=== PATIENT | female | born 1985 | race Caucasian/White ===

== ENCOUNTER 2018-05-13 18:54 | Emergency (ER) | payer MEDICAID, SELFPAY ==
[2018-05-13 18:55] VITALS: BP 162/93; PULSE 138; RESP 16; TEMP 36.6; O2SAT 97; BMI 39.1
[2018-05-13] MEDS: 0.9% Normal Saline 1,000 ML 1000 ML IV (21:50)
[2018-05-13] MEDS: Ondansetron 4 MG/2 ML Vial IV (21:50)
[2018-05-13 22:36] LABS: Bacteria 0 SEEN /hpf (None Seen); Mucous, Urine 0 SEEN /hpf (<or=2+); Red Blood Cells-Urine 0 SEEN /hpf (0-5)
[2018-05-13 22:42] LABS: Color, Urine Yellow (Yellow)
[2018-05-13 22:43] LABS: Glucose, Dipstick Normal (Normal); Ketone-Dipstick Negative (Negative); Leukocyte Esterase-Dipstick 100 /ul (Negative); Nitrite-Dipstick Negative (Negative); Occult Blood-Urine Negative /ul (Negative); Protein-Dipstick Negative (Negative); Urine Bilirubin Dipstick Negative (Negative); Urine Clarity Sl Cldy (Clear); Urine Urobilinogen Normal (Normal)
[2018-05-13 22:45] LABS: Squamous Epithelial Cells - UA 5-10 SEEN /hpf (5-10); White Blood Cells 5-10 SEEN /hpf (0-5)
--- NOTE | 2018-05-13 22:55 | ED.VISSUMM ---
- ER Visit Summary Date of Service: 05/13/18 Chief Complaint: Nausea and vomiting History of Present Illness: The patient is a 33 F no dyspnea past medical history. Prior appendectomy. Patient states she has had nausea and vomiting since 2 AM this morning. No significant abdominal pain. No fever. Several weeks ago she had a UTI that she thinks did not completely clear. She is having very mild dysuria. No hematuria. Her last menstrual period was approximately 3-4 weeks ago. Physical Examination: Well-appearing young female. Vital signs are stable afebrile. She is tachycardic. H EENT exam mildly dry mucous membranes. Neck nontender. Lungs clear to auscultation bilaterally. Heart tachycardic no murmur. Abdomen soft. Nondistended with normal bowel sounds. No peritoneal signs. Both right upper and lower quadrant unremarkable. No hernia or masses. No signs of obstruction. Patient moving all 4 extremities. Neurovascular intact. Calves are nontender without edema or cords. Neurologically she is awake and alert. Test Results: Urinalysis was unremarkable. There were 5-10 whites and 5-10 reds. A culture will be sent but there is no bacteria or nitrates and clinically I do not think this is a UTI. Emergency Department Course and Treatment: Patient treated with IV fluids and IV Zofran. She was able to take down p.o. fluids. On repeat exam she is doing well at 2257 and will be discharged home with a Zofran home pack. Treatment Plan: Fluids and rest. Zofran for nausea. Follow-up if not improving or return if worse. Disposition: Discharge Impression: Acute nausea and vomiting secondary to viral syndrome Dehydration This note was generated with [employer] dictation software. It may contain incorrect words, spelling, and punctuation that were not noted in review of the chart prior to signing ED Disposition - Plan for ED Patient: Chief Complaint: Nausea/Vomiting Referrals: Care Physician,No Primary [Primary Care Provider] -
--- NOTE | 2018-05-13 22:57 | ED.DEP ---
ED Disposition - Plan for ED Patient: Disposition: Home or Assisted Living Chief Complaint: Nausea/Vomiting Instructions: ED Nausea Vomiting Prescriptions: Ondansetron [Zofran Odt] 4 mg PO 4X/DAY PRN PRN #7 tab.rapdis PRN Reason: Nausea Referrals: Care Physician,No Primary [Primary Care Provider] - Additional Instructions: Plenty of fluids and rest. Zofran as needed for nausea. Follow-up with your doctor. Your urinalysis did not look like a urinary tract infection. I did send urine culture.
[2018-05-13] MEDS: Ondansetron ODT 4 MG Tablet PO (23:14)
[2018-05-13 23:17] VITALS: BP 122/91; PULSE 91; RESP 16; O2SAT 99
== END 2018-05-13 23:20 | disposition home or self-care (01) ==
PROVIDERS: Emergency Provider Emergency Medicine
DX: B34.9 Viral infection, unspecified (principal); E86.0 Dehydration; R30.0 Dysuria
CPT/HCPCS: 81001; 87086; 87088; 96361; 96374; 99283; J7030; A4216; J2405

== ENCOUNTER 2018-07-17 17:54 | Emergency (ER) | payer MEDICAID, SELFPAY ==
[2018-07-17 17:55] VITALS: BP 165/133; PULSE 103; RESP 16; TEMP 36.7; O2SAT 98; BMI 41.5
--- NOTE | 2018-07-17 18:05 | CT_ITS ---
STUDY: CT ABDOMEN AND PELVIS WITHOUT CONTRAST REASON FOR EXAM: Female, 33 years old. Left flank pain. RADIATION DOSAGE (If Supplied By Facility): CTDIvol = ( 21.69 ) mGy, DLP = ( 1224.61 ) mGycm TECHNIQUE: Transaxial images were obtained from the dome of the diaphragm to the symphysis pubis without oral contrast, and without intravenous contrast. Sagittal and coronal images were reconstructed. Individualized dose optimization techniques were used for this CT. COMPARISON: CT of the abdomen, July 22, 2007. FINDINGS: The visualized lung bases are unremarkable. The visualized portions of the heart are within normal limits. The liver is enlarged and diffusely fatty infiltrated. There is focal fatty sparing in the gallbladder fossa. There is no visualized mass. Normal gallbladder and extrahepatic biliary system. There is mild splenomegaly without mass. Normal pancreas. Normal bilateral adrenal glands. The right kidney is of normal size and cortical thickness. There is a 1 to 2 mm nonobstructing calculus in the upper pole. There is a 2 mm nonobstructing calculus lower pole. There is no hydronephrosis. Normal visualized right ureter. The left kidney is of normal size and cortical thickness. There is a 2 to 3 mm calcification in a mid calyx. There is no hydronephrosis. Normal visualized left ureter. Normal visualized stomach. Normal small intestine. Normal colon. There are surgical clips in the region of the appendix consistent with a prior appendectomy. Normal abdominal aorta. Normal inferior vena cava. Normal retroperitoneum. Normal urinary bladder. The uterus is anteverted and of normal size and appearance. Normal adnexa. There is no pelvic lymphadenopathy. Stable phlebolith right pelvis. No free air or free fluid is seen within the peritoneal cavity. Normal abdominal wall. Normal osseous structures. CT/Abdomen/Pelvis without Cont IMPRESSION: 1. Nonobstructing bilateral renal calculi. These are not noted on the previous contrast study. 2. Enlarged fatty infiltrated liver without focal mass. 3. Minimal splenomegaly. 4. Resolution of free fluid seen in the posterior cul-de-sac on the prior study. The examination is otherwise grossly stable. Electronically Signed: Tom Long DO at 19:23 EST Tel [phone], Service support ,
--- NOTE | 2018-07-17 18:07 | ED.VISSUMM ---
- ER Visit Summary Date of Service: 07/17/18 Chief Complaint: Left flank pain History of Present Illness: The patient is a 33 F who states that she has had a left flank pain off and on for several weeks. This afternoon it became more intense. Is been waxing and waning. Sharp aching. No nausea or vomiting. No diarrhea or constipation. There is been no urinary frequency, hematuria, or dysuria. Pain is worse with movement. No trauma. No fevers. Physical Examination: Afebrile vital signs are stable Gen: Well-nourished well-developed Head: Normocephalic atraumatic Eyes: Perrl EOMI ENT: TMs clear no rhinorrhea moist mucous membranes Neck: Supple no lymphadenopathy no JVD nontender CVS: Regular rate rhythm no murmurs normal S1-S2 Respiratory: No distress clear to auscultation bilaterally chest nontender Abdomen: Soft nontender nondistended normal bowel sounds no masses Back: Left CVA tenderness. No rash. Extremity: Nontender no edema Skin: Normal color no rash Neuro: alert orientated ?3 CN II-XII intact normal strength sensation reflexes gait cerebellar Psych: Normal affect normal mood Test Results: Urinalysis negative for infection. CT of the flank did not demonstrate any obvious obstructive stones. There is no perinephric stranding. CT does not demonstrate an obvious cause for the patient's symptoms. Emergency Department Course and Treatment: Patient received Toradol it helped for a while. I will write for Toradol at home. She is to return if worsening or concerns follow-up with primary care. Impression: 1. Left flank pain This note was generated with [employer] dictation software. It may contain incorrect words, spelling, and punctuation that were not noted in review of the chart prior to signing ED Disposition - Plan for ED Patient: Disposition: Home or Assisted Living Instructions: ED Flank Pain Uncertain Cause Prescriptions: Ketorolac [Toradol] 10 mg PO Q6H PRN #12 tab PRN Reason: Pain Referrals: Zachery Moreira MD [STAFF PHYSICIAN] -
[2018-07-17] MEDS: Ketorolac 30 MG/ML Syringe IV (18:15)
[2018-07-17 18:23] LABS: Mucous, Urine 0 SEEN /hpf (<or=2+); Red Blood Cells-Urine 0 SEEN /hpf (0-5)
[2018-07-17 18:35] LABS: Internal QC Validated? YES +Cl - CLEAR BKGD; Pregnancy, Urine Negative Negative
[2018-07-17 18:39] LABS: Color, Urine Yellow (Yellow); Glucose, Dipstick Normal (Normal); Ketone-Dipstick Negative (Negative); Leukocyte Esterase-Dipstick 100 /ul (Negative); Nitrite-Dipstick Negative (Negative); Occult Blood-Urine Negative /ul (Negative); Protein-Dipstick 15 mg/dl (Negative); Specific Gravity, Urine 1.015 (1.002-1.030); Urine Bilirubin Dipstick Negative (Negative); Urine Clarity Clear (Clear); Urine Urobilinogen Normal (Normal)
[2018-07-17 18:47] LABS: Bacteria RARE /hpf (None Seen); Squamous Epithelial Cells - UA 5-10 SEEN /hpf (5-10); White Blood Cells 0-5 SEEN /hpf (0-5)
[2018-07-17 19:58] VITALS: BP 143/97; PULSE 100; RESP 15; O2SAT 98
== END 2018-07-17 20:00 | disposition home or self-care (01) ==
PROVIDERS: Emergency Provider Emergency Medicine
DX: R10.9 Unspecified abdominal pain (principal); Z87.442 Personal history of urinary calculi
CPT/HCPCS: 74176; 81001; 81025; 99283; A4216

== ENCOUNTER → 2018-10-02 16:48 | Outpatient (CLI) | payer MEDICAID, SELFPAY ==
[2018-10-02 08:53] VITALS: BMI 41.5
[2018-10-03 12:55] LABS: Chlamydia Trachomatis by PCR Negative (Negative); Neisserai gonorrhoeae by PCR Negative (Negative); Probe Check PASS; Sample Adequacy Control PASS; Specimen Processing Control PASS
[2018-10-09 08:54] LABS: HPV APTIMA, High Risk Positive (Negative)
== END ==
PROVIDERS: Referring Provider Nurse Practitioner Women's Health; Visit Provider Nurse Practitioner Women's Health
DX: Z11.3 Encounter for screening for infections with a predominantly sexual mode of transmission (principal); Z01.419 Encounter for gynecological examination (general) (routine) without abnormal findings
CPT/HCPCS: 87491; 87591; 87624; 88175; G0145

== ENCOUNTER → 2018-10-04 13:45 | Outpatient (CLI) | payer MEDICAID, SELFPAY ==
[2018-10-02 08:53] VITALS: BMI 41.5
--- NOTE | 2018-10-04 13:46 | US_ITS ---
STUDY: ULTRASOUND OF THE FEMALE PELVIS - COMPLETE REASON FOR EXAM: Female, 33 years old. Menorrhagia LMP: 09/20/2018 TECHNIQUE: Transabdominal and Transvaginal TECHNICAL QUALITY: Adequate. COMPARISON: CT dated July 17, 2018 FINDINGS: The uterus is anteverted and is in a midline position. The uterus measures 10.1 x 5.7 x 4.6 cm. There is a Nabothian cyst of the cervix. The endometrium measures 8.9 mm in thickness, and is within normal limits. There is no demonstrated endometrial mass. There is no demonstrated myometrial mass. The myometrium is heterogenous. I.U.D. - The patient does not have an I.U.D. The right ovary is visualized. The right ovary measures 3.8 x 2.8 x 2.6 cm. There is no right ovarian cyst or ovarian mass. There is no visualized right adnexal mass or complex lesion. There is normal arterial and normal venous vascularity. The left ovary is visualized. The left ovary measures 3.1 x 2.8 x 2.5 cm. There is no left ovarian cyst or ovarian mass. There is no visualized left adnexal mass or complex lesion. There is normal arterial and normal venous vascularity. There is trace fluid in the cul-de-sac. The pre void volume of the bladder was 555.87 ml. US/Transvaginal Non- IMPRESSION: Heterogenous myometrium may be secondary to underlying adenomyosis. Electronically Signed: Julieta Smith MD at 16:03 EDT Tel , Service support ,
--- NOTE | 2018-10-04 13:46 | US_ITS ---
STUDY: ULTRASOUND TRANSVAGINAL CLINICAL: Female, 33 years old. Menorrhagia TECHNIQUE: Transvaginal COMPARISON: CT dated July 17, 2018 FINDINGS: Normal uterine size measuring 10.1 cm in maximal craniocaudal dimension. The myometrium is heterogenous. There are no myometrial masses. There is a defect within the anterior lower uterine segment which may be secondary to a prior section. Normal endometrial thickness measuring 8.9mm. There are no endometrial masses, and there is no fluid in the endometrial cavity. There is a nabothian cyst present. Normal right ovary, measuring 3.8 x 2.8 x 2.6 cm. There are multiple follicles without a dominant cyst. Normal left ovary, measuring 3.1 x 2.8 x 2.5 cm. There are multiple follicles without a dominant cyst. There is minimal free fluid in the pelvis. US/Pelvic (Non ) IMPRESSION: Heterogenous myometrium may be secondary to underlying adenomyosis. Electronically Signed: Julieta Smith MD at 16:02 EDT Tel , Service support ,
== END ==
PROVIDERS: Referring Provider Nurse Practitioner Women's Health; Visit Provider Nurse Practitioner Women's Health
DX: N92.0 Excessive and frequent menstruation with regular cycle (principal)
CPT/HCPCS: 76830; 76856; 93976

== ENCOUNTER 2018-10-12 13:08 | Emergency (ER) | payer MEDICAID, SELFPAY ==
[2018-10-02 08:53] VITALS: BMI 41.5
[2018-10-12 13:09] VITALS: BP 175/96; PULSE 108; RESP 16; TEMP 36.3; O2SAT 98; BMI 39.1
--- NOTE | 2018-10-12 13:28 | ED.VISSUMM ---
- ER Visit Summary Date of Service: 10/12/18 Chief Complaint: Abdominal pain, black stool History of Present Illness: The patient is a 33 F who presents with abdominal pain and black stools. She states the pain started yesterday. It is epigastric in nature. Nothing makes it better or worse. She did notice some dark and tarry stools last night. She is not on any blood thinners. She has no history of this in the past. No nausea or vomiting. She just got off of antibiotics for urinary tract infection. Physical Examination: Vital signs reviewed. HEENT exam unremarkable. Heart is regular rate and rhythm without murmurs. Lungs are clear to auscultation. Abdomen is soft and nontender. Rectal exam reveals external hemorrhoids which are nonbleeding and nonthrombosed. She does have some mild rectal tenderness. Extremities reveal no edema. Skin exam normal. Neurologic exam normal. Test Results: Laboratory studies are normal except for an ALT of 66. Rectal exam is negative guaiac Emergency Department Course and Treatment: Patient was given a GI cocktail. She states it did not help significantly. She has no active bleeding. Her pain may be due to some ulcers which are intermittently bleeding, especially with her being on antibiotics recently. Patient will be discharged with omeprazole to take every day. She will follow-up with her PCP Treatment Plan: [] Disposition: Discharge Impression: Epigastric abdominal pain This note was generated with [employer] dictation software. It may contain incorrect words, spelling, and punctuation that were not noted in review of the chart prior to signing ED Disposition - Plan for ED Patient: Referrals: Care Physician,No Primary [Primary Care Provider] -
[2018-10-12] MEDS: Mag Hydrox/Al Hydrox/Simeth 30 ML UDC PO (13:45)
[2018-10-12 13:51] LABS: ALB/GLOB Ratio 1.2 RATIO (0.9-2.4); AST(SGOT) 31 U/L (15-37); Alanine Aminotransfer ALT/SGPT 66 U/L (13-56); Alkaline Phosphatase 52 U/L (45-117); Anion Gap 4 (5-15); BUN 12 mg/dL (7-18); BUN/Creat Ratio 15.2 RATIO (10-20); Calcium,Total 9.1 mg/dL (8.5-10.1); Chloride 108 mmol/L (98-107); Creatinine, Serum 0.79 mg/dL (0.55-1.02); EST Glomerular Filtration Rate 90 mL/min (>60); Est Glom Filt Rate - Afr Amer 109 mL/min (>60); Estimated Creatinine Clearance 96.59 ml/min; Globulin 3.4 g/dL (2.2-4.2); Glucose 93 mg/dL (74-106); Potassium 3.8 mmol/L (3.5-5.1); Protein, Total 7.4 g/dL (6.4-8.2); Sodium Level 139 mmol/L (136-145)
[2018-10-12 14:13] LABS: Absolute Lymphocyte Count 1.66 X10^3/ul (0.83-4.51); Absolute Neutrophil Count 2.6 X10^3/uL (2.0-7.7); Basophil# 0.02 X10^3/uL; Basophil% 0.4 % (0-1); Hematocrit 38.6 % (37-47); Hemoglobin 12.6 g/dl (12.0-15.0); Lymphocyte # 1.66 X10^3/ul (4.0); Mean Corp Hgb Conc 32.6 g/gl (32-36); Mean Corpuscular Hgb 25.5 pg (27.0-32.0); Mean Corpuscular Volume 78.1 fL (81-99); Mean Platelet Vol. 10.2 fl (6.2-12.0); Monocyte# 0.65 X10^3/uL; Monocyte% 12.9 % (0-10); Neutrophil % 51.7 % (47-70); POSITIVE COUNT NO; POSITIVE DIFFERENTIAL NO; POSITIVE MORPHOLOGY NO; Platelet Count 232 K/mm3 (150-450); RBC Distribution Width CV 13.9 % (11.6-14.6); RBC Distribution Width SD 39.4 fl (35.1-43.9); Red Blood Count 4.94 M/mm3 (4.2-5.4)
--- NOTE | 2018-10-12 14:31 | ED.DEP ---
ED Disposition - Plan for ED Patient: Disposition: Home or Assisted Living Instructions: ED Epigastric Pain [facility] Prescriptions: Omeprazole [Prilosec] 20 mg PO DAILY #30 cap Referrals: Care Physician,No Primary [Primary Care Provider] -
[2018-10-12 14:43] VITALS: BP 137/82; PULSE 90; RESP 17; O2SAT 100
--- NOTE | 2018-10-12 14:43 | ED.RN ---
IV DC'ED, CATHETER INTACT, SMALL GAUZE DRESSING PLACED. DISCHARGE INSTRUCTIONS GIVEN TO AND REVIEWED WITH PATIENT, PATIENT DENIES QUESTIONS OR CONCERNS AND VOICES UNDERSTANDING OF DISCHARGE INSTRUCTIONS. PT AMBULATES OUT OF ROOM WITHOUT DIFFICULTY.
== END 2018-10-12 14:44 | disposition home or self-care (01) ==
PROVIDERS: Emergency Provider Emergency Medicine
DX: R10.13 Epigastric pain (principal); K64.4 Residual hemorrhoidal skin tags; Z87.440 Personal history of urinary (tract) infections
CPT/HCPCS: 80053; 82274; 85025; 99284

== ENCOUNTER → 2018-11-06 09:29 | Outpatient (CLI) | payer MEDICAID, SELFPAY ==
--- NOTE | 2018-11-06 | CER_PTH ---
PATIENT: JANNETTE LORENZO LOC: [facility] #:[id number] AGE/SX: 40/F ROOM: RE11/06/[address]: Dr. Swathi Lewis MD : 1985 BED: DIS: SPEC #: [id number] RECD: 11/06/18 17:00 STATUS: ELIZABETH LOYD #: [id number] LILA: 11/06/18 00:[address]: Swathi Lewis DEPT: SURGICAL PATHOLOGY RECD BY: Guillaume Hernández ENTERED: 11/07/18 10:22 SP TYPE: CERV OTHR DR: No Primary Care Phys Tissues: A - Endocervical B - Endocervical Procedures: Surgery Specimen Level IV HEADER OPERATION: Colposcopy PRE-OP DIAGNOSIS: HGSIL, HPV positive TISSUE SUBMITTED: A - ECC, B - 12 o'clock MICROSCOPIC DIAGNOSIS A. Endocervix, curettings: Detached fragments of dysplastic squamous epithelium consistent with high grade squamous dysplasia. See comment. B. 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 See comment. AM:marisel 11/08/18 COMMENT A & B. Results from immunohistochemistry ([id number]) for surrogate HPV marker (p16) will be reported separately. MICROSCOPIC DESCRIPTION Slides are reviewed. GROSS DESCRIPTION A - Received in fixative is one container labeled with the patient's name and designated ECC. The specimen consists of slightly cloudy fluid. No tissue fragments are identified. The specimen is submitted for cell block preparation. B - Received in fixative is one container labeled with the patient's name and designated 12 o'clock. The specimen consists of one irregular fragment of light don soft tissue that measures 0.3 x 0.2 x 0.1 cm. The specimen is totally submitted in one cassette. / CE:marisel 11/07/18 TC:0 CPT: 08671 x2
--- NOTE | 2018-11-06 | IMM_PTH ---
PATIENT: JANNETTE LORENZO LOC: [facility] U#:[id number] AGE/SX: 40/F ROOM: RE11/06/[address]: Dr. Swathi Lewis MD : 1985 BED: DIS: SPEC #: [id number] RECD: 11/08/18 13:24 STATUS: ELIZABETH REQ #: [id number] LILA: 11/06/18 00:[address]: Swathi Lewis DEPT: IMMUNOHISTOCHEMISTRY RECD BY: Adelita Rosado ENTERED: 11/08/18 13:25 SP TYPE: IMMUNO OTHR DR: No Primary Care Phys Tissues: A - Endocervical B - Uterine cervix, NOS Procedures: p16 (initial) KI-67 (add) PHYSICIAN & INSTITUTION [place] [id number] SPECIMEN INFORMATION: Tissue Source: A - ECC, B - Cervix at 12 o'clock Clinical Info: HGSIL, HPV positive Specimen Number: [id number] A & B CPT code: 90759 x2, 23254 x2 METHODOLOGY: Deparaffinized sections of prefer/formalin-fixed tissue or PAP/DQ stained slides are incubated with monoclonal/polyclonal antibodies/oligonucleotide probes. Localization is made via biotin free immunoperoxidase method. Appropriate controls are performed and reacted as expected. Results on target cell population are indicated in the following table: RESULTS: ANTIBODY / CLONE RESULT Block A P16 (E6H4) positive, strong, block-like Ki-67 (30-9) positive, moderate Block B P16 (E6H4) positive, strong, block-like Ki-67 (30-9) positive, moderate These tests were developed and their performance characteristics determined by [facility]. They may not have been cleared or approved by the U.S. Food and Drug Administration. The FDA has determined that such clearance or approval is not necessary. INTERPRETATION: A. Endocervix, curettage: Consistent with detached squamous epithelium with high-grade dysplasia (HSIL). B. Cervix at 12 o'clock, biopsy: High-grade squamous dysplasia (HGSIL). AM:marisel 11/11/18
[2018-11-06 12:14] VITALS: BMI 39.5
== END ==
PROVIDERS: Referring Provider Obstetrics & Gynecology; Visit Provider Obstetrics & Gynecology
DX: R87.623 High grade squamous intraepithelial lesion on cytologic smear of vagina (HGSIL) (principal); A63.0 Anogenital (venereal) warts
CPT/HCPCS: 88305; 88341; 88342

== ENCOUNTER 2018-11-29 23:03 | Emergency (ER) | payer MEDICAID, SELFPAY ==
[2018-11-06 12:14] VITALS: BMI 39.5
[2018-11-29 23:04] VITALS: BP 161/89; PULSE 112; RESP 16; TEMP 36.8; O2SAT 98; BMI 42.0
--- NOTE | 2018-11-29 23:55 | ED.DCSUM_ITS ---
- ER Visit Summary Date of Service: 11/29/18 Chief Complaint: Sore throat History of Present Illness: The patient is a 33 F with a 4-day history of sore throat that feels similar to her prior strep. She had a fever up to 101 at home. She was seen in urgent care 3 days ago and a rapid strep was negative but the patient does not feel they got a good swab. She has not had cough or congestion. Physical Examination: Blood pressure is 161/89 and heart rate 112. She is afebrile at this time. Patient sitting upright in bed no acute distress. She is able to speak with a strong voice. She is tolerating secretions well. Head and neck examination reveals TMs to be clear. She does have 3+ tonsils with erythema. Uvula is midline. She has bilateral anterior cervical lymphadenopathy. Heart is regular rate and rhythm. Lung sounds clear. Abdomen is soft nontender. Test Results: [] Emergency Department Course and Treatment: Patient has at least 4 Centor criteria and will be treated with a course of antibiotics. She is an allergy to penicillins and will be given Zithromax. Treatment Plan: [] Disposition: Discharge Impression: Pharyngitis This note was generated with [employer] dictation software. It may contain incorrect words, spelling, and punctuation that were not noted in review of the chart prior to signing ED Disposition - Plan for ED Patient: Disposition: Home or Assisted Living Instructions: PHARYNGITIS, Strep (Presumed) Prescriptions: Azithromycin [Zithromax] 250 mg PO DAILY #4 tab Prescription Printed Referrals: Jed Dickens III, MD [Primary Care Provider] - 1 Week if not improving
[2018-11-30] MEDS: Azithromycin 250 MG Tablet 500 MG PO (00:22)
== END 2018-11-30 00:22 | disposition home or self-care (01) ==
LOC: ED 11-30 00:12
PROVIDERS: Emergency Provider Emergency Medicine; Family Provider Family Medicine; PCP Family Medicine
DX: J02.9 Acute pharyngitis, unspecified (principal); I10 Essential (primary) hypertension; K21.9 Gastro-esophageal reflux disease without esophagitis
CPT/HCPCS: 99283

== ENCOUNTER 2018-11-30 23:10 | Emergency (ER) | payer MEDICAID, SELFPAY ==
[2018-11-29 23:04] VITALS: BMI 42.0
[2018-11-30 23:10] VITALS: BP 168/117; PULSE 130; RESP 22; TEMP 37.1; O2SAT 99; BMI 40.7
--- NOTE | 2018-11-30 23:21 | ED.DCSUM_ITS ---
- ER Visit Summary Date of Service: 11/30/18 Chief Complaint: Sore throat History of Present Illness: The patient is a 33 F who continues to have a sore throat. She was started on antibiotics yesterday. Patient with her mother comes in tonight saying that she cannot swallow anything. She continues to have fevers up to 101 ?F. She has been taking the antibiotics as prescribed. She is having trouble sleeping. Physical Examination: Signs reviewed. HEENT exam reveals posterior or opharyngeal erythema with tonsillar swelling exudates. Her uvula is midline. She is handling all the secretions. Her voice is normal. Neck is supple with anterior lymphadenopathy. Heart is tachycardic and regular without murmurs. Lungs clear. Abdomen soft. Neurologic exam normal Test Results: None performed Emergency Department Course and Treatment: The patient is handling all her secretions and swallowing her own saliva. I will give her a dose of prednisone and a course of prednisone for home to help with pain. I would not give her any narcotics. She will continue the antibiotics until they are completed Treatment Plan: [] Disposition: Discharge Impression: Pharyngitis This note was generated with [employer] dictation software. It may contain incorrect words, spelling, and punctuation that were not noted in review of the chart prior to signing ED Disposition - Plan for ED Patient: Referrals: Jed Dickens III, MD [Primary Care Provider] -
--- NOTE | 2018-11-30 23:22 | ED.DEP ---
ED Disposition - Plan for ED Patient: Disposition: Home or Assisted Living Instructions: PHARYNGITIS, Report Pending Prescriptions: Prednisone [Deltasone] 40 mg PO DAILY #8 tab Prescription Printed Referrals: Jed Dickens III, MD [Primary Care Provider] -
[2018-11-30] MEDS: predniSONE 20 MG Tablet 40 MG PO (23:25)
== END 2018-11-30 23:30 | disposition home or self-care (01) ==
LOC: ED 23:27
PROVIDERS: Emergency Provider Emergency Medicine; Family Provider Family Medicine; PCP Family Medicine
DX: J02.9 Acute pharyngitis, unspecified (principal)
CPT/HCPCS: 99283

== ENCOUNTER 2018-12-26 12:31 | Day surgery (SDC) | payer MEDICAID, SELFPAY ==
[2018-11-06 12:14] VITALS: BMI 39.5
[2018-12-02 08:07] VITALS: BMI 40.7
--- NOTE | 2018-12-02 08:35 | PCM.HPOB.BLA ---
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 Status: Acute Comment: needs LEEP History and Physical Date of Admission: 12/19/18 Intake Vital Signs 12/02/18 Body Mass Index (BMI) 40.7 12/02/18 Height 5 ft 6 in 12/02/18 Weight: 244 lb 12/02/18 Body Mass Index (BMI) 39.4 12/02/18 Blood Pressure 110/84 H Intake Visit Reasons: pre op LEEP soap/folder Chief Complaint: pre op LEEP Claims Auditor Required: No Is patient in pain?: No Allergies Penicillins Allergy (Verified 12/02/18 08:07) Rash Medications Azithromycin [Zithromax] 250 mg PO DAILY #4 tab 11/29/18 [Rx Confirmed 12/02/18] Prednisone [Deltasone] 40 mg PO DAILY #8 tab 11/30/18 [Rx] Is last menstrual period known: No Post menopausal: No Patient : No : No [facility] Medical History Gestational diabetes (Acute) Hemorrhoids (Acute) HTN (hypertension) (Chronic) Tubal ligation status (Resolved) Surgical History History of appendectomy (Acute) S/P (Resolved) Family History Father Hypertension Social History (Updated 12/02/18 @ 08:28 by Swathi Lewis MD) Smoking Status: Never smoker alcohol intake: current details: occasionally substance use type: does not use caffeine: Yes what type of physical activity do you participate in: none seatbelt use: always do you feel safe at home: Yes 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 she is recovering from strep throat. Pregancy History 3 Elective abortions Hx Para 3 Spontaneous abortions Hx # Term Pregnancies Ectopic pregnancies Hx # Pregnancies Multiple births # of living children Past Pregnancies Del. Date Name GA/Weeks Outcome Route Bth Weight Gen Labor Lgth Anesthesia Del Locatn Provider FOB 05/05/11 Ronald 38 live - full term 8 lbs 6oz Male epidural [facility] Dr. Joey Chavez 12/22/13 Wendijaskaran 37 live - full term 6 lbs 6 oz Female epidural [facility] Dr. Ignacio Chavez 02/25/17 Jose 36 live - full term 4 lbs 10 oz Male spinal [facility] Dr. Debbie Chavez Delivery Date: 10/13/10 On 01/02/18 @ 10:54 Danielle,Hamida She had high blood pressure and gestational diabetes. Induced due to high blood pressure. Delivery Date: 12/22/13 On 01/02/18 @ 10:56 Danielle,Hamida Patient had high blood pressure and gestational diabetes. Induced due to high blood pressure. Delivery Date: 02/25/17 On 01/02/18 @ 10:58 Danielle,Hamida Patient had high blood pressure and gestational diabetes. Had preeclampsia, was induced then baby was breech. ROS Const Constitutional: Denies fatigue, fever(s), headache(s), increased appetite, poor appetite, weight gain or weight loss Cardio Card: Denies chest pain Resp Resp: Denies cough or dyspnea GI GI: Reports as per HPI; denies abdominal pain, constipation, nausea or vomiting : Reports as per HPI; denies difficulty urinating, painful urination, nipple discharge, urinary frequency, urinary incontinence, urinary hesitancy, urinary urgency, vaginal discharge, vaginal dryness, vaginal odor or vaginal itching Skin Skin/Breast: Denies change in hair, breast lump, breast pain, breast skin changes or nipple discharge Exam Const General: cooperative, healthy appearing, comfortable, no acute distress, well developed Nutritional Appearance: average body habitus Orientation: alert [facility] Head: normal to inspection, normocephalic Neck Neck: normal visual inspection, trachea midline Thyroid: thyroid normal Resp Effort & Inspection: normal respiratory effort GI Inspection: normal to inspection, non-distended Palpation: soft, no hepatosplenomegaly Skin General: no rashes or lesions noted Assessment & Plan Problems 1. 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 Swathi Lewis MD
[2018-12-26] VITALS (7 sets, daily range): BP systolic 132–140; BP diastolic 62–104; PULSE 69–83; RESP 16; TEMP 36.1–36.6; O2SAT 98–100; BMI 39.6
--- NOTE | 2018-12-26 | CER_PTH ---
PATIENT: JANNETTE LORENZO LOC: [facility] [place] U#:[id number] AGE/SX: 33/F ROOM: RE12/26/[address]: Dr. Swathi Lewis MD : 1985 BED: DIS: 12/26/2018 SPEC #: [id number] RECD: 12/26/18 15:32 STATUS: ELIZABETH LOYD #: [id number] LILA: 12/26/18 00:[address]: Swathi Lewis DEPT: SURGICAL PATHOLOGY RECD BY: Guillaume Hernández ENTERED: 12/27/18 08:03 SP TYPE: CERV OTHR DR: Dr. Jed Dickens III, MD Tissues: A - Uterine cervix, NOS B - Uterine cervix, NOS C - Endocervical Procedures: Surgery Specimen Level IV HEADER OPERATION: LEEP cone PRE-OP DIAGNOSIS: OTILIA III with severe dysplasia TISSUE SUBMITTED: A - Anterior lip, B - Posterior lip, C - Endocervical curettings MICROSCOPIC DIAGNOSIS A. 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 Chronic inflammation. See comment. B. Posterior lip, LEEP conization: Negative for dysplasia. Moderate chronic inflammation. C. Endocervical curettings: Fragments of benign endocervical mucosa with chronic inflammation, blood and mucus, negative for dysplasia. SJ:marisel 12/30/18 COMMENT A. The resection margin cannot be adequately evaluated due to fragmented nature of the specimen. Immunohistochemistry ([id number]) for surrogate HPV marker (p16) supports the above diagnosis. Please make reference to previous specimen ([id number]) endocervix, curettings with diagnosis of detached fragments of dysplastic squamous epithelium consistent with high-grade squamous dysplasia and cervix at 12 o'clock, biopsy with diagnosis of moderate to severe squamous dysplasia. Case has been reviewed in consultation with Dr. Conte who concurs with the above diagnosis. IDC:AM MICROSCOPIC DESCRIPTION Slides are reviewed. GROSS DESCRIPTION A - Received in fixative is one container labeled with the patient's name and designated anterior lip. The specimen consists of two pieces of don, indurated tissue measuring 1.8 x 0.6 x 0.3 cm and 2.2 x 1.5 x 1 cm. No mucosal lesion is identified. The nonmucosal surface is inked black. The smaller piece is bisected and the larger piece is serially sectioned. The entire specimen is submitted in four cassettes as follows: 1 - smaller piece, 2-4 - large piece. B - Received in fixative is one container labeled with the patient's name and designated posterior lip. The specimen consists of five variable sized pieces of don, indurated tissue that in aggregate measure 2.5 x 3 x 1 cm and the smallest piece measures 0.8 x 0.5 x 0.3 cm and the largest piece measures 2 x 1.5 x 0.8 cm. No mucosal lesion is identified. The nonmucosal surface is inked black. The larger three pieces are bisected. The entire specimen is submitted in five cassettes as follows: 1 - two smallest pieces, 2 & 3 - intermediate piece is serially sectioned, 4 & 5 - largest piece. C - Received in fixative is one container labeled with the patient's name and designated endocervical curettings. The specimen consists of multiple fragments of hemorrhagic mucoid tissue that in aggregate measure 1 x 0.5 x 0.1 cm. The specimen is totally submitted in one cassette. / ASHLEY:marisel 12/27/18 TC:5 CPT: 08296 x2, 19665
--- NOTE | 2018-12-26 | IMM_PTH ---
PATIENT: JANNETTE LORENZO LOC: [facility] [place] U#:[id number] AGE/SX: 33/F ROOM: RE12/26/[address]: Dr. Swathi Lewis MD : 1985 BED: DIS: 12/26/2018 SPEC #: [id number] RECD: 12/30/18 11:34 STATUS: ELIZABETH REJuliet #: [id number] LILA: 12/26/18 00:[address]: Swathi Lewis DEPT: IMMUNOHISTOCHEMISTRY RECD BY: Adelita Rosado ENTERED: 12/30/18 11:36 SP TYPE: IMMUNO OTHR DR: Dr. Jed Dickens III, MD Tissues: A - Uterine cervix, NOS Procedures: p16 (initial) KI-67 (add) PHYSICIAN & INSTITUTION [place] [id number] SPECIMEN INFORMATION: Tissue Source: A - Anterior lip, LEEP conization Clinical Info: OTILIA III with severe dysplasia Specimen Number: [id number] CPT code: 31086, 38833 METHODOLOGY: Deparaffinized sections of prefer/formalin-fixed tissue or PAP/DQ stained slides are incubated with monoclonal/polyclonal antibodies/oligonucleotide probes. Localization is made via biotin free immunoperoxidase method. Appropriate controls are performed and reacted as expected. Results on target cell population are indicated in the following table: RESULTS: ANTIBODY / CLONE RESULT Block A P16 (E6H4) positive, block staining Ki-67 (30-9) positive, moderate These tests were developed and their performance characteristics determined by [facility]. They may not have been cleared or approved by the U.S. Food and Drug Administration. The FDA has determined that such clearance or approval is not necessary. INTERPRETATION: A. Anterior lip, LEEP conization: Focal moderate to severe squamous dysplasia. SJ:marisel 12/31/18
[2018-12-26 12:55] LABS: Internal QC Validated? YES +Cl - CLEAR BKGD; Pregnancy, Urine Negative Negative
[2018-12-26 13:04] LABS: Hematocrit 40.5 % (37-47); Hemoglobin 12.9 g/dL (12.0-15.0); Mean Corp Hgb Conc 31.9 g/dL (32-36); Mean Corpuscular Hgb 25.4 pg (27.0-32.0); Mean Corpuscular Volume 79.9 fL (81-99); Mean Platelet Vol. 9.9 fl (6.2-12.0); Platelet Count 220 K/mm3 (150-450); RBC Distribution Width CV 14.2 % (11.6-14.6); RBC Distribution Width SD 41.1 fl (35.1-43.9); Red Blood Count 5.07 M/mm3 (4.2-5.4); White Blood Count 4.6 K/mm3 (4.4-11.0)
[2018-12-26] MEDS: FERRIC SUBSULFATE 8 GM SOLN (14:23)
--- NOTE | 2018-12-26 14:28 | DCINST_ITS ---
Discharge Diet: No Restrictions Discharge Activity: Return to Normal Activity, May not drive while taking narcotic pain medications. May resume sexual activity in: 4 weeks - Nothing in the vagina for 4 weeks Call your doctor if you observe: Fever of 101 or Higher, Using more than one pad per hour Allergies/Adverse Reactions: Allergies Penicillins Allergy (Verified 12/19/18 14:09) Rash Medications to take at Discharge Levonorgestrel [Liletta] 1 ea IY X1 12/19/18 Primary Care Physician: Jed Dickens III, MD [Primary Care Provider] - Test Results: Test results from this visit will be discussed in further detail at your follow- up appointment, if applicable. Please Follow Up With: Swathi Lewis MD - [phone]
--- NOTE | 2018-12-26 14:28 | PCM.OPRPT ---
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 Paracervical block was placed with 1% lidocaine and using a loop electrode the outer part of the cervix was removed including the squamocolumnar junction. this was done in multiple swipes due to the large cervix and the IUD strings that were avoided with cervical removal. increased bleeding was noted and an 0 vicryl was used to obtain hemostasis in addition to cautery. Endocervical curettings were taken and the base of the cervix was cauterized around the borders and the base to obtain excellent hemostasis. Monsel's paste was placed and patient was awoken and taken recovery in stable condition. Grafts/Implants Used: none - Complications none - Admit VTE Documentation VTE Present on Admission: No
[2018-12-26] MEDS: HYDROcodone Bitartrate/Apap 5/325 Tablet PO (15:19)
== END 2018-12-26 17:00 | disposition home or self-care (01) ==
LOC: SDC 12:32 → AC 12:33
PROVIDERS: Family Provider Family Medicine; PCP Family Medicine; Referring Provider Obstetrics & Gynecology; Visit Provider Obstetrics & Gynecology
PROC: 0UBC7ZZ Excision of Cervix, Via Natural or Artificial Opening (ICD-10-PCS; CPT 57522; principal; 2018-12-26 13:40)
DX: D06.9 Carcinoma in situ of cervix, unspecified (principal); I10 Essential (primary) hypertension; Z88.0 Allergy status to penicillin
CPT/HCPCS: 00940; 57522; 36415; 81025; 85027; 86850; 86900; 88305; 88341; 88342; J7120; J2405

== ENCOUNTER 2019-02-03 23:07 | Emergency (ER) | payer MEDICAID, SELFPAY ==
[2019-01-13 08:23] VITALS: BMI 39.6
[2019-02-03 23:09] VITALS: BP 150/86; PULSE 84; RESP 18; TEMP 36.1; BMI 41.3
--- NOTE | 2019-02-03 23:27 | CT_ITS ---
HISTORY: RIGHT FLANK PAIN, HX KS WITH STENT PLACEMENT IN PAST, TUBAL LIGATION, APPY, TECHNIQUE: Helically acquired images were obtained of the abdomen and pelvis without oral or IV contrast. A radiation dose optimization technique was used for this scan. COMPARISON: None FINDINGS: # of images incl. paperwork: 531 LUNG BASES: clear. CT abdomen: Bones are unremarkable. The gallbladder remains. Liver, spleen, pancreas, and adrenal glands are normal. Both kidneys contain tiny nonobstructing nephroliths. No hydronephrosis or ureteric stones. The aorta is normal. There is no intra-or extrahepatic biliary ductal dilatation. CT pelvis: No ascites is present. The the uterus remains. The IUD is low in the uterus likely within the spine and endocervical canal. The appendix has been resected. The bladder is decompressed. Bowel gas pattern is normal. CT/Abdomen/Pelvis without Cont IMPRESSION: IUD within the cervix. No acute intra-abdominal disease perceived. Nonobstructing bilateral nephroliths Individualized dose optimization techniques were used for this CT. at 0004 Reported and signed by: Salvador Orellana MD Electronically Signed: Salvador Orellana MD at 0:02 EDT Tel , Service support ,
--- NOTE | 2019-02-03 23:28 | ED.DCSUM_ITS ---
History of Present Illness Chief Complaint: Complaint Narrative: Patient is a 33-year-old female who presents with possible kidney stone. About a week and a half ago she developed mild urinary incontinence and mild dysuria. She was seen in urgent care and had a urine dip and was diagnosed with a UTI. She was then called back with the culture results which were negative. She was told she had some blood and protein in her urine. In the past 2 or 3 days she is also developed right flank pain. She does have a history of kidney stones requiring lithotripsy and ureteral stent in 2016. She states her pain occasionally radiates down to the right lower abdomen. No fevers. Mild nausea. No vomiting. No diarrhea. Past Medical History - Allergies and Home Meds Allergies/Adverse Reactions: Allergies Penicillins Allergy (Verified 01/13/19 08:22) Rash Primary Care Physician: Care Physician,No Primary [NON-STAFF] - Past Medical History: - - Prior kidney stones Surgical History: - - , ureteral stent, lithotripsy Smoking Status: Never smoker Review of Systems All systems negative except as indicated General: Denies: Fever Cardiovascular: Denies: Chest pain Respiratory: Denies: Cough Gastrointestinal: Reports: Abdominal pain, Nausea, - - Right flank pain. Denies: Vomiting, Diarrhea Genitourinary: Reports: Dysuria Physical Exam Vital Signs/Narrative: Vital Signs Temp Pulse Resp BP 02/03/19 23:09 96.9 F L 84 18 150/86 H General: Well nourished, Well developed Head: Normocephalic Eyes: EOMI ENT: Moist mucous membranes Cardiovascular: Regular rate, Regular rhythm Respiratory: No distress, CTA bilaterally Abdomen: Soft, Nontender, Nondistended Back: CVA tenderness - Right Skin: Normal color Neurological: Alert Psychological: Normal affect Diagnostic/Tx/Re-eval Impressions Abdomen/Pelvis CT 02/03/19 23:27 IMPRESSION: IUD within the cervix. No acute intra-abdominal disease perceived. Nonobstructing bilateral nephroliths Individualized dose optimization techniques were used for this CT. at 0004 Reported and signed by: Salvador Orellana MD Electronically Signed: Salvador Orellana MD at 0:02 EDT Tel , Service support , 02/03/19 23:27 Abdomen/Pelvis without Cont [CT] Stat Laboratory Results 02/03/19 02/03/19 02/03/19 23:28 23:28 23:30 WBC 5.7 RBC 5.00 Hgb 12.9 Hct 39.7 MCV 79.4 L MCH 25.8 L MCHC 32.5 RDW Std Deviation 39.0 RDW Coeff of Mariaa 13.6 Plt Count 265 MPV 9.4 Immature Gran % (Auto) 0.200 Neut % (Auto) 49.2 Lymph % (Auto) 39.0 Graham % (Auto) 8.7 Eos % (Auto) 2.4 Baso % (Auto) 0.5 Absolute Neuts (auto) 2.8 Absolute Lymphs (auto) 2.24 Nucleated RBC % 0 Sodium 143 Potassium 3.4 L Chloride 108 H Carbon Dioxide 29.0 Anion Gap 6 BUN 10 Creatinine 0.77 Estim Creat Clear Calc 95.26 Est GFR (MDRD) Af Amer 112 Est GFR (MDRD) Non-Af 92 BUN/Creatinine Ratio 13.0 Glucose 111 H Calcium 8.9 Urine Color Yellow Urine Clarity Clear Urine pH 5.0 Ur Specific [place] 1.025 Urine Protein 15 H Urine Glucose (UA) Normal Urine Ketones Negative Urine Occult Blood 10 H Urine Nitrite Negative Urine Bilirubin Negative Urine Urobilinogen Normal Ur Leukocyte Esterase 500 H Urine RBC 0 SEEN Urine WBC 5-10 SEEN Ur Squamous Epith Cells 25-50 SEEN Amorphous Sediment 2+ Urine Bacteria 0 SEEN Urine Mucus 0 SEEN - Medical Decision Making UA does show leukocyte esterase but is also contaminated. Given that the patient had a recent negative urine culture I would defer on antibiotics and await urine culture result. CT the abdomen pelvis shows no acute process. Patient was advised of these findings. Her symptoms are well controlled at this time. She was advised to follow-up as an outpatient. She understands to return for new or worsening symptoms and was discharged home. ED Disposition - Plan for ED Patient: Diagnosis: Flank pain Instructions: FLANK PAIN, Uncertain Cause Referrals: Care Physician,No Primary [NON-STAFF] -
[2019-02-03] MEDS: 0.9% Normal Saline 1,000 ML 1000 ML IV (23:33)
[2019-02-03 23:36] LABS: Bacteria 0 SEEN /hpf (None Seen); Mucous, Urine 0 SEEN /hpf (<or=2+); Red Blood Cells-Urine 0 SEEN /hpf (0-5)
[2019-02-03 23:42] LABS: Absolute Lymphocyte Count 2.24 X10^3/uL (0.83-4.51); Absolute Neutrophil Count 2.8 X10^3/uL (2.0-7.7); Basophil# 0.03 X10^3/uL; Basophil% 0.5 % (0-1); Eosinophil# 0.14 X10^3/uL; Eosinophils% 2.4 % (0-5); Hematocrit 39.7 % (37-47); Hemoglobin 12.9 g/dL (12.0-15.0); Lymphocyte # 2.24 X10^3/ul (4.0); Mean Corp Hgb Conc 32.5 g/dL (32-36); Mean Corpuscular Hgb 25.8 pg (27.0-32.0); Mean Corpuscular Volume 79.4 fL (81-99); Mean Platelet Vol. 9.4 fl (6.2-12.0); Monocyte% 8.7 % (0-10); NRBC Flagged by Analyzer 0 % (0-5); Neutrophil # 2.82 X10^3/uL (2.7-7.7); Neutrophil % 49.2 % (47-70); Platelet Count 265 K/mm3 (150-450); RBC Distribution Width CV 13.6 % (11.6-14.6); White Blood Count 5.7 K/mm3 (4.4-11.0)
[2019-02-03 23:48] LABS: Color, Urine Yellow (Yellow); Glucose, Dipstick Normal (Normal); Ketone-Dipstick Negative (Negative); Leukocyte Esterase-Dipstick 500 /ul (Negative); Nitrite-Dipstick Negative (Negative); Occult Blood-Urine 10 /ul (Negative); Protein-Dipstick 15 mg/dl (Negative); Specific Gravity, Urine 1.025 (1.002-1.030); Urine Bilirubin Dipstick Negative (Negative); Urine Clarity Clear (Clear); Urine Urobilinogen Normal (Normal)
[2019-02-03 23:54] LABS: Anion Gap 6 (5-15); BUN 10 mg/dL (7-18); Calcium,Total 8.9 mg/dL (8.5-10.1); Chloride 108 mmol/L (98-107); Creatinine, Serum 0.77 mg/dL (0.55-1.02); EST Glomerular Filtration Rate 92 mL/min (>60); Est Glom Filt Rate - Afr Amer 112 mL/min (>60); Estimated Creatinine Clearance 95.26 ml/min; Glucose 111 mg/dL (74-106); Potassium 3.4 mmol/L (3.5-5.1); Sodium Level 143 mmol/L (136-145)
[2019-02-03 23:58] LABS: Amorphous Sediment 2+; Squamous Epithelial Cells - UA 25-50 SEEN /hpf (5-10); White Blood Cells 5-10 SEEN /hpf (0-5)
[2019-02-04 00:34] VITALS: BP 108/54; PULSE 74; RESP 16; O2SAT 94
== END 2019-02-04 00:35 | disposition home or self-care (01) ==
LOC: ED 23:35
PROVIDERS: Emergency Provider Emergency Medicine; Family Provider Family Medicine; PCP Family Medicine
DX: R10.9 Unspecified abdominal pain (principal); Z88.0 Allergy status to penicillin; Z87.442 Personal history of urinary calculi; Z97.5 Presence of (intrauterine) contraceptive device
CPT/HCPCS: 74176; 80048; 81001; 85025; 87086; 87088; 96360; 99283; J7030; A4216

== ENCOUNTER → 2019-02-05 14:43 | Outpatient (CLI) | payer MEDICAID, SELFPAY ==
[2019-02-05 10:46] VITALS: BMI 41.3
== END ==
PROVIDERS: Family Provider Family Medicine; PCP Family Medicine; Visit Provider Nurse Practitioner Women's Health
DX: N89.8 Other specified noninflammatory disorders of vagina (principal)
CPT/HCPCS: 87070; 87205

== ENCOUNTER → 2019-02-12 12:30 | Outpatient (CLI) | payer MEDICAID, SELFPAY ==
[2019-02-05 10:46] VITALS: BMI 41.3
--- NOTE | 2019-02-12 12:31 | US_ITS ---
STUDY: ULTRASOUND OF THE FEMALE PELVIS - COMPLETE REASON FOR EXAM: Female, 33 years old. IUD placement TECHNIQUE: Transabdominal and Transvaginal TECHNICAL QUALITY: Adequate. COMPARISON: CT dated 02/03/2019. Ultrasound dated 10/04/2018. FINDINGS: The uterus is anteverted and is in a midline position. The uterus measures 10.3 x 6.0 x 4.4 cm. Normal uterine cervix. The endometrium measures 9 mm in thickness, and is hyperechoic. There is an intrauterine device noted which is low in position and abuts the cervix. There is no demonstrated myometrial mass. The right ovary is visualized. The right ovary measures 4.0 x 3.4 x 2.8 cm. There is no right ovarian cyst or ovarian mass. There is no visualized right adnexal mass or complex lesion. There is normal arterial and normal venous vascularity. The left ovary is visualized. The left ovary measures 3.6 x 2.7 x 2.2 cm. There is no left ovarian cyst or ovarian mass. There is no visualized left adnexal mass or complex lesion. There is normal arterial and normal venous vascularity. There is no fluid in the cul-de-sac. US/Transvaginal Non- IMPRESSION: Intrauterine device noted which is low in position and abuts the cervix. Electronically Signed: Christopher Mello, at 14:02 EDT Tel , Service support ,
--- NOTE | 2019-02-12 12:31 | US_ITS ---
STUDY: ULTRASOUND OF THE FEMALE PELVIS - COMPLETE REASON FOR EXAM: Female, 33 years old. IUD placement TECHNIQUE: Transabdominal and Transvaginal TECHNICAL QUALITY: Adequate. COMPARISON: CT dated 02/03/2019. Ultrasound dated 10/04/2018. FINDINGS: The uterus is anteverted and is in a midline position. The uterus measures 10.3 x 6.0 x 4.4 cm. Normal uterine cervix. The endometrium measures 9 mm in thickness, and is hyperechoic. There is an intrauterine device noted which is low in position and abuts the cervix. There is no demonstrated myometrial mass. The right ovary is visualized. The right ovary measures 4.0 x 3.4 x 2.8 cm. There is no right ovarian cyst or ovarian mass. There is no visualized right adnexal mass or complex lesion. There is normal arterial and normal venous vascularity. The left ovary is visualized. The left ovary measures 3.6 x 2.7 x 2.2 cm. There is no left ovarian cyst or ovarian mass. There is no visualized left adnexal mass or complex lesion. There is normal arterial and normal venous vascularity. There is no fluid in the cul-de-sac. US/Pelvic (Non ) IMPRESSION: Intrauterine device noted which is low in position and abuts the cervix. Electronically Signed: Christopher Mello, at 14:02 EDT Tel , Service support ,
== END ==
PROVIDERS: Family Provider Family Medicine; PCP Family Medicine; Referring Provider Nurse Practitioner Women's Health; Visit Provider Nurse Practitioner Women's Health
DX: Z30.431 Encounter for routine checking of intrauterine contraceptive device (principal)
CPT/HCPCS: 76830; 76856; 93976

== ENCOUNTER → 2020-01-15 | Outpatient (CLI) | payer MEDICAID, SELFPAY ==
[2020-01-15 10:56] VITALS: BMI 41.3
[2020-01-27 12:30] LABS: HPV APTIMA, High Risk Negative
== END | disposition home or self-care (01) ==
PROVIDERS: PCP Family Medicine; Referring Provider Nurse Practitioner Women's Health; Visit Provider Nurse Practitioner Women's Health
DX: D06.9 Carcinoma in situ of cervix, unspecified (principal)
CPT/HCPCS: 87624; 88175; G0145

== ENCOUNTER 2021-02-10 17:40 | Emergency (ER) | payer MEDICAID, SELFPAY ==
[2021-02-10 17:41] VITALS: BP 147/74; PULSE 104; RESP 18; TEMP 37.3; O2SAT 99; BMI 34.9
--- NOTE | 2021-02-10 17:49 | EX.ED.DYSGE1 ---
HPI History of Present Illness Chief Complaint: General Illness Informant: patient Narrative Narrative: Patient with past medical history of iron deficiency anemia presents for COVID-19 symptoms and testing. She had brought her son in. She states that she has been exposed to Covid because her stepchildren with whom she lives are positive. She has had a headache over the last few days, but she usually gets headaches with her menses. Today she had a sore throat. It was noted that she had a fever as high as 102. She denies any chills. No cough. No dysuria or hematuria, no other symptoms. Quite frankly, she wants to be tested because she has been exposed and she brings in her son who is 3 years old who had a fever today also. [facility] Medical History (Updated 02/10/21 @ 18:37 by Scott Mejía MD) Gestational diabetes Hemorrhoids HTN (hypertension) Home Medications fluoxetine [Prozac] 20 mg PO DAILY 02/10/21 [History Last Taken Unknown] Allergy/AdvReac Type Severity Reaction Status Date / Time Penicillins Allergy Rash Verified 01/15/20 10:52 Family History Father Hypertension Surgical History H/O LEEP History of appendectomy S/P Tubal ligation status Social History (Updated 01/15/20 @ 11:09 by Denise Jenkins NP, NURSE STAFF INDUSTRIAL-C) Smoking Status: Never smoker alcohol intake: current details: occasionally substance use type: does not use caffeine: Yes what type of physical activity do you participate in: none seatbelt use: always do you feel safe at home: Yes 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 HEENT: Positive sore throat. No neck pain. No loss of vision. No rhinorrhea. Cardiovascular: No chest pain. No palpitations. No pedal edema. Respiratory: No cough, no shortness of breath. Abdominal: No abdominal pain. No nausea. No vomiting. Genitourinary: No dysuria. No hematuria. Musculoskeletal: No myalgias. No arthralgias. Neurologic: Positive headaches. No dizziness. No lightheadedness. Skin: No rash. No change in color. Psychiatric: No depression. No anxiety. EXAM Physical Exam Const Vital Signs: 02/10/21 17:41 02/10/21 17:45 Temperature 99.2 F H Temperature Source Oral Pulse Rate 104 H Respiratory Rate 18 Respiratory Pattern Normal Blood Pressure 147/74 H Blood Pressure Mean 98 Pulse Ox 99 Oxygen Delivery Method Room Air MDM MDM MDM Narrative Medical decision making narrative: Patient has slightly elevated temperature of 99.2. She is intermittently tachycardic. She is nontoxic-appearing. Covid swab will be obtained. It is negative. She will still self isolate at home, and take mmuh-[id number] antipyretics, and as analgesia for headache and sore throat. I discussed the possibility of false negatives with her. Return instructions to the emergency department were reviewed. Disposition is discharged home in stable condition. Discharge Plan Triage Chief Complaint: General Illness ED Provider: Scott Mejía Dx/Rx/DC Orders Clinical Impression: Pharyngitis, acute, Viral syndrome Prescriptions: No Action fluoxetine [Prozac] 20 mg Capsule 20 mg PO DAILY RF: 0 Primary Care Provider: Modesto Nolasco Referrals: Modesto Nolasco [Primary Care Provider] - 02/17/21 Disposition Disposition: Home, Self Care
--- NOTE | 2021-02-10 18:47 | EDS_ITS ---
HPI History of Present Illness Chief Complaint: General Illness Narrative Narrative: Patient presents for Covid testing. She brought her child in because of Covid type symptoms. Additionally, her stepchildren were diagnosed with Covid. She complains of fever and sore throat. As she is in close proximity, she would like to be tested. She denies other symptoms. [facility] Medical History (Updated 02/10/21 @ 18:37 by Scott Mejía MD) Gestational diabetes Hemorrhoids HTN (hypertension) Home Medications fluoxetine [Prozac] 20 mg PO DAILY 02/10/21 [History Last Taken Unknown] Allergy/AdvReac Type Severity Reaction Status Date / Time Penicillins Allergy Rash Verified 01/15/20 10:52 Family History Father Hypertension Surgical History H/O LEEP History of appendectomy S/P Tubal ligation status Social History (Updated 01/15/20 @ 11:09 by Denise Jenkins NP, KNOCKOUT MACHINE OPERATOR-C) Smoking Status: Never smoker alcohol intake: current details: occasionally substance use type: does not use caffeine: Yes what type of physical activity do you participate in: none seatbelt use: always do you feel safe at home: Yes 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 HEENT: Positive sore throat. No neck pain. No loss of vision. No rhinorrhea. Cardiovascular: No chest pain. No palpitations. No pedal edema. Respiratory: No cough, no shortness of breath. Abdominal: No abdominal pain. No nausea. No vomiting. Genitourinary: No dysuria. No hematuria. Musculoskeletal: No myalgias. No arthralgias. Neurologic: No headaches. No dizziness. No lightheadedness. Skin: No rash. No change in color. Psychiatric: No depression. No anxiety. EXAM Physical Exam Narrative Exam Narrative: Afebrile. Temperature 99.2 ?F. Vital signs noted. Nontoxic- appearing. HEENT: Normocephalic. Atraumatic. PERRL, EOMI. Neck soft and supple. No point tenderness or step off. Cardiovascular: Regular rate and rhythm. No murmurs, rubs, or gallops appreciated. Respiratory: No tachypnea. Lungs clear to auscultation bilaterally. Gastrointestinal: Abdomen soft, nontender, with normoactive bowel sounds. No rebound or guarding. Neurological: Awake. Alert. Nonfocal, nonlateralizing. Skin: No rash. Normal color. No pallor. Musculoskeletal: No pedal edema. Full range of motion extremities. Const Vital Signs: 02/10/21 17:41 02/10/21 17:45 Temperature 99.2 F H Temperature Source Oral Pulse Rate 104 H Respiratory Rate 18 Respiratory Pattern Normal Blood Pressure 147/74 H Blood Pressure Mean 98 Pulse Ox 99 Oxygen Delivery Method Room Air MDM MDM MDM Narrative Medical decision making narrative: Covid swab was obtained and is negative. At this point in time, she will take [id number] medications and follow-up with her primary care physician. Feel she can be discharged safely home with follow-up. Her pulse ox is 99% on room air without evidence of hypoxia. Return instructions to the emergency department were reviewed. Disposition is discharged home in stable condition. Discharge Plan Triage Chief Complaint: General Illness ED Provider: Scott Mejía Dx/Rx/DC Orders Clinical Impression: Pharyngitis, acute, Viral syndrome Prescriptions: No Action fluoxetine [Prozac] 20 mg Capsule 20 mg PO DAILY RF: 0 Primary Care Provider: Modesto Nolasco Referrals: Modesto Nolasco [Primary Care Provider] - 02/17/21 Disposition Disposition: Home, Self Care Discharge Date/Time: 02/10/21 19:10
[2021-02-10 19:08] VITALS: RESP 18
== END 2021-02-10 19:10 | disposition home or self-care (01) ==
PROVIDERS: Emergency Provider Emergency Medicine; PCP Student in an Organized Health Care Education/Training Program
DX: B34.9 Viral infection, unspecified (principal); J02.9 Acute pharyngitis, unspecified; R50.9 Fever, unspecified; R51.9 Headache, unspecified; Z20.822 Contact with and (suspected) exposure to COVID-19
CPT/HCPCS: 87426; 99282

== ENCOUNTER 2021-03-10 13:25 | Emergency (ER) | payer MEDICAID, SELFPAY ==
[2021-03-10 13:26] VITALS: BP 143/108; PULSE 108; RESP 16; TEMP 36.3; O2SAT 100; BMI 36.6
--- NOTE | 2021-03-10 13:48 | RAD_ITS ---
STUDY: X-RAY CHEST REASON FOR EXAM: Female, 35 years old. CHEST PAIN TECHNIQUE: Single AP portable view of the chest. COMPARISON: None. FINDINGS: The lungs are clear and expanded. There is no demonstrated pleural abnormality. Normal size heart. Normal mediastinum and neris. Normal visualized pulmonary arteries. Normal visualized aortic arch and descending thoracic aorta. Normal visualized thoracic spine. Normal visualized ribs, clavicles, and shoulders. There is no demonstrated abnormality of the visualized soft tissue structures of the upper abdomen. RAD/Chest 1 View (Portable) IMPRESSION: Normal x-ray examination of the chest. Electronically Signed: Sylvester Banda MD at 14:15 EDT , Service support ,
--- NOTE | 2021-03-10 14:37 | EX.ED.DYSGE1 ---
HPI History of Present Illness Chief Complaint: Chest Other Informant: patient Narrative Narrative: Referred in by PCP for chest x-ray. States Covid positive from the [facility] 2 days ago. Started to have symptoms 4 days ago with cough sore throat myalgias. 2 days ago changes in taste and smell. 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 Earlier this month family had Covid and she was tested which was negative at that time. She is not vaccinated. Denies fever or headache. Denies vomiting or diarrhea. Denies history of asthma or COPD. Denies tobacco history. 1520: Fax report obtained from [facility] with positive testing on March 08, 2021. Prior similar symptoms: No PFSH PFSH Medical History (Updated 03/10/21 @ 14:[address] Sotero Poe DO) Gestational diabetes Hemorrhoids HTN (hypertension) Home Medications fluoxetine [Prozac] 20 mg PO DAILY 02/10/21 [History Last Taken Unknown] Allergy/AdvReac Type Severity Reaction Status Date / Time Penicillins Allergy Rash Verified 03/10/21 13:28 Family History Father Hypertension Surgical History H/O LEEP History of appendectomy S/P Tubal ligation status Social History Smoking Status: Never smoker alcohol intake: current details: occasionally substance use type: does not use caffeine: Yes what type of physical activity do you participate in: none seatbelt use: always do you feel safe at home: Yes 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 ROS ED Constitutional Constitutional ED: Denies chills, fever(s) or sweats Eyes Eyes: Denies change in vision ENT ENT ED: Reports sore throat; Denies dysphagia Cardiovascular Cardiovascular: Denies chest pain, leg edema, palpitations or racing heartbeat Respiratory/Chest Respiratory/Chest: Reports cough; Denies dyspnea or dyspnea on exertion Gastrointestinal Gastrointestinal: Denies abdominal pain, diarrhea, nausea or vomiting Genitourinary Genitourinary ED: Denies dysuria, hematuria or urinary frequency Musculoskeletal Musculoskeletal: Reports myalgias; Denies back pain, extremity pain or neck pain Integumentary Denies rash or wounds Neurologic Neurologic: Denies headache(s), paresthesias or weakness EXAM Physical Exam Const Vital Signs: 03/10/21 13:26 Temperature 97.3 F L Temperature Source Temporal Pulse Rate 108 H Respiratory Rate 16 Blood Pressure 143/108 H Blood Pressure Mean 119 Pulse Ox 100 Oxygen Delivery Method Room Air Positive well nourished and well developed General Appearance ED: well developed and NAD HEENT Reports moist mucous membranes normocephalic and atraumatic Eyes PERRL, EOMs intact bilaterally and conjunctivae normal General Eye ED: Yes normal appearance of both eyes Neck no lymphadenopathy and supple General: Negative for tenderness Chest Wall Chest: Negative for tenderness Resp normal respiratory effort and normal air movement Effort and Inspection: symmetric chest movement; Negative for respiratory distress Cardio regular rate, regular rhythm and no murmurs Peripheral Pulses: pulses 2+ throughout GI normal to inspection, nondistended, normoactive bowel sounds and non-tender Palpation: Negative for guarding or rebound tenderness present Back/Spine no CVA tenderness and no thoracic nor lumbar tenderness Extremity normal to inspection General Extremety ED: Negative for edema or tenderness General Extremity: Negative for edema Neuro oriented x3 and no sensory deficits noted Sensorium / Orientation: awake and alert Skin no rashes or lesions noted and no wounds MDM MDM MDM Narrative Medical decision making narrative: Patient afebrile pulse ox 100% on room air. Chest x-ray reviewed by myself and read by radiology as normal. Patient does have a pulse oximeter at home to monitor for worsening symptoms. She understands quarantining. She has a BMI of 36 today, she is a candidate for evaluation of monoclonal antibodies. I discussed this with the patient and she states she would like to be considered. Her positive testing [facility]. Consult will be placed for consideration. All questions were answered. Radiography Chest X-Ray - ED: 1 View, Read by ED Physician and Read by Radiologist Diagnostic Testing: Radiology Impression Chest X-Ray 03/10/21 13:48 IMPRESSION: Normal x-ray examination of the chest. Electronically Signed: Sylvester Banda MD at 14:15 EDT , Service support , Discharge Plan Triage Chief Complaint: Chest Other ED Provider: Sotero Poe Dx/Rx/DC Orders Clinical Impression: COVID-19 virus infection, Viral syndrome, Cough Instructions: Coronavirus Disease 2019 (COVID-19): Caring for Yourself or Others, ED - COVID Monoclonal AB Infusion ... Prescriptions: No Action fluoxetine [Prozac] 20 mg Capsule 20 mg PO DAILY RF: 0 Other Ambulatory Orders: COVID Outpatient Monoclonal Antibody Referral (Routine) Timeframe: 1 Day Facility: [facility] - Location: [facility] Ordered By: Dr. Sotero Poe Primary Care Provider: Modesto Nolasco Referrals: Modesto Nolasco [Primary Care Provider] - 3-5 Days Activity Restrictions/Additional Instructions: You will be contacted for discussion of monoclonal antibody treatment. Monitor oxygen level with your pulse ox. Disposition Disposition: Home, Self Care Discharge Date/Time: 03/10/21 15:35
== END 2021-03-10 15:35 | disposition home or self-care (01) ==
LOC: ED 14:50
PROVIDERS: Emergency Provider Emergency Medicine; PCP Student in an Organized Health Care Education/Training Program
DX: U07.1 COVID-19 (principal); B34.9 Viral infection, unspecified; R05 Cough
CPT/HCPCS: 71045; 99282

== ENCOUNTER → 2022-01-11 | Outpatient (CLI) | payer MEDICAID, SELFPAY ==
[2022-01-13 22:09] LABS: HPV APTIMA, High Risk Negative (Negative)
== END | disposition home or self-care (01) ==
LOC: LABSPEC 10:38
PROVIDERS: PCP Student in an Organized Health Care Education/Training Program; Visit Provider Nurse Practitioner Women's Health
DX: Z12.4 Encounter for screening for malignant neoplasm of cervix (principal)
CPT/HCPCS: 87624; 88175; G0145

== ENCOUNTER → 2022-03-08 | Outpatient (CLI) | payer MEDICAID, SELFPAY ==
--- NOTE | 2022-03-08 16:03 | US_ITS ---
STUDY: ULTRASOUND OF THE FEMALE PELVIS - COMPLETE REASON FOR EXAM: Female, 36 years old. AUB TECHNIQUE: Transabdominal COMPARISON: 9..19. FINDINGS: The uterus is anteverted and is in a midline position. The uterus measures 9.1 x 5.8 cm. There is a Nabothian cyst of the cervix. The endometrium measures 13 mm in thickness, and is heterogeneous (striated). Cystic area noted near the endometrium measuring 6 mm. There is no demonstrated myometrial mass. I.U.D. - The patient does not have an I.U.D. The right ovary is visualized. The right ovary measures 4.4 cm. 24 mm right ovarian hypoechoic nodule. There is no visualized right adnexal mass or complex lesion. There is normal arterial and normal venous vascularity. The left ovary is visualized. The left ovary measures 3.2 cm. There is no left ovarian cyst or ovarian mass. There is no visualized left adnexal mass or complex lesion. There is normal arterial and normal venous vascularity. There is minimal fluid in the cul-de-sac. Urinary bladder volume is (in cc) 123. US/Transvaginal Non- IMPRESSION: There are Nabothian cysts of the cervix. There is free fluid in the pelvis. This can be physiologic. 6 mm cystic lesion near the endometrium. This does not appear to be within the endometrium. This may be a degenerating fibroid. 44 mm hypoechoic nodule in the right ovary may be a collapsed follicle or endometrioma. Electronically Signed: Sd Britt MD at 20:13 EDT ,
--- NOTE | 2022-03-08 16:03 | US_ITS ---
STUDY: ULTRASOUND OF THE FEMALE PELVIS - COMPLETE REASON FOR EXAM: Female, 36 years old. AUB TECHNIQUE: Transabdominal COMPARISON: .09.27. FINDINGS: The uterus is anteverted and is in a midline position. The uterus measures 9.1 x 5.8 cm. There is a Nabothian cyst of the cervix. The endometrium measures 13 mm in thickness, and is heterogeneous (striated). Cystic area noted near the endometrium measuring 6 mm. There is no demonstrated myometrial mass. I.U.D. - The patient does not have an I.U.D. The right ovary is visualized. The right ovary measures 4.4 cm. 24 mm right ovarian hypoechoic nodule. There is no visualized right adnexal mass or complex lesion. There is normal arterial and normal venous vascularity. The left ovary is visualized. The left ovary measures 3.2 cm. There is no left ovarian cyst or ovarian mass. There is no visualized left adnexal mass or complex lesion. There is normal arterial and normal venous vascularity. There is minimal fluid in the cul-de-sac. Urinary bladder volume is (in cc) 123. US/Pelvic (Non ) IMPRESSION: There are Nabothian cysts of the cervix. There is free fluid in the pelvis. This can be physiologic. 6 mm cystic lesion near the endometrium. This does not appear to be within the endometrium. This may be a degenerating fibroid. 44 mm hypoechoic nodule in the right ovary may be a collapsed follicle or endometrioma. Electronically Signed: Sd Britt MD at 20:13 EDT ,
== END | disposition home or self-care (01) ==
LOC: US 16:02
PROVIDERS: PCP Student in an Organized Health Care Education/Training Program; Referring Provider Obstetrics & Gynecology; Visit Provider Obstetrics & Gynecology
DX: N92.0 Excessive and frequent menstruation with regular cycle (principal)
CPT/HCPCS: 76830; 76856

== ENCOUNTER 2022-04-28 05:30 | Day surgery (SDC) | payer MEDICAID, SELFPAY ==
--- NOTE | 2022-04-25 14:02 | HP.PCM_ITS ---
History and Physical Date of Admission: 04/28/22 HISTORY AND PHYSICAL Vital Signs ? 03/07/2209:06 04/12/2212:07 04/12/2212:08 Height 5 ft 5 in 5 ft 5 in 5 ft 5 in Weight: ? 218 lb ? BMI ? 36.2 ? BP ? 144/88 H ? Intake Visit Reasons:?TRHBS and cysto Chief Complaint: pre op TRHBS cysto House Detective Required: No Is patient in pain?: No Allergies Penicillins Allergy (Verified 03/01/22 10:09) Rash Medications lisdexamfetamine 20 mg capsule (Vyvanse) 20 mg PO DAILY 04/12/22 [History Confirmed 04/12/22] Is last menstrual period known: No Post menopausal: No Patient : No : [facility] Medical History? COVID-19 virus infection Gestational diabetes Hemorrhoids HTN (hypertension) Surgical History? H/O LEEP History of appendectomy S/P Tubal ligation status Family History? Father Hypertension Social History? Smoking Status:? Never smoker alcohol intake:? current details:? occasionally substance use type:? does not use caffeine:? Yes what type of physical activity do you participate in:? none seatbelt use:? always do you feel safe at home:? 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 She has a BMI of 37 and a h/o section, CIN3, and failed ocps, iud, and lysteda. ultrasound 2 years ago showed a 10 cm enlarged uterus and pap recently was normal. She has a history of OTILIA 3 with leep in the past. History ? ? ? 3 ? Elective abortions ? Hx Para ? ? ? 3 ? Spontaneous abortions ? Hx # Term Pregnancies ? Ectopic pregnancies ? Hx # Pregnancies ? Multiple births ? # of living children ? Past Pregnancies Del. Date Name GA/Weeks Outcome Route Bth Weight Gen Labor Lgth Anesthesia Del Locatn Provider FOB 10/13/10 Ronald 38 live - full term 8 lbs 6oz Male ? epidural [facility] Dr. Joey Chavez 12/22/13 Adelyn 37 live - full term 6 lbs 6 o z Female ? epidural [facility] Dr. Ignacio Chavez 02/25/17 Jose 36 live - full term 4 lb s 10 oz Male ? spinal [facility] Dr. Debbie Chavez Delivery Date: 10/13/10? Last Updated by: Hamida Santos ? ? ? She had high blood pressure and gestational diabetes. Induced due to high blood pressure. Delivery Date: 12/22/13? Last Updated by: Hamida Santos ? ? ? Patient had high blood pressure and gestational diabetes. Induced due to high blood pressure. Delivery Date: 02/25/17? Last Updated by: Hamida Santos ? ? ? Patient had high blood pressure and gestational diabetes. Had preeclampsia, was induced then baby was breech. ROS Const ROS Unobtainable: All systems reviewed & are unremarkable except as noted in H Resp Resp: Reports system reviewed and no additional complaints, except as documented; Denies cough GI GI: Reports as per HPI Psych Psych: Reports system reviewed and no additional complaints, except as documented Exam Const General: cooperative, healthy appearing, comfortable and no acute distress Chest Chest palpation & inspection: normal inspection of the chest Resp Effort & Inspection: normal respiratory effort GI Inspection: normal to inspection Skin General: no rashes or lesions noted Neuro General: patient alert, patient awake and patient oriented x3 Extrem General: normal to inspection Psych Appearance: grossly normal Speech and Movement: speech and movement normal Coding Level of Care Code Off vis,est,level 4 Diagnoses Menorrhagia with regular cycle? N92.0 OTILIA III (cervical intraepithelial neoplasia grade III) with severe dysplasia? D06.9 BMI greater than 40? Assessment and Plan Assessment and Plan (1) Menorrhagia with regular cycle: ?Status:?Acute ?Comment: lysteda. ? Failed OCP and IUD (2) OTILIA III (cervical intraepithelial neoplasia grade III) with severe dysplasia: ?Status:?Acute ?Comment: 11/2018 LEEP; pap neg and HPV neg 11/2019; 2021: (3) BMI greater than 40: ?Status:?Chronic ?Comment: 1800 calorie choosemyplate, s/p 2 mo adipex, plan fu PRN.? SW- 258 CW- 234 Plan After discussing the patient's diagnosis and treatment plan options, patient wishes to proceed with surgical management.? I have discussed with the patient the risks, benefits, and alternatives of the procedure which include but are not limited to risks of anesthesia, bleeding, infection, possible damage to bowel, bladder, or surrounding vasculature which could lead to additional surgery to evaluate any complications.? Patient agrees to procedure and wishes to proceed.? ACOG/uptodate references given for additional information regarding procedure.? plan for total robotic hysterectomy, bilateral salpingectomy, cystoscopy. 04/12/22 3370 <Electronically signed by Kathi Grijalva, DO
[2022-04-26 10:04] LABS: Hemoglobin 11.2 g/dL (12.0-15.0); Mean Corp Hgb Conc 30.3 g/dL (32-36); Mean Corpuscular Hgb 23.9 pg (27.0-32.0); Mean Corpuscular Volume 78.9 fL (81-99); Mean Platelet Vol. 10.1 fl (6.2-12.0); Platelet Count 353 K/mm3 (150-450); RBC Distribution Width CV 14.1 % (11.6-14.6); Red Blood Count 4.69 M/mm3 (4.2-5.4); White Blood Count 6.5 K/mm3 (4.4-11.0)
[2022-04-26 10:24] LABS: Magnesium 2.3 mg/dL (1.6-2.6)
[2022-04-28] VITALS (23 sets, daily range): BP systolic 113–143; BP diastolic 59–98; PULSE 84–114; RESP 11–20; TEMP 36.2–37.4; O2SAT 86–100; BMI 36.3
[2022-04-28 06:07] LABS: Internal QC Validated? YES +Cl - CLEAR BKGD; Pregnancy, Urine Negative Negative
[2022-04-28] MEDS: dexAMETHasone 10 MG/ML Vial 8 MG IV (06:18)
[2022-04-28] MEDS: Lactated Ringers 1,000 ML 40 ML IV (06:18)
[2022-04-28] MEDS: Gabapentin 600 MG Tablet PO (06:46)
[2022-04-28] MEDS: Acetaminophen 500 MG Tablet 1000 MG PO (06:46)
[2022-04-28] MEDS: Celecoxib 200 MG Capsule 400 MG PO (06:46)
[2022-04-28] MEDS: Scopolamine 1mg/72hr Patch 1 PATCH TD (06:59)
[2022-04-28 07:01] LABS: Bedside Glucose 75 mg/dL (74-106)
[2022-04-28] MEDS: Phenazopyridine 95 MG Tablet 190 MG PO (07:23)
[2022-04-28] MEDS: Clindamycin 900 MG/50 ML BAG 75 MG IV (07:29)
--- NOTE | 2022-04-28 07:30 | DCINST_ITS ---
Discharge Instructions Diet Discharge Diet: No restrictions Activity May resume sexual activity in: 6 weeks Weight Bearing Status: Full weight bearing Dressing / Incision Call your doctor if your incision/area has: Continuous Slow Oozing, Sudden Increased Bleeding, Increased Pain/ Swelling, Increased Redness and Foul Smelling Discharge Call your doctor if you observe: Fever of 101 or Higher, Using more than 1 pad per hour, Shortness of breath, Chest pain and Uncontrolled pain Suture Line Care: Avoid Pulling/Pushing and Avoid Pinching/Bending Remove Dressing in: 1 week (if present) Cleanse incision/area with: Soap & Water and Keep Dressing Clean & Dry Follow Up Care Please Follow Up With: Kathi Grijalva DO When: Call to make an appointment with your doctor for a postop visit in 2 and 6 weeks Test Results: Test results from this visit will be discussed in further detail at your follow- up appointment, if applicable. Discharge Plan Admission Primary Reason for Your Visit: hysterectomy Attending Provider: Kathi Grijalva Primary Care Provider: Modesto Nolasco Consulting Providers: Shreyas Troy Discharge Orders/Prescriptions Prescriptions: New oxycodone-acetaminophen [Percocet] 5-325 mg tablet 1 tab PO Q4H PRN (Reason: pain) 7 Days Qty: 30 0RF ibuprofen 600 mg tablet 600 mg PO Q6H PRN (Reason: mild pain (scale score 1-4)) 7 Days Qty: 28 0RF Rx Instructions: one tab every 6 hrs as needed for mild to moderate pain ondansetron 4 mg tablet,disintegrating 4 mg PO Q8H PRN (Reason: nausea and vomiting) Qty: 30 0RF Continued Vyvanse 20 mg capsule 40 mg PO DAILY ibuprofen 600 mg Tablet 600 mg PO PRN PRN (Reason: Pain) phentermine [Adipex-P] 37.5 mg Capsule 37.5 mg PO DAILY Rx Instructions: must administer 30 minutes before or 1-2 hours after breakfast Referrals / Follow Up: Modesto Nolasco [Primary Care Provider] - Disposition Disposition (needs filled in before D/C Order can be placed): Home, Self Care
--- NOTE | 2022-04-28 07:30 | HYST_PTH ---
PATIENT: JANNETTE LORENZO LOC: [facility] [place] U#:[id number] AGE/SX: 37/F ROOM: RE04/28/[address]: Dr. Kathi Grijalva DO : 1985 BED: DIS: 04/28/2022 SPEC #: [id number] RECD: 04/28/22 11:11 STATUS: ELIZABETH KERRJuliet #: [id number] LILA: 04/28/22 07:[address]: Kathi Grijalva DEPT: SURGICAL PATHOLOGY RECD BY: Kiana Matute ENTERED: 04/28/22 11:35 SP TYPE: HYSTERECT OTHR DR: MD Modesto Mayo Tissues: Uterus, NOS Procedures: Surgery Specimen Level V HEADER OPERATION: ERAS, lap robotic hysterectomy, bilateral salpingectomy, cystoscopy PRE-OP DIAGNOSIS: Menorrhagia with regular cycle TISSUE SUBMITTED: Uterus, cervix, bilateral fallopian tubes MICROSCOPIC DIAGNOSIS Uterus, cervix, bilateral fallopian tubes, hysterectomy and bilateral salpingectomy: Cervix ? chronic cystic cervicitis. Endometrium ? secretory endometrium. Myometrium ? focal adenomyosis. Bilateral fallopian tubes - no pathologic diagnosis. SJ:marisel 05/01/2022 MICROSCOPIC DESCRIPTION Slides are reviewed. GROSS DESCRIPTION Received in fixative is one container labeled with the patient's name and designated cervix, uterus, bilateral fallopian tubes. The specimen consists of a hysterectomy specimen consisting of uterus with cervix and attached bilateral fallopian tubes. The uterus with cervix weighs 138 gm and measures 10 x 7 x 5 cm. The serosal surface is focally ragged. The ectocervical mucosa is unremarkable. Sections of the cervix reveal a few cysts filled with mucoid material. The external os is oval in contour. The endocervical canal measures 3 cm in length and the endocervical mucosa is unremarkable. The endometrial cavity measures 5 cm in length and up to 3.5 cm in width. The endometrium is don, glistening without any mass lesion and measures 0.2 cm in thickness. Sections of the uterine wall do not reveal any mass lesion and measures up to 3 cm in thickness. Sections of the uterine wall reveal focal area of punctate hemorrhage suspicious for adenomyosis. The right fallopian tube measures 7 cm in length and 0.7 cm in diameter. The fimbrial end is identified. Sections do not reveal any mass lesion. The left fallopian tube is similar appearance to right and measures 3.5 cm in length and 0.7 cm in diameter. Crop Supervisor sections are submitted in eight cassettes as follows: 1 - anterior cervix, 2 - posterior cervix, 3 & 4 - anterior uterine wall, 5 & 6 - posterior uterine wall, 7 - right fallopian tube, 8 - left fallopian tube. / ASHLEY:marisel 04/28/2022 TC:5 CPT: 01898
--- NOTE | 2022-04-28 07:33 | PCM.OP.BLANK ---
Problems Associated Problem List Diagnoses (1) BMI greater than 40: (2) OTILIA III (cervical intraepithelial neoplasia grade III) with severe dysplasia: (3) Menorrhagia with regular cycle: Operative Report Date of Procedure: 04/28/22 Preoperative diagnosis: Menorrhagia, OTILIA II, morbid obesity, history of section Postoperative diagnosis: Menorrhagia, OTILIA II, morbid obesity, history of section Procedure: Total robotic hysterectomy bilateral salpingectomy and cystoscopy Anesthesia: General endotracheal intubation Estimated blood loss: Urine output: Drains: None Implanted material: None Complications: None Findings: [ ] size uterus, normal appearing ovaries and tubes. On exploration of the abdominal cavity the uterus, adnexa, bowel, and liver were found to be normal. Cystoscopy showed no evidence of leaking at approximately 250 cc of normal saline, positive ureteral orifices and jet flow are seen and no suture material was appreciated in the bladder. Specimens removed: Uterus and cervix, [Bilateral tubes and ovaries] Reason for surgery: This is a -year-old who presented to my office with history of persistent abnormal paps and heavy periods. Her uterus was found to mildly enlarged on ultrasound and she is obese. She was given treatment options including ocps, nsaids, iud, and hysterectomy .She chose hysterectomy. The planned procedure is for a robotic hysterectomy the risks benefits and alternatives were discussed with the patient the patient had a clear understanding of the procedure and a consent form was signed. Procedure: The patient was placed in the dorsal low lithotomy position and prepped and draped in the normal sterile fashion both abdominally and in the perineum. Her legs were placed in stirrups a Hassan catheter was inserted into the urethra without difficulty. A weighted speculum was placed in the vagina and a single-tooth tenaculum was used to grasp the anterior lip of the cervix. A piece of permanent suture from prior cerclage was grasped and removed from the cervix. A medium size advincula uterine manipulator was inserted through the cervix without complication. It was then tied into place at the 2 and 10:00 locations on the cervix. Gloves were changed and attention was turned towards the abdomen. Approximately 23 cm above the pubic symphysis in the midline, and after Marcaine injection, a 8 mm incision was made. An 8 mm trocar was inserted through the laparoscope, then inserted into the abdomen under direct visualization using the laparoscope. Good abdominal placement was noted and no complications were appreciated. An air seal device was utilized to create pneumoperitoneum. At 12 cm lateral to the midline on the left and right sides 8 mm accessory ports were placed. Next a left upper quadrant 8 mm assistant account executive port site was placed. The patient was placed in steep Trendelenburg position. The robot was docked. The hysterectomy was initiated first by taking down the round ligament on each side using the vessel sealer device. The fallopian tubes were grasped and elevated. The underlying mesosalpinx was cauterized and cut to the level of the cornua. The ovarina ligament was cauterized and cut, and the broad ligament was then and taken down using the vessel sealer device. Next the bladder flap was taken down without complication. This was done using monopolar cautery to the level of the cervical vaginal junction. After the bladder flap was created, uterine vessels were then isolated and cauterized using the vessel sealer device and EndoShears. At this point the uterine vessels were taken down further starting from the ascending branch, dissecting along the edges of the cervix to the level of the cervical vaginal junction with hemostasis appreciated. The cervical vaginal junction was then using monopolar cautery in a circumferential pattern across the superior aspect of the cervix. The specimen was delivered through the vagina and sent to pathology. The remaining vaginal cuff was then closed using a V-lock suture. This was performed in a running technique. Excellent hemostasis was obtained and good closure was noted. Irrigation was then performed. All operative sites were noted to be hemostatic. A cystoscopy was performed with a 70 degree cystoscope through the urethra into the bladder without complication. The bladder was instilled with approximately 250 cc of normal saline. Intraoperative images were made. Ureteral orifices and jets were identified. No suture material was appreciated in the bladder. The bladder was then drained and cystoscope was removed. The abdominal cavity was again examined using the laparoscope after the robot was undocked. All operative sites were noted to be hemostatic. The trochars were removed under direct visualization without complication and pneumoperitoneum was reduced. At this point the skin was then closed using 4-0 Monocryl subcuticular stitch and sealed with surgical glue. The patient tolerated the procedure well sponge lap and needle counts were correct x2 the patient was taken to the recovery room in stable condition. Multi Select Codes Urinary/Genital Urinary/Genital CPT Codes: 35094 Cystoscopy and 89378 TLH+BS/O <250gr uterus
[2022-04-28] MEDS: Bupivacaine 0.25% 30 ML Vial (07:59)
[2022-04-28] MEDS: Lactated Ringers 1,000 ML 100 ML IV ×3 (08:45→16:12)
[2022-04-28] MEDS: Ondansetron 4 MG/2 ML Vial IV (08:56)
[2022-04-28] MEDS: Ondansetron 4 MG/2 ML Vial IM (15:01)
[2022-04-28] MEDS: HYDROcodone Bitartrate/Apap 5/325 Tablet PO ×2 (15:20→17:17)
--- NOTE | 2022-04-28 15:20 | SUR.PHASEII ---
PT UP TO BATHROOM WITH NO VOID. PT BLADDER SCANNED FOR 250. ENCOURAGED TO DRINK WATER AND EAT MORE SNACK. PT GIVEN PO MEDS FOR PAIN
== END 2022-04-28 17:55 | disposition home or self-care (01) ==
LOC: SDC 05:31 → AC 05:31
PROVIDERS: Anesthesiology; PCP Student in an Organized Health Care Education/Training Program; Referring Provider Obstetrics & Gynecology; Visit Provider Obstetrics & Gynecology
PROC: 0UT90ZZ Resection of Uterus, Open Approach (ICD-10-PCS; CPT 58571; principal; 2022-04-28 07:10)
DX: E66.01 Morbid (severe) obesity due to excess calories (principal); N80.03 Adenomyosis of the uterus; N72 Inflammatory disease of cervix uteri; F90.9 Attention-deficit hyperactivity disorder, unspecified type; Z86.16 Personal history of COVID-19; Z79.899 Other long term (current) drug therapy; Z68.37 Body mass index [BMI] 37.0-37.9, adult
CPT/HCPCS: 58571; S2900; 52000; 00840; 36415; 81025; 82962; 83735; 85027; 86850; 86900; 86901; 88307; J7120; A4216; J2405; J3475

== ENCOUNTER 2022-05-03 15:19 | Emergency (ER) | payer MEDICAID, SELFPAY ==
[2022-05-03 15:20] VITALS: BP 144/102; PULSE 120; RESP 20; TEMP 36.7; O2SAT 100; BMI 35.7
--- NOTE | 2022-05-03 17:04 | EX.ED.DYSGE1 ---
HPI <ROBERT Chang - Last Filed: 05/03/22 21:58> History of Present Illness Chief Complaint: Fever Narrative Narrative: Patient presents today due to being concerned about a 101 F fever that she developed earlier today. She is postop day 5 from a laparoscopic hysterectomy. She states there were no complications during her surgery. She also states that she woke up this morning and noticed some left calf pain. She denies left calf swelling and left calf redness. She states she has never had a blood clot before. She denies dysuria, hematuria, abnormal vaginal discharge, shortness of breath, difficulty breathing, signs of infection from her suture sites, and chest pain. PFSH <ROBERT Chang - Last Filed: 05/03/22 21:58> [facility] Medical History ADHD COVID-19 virus infection Fatty liver Gestational diabetes Heart murmur Hemorrhoids HTN (hypertension) Injury of head and neck Leg cramps Low iron Non-smoker Restless legs Wears glasses Home Medications ibuprofen 600 mg tablet 600 mg PO Q6H PRN mild pain (scale score 1-4) 7 days #28 tabs 04/28/22 [Rx Last Taken Unknown] ondansetron 4 mg disintegrating tablet 4 mg PO Q8H PRN nausea and vomiting #30 tabs 04/28/22 [Rx Last Taken Unknown] dextroamphetamine-amphetamine ER 30 mg 24hr capsule,extend release (Adderall XR) 30 mg PO DAILY 05/03/22 [History Last Taken Unknown] Allergy/AdvReac Type Severity Reaction Status Date / Time Penicillins Allergy Rash Verified 05/03/22 15:19 Family History Father Hypertension Surgical History H/O LEEP H/O: hysterectomy History of appendectomy Hx of cystoscopy S/P Tubal ligation status Social History Smoking Status: Never smoker alcohol intake: current details: occasionally substance use type: does not use caffeine: Yes what type of physical activity do you participate in: none seatbelt use: always do you feel safe at home: Yes 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 <ROBERT Chang - Last Filed: 05/03/22 21:58> ROS ED Constitutional Constitutional ED: Reports fever(s); Denies chills Eyes Eyes: Denies blurry vision or change in vision ENT ENT ED: Denies rhinorrhea or sore throat Cardiovascular Cardiovascular: Denies chest pain, palpitations or racing heartbeat Respiratory/Chest Respiratory/Chest: Denies cough, dyspnea, dyspnea on exertion, shortness of breath at rest or shortness of breath with exertion Gastrointestinal Gastrointestinal: Denies abdominal pain, diarrhea, nausea or vomiting Genitourinary Genitourinary ED: Denies dysuria, hematuria or urinary frequency Musculoskeletal Musculoskeletal: Denies myalgias Integumentary Denies abscess or rash Neurologic Neurologic: Denies headache(s) EXAM <ROBERT Chang - Last Filed: 05/03/22 21:58> Physical Exam Const Vital Signs: 05/03/22 15:20 05/03/22 16:56 05/03/22 19:08 Temperature 98.1 F 98.1 F Temperature Source Temporal Pulse Rate 120 H 100 Respiratory Rate 20 H 15 Respiratory Effort Normal Non-Labored Respiratory Pattern Normal Blood Pressure 144/102 H 141/74 H Blood Pressure Mean 116 Pulse Ox 100 98 Oxygen Delivery Method Room Air Positive obese Nutritional Appearance: obese HEENT Reports moist mucous membranes Negative for trauma Eyes PERRL and EOMs intact bilaterally Neck supple Resp normal respiratory effort and clear to auscultation bilaterally Cardio regular rate, regular rhythm and no murmurs GI non-tender, non-distended and no masses Extremity Extremity Narrative: Patient has some tenderness to palpation of her left calf. No erythema or edema. Neuro oriented x3, CN's II-XII intact bilaterally and no sensory deficits noted Sensorium / Orientation: alert Motor Exam: strength 5/5 throughout Psych mental status grossly normal Skin no rashes or lesions noted Skin Narrative: Four abdominal laparoscopic incision sites. No redness, edema, discharge, or erythema. Signs of infection. <Dr. Fermin Navarro DO - Last Filed: 05/03/22 19:43> Physical Exam Const Vital Signs: 05/03/22 15:20 05/03/22 16:56 05/03/22 19:08 Temperature 98.1 F 98.1 F Temperature Source Temporal Pulse Rate 120 H 100 Respiratory Rate 20 H 15 Respiratory Effort Normal Non-Labored Respiratory Pattern Normal Blood Pressure 144/102 H 141/74 H Blood Pressure Mean 116 Pulse Ox 100 98 Oxygen Delivery Method Room Air MDM <ROBERT Chang - Last Filed: 05/03/22 21:58> [facility] Narrative Medical decision making narrative: There is no elevated white blood cell count or signs of infection. Chest x-ray does not show any acute process. Venous duplex normal. There is no redness or edema in her left leg. Patient does not have a fever here and her vital signs are stable. I am comfortable with patient discharging home and following up with her surgeon. I do not think she has a DVT. Patient is agreeable with plan and I have given her return instructions. Lab Data Lab results narrative: Patient CBC is pretty much unchanged from her last CBC. D-dimer is elevated due to being postop. BMP unremarkable. UA contaminated but a culture has been sent. Labs: Laboratory Results - last 24 hr 05/03/22 05/03/22 05/03/22 17:07 17:07 17:07 WBC 8.5 RBC 4.89 Hgb 11.6 L Hct 38.3 MCV 78.3 L MCH 23.7 L MCHC 30.3 L RDW Std Deviation 39.1 RDW Coeff of Mariaa 13.8 Plt Count 358 MPV 10.0 Immature Gran % (Auto) 0.400 Neut % (Auto) 63.9 Lymph % (Auto) 23.2 [place] % (Auto) 7.1 Eos % (Auto) 4.9 Baso % (Auto) 0.5 Absolute Neuts (auto) 5.4 Absolute Lymphs (auto) 1.97 Nucleated RBC % 0 D-Dimer Quant (PE/DVT) 0.66 H* Sodium 139 Potassium 3.8 Chloride 108 H Carbon Dioxide 25.0 Anion Gap 6 BUN 9 Creatinine 0.76 Estim Creat Clear Calc 92.97 Est GFR (MDRD) Af Amer 112 Est GFR (MDRD) Non-Af 93 BUN/Creatinine Ratio 11.9 Glucose 108 H Calcium 9.2 Urine Color Urine Clarity Urine pH Ur Specific [place] Urine Protein Urine Glucose (UA) Urine Ketones Urine Occult Blood Urine Nitrite Urine Bilirubin Urine Urobilinogen Ur Leukocyte Esterase Urine RBC Urine WBC Ur Squamous Epith Cells Urine Bacteria Urine Mucus 05/03/22 17:57 WBC RBC Hgb Hct MCV MCH MCHC RDW Std Deviation RDW Coeff of Mariaa Plt Count MPV Immature Gran % (Auto) Neut % (Auto) Lymph % (Auto) [place] % (Auto) Eos % (Auto) Baso % (Auto) Absolute Neuts (auto) Absolute Lymphs (auto) Nucleated RBC % D-Dimer Quant (PE/DVT) Sodium Potassium Chloride Carbon Dioxide Anion Gap BUN Creatinine Estim Creat Clear Calc Est GFR (MDRD) Af Amer Est GFR (MDRD) Non-Af BUN/Creatinine Ratio Glucose Calcium Urine Color Yellow Urine Clarity Sl. Cloudy Urine pH 6.5 Ur Specific [place] 1.020 Urine Protein Negative Urine Glucose (UA) Normal Urine Ketones Negative Urine Occult Blood 25 H Urine Nitrite Negative Urine Bilirubin Negative Urine Urobilinogen Normal Ur Leukocyte Esterase 100 H Urine RBC 0 SEEN Urine WBC 5-10 SEEN Ur Squamous Epith Cells 10-25 SEEN Urine Bacteria RARE Urine Mucus 0 SEEN Radiography Diagnostic Testing: Clinical Impression(s) from Imaging Studies Chest X-Ray 05/03/22 17:10 IMPRESSION: No radiographic evidence of acute cardiopulmonary disease. Electronically Signed: Marcel Chandler MD at 17:30 EST , Venous Duplex 05/03/22 17:41 IMPRESSION: Normal left lower extremity duplex venous ultrasound. Electronically Signed: Marcel Chandler MD at 18:59 EST , Chest x-ray reviewed and agree with radiologist impressions. Venous duplex reviewed and I agree with radiologist impressions. These have also been reviewed by attending ED physician. <Dr. Fermin Navarro, DO - Last Filed: 05/03/22 19:43> [facility] Lab Data Attestation: I reviewed the patient's lab results. Labs: Laboratory Results - last 24 hr 05/03/22 05/03/22 05/03/22 17:07 17:07 17:07 WBC 8.5 RBC 4.89 Hgb 11.6 L Hct 38.3 MCV 78.3 L MCH 23.7 L MCHC 30.3 L RDW Std Deviation 39.1 RDW Coeff of Mariaa 13.8 Plt Count 358 MPV 10.0 Immature Gran % (Auto) 0.400 Neut % (Auto) 63.9 Lymph % (Auto) 23.2 [place] % (Auto) 7.1 Eos % (Auto) 4.9 Baso % (Auto) 0.5 Absolute Neuts (auto) 5.4 Absolute Lymphs (auto) 1.97 Nucleated RBC % 0 D-Dimer Quant (PE/DVT) 0.66 H* Sodium 139 Potassium 3.8 Chloride 108 H Carbon Dioxide 25.0 Anion Gap 6 BUN 9 Creatinine 0.76 Estim Creat Clear Calc 92.97 Est GFR (MDRD) Af Amer 112 Est GFR (MDRD) Non-Af 93 BUN/Creatinine Ratio 11.9 Glucose 108 H Calcium 9.2 Urine Color Urine Clarity Urine pH Ur Specific [place] Urine Protein Urine Glucose (UA) Urine Ketones Urine Occult Blood Urine Nitrite Urine Bilirubin Urine Urobilinogen Ur Leukocyte Esterase Urine RBC Urine WBC Ur Squamous Epith Cells Urine Bacteria Urine Mucus 05/03/22 17:57 WBC RBC Hgb Hct MCV MCH MCHC RDW Std Deviation RDW Coeff of Mariaa Plt Count MPV Immature Gran % (Auto) Neut % (Auto) Lymph % (Auto) [place] % (Auto) Eos % (Auto) Baso % (Auto) Absolute Neuts (auto) Absolute Lymphs (auto) Nucleated RBC % D-Dimer Quant (PE/DVT) Sodium Potassium Chloride Carbon Dioxide Anion Gap BUN Creatinine Estim Creat Clear Calc Est GFR (MDRD) Af Amer Est GFR (MDRD) Non-Af BUN/Creatinine Ratio Glucose Calcium Urine Color Yellow Urine Clarity Sl. Cloudy Urine pH 6.5 Ur Specific [place] 1.020 Urine Protein Negative Urine Glucose (UA) Normal Urine Ketones Negative Urine Occult Blood 25 H Urine Nitrite Negative Urine Bilirubin Negative Urine Urobilinogen Normal Ur Leukocyte Esterase 100 H Urine RBC 0 SEEN Urine WBC 5-10 SEEN Ur Squamous Epith Cells 10-25 SEEN Urine Bacteria RARE Urine Mucus 0 SEEN Radiography Diagnostic Testing: Clinical Impression(s) from Imaging Studies Chest X-Ray 05/03/22 17:10 IMPRESSION: No radiographic evidence of acute cardiopulmonary disease. Electronically Signed: Marcel D. Breckwoldt, MD at 17:30 EST , Venous Duplex 05/03/22 17:41 IMPRESSION: Normal left lower extremity duplex venous ultrasound. Electronically Signed: Marcel Chandler MD at 18:59 EST , Treatment and Re-Evaluation Narrative: I performed a history and physical examination of the patient and discussed management plan with the physician carpenter assistant. I reviewed the physician carpenter assistant's note and agree with the documented findings and plan of care. The patient's white count is normal. My interpretation of the chest x-ray is no acute process. Urinalysis does not show any overt infection and is actually contaminated. Venous duplex ultrasound of the leg is negative for DVT. COVID and flu were negative. She clinically appears well and is without a fever here. Abdomen is not surgical sites do not appear infected. At this point patient will be discharged home for continued follow-up with her surgeon Fermin Navarro DO, [place] Discharge Plan Triage Chief Complaint: Fever ED Midlevel Provider: Karen Hagen ED Provider: Fermin Navarro Dx/Rx/DC Orders Clinical Impression: Postoperative fever, Pain of left calf Instructions: ED FUO Adult Prescriptions: No Action ibuprofen 600 mg tablet 600 mg PO Q6H PRN (Reason: mild pain (scale score 1-4)) 7 Days Qty: 28 0RF Rx Instructions: one tab every 6 hrs as needed for mild to moderate pain ondansetron 4 mg tablet,disintegrating 4 mg PO Q8H PRN (Reason: nausea and vomiting) Qty: 30 0RF dextroamphetamine-amphetamine [Adderall XR] 30 mg Capsule,Extended Release 24hr 30 mg PO DAILY Primary Care Provider: Modesto Nolasco Referrals: Modesto Nolasco [Primary Care Provider] - 3-5 Days if not improving Activity Restrictions/Additional Instructions: Please return if any worsening of symptoms or if you develop difficulty breathing and shortness of breath. Return if increased pain or redness and swelling in the legs. Disposition Disposition: Home, Self Care Discharge Date/Time: 05/03/22 19:18
--- NOTE | 2022-05-03 17:10 | RAD_ITS ---
EXAM: XR CHEST, 1 VIEW CLINICAL INDICATION: POST OP FEVER TECHNIQUE: Frontal view of the chest. This report was created using [employer] report generation technology. COMPARISON: 03/10/2021 FINDINGS: LUNGS AND PLEURAL SPACES: Unremarkable. No consolidation or edema. No pneumothorax. No effusion. HEART: Unremarkable. Cardiac silhouette not enlarged. MEDIASTINUM: Central airways and mediastinal contour are unremarkable. BONES/JOINTS: Unremarkable. SOFT TISSUES: Unremarkable. RAD/Chest 1 View IMPRESSION: No radiographic evidence of acute cardiopulmonary disease. Electronically Signed: Marcel Chandler MD at 17:30 [facility] ,
[2022-05-03 17:14] LABS: Absolute Lymphocyte Count 1.97 X10^3/uL (0.83-4.51); Absolute Neutrophil Count 5.4 X10^3/uL (2.0-7.7); Basophil# 0.04 X10^3/uL; Basophil% 0.5 % (0-1); Eosinophil# 0.42 X10^3/uL; Eosinophils% 4.9 % (0-5); Hematocrit 38.3 % (37-47); Hemoglobin 11.6 g/dL (12.0-15.0); Lymphocyte # 1.97 X10^3/ul (0.83-4.51); Lymphocyte % 23.2 % (19-41); Mean Corp Hgb Conc 30.3 g/dL (32-36); Mean Corpuscular Hgb 23.7 pg (27.0-32.0); Mean Corpuscular Volume 78.3 fL (81-99); Monocyte% 7.1 % (0-10); NRBC Flagged by Analyzer 0 % (0-5); Neutrophil # 5.43 X10^3/uL (2.7-7.7); Neutrophil % 63.9 % (47-70); Platelet Count 358 K/mm3 (150-450); RBC Distribution Width CV 13.8 % (11.6-14.6); RBC Distribution Width SD 39.1 fl (35.1-43.9); Red Blood Count 4.89 M/mm3 (4.2-5.4); White Blood Count 8.5 K/mm3 (4.4-11.0)
[2022-05-03 17:27] LABS: Anion Gap 6 (5-15); BUN 9 mg/dL (7-18); BUN/Creat Ratio 11.9 RATIO (10-20); Calcium,Total 9.2 mg/dL (8.5-10.1); Chloride 108 mmol/L (98-107); Creatinine, Serum 0.76 mg/dL (0.55-1.02); EST Glomerular Filtration Rate 93 mL/min (>60); Est Glom Filt Rate - Afr Amer 112 mL/min (>60); Estimated Creatinine Clearance 92.97 ml/min; Glucose 108 mg/dL (74-106); Potassium 3.8 mmol/L (3.5-5.1); Sodium Level 139 mmol/L (136-145)
[2022-05-03 17:30] LABS: D-Dimer Quantitative (DVT/PE) 0.66 FEU/ug/m (0.27-0.49)
--- NOTE | 2022-05-03 17:41 | US_ITS ---
EXAM: US DUPLEX LEFT LOWER EXTREMITY VEINS CLINICAL INDICATION: LT POSTERIOR CALF PAIN-TODAY TECHNIQUE: Real-time duplex ultrasound scan of the left lower extremity veins integrating B-mode two-dimensional vascular structure, Doppler spectral analysis, color flow Doppler imaging and compression. This report was created using [employer] report At[employer] technology. COMPARISON: None. FINDINGS: DEEP VEINS: Unremarkable. No DVT in the visualized common femoral, femoral, proximal deep femoral or popliteal veins. The veins demonstrate normal color flow, are normally compressible, with normal phasic flow and/or augmentation response. SUPERFICIAL VEINS: Unremarkable. No thrombus in the visualized great saphenous vein. SOFT TISSUES: No acute findings. No popliteal cyst. US/Venous Duplex Imag/Limited/Uni IMPRESSION: Normal left lower extremity duplex venous ultrasound. Electronically Signed: Marcel Chandler MD at 18:59 EST ,
[2022-05-03 18:02] LABS: Mucous, Urine 0 SEEN /hpf (<or=2+); Red Blood Cells-Urine 0 SEEN /hpf (0-5)
[2022-05-03 18:03] LABS: Color, Urine Yellow (Yellow); Glucose, Dipstick Normal (Normal); Ketone-Dipstick Negative (Negative); Leukocyte Esterase-Dipstick 100 /ul (Negative); Nitrite-Dipstick Negative (Negative); Occult Blood-Urine 25 /ul (Negative); Protein-Dipstick Negative (Negative); Urine Bilirubin Dipstick Negative (Negative); Urine Clarity Sl. Cloudy (Clear); Urine Urobilinogen Normal (Normal); Urine pH 6.5 (5.0 - 8.0)
[2022-05-03 18:14] LABS: Bacteria RARE /hpf (None Seen); Squamous Epithelial Cells - UA 10-25 SEEN /hpf (5-10); White Blood Cells 5-10 SEEN /hpf (0-5)
[2022-05-03 19:08] VITALS: BP 141/74; PULSE 100; RESP 15; TEMP 36.7; O2SAT 98
== END 2022-05-03 19:18 | disposition home or self-care (01) ==
PROVIDERS: Physician Assistant; Emergency Provider Emergency Medicine; PCP Student in an Organized Health Care Education/Training Program; Visit Provider Emergency Medicine
DX: M79.662 Pain in left lower leg (principal); I10 Essential (primary) hypertension; R50.82 Postprocedural fever
CPT/HCPCS: 71045; 80048; 81001; 85025; 85379; 87086; 87088; 87428; 93971; 99283; A4216

== ENCOUNTER 2023-03-10 12:40 | Emergency (ER) | payer MEDICAID, SELFPAY ==
[2023-03-10 12:42] VITALS: BP 155/99; PULSE 135; RESP 16; TEMP 36.7; O2SAT 100; BMI 26.6
--- NOTE | 2023-03-10 13:06 | CT_ITS ---
HISTORY: left flank pain, hematuria, hx stones, prior hysterectomy, appendectomy. TECHNIQUE: Helically acquired images were obtained of the abdomen and pelvis without oral or IV contrast. A radiation dose optimization technique was used for this scan. 449 images. COMPARISON: 02/03/2019. FINDINGS: LOWER CHEST: Lung bases clear. BOWEL: Bowel nondilated. Surgical clips at the cecum. No focal pericolonic inflammatory change. PERITONEUM: No significant free fluid. LIVER: Unremarkable. GALLBLADDER/BILIARY TREE: Gallbladder present. SPLEEN/PANCREAS/ADRENAL GLANDS: Nonenlarged. KIDNEYS AND URETERS: Several right renal calculus measuring up to 3 4 mm in the right lower pole without hydronephrosis. 2 mm left upper and lower pole calculi. Moderate left hydronephrosis secondary to a 4 mm ureteropelvic junction calculus. VESSELS: No abdominal aortic aneurysm. PELVIC ORGANS: Interval hysterectomy . BONES: Intact. CT/Abdomen/Pelvis without Cont IMPRESSION: Moderate left hydronephrosis secondary to a 4 mm UPJ calculus. Bilateral nephrolithiasis. Electronically Signed: Elicia Johnson MD at 13:45 EDT ,
--- NOTE | 2023-03-10 13:07 | EDS_ITS ---
HPI History of Present Illness Chief Complaint: Flank Pain Informant: patient Narrative Narrative: With left flank pain and hematuria. Patient states that she started with some frequency and pressure over the bladder on Sunday or Sunday. She started with a little blood on Sunday. She was seen in urgent care. Urine showed blood and protein. She is treated as if she has a UTI. But she has been now getting pain in her left flank that is worse. It was off and on before. But now it is kind of been constant overnight. It waxes and wanes but does not completely go away. It is clearly in the left flank but radiates down toward the left groin. She is not nauseated with this. No fevers or chills. She has had a complete hysterectomy. She has had appendectomy. No trauma. No numbness tingling or weakness or radicular symptoms down her leg. PFSH PFS Medical History ADHD COVID-19 virus infection Fatty liver Gestational diabetes Heart murmur Hemorrhoids HTN (hypertension) Injury of head and neck Leg cramps Low iron Non-smoker Restless legs Wears glasses Home Medications dextroamphetamine-amphetamine ER 30 mg 24hr capsule,extend release (Adderall XR) 30 mg PO DAILY 05/03/22 [History Last Taken Unknown] naproxen 500 mg tablet 500 mg PO BID #20 tabs 03/10/23 [Rx Last Taken Unknown] ondansetron 4 mg disintegrating tablet 4 mg PO Q8H PRN PRN Nausea #10 tabs 03/10/23 [Rx Last Taken Unknown] oxycodone-acetaminophen 5 mg-325 mg tablet 1 tab PO Q6H PRN PRN Pain 3 days #12 TABLETS 03/10/23 [Rx Last Taken Unknown] tamsulosin 0.4 mg capsule (Flomax) 0.4 mg PO DAILY #7 caps 03/10/23 [Rx Last Taken Unknown] Allergy/AdvReac Type Severity Reaction Status Date / Time Penicillins Allergy Rash Verified 03/10/23 12:41 Family History Father Hypertension Surgical History H/O LEEP H/O: hysterectomy History of appendectomy Hx of cystoscopy S/P Tubal ligation status Social History Smoking Status: Never smoker alcohol intake: current details: occasionally substance use type: does not use caffeine: Yes what type of physical activity do you participate in: none seatbelt use: always do you feel safe at home: Yes 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 Some specific details below. Constitutional: No recent fevers or chills. Malaise. ENT: No difficulty swallowing. No swelling. No pain. GERD. CV: No chest pain or palpitations. Respiratory: No dyspnea. No hemoptysis. No difficulty taking breaths. GI: Please see history of present illness. Her pain is really very low abdomen. It is also left flank radiates toward the left lower quadrant. No change in bowel habits. She is eating and drinking normally and no nausea. : See history of present illness. Musculoskeletal: No recent trauma. No pains within the left flank. Skin: No rash. Nondiaphoretic. Neuro: No weakness or numbness. Endocrine: No polyuria or polydipsia. EXAM Physical Exam Narrative Exam Narrative: CONSTITUTIONAL: Patient is nontoxic in appearance. The patient looks comfortable. HEENT: No notable trauma. Mucous membranes moist. No sinus tenderness. No indication of pain with swallowing. EYES: No conjunctival injection. No proptosis. CARDIOVASCULAR: Regular rate. Regular rhythm. No notable murmur. No JVD. RESPIRATORY: No respiratory distress. Breathing is unlabored. No wheezes. No rhonchi. No rales. No pain with a deep breath. GASTROINTESTINAL: Not distended. Bowel sounds are normal. No tenderness except very mild in the suprapubic area. No guarding. No rebound. No palpable mass. No bruit. The pain radiates to the left lower quadrant is not tender there. GENITOURINARY: Very mild tenderness over the bladder. Does have some mild left CVA tenderness. MUSCULOSKELETAL: Atraumatic. No peripheral edema. No cord. No tenderness along the deep venous system. No asymmetry. NEUROLOGICAL: Patient is alert and appropriate. No focal deficit noted. SKIN: No noted rashes. No diaphoresis. PSYCHIATRIC: Patient is calm. Mood is appropriate. Const Vital Signs: 03/10/23 12:42 Temperature 98.1 F Temperature Source Temporal Pulse Rate 135 H Respiratory Rate 16 Blood Pressure 155/99 H Blood Pressure Mean 117 Pulse Ox 100 Oxygen Delivery Method Room Air MDM MDM MDM Narrative Medical decision making narrative: My dependent interpretation the patient's CT of the abdomen pelvis without contrast does show a left-sided proximal stone about 4 mm. Final reading is similar. Patient CBC is overall normal. Patient's electrolytes are normal. Urine was not done as the patient has had a hysterectomy in the past Urine does not show signs of infection. She is rechecked. She is comfortable. Plan will be to get her home with meds for pain nausea and Flomax. We will have her follow-up with urology. I explained that statistically her stone should pass but it is still possible that she needed a procedure such as lithotripsy or stenting in the future. We also discussed reasons to return including pain, vomiting, fevers or other concerns Lab Data Attestation: I reviewed the patient's lab results. Labs: Laboratory Results - last 24 hr 03/10/23 03/10/23 12:55 14:15 WBC 6.3 RBC 5.42 H Hgb 14.2 Hct 44.1 MCV 81.4 MCH 26.2 L MCHC 32.2 RDW Std Deviation 39.5 RDW Coeff of Mariaa 13.4 Plt Count 265 MPV 10.1 Immature Gran % (Auto) 0.300 Neut % (Auto) 65.9 Lymph % (Auto) 25.0 [place] % (Auto) 7.5 Eos % (Auto) 0.8 Baso % (Auto) 0.5 Absolute Neuts (auto) 4.1 Absolute Lymphs (auto) 1.56 Nucleated RBC % 0 Sodium 138 Potassium 3.3 L Chloride 110 H Carbon Dioxide 25.0 Anion Gap 3 L BUN 10 Creatinine 0.95 Estim Creat Clear Calc 74.38 Est GFR (MDRD) Af Amer 86 Est GFR (MDRD) Non-Af 71 BUN/Creatinine Ratio 10.5 Glucose 87 Calcium 9.0 Urine Color Yellow Urine Clarity Clear Urine pH 6.5 Ur Specific [place] 1.010 Urine Protein 30 H Urine Glucose (UA) Normal Urine Ketones Negative Urine Occult Blood 250 H Urine Nitrite Negative Urine Bilirubin Negative Urine Urobilinogen Normal Ur Leukocyte Esterase 25 H Urine RBC 0-5 SEEN Urine WBC 0-5 SEEN Ur Squamous Epith Cells 0-5 SEEN Urine Bacteria 0 SEEN Urine Mucus 0 SEEN Radiography Diagnostic Testing: Clinical Impression(s) from Imaging Studies Abdomen/Pelvis CT 03/10/23 13:06 IMPRESSION: Moderate left hydronephrosis secondary to a 4 mm UPJ calculus. Bilateral nephrolithiasis. Electronically Signed: Elicia Johnson MD at 13:45 EDT , Discharge Plan Triage Chief Complaint: Flank Pain ED Provider: Iglesia Ram Dx/Rx/DC Orders Clinical Impression: Left flank pain, Calculus of left kidney Instructions: ED Kidney Stone w/ Colic Prescriptions: New oxycodone-acetaminophen [oxycodone-acetaminophen] 5-325 mg tablet 1 tab PO Q6H PRN PRN (Reason: Pain) 3 Days Qty: 12 0RF naproxen 500 mg tablet 500 mg PO BID Qty: 20 0RF ondansetron [ondansetron] 4 mg tablet,disintegrating 4 mg PO Q8H PRN PRN (Reason: Nausea) Qty: 10 0RF tamsulosin [Flomax] 0.4 mg capsule 0.4 mg PO DAILY Qty: 7 0RF No Action dextroamphetamine-amphetamine [Adderall XR] 30 mg Capsule,Extended Release 24hr 30 mg PO DAILY Primary Care Provider: Modesto Nolasco Referrals: Malia Coughlin MD [Med Staff - Active Staff] - 3-5 Days oMdesto Nolasco [[facility]] - Disposition Disposition: Home, Self Care
[2023-03-10] MEDS: Ketorolac 15 MG/ML Vial IV (13:12)
[2023-03-10] MEDS: 0.9% Normal Saline (1000mL) 1,000 ML 1000 ML IV (13:12)
[2023-03-10 13:22] LABS: Absolute Lymphocyte Count 1.56 X10^3/uL (0.83-4.51); Absolute Neutrophil Count 4.1 X10^3/uL (2.0-7.7); Basophil# 0.03 X10^3/uL; Basophil% 0.5 % (0-1); Eosinophil# 0.05 X10^3/uL; Eosinophils% 0.8 % (0-5); Hematocrit 44.1 % (37-47); Hemoglobin 14.2 g/dL (12.0-15.0); Lymphocyte # 1.56 X10^3/ul (0.83-4.51); Mean Corp Hgb Conc 32.2 g/dL (32-36); Mean Corpuscular Hgb 26.2 pg (27.0-32.0); Mean Corpuscular Volume 81.4 fL (81-99); Mean Platelet Vol. 10.1 fl (6.2-12.0); Monocyte# 0.47 X10^3/uL; Monocyte% 7.5 % (0-10); NRBC Flagged by Analyzer 0 % (0-5); Neutrophil # 4.12 X10^3/uL (2.7-7.7); Neutrophil % 65.9 % (47-70); Platelet Count 265 K/mm3 (150-450); RBC Distribution Width CV 13.4 % (11.6-14.6); RBC Distribution Width SD 39.5 fl (35.1-43.9); Red Blood Count 5.42 M/mm3 (4.2-5.4); White Blood Count 6.3 K/mm3 (4.4-11.0)
[2023-03-10 13:34] LABS: Anion Gap 3 (5-15); BUN 10 mg/dL (7-18); BUN/Creat Ratio 10.5 RATIO (10-20); Chloride 110 mmol/L (98-107); Creatinine, Serum 0.95 mg/dL (0.55-1.02); EST Glomerular Filtration Rate 71 mL/min (>60); Est Glom Filt Rate - Afr Amer 86 mL/min (>60); Estimated Creatinine Clearance 74.38 ml/min; Glucose 87 mg/dL (74-106); Potassium 3.3 mmol/L (3.5-5.1); Sodium Level 138 mmol/L (136-145)
[2023-03-10 14:29] LABS: Bacteria 0 SEEN /hpf (None Seen); Color, Urine Yellow (Yellow); Glucose, Dipstick Normal (Normal); Ketone-Dipstick Negative (Negative); Leukocyte Esterase-Dipstick 25 /ul (Negative); Mucous, Urine 0 SEEN /hpf (<or=2+); Nitrite-Dipstick Negative (Negative); Occult Blood-Urine 250 /ul (Negative); Protein-Dipstick 30 mg/dl (Negative); Urine Bilirubin Dipstick Negative (Negative); Urine Clarity Clear (Clear); Urine Urobilinogen Normal (Normal); Urine pH 6.5 (5.0 - 8.0)
[2023-03-10 14:35] LABS: Red Blood Cells-Urine 0-5 SEEN /hpf (0-5); Squamous Epithelial Cells - UA 0-5 SEEN /hpf (5-10); White Blood Cells 0-5 SEEN /hpf (0-5)
== END 2023-03-10 15:22 | disposition home or self-care (01) ==
PROVIDERS: Emergency Provider Emergency Medicine; PCP Student in an Organized Health Care Education/Training Program; Visit Provider Emergency Medicine
DX: N13.2 Hydronephrosis with renal and ureteral calculous obstruction (principal); R11.0 Nausea; I10 Essential (primary) hypertension; R10.9 Unspecified abdominal pain; Z90.710 Acquired absence of both cervix and uterus; Z90.49 Acquired absence of other specified parts of digestive tract; F90.9 Attention-deficit hyperactivity disorder, unspecified type; Z79.899 Other long term (current) drug therapy; Z98.51 Tubal ligation status
CPT/HCPCS: 74176; 80048; 81001; 85025; 96361; 96374; 99282; J7030; A4216

== ENCOUNTER 2023-03-11 01:47 | Emergency (ER) | payer OTHER, SELFPAY ==
[2023-03-11 01:48] VITALS: BP 150/91; PULSE 97; RESP 18; TEMP 36.9; O2SAT 100; BMI 27.1
[2023-03-11] MEDS: Ondansetron 4 MG/2 ML Vial IV (02:37)
[2023-03-11] MEDS: 0.9% Normal Saline (1000mL) 1,000 ML 250 ML IV (02:37)
[2023-03-11] MEDS: Morphine 4 MG/ML Syringe IV (02:37)
[2023-03-11] MEDS: Ketorolac 15 MG/ML Vial IV (02:38)
[2023-03-11 03:23] LABS: Mucous, Urine 0 SEEN /hpf (<or=2+)
[2023-03-11 03:25] LABS: Color, Urine Yellow (Yellow); Glucose, Dipstick Normal (Normal); Ketone-Dipstick Negative (Negative); Leukocyte Esterase-Dipstick 25 /ul (Negative); Nitrite-Dipstick Negative (Negative); Occult Blood-Urine 250 /ul (Negative); Protein-Dipstick 30 mg/dl (Negative); Urine Bilirubin Dipstick Negative (Negative); Urine Clarity Clear (Clear); Urine Urobilinogen Normal (Normal)
[2023-03-11 03:52] LABS: Red Blood Cells-Urine 25-50 SEEN /hpf (0-5); Squamous Epithelial Cells - UA 0-5 SEEN /hpf (5-10); White Blood Cells 0-5 SEEN /hpf (0-5)
[2023-03-11 03:53] LABS: Bacteria RARE /hpf (None Seen)
--- NOTE | 2023-03-11 05:12 | EX.ED.DYSGE1 ---
HPI History of Present Illness Chief Complaint: Flank Pain Detail of Chief Complaint: Flank pain Informant: patient and spouse/S.O. Onset/Context/Timing Onset: Hours Context: Sudden Onset Timing: Continuous and Waxes and wanes Quality: Colicky Location: Left leg Current Severity: Severe Maximum Severity: Severe Worsened by: Nothing Relieved by: Nothing Associated Symptoms Associated Symptoms: Nausea Narrative Narrative: Patient is a 37-year-old woman who was seen earlier today and diagnosed with hydronephrosis due to obstructing left ureteral stone. Patient was referred to urology. Patient was discharged with prescription for Naprosyn and Percocet. She failed these. She states she got no relief 5 hours after taking the Percocet. She cannot find a position of comfort. She does report urgency. She denies hematuria or dysuria. She denies fever or chills. She denies any other symptoms. Prior similar symptoms: Yes Recent Illness/Hospitalization: Yes PFSH PFSH Medical History ADHD COVID-19 virus infection Fatty liver Gestational diabetes Heart murmur Hemorrhoids HTN (hypertension) Injury of head and neck Leg cramps Low iron Non-smoker Restless legs Wears glasses Home Medications naproxen 500 mg tablet 500 mg PO BID #20 tabs 03/10/23 [Rx Last Taken Unknown] ondansetron 4 mg disintegrating tablet 4 mg PO Q8H PRN PRN Nausea #10 tabs 03/10/23 [Rx Last Taken Unknown] oxycodone-acetaminophen 5 mg-325 mg tablet 1 tab PO Q6H PRN PRN Pain 3 days #12 TABLETS 03/10/23 [Rx Last Taken Unknown] tamsulosin 0.4 mg capsule (Flomax) 0.4 mg PO DAILY #7 caps 03/10/23 [Rx Last Taken Unknown] lisdexamfetamine 30 mg capsule (Vyvanse) 30 mg PO DAILY 03/11/23 [History Last Taken Unknown] semaglutide (weight loss) subcut 03/11/23 [History Last Taken Unknown] Allergy/AdvReac Type Severity Reaction Status Date / Time Penicillins Allergy Rash Verified 03/11/23 01:48 Family History Father Hypertension Surgical History H/O LEEP H/O: hysterectomy History of appendectomy Hx of cystoscopy S/P Tubal ligation status Social History Smoking Status: Never smoker alcohol intake: current details: occasionally substance use type: does not use caffeine: Yes what type of physical activity do you participate in: none seatbelt use: always do you feel safe at home: Yes 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 ROS ROS ED Constitutional Constitutional ED: Denies chills, fever(s) or subjective Cardiovascular Cardiovascular: Denies chest pain or palpitations Respiratory/Chest Respiratory/Chest: Denies cough or dyspnea Gastrointestinal Gastrointestinal: Reports nausea; Denies abdominal pain or diarrhea Genitourinary Genitourinary ED: Reports urinary frequency; Denies dysuria or hematuria Musculoskeletal Musculoskeletal: Reports back pain; Denies arthralgias or myalgias Integumentary Denies rash Hematologic/Lymphatic Hematologic/Lymphatic: Reports systems reviewed and no addt'l complaints, except as documented EXAM Physical Exam Const Vital Signs: 03/11/23 01:48 Temperature 98.5 F Temperature Source Temporal Pulse Rate 97 Respiratory Rate 18 Blood Pressure 150/91 H Blood Pressure Mean 110 Pulse Ox 100 Positive well nourished, well developed and obese Constitutional Narrative: Appears uncomfortable. General Appearance ED: well developed; Negative for NAD or pallor Nutritional Appearance: obese HEENT Reports moist mucous membranes HEENT Narrative: Head is atraumatic and normocephalic. Ears normal. Nares patent. Mucosa is moist. Eyes PERRL and EOMs intact bilaterally General Eye ED: Negative for pale conjunctiva or scleral icterus Neck no lymphadenopathy, supple and no JVD Chest Wall inspection of chest normal and palpation of chest normal Resp normal respiratory effort and clear to auscultation bilaterally Cardio regular rate, regular rhythm, S1 normal heart sound, S2 normal heart sound and no murmurs GI normal to inspection, nondistended, normoactive bowel sounds, non-tender, non-distended and no masses; Negative for hepatosplenomegaly Palpation: soft Back/Spine no CVA tenderness Thoracic Spine / Upper Back: Negative for thoracic spinal tenderness Lumbar Spine / Lower Back: Negative for lumbar spinal tenderness Extremity normal to inspection General Extremety ED: Negative for edema or tenderness General Extremity: Negative for edema Neuro oriented x3, CN's II-XII intact bilaterally and no sensory deficits noted Sensorium / Orientation: alert Motor Exam: strength 5/5 throughout Psych mental status grossly normal Skin no rashes or lesions noted, no wounds and skin turgor normal General Skin Exam: elasticity normal; Negative for jaundice or pallor MDM MDM MDM Narrative Medical decision making narrative: Prior records reviewed. Patient's pain is due to obstructing ureteral stone. Will obtain UA to assess for infection. IV was established. She was treated with parenteral meds. She was reevaluated twice. The most recent was 515 after her UA results were available for my review. Patient was informed there is no evidence infection. Patient was asleep and had to be awakened. She was instructed to take the Percocet every 6 hours [id number]. She was instructed to contact urology. Lab Data Labs: Laboratory Results - last 24 hr 03/11/23 03:13 Urine Color Yellow Urine Clarity Clear Urine pH 6.0 Ur Specific Grant 1.030 Urine Protein 30 H Urine Glucose (UA) Normal Urine Ketones Negative Urine Occult Blood 250 H Urine Nitrite Negative Urine Bilirubin Negative Urine Urobilinogen Normal Ur Leukocyte Esterase 25 H Urine RBC 25-50 SEEN Urine WBC 0-5 SEEN Ur Squamous Epith Cells 0-5 SEEN Urine Bacteria RARE Urine Mucus 0 SEEN Discharge Plan Triage Chief Complaint: Flank Pain ED Provider: Faraz Oneil Dx/Rx/DC Orders Clinical Impression: Hydronephrosis with urinary obstruction due to ureteral calculus, Bilateral kidney stones Instructions: ED Kidney Stone w/ Colic Prescriptions: No Action oxycodone-acetaminophen [oxycodone-acetaminophen] 5-325 mg tablet 1 tab PO Q6H PRN PRN (Reason: Pain) 3 Days Qty: 12 0RF naproxen 500 mg tablet 500 mg PO BID Qty: 20 0RF ondansetron [ondansetron] 4 mg tablet,disintegrating 4 mg PO Q8H PRN PRN (Reason: Nausea) Qty: 10 0RF tamsulosin [Flomax] 0.4 mg capsule 0.4 mg PO DAILY Qty: 7 0RF lisdexamfetamine [Vyvanse] 30 mg capsule 30 mg PO DAILY Patient Comments: take 2 capsules by mouth once daily semaglutide (weight loss) subcut Primary Care Provider: Modesto Nolasco Referrals: Malia Coughlin MD [Med Staff - Active Staff] - 3-5 Days Modesto Nolasco DO [Primary Care Provider] - Disposition Disposition: Home, Self Care
[2023-03-11 05:23] VITALS: BP 118/67; PULSE 87; RESP 18; O2SAT 99
== END 2023-03-11 05:24 | disposition home or self-care (01) ==
PROVIDERS: Emergency Provider Emergency Medicine; PCP Student in an Organized Health Care Education/Training Program; Visit Provider Emergency Medicine
DX: N13.2 Hydronephrosis with renal and ureteral calculous obstruction (principal); I10 Essential (primary) hypertension; Z90.710 Acquired absence of both cervix and uterus; Z90.49 Acquired absence of other specified parts of digestive tract
CPT/HCPCS: 81001; 96361; 96374; 96375; 99283; A4216; J2405

== ENCOUNTER → 2023-03-13 | Outpatient (CLI) | payer OTHER, SELFPAY ==
--- NOTE | 2023-03-13 13:44 | RAD_ITS ---
INDICATION: KIDNEY STONE EXAMINATION/TECHNIQUE: X-RAY - XR Abdomen COMPARISON: CT abdomen pelvis March 10, 2023. FINDINGS: Frontal views of the abdomen and pelvis were obtained. Bilateral nephrolithiasis is again identified. The 4 mm stone at the ureteropelvic junction on the prior exam was at the level of L2-3. On the current study, the 4 mm stone has advanced distally approximately 3 cm projecting over the proximal to mid left ureter at the level of L3. Moderate gaseous distention of the colon, similar to the prior exam. Mild to moderate amount of stool in the right colon. No small bowel obstruction. RAD/Abdomen Single View IMPRESSION: The 4 mm left ureteral stone projects over the proximal to mid left ureter at the level of L3 as described. Electronically Signed: Evangelista Doyle MD at 20:09 EDT ,
== END | disposition home or self-care (01) ==
PROVIDERS: PCP Student in an Organized Health Care Education/Training Program; Referring Provider Urology; Visit Provider Urology
DX: N20.0 Calculus of kidney (principal)
CPT/HCPCS: 74018

== ENCOUNTER 2023-07-20 12:15 | Emergency (ER) | payer OTHER, SELFPAY ==
[2023-07-20 12:16] VITALS: BP 125/99; PULSE 106; RESP 15; TEMP 36.4; O2SAT 100; BMI 25.7
--- OUTSIDE RECORDS SUMMARY | 2023-07-20 13:37 | XMS RPT_ITS | CCD ---
Author Name Unknown Address [id number] [place] [address] Organization [facility] Care Team Providers Care Attending Anesthesiologist Name Role Phone Swathi Lewis MD Unavailable [phone] KAYLA CARTER Unavailable Unavailable KAYLA CARTER Unavailable Unavailable Modesto Zhu DO Primary Care Provider Modesto Zhu DO Primary Care Provider Modesto Zhu DO Primary Care Provider Modesto Zhu DO Primary Care Provider MEGHAN FRENCH Referring Unavailable RACHEL PUENTES Attending Unavailable MODESTO ZHU Primary Care Unavailable MODESTO ZHU Primary Care Unavailable JOSESITO LEVI Attending Unavailable MODESTO ZHU Primary Care Unavailable MODESTO ZHU Attending Unavailable MODESTO ZHU Primary Care Unavailable CORINNE MENDIETA Referring Unavailable MODESTO ZHU Primary Care Unavailable CORINNE MENDIETA Attending Unavailable RACHEL PUENTES Referring Unavailable Allergies Allergy Classification Reported Allergen(s) Allergy Type Date of Onset Reaction(s) Facility (2 sources) penicillin v Drug Allergy 7 [facility] (20 sources) Penicillins; Translations: [PENICILLINS] Propensity to adverse reactions to drug (disorder) 8 Other: See Comments [facility] Other [place] [facility] Medications Current Medications Medication Drug Class(es) Dates Sig (Normalized) Sig (Original) lisdexamfetamine dimesylate 70 mg oral capsule (20 sources) Central Nervous System Stimulant Start: 05-23-2023 End: 08-22-2023 take 1 capsule by mouth once daily lisdexamfetamine (VYVANSE) 70 mg capsule Indications: Attention deficit disorder (ADD) in adult Take 1 capsule by mouth once daily for 30 days. Do not start before July 23, 2023. 30 capsule 0 07/23/2023 08/22/2023 Active Completed/Discontinued Medications Medication Drug Class(es) Dates Sig (Normalized) Sig (Original) 24 hr amphetamine aspartate 7.5 mg / amphetamine sulfate 7.5 mg / dextroamphetamine saccharate 7.5 mg / dextroamphetamine sulfate 7.5 mg extended release oral capsule (20 sources) Central Nervous System Stimulant Start: 04-26-2022 End: 09-29-2022 take 1 capsule by mouth once daily amphetamine-dextro amphetamine XR (ADDERALL XR) 30 mg 24 hr capsule Indications: Attention deficit disorder (ADD) in adult Take 1 capsule by mouth once daily for 30 days. 30 capsule 0 04/26/2022 09/29/2022 Discontinued Problems Active Problems Problem Classification Problem Date Documented Da te Episodic/Chronic Anxiety disorders (20 sources) Generalized anxiety disorder; Translations: [Generalized anxiety disorder] Onset: 02-04-2021 02-04-2021 Chronic Diabetes or abnormal glucose tolerance complicating ; childbirth; or the puerperium (4 sources) Diabetes mellitus during - baby not yet delivered; Translations: [Unspecified diabetes mellitus in , third trimester] Onset: 01-17-2017 Resolved: 04-03-2017 01-17-2017 Chronic Disorders usually diagnosed in infancy, childhood, or adolescence (20 sources) Adult attention deficit hyperactivity disorder ; Translations: [Other specified behavioral and emotional disorders with onset usually occurring in childhood and adolescence] Onset: 02-27-2022 Chronic Noninfectious gastroenteritis (14 sources) Indeterminate colitis; Translations: [Indeterminate colitis] Onset: 09-20-2022 Chronic Other complications of (20 sources) Obesity; Translations: [Obesity complicating , unspecified trimester] Onset: 08-10-2016 11-28-2016 Chronic Other hereditary and degenerative nervous system conditions (20 sources) Restless legs; Translations: [Restless legs syndrome] Onset: 02-04-2021 02-04-2021 Chronic Other nervous system disorders (1 source) Disorganized thinking; Translations: [Other symptoms and signs involving cognitive functions and awareness] Episodic Other nutritional; endocrine; and metabolic disorders (20 sources) Body mass index 40+ - severely obese; Translations: [Morbid (severe) obesity due to excess calories] Onset: 02-21-2019 02-21-2019 Chronic Other nutritional; endocrine; and metabolic disorders (20 sources) Obese class II; Translations: [Obesity, unspecified] Onset: 02-04-2021 02-04-2021 Chronic Residual codes; unclassified (1 source) Difficulty with household tasks; Translations: [Other general symptoms and signs] Episodic Residual codes; unclassified (1 source) FH: Crohn's disease; Translations: [Family history of other diseases of the digestive system] 08-30-2022 Episodic Unclassified (1 source) 20 weeks gestation of ; Translations: [20 weeks gestation of ] Onset: 11-22-2016 Past or Other Problems Problem Classification Problem Date Documented Da te Episodic/Chronic Cancer of cervix (20 sources) Low grade squamous intraepithelial lesion on cytologic smear of cervix (LGSIL); Translations: [Atypical squamous cells of undetermined significance on cervical Papanicolaou smear] Onset: 10-05-2014 Resolved: 04-03-2017 04-03-2017 Episodic Diabetes mellitus without complication (20 sources) Impaired fasting glycemia; Translations: [Impaired fasting glucose] Onset: 02-27-2022 Episodic Diabetes or abnormal glucose tolerance complicating ; childbirth; or the puerperium (20 sources) Gestational diabetes mellitus, class A>1<; Translations: [Gestational diabetes mellitus in , diet controlled] Onset: 05-13-2013 11-28-2016 Episodic Gastrointestinal hemorrhage (20 sources) Rectal hemorrhage; Translations: [Hemorrhage of anus and rectum] Onset: 02-21-2019 02-21-2019 Episodic Hypertension complicating ; childbirth and the puerperium (4 sources) Severe pre-eclampsia - not delivered; Translations: [Severe pre-eclampsia, unspecified trimester] Onset: 02-20-2017 Resolved: 04-03-2017 02-20-2017 Episodic Normal and/or delivery (10 sources) Gestation period, 31 weeks; Translations: [Gestation period, 28 weeks] Onset: 01-17-2017 Resolved: 04-03-2017 02-06-2017 Episodic Other aftercare (2 sources) Surgical follow-up; Translations: [Encounter for follow-up examination after completed treatment for conditions other than malignant neoplasm] Onset: 03-06-2017 03-06-2017 Episodic Other complications of (6 sources) High risk ; Translations: [Maternal care for cervical incompetence, second trimester] Onset: 11-22-2016 Resolved: 04-03-2017 04-03-2017 Episodic Other complications of (20 sources) History of pre-eclampsia; Translations: [Supervision of with other poor reproductive or obstetric history, unspecified trimester] Onset: 08-10-2016 11-28-2016 Episodic Other female genital disorders (8 sources) Vaginal discharge; Translations: [Cervical incompetence] Onset: 01-17-2017 Resolved: 04-03-2017 04-03-2017 Episodic Other female genital disorders (20 sources) Cervical intraepithelial neoplasia grade 2; Translations: [Moderate cervical dysplasia] Onset: 07-16-2013 06-06-2021 Episodic Other gastrointestinal disorders (20 sources) Altered bowel function; Translations: [Other specified symptoms and signs involving the digestive system and abdomen] Onset: 02-21-2019 02-21-2019 Episodic Other gastrointestinal disorders (12 sources) Constipation; Translations: [Constipation, unspecified] Onset: 09-29-2022 09-29-2022 Episodic Other gastrointestinal disorders (1 source) Other specified symptoms and signs involving the digestive system and abdomen; Translations: [Change in bowel movement] Onset: 02-21-2019 Episodic Other gastrointestinal disorders (1 source) Constipation, unspecified; Translations: [Constipation, unspecified constipation type] Onset: 08-30-2022 Episodic Other upper respiratory disease (4 sources) Congestion of nasal sinus; Translations: [Other specified disorders of nose and nasal sinuses] Onset: 02-12-2017 Resolved: 04-03-2017 04-03-2017 Episodic Residual codes; unclassified (1 source) Family history of other diseases of the digestive system; Translations: [Family history of Crohn's disease] Onset: 08-30-2022 Episodic Results Test Name Value Interpretation Reference Range Facil ity Vital Signs Date Time Vital Sign Value Performing Clinician Tai patterson 05-23-2023 09:16-0500 Body weight 73.48 kg Josesito Levi APRN.HUMIDIFIER ATTENDANT Work Phone: [facility] 05-23-2023 09:16-0500 Diastolic blood pressure 64 mm[Hg] Josesito Levi CHILD SUPPORT SPECIALIST.HUMIDIFIER ATTENDANT Work Phone: [facility] 05-23-2023 09:16-0500 Heart rate 64 /min Josesito Levi CHILD SUPPORT SPECIALIST.HUMIDIFIER ATTENDANT Work Phone: [facility] 05-23-2023 09:16-0500 Respiratory rate 12 /min Josesito Levi CHILD SUPPORT SPECIALIST.HUMIDIFIER ATTENDANT Work Phone: [facility] 05-23-2023 09:16-0500 Systolic blood pressure 128 mm[Hg] Josesito Levi CHILD SUPPORT SPECIALIST.HUMIDIFIER ATTENDANT Work Phone: [facility] 09-20-2022 10:51-0400 Body height 165.1 cm Corinne Mendieta MD Work Phone: [facility] 09-20-2022 10:51-0400 Body temperature 98.29 [degF] Corinne Mendieta MD Work Phone: [facility] 09-20-2022 10:51-0400 Body weight 88.91 kg Corinne Mendieta MD Work Phone: [facility] 09-20-2022 10:51-0400 Diastolic blood pressure 91 mm[Hg] Corinne Mendieta MD Work Phone: [facility] 09-20-2022 10:51-0400 Heart rate 119 /min Corinne Mendieta MD Work Phone: [facility] 09-20-2022 10:51-0400 Respiratory rate 18 /min Corinne Mendieta MD Work Phone: [facility] 09-20-2022 10:51-0400 SaO2% (BldA) [Mass fraction] 100 % Corinne Mendieta MD Work Phone: [facility] 09-20-2022 10:51-0400 Systolic blood pressure 135 mm[Hg] Corinne Mendieta MD Work Phone: [facility] 08-30-2022 12:26-0400 Heart rate 91 /min Rachel Puentes MD Work Phone: [facility] 08-30-2022 12:26-0400 SaO2% (BldA) [Mass fraction] 100 % Rachel Puentes MD Work Phone: [facility] 08-30-2022 12:16-0400 Diastolic blood pressure 84 mm[Hg] Rachel Puentes MD Work Phone: [facility] 08-30-2022 12:16-0400 Respiratory rate 16 /min Rachel Puentes MD Work Phone: [facility] 08-30-2022 12:16-0400 Systolic blood pressure 124 mm[Hg] Rachel Puentes MD Work Phone: [facility] 08-30-2022 10:44-0400 Body temperature 98.4 [degF] Rachel Puentes MD Work Phone: [facility] 03-22-2022 15:09-0400 Body weight 97.52 kg Modesto Erwinrison DO Work Phone: [facility] 02-24-2022 10:51-0400 Body weight 100.15 kg Modesto Zhu DO Work Phone: [facility] 04-30-2017 14:06-0500 BMI (Body Mass Index) 38.8 kg/m2 Swathi Lewis MD [facility] 04-30-2017 14:06-0500 BP Diastolic 82 mm[Hg] Swathi Lewis MD [facility] 04-30-2017 14:06-0500 BP Systolic 133 mm[Hg] Swathi Lewis MD [facility] 04-30-2017 14:06-0500 Height 166.37 cm Swathi Lewis MD [facility] 04-30-2017 14:06-0500 Weight 107.41 kg Swathi Lewis MD [facility] 04-03-2017 09:57-0400 BMI (Body Mass Index) 39.72 kg/m2 Swathi Lewis MD [facility] 04-03-2017 09:57-0400 Body Temperature 98.3 [degF] Sawthi Lewis MD [facility] 04-03-2017 09:57-0400 BP Diastolic 80 mm[Hg] Swathi Lewis MD [facility] 04-03-2017 09:57-0400 BP Systolic 127 mm[Hg] Swathi Lewis MD [facility] 04-03-2017 09:57-0400 Pulse (Heart Rate) 107 /min Swathi Lewis MD [facility] 04-03-2017 09:57-0400 Respiratory Rate 16 /min Swathi Lewis MD [facility] 04-03-2017 09:57-0400 Weight 112.31 kg Swathi Lewis MD [facility] 02-12-2017 09:05-0400 Height 168.15 cm Swathi Lewis MD [facility] Encounters Encounter Date Encounter Type Care Provider Facility Start: 05-23-2023 End: 05-23-2023 ambulatory MODESTO ZHU Facility:[facility] [place] Start: 05-23-2023 End: 05-23-2023 Patient encounter procedure Josesito Levi CHILD SUPPORT SPECIALIST.HUMIDIFIER ATTENDANT Work Phone: [facility] Procedures Date Procedure Procedure Detail Performing Clinician Start: 08-30-2022 Level iv surg pathol ogy gross&microscopic exam Rachel Puentes MD Work Phone: Start: 08-30-2022 Colonoscopy flx dx w /collj spec when pfrmd Meghankarson Frecnh CHILD SUPPORT SPECIALIST.HUMIDIFIER ATTENDANT Work Phone: Start: 02-01-2021 Adult depression scr eening assessment Modesto Zhu DO Work Phone: Start: 02-13-2017 End: 02-13-2017 nonstress test Swathi edwards MD Work Phone: Start: 01-17-2017 End: 01-17-2017 *CBC with Differential Swathi garcia MD Work Phone: Start: 01-17-2017 End: 01-18-2017 *ROM Amnisure Rupture of Membranes Swathi Lewis MD Work Phone: Plan of Treatment Date Care Activity Detail Author Start: 01-31-2027 Urine microalbumin profile DTa P,Tdap,Td Vaccine (2 - Td or Tdap) [facility] Start: 01-11-2027 HPV TESTING HPV TESTING [facility] Start: 01-11-2027 PAP TESTING PAP TESTING [facility] Start: 01-11-2027 Screening for malign ant neoplasm of cervix [facility] Start: 01-14-2025 HPV TESTING HPV TESTING [facility] Start: 01-14-2025 PAP TESTING PAP TESTING [facility] Start: 05-23-2024 Covid-19 Vaccine (#1) Covid-19 Vacci ne (#1) [facility] Immunizations Immunization Date Immunization Notes Care Provider Fa cility 07-07-2019 influenza virus vaccine, unspecified formulation Josesito Levi APRN.HUMIDIFIER ATTENDANT Work Phone: [facility] 01-31-2017 tetanus toxoid, reduced diphtheria toxoid, and acellular pertussis vaccine, adsorbed Swathi Lewis MD [facility] 01-17-2017 [id number] Swathi garcia MD [facility] 05-13-2013 influenza virus vaccine, unspecified formulation Modesto Zhu DO Work Phone: [facility] Work Phone: Payers Date Payer Category Payer Unknown [employer] PPO [id number] 2023-Present [phone] [address] [place] [address] PPO [id number] 2023 Unknown [id number] 2022 Medicaid [id number] 2016 Medicaid [employer] [id number] 2016-Present [phone] [address] [place] [address] Medicaid [id number] 2016 Medicaid [id number] Social History Date Type Detail Facility Start: 05-28-2013 End: 08-30-2022 Tobacco smoking status NHIS Never smoked tobacco [facility] Start: 06-29-2021 End: 05-23-2023 Alcohol intake Current drinker of alcohol (finding) [facility] Start: 11-22-2019 End: 05-11-2022 History SDOH Alcohol Frequency 2 [facility] Start: 11-22-2019 End: 05-11-2022 History SDOH Alcohol Std Drinks 1 [facility] Start: 11-20-2018 History SDOH Alcohol Comment socially- rare [facility] Start: 11-22-2019 End: 05-11-2022 History SDOH Social Connections Phone 5 [facility] Start: 11-22-2019 End: 05-11-2022 History SDOH Social Connections Restoration 3 [facility] Start: 11-21-2019 Education 21 [facility] Start: 1985 Sex Assigned At Not on file C [facility] Start: 01-05-2021 End: 01-27-2022 Exposure to SARS-CoV-2 (event) Not sure [facility] Start: 05-28-2013 End: 08-30-2022 Tobacco use and exposure Smokeless tobacco non-user [facility] Start: 05-11-2022 History SDOH Alcohol Std Drinks 0 [facility] Start: 05-11-2022 History SDOH Social Connections Meetings 98 [facility] Start: 05-11-2022 End: 05-21-2023 History of Social function [facility] Start: 05-11-2022 End: 05-21-2023 Social connection and isolation panel [facility] Do you belong to any clubs or organizations such as yarsani groups, unions, fraternal or athletic groups, or school groups? No [facility] How often do you att end meetings of the clubs or organizations you belong to? Patient refused [facility] Are you now , , , , never or living with a partner? [facility] How often to you hav e a drink containing alcohol? Never [facility] Do you feel stress - tense, restless, nervous, or anxious, or unable to sleep at night because your mind is troubled all the time - these days [OSQ] To some extent [facility] (I/We) worried koby er (my/our) food would run out before (I/we) got money to buy more. Never true [facility] Do you belong to any clubs or organizations such as yarsani groups, unions, fraternal or athletic groups, or school groups? Yes [facility] Clinical Notes 11-16-2016 to 05-23-2023 Josesito Levi APRN.HUMIDIFIER ATTENDANT - 05/23/2023 9:19 AM ESTTelephone Encounter - Darrickrj Tomás - 05/21/2023 8:41 AM ESTTelephone Encounter - Casandra Bain LPN - 05/19/2023 8:19 AM EST Note Date & Type Note Facility 05-23-2023 Note HNO ID: [id number] Author: Josesito Levi APRN.HUMIDIFIER ATTENDANT Service: ? Author Type: Nurse Practitioner Type: Progress Notes Filed: 05/23/2023 9:41 AM Note Text: Chief Complaint Patient presents with: new script for vyvanse HPI Jannette Gupta is a 38 year old female who presents here today for Above Complaints. Jannette is an established patient of Dr. Gaurav DO. Concerns today.. ADHD-- Needing refill of vyvnase. Was on 70 mg but has been getting 60 mg the last few times due to numerous pharmacies being out of the 70 mg dosage. Feels the 70 mg works better and better controls symptoms but still remains stable on the 60 mg. Tolerating regimen well. No changes in symptoms. No side effects. No other concerns or complaints today. Past medical history, appointments, medications, allergies reviewed. 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 On vaginal progesterone. Jessi Pierre MD Cerclage placed on 11/22 -- vaginal progesterone Supervision of other high risk pregnancies, first trimester 12/17/2013 Previous Surgical History PAST SURGICAL HISTORY Procedure Laterality Date ABDOMINAL SURGERY HX APPENDECTOMY HX SNGL 2017 COLONOSCOPY 08/30/2022 LAPAROSCOPIC APPENDECTOMY 07/22/2007 PAST SURGICAL HISTORY OF 2016 kidney stone removal TUBAL LIGATION VAGINAL HYSTERECTOMY Family History FAMILY HISTORY Problem Relation Age of Onset Hypertension Mother Kidney Disease Mother Kidney transplant Diabetes Father Hypertension Father Arthritis Maternal Grandmother GI Maternal Grandmother Stroke Maternal Grandfather Parkinson?s Disease Maternal Grandfather Heart Paternal Grandmother Prostate Cancer Paternal Grandfather Emphysema Paternal Grandfather Asthma Son Patient Allergies ALLERGIES Allergen Reactions Penicillins Other: See Comments CHILDHOOD REACTION Current Medications Current Outpatient Medications on File Prior to Visit Medication Sig lisdexamfetamine (VYVANSE) 60 mg capsule Take 1 capsule by mouth once daily for 30 days. Do not start before May 19, 2023. polyethylene glycol 3350 (MIRALAX) 17 gram packet Take 1 Packet by mouth once daily. Dissolve dose in 4 - 8 ounces of liquid and take as directed. topiramate (TOPAMAX) 100 mg tablet Take 1 tablet by mouth two times a day. lisdexamfetamine (VYVANSE) 60 mg capsule Take 1 capsule by mouth once daily for 30 days. lisdexamfetamine (VYVANSE) 60 mg capsule Take 1 capsule by mouth once daily for 30 days. Do not start before April 19, 2023. lisdexamfetamine (VYVANSE) 30 mg capsule Take 2 capsules by mouth once daily for 30 days. docusate sodium (COLACE) 100 mg capsule Take 1 capsule by mouth twice daily as needed for constipation. (Stool softener) (Patient not taking: Reported on 05/23/2023) No current facility-administered medications on file prior to visit. Social History Social History Tobacco Use Smoking status: Never Smokeless tobacco: Never Vaping Use Vaping Use: Never used Substance Use Topics Alcohol use: Yes Comment: socially- rare Drug use: No REVIEW OF SYSTEMS: as above Reviewed relevant PMHx, PSHx, Social Hx, current medications and allergies. Review of Symptoms REVIEW OF SYSTEMS See HPI. EXAM: BP 128/64 (BP Site: Left Arm, BP Position: Sitting, BP Cuff Size: Regular Adult) Pulse 64 Resp 12 Wt 73.5 kg (162 lb) LMP 01/11/2021 (Exact Date) BMI 26.96 kg/m? General Appearance: Well appearing, alert, in no acute distress, well-hydrated, well nourished.. Skin: Skin color, texture, turgor normal, no suspicious rashes or lesions. Head: Normocephalic, no masses, lesions, tenderness or abnormalities. Lungs: Lungs clear to auscultation. No wheezing, rhonchi, rales.. Heart: RRR without murmur, gallop, or rubs. No ectopy. Health Maintenance List Hepatitis B Vaccine(1 of 3 - 3-dose series) Never done Influenza Vaccine(1) due on 12/09/2023 Covid-19 Vaccine(1) due on 05/23/2024 Pap Testing due on 01/11/2027 HPV Testing due on 01/11/2027 DTaP,Tdap,Td Vaccine(2 - Td or Tdap) due on 01/31/2027 Depression Assessment Completed Hepatitis C Screening Completed HIV Screening Completed HPV Vaccine Aged Out ASSESSMENT/PLAN: 1. Attention deficit disorder (ADD) in adult - ICD9: 314.00, ICD10: F98.8 Controlled substance agreement signed and updated. Refilled given for 70 mg dosage -- called pharmacy and they do have this dosage available now. Due for pain pane (more content not included)... [facility] 05-23-2023 History of Present illness Narrative Chief Complaint Patient presents with: new script for vyvanse HPI Jannette Gupta is a 38 year old female who presents here today for Above Complaints. Jannette is an established patient of Dr. Gaurav DO. Concerns today.. ADHD-- Needing refill of vyvnase. Was on 70 mg but has been getting 60 mg the last few times due to numerous pharmacies being out of the 70 mg dosage. Feels the 70 mg works better and better controls symptoms but still remains stable on the 60 mg. Tolerating regimen well. No changes in symptoms. No side effects. No other concerns or complaints today. Past medical history, appointments, medications, allergies reviewed. 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 On vaginal progesterone. Jessi Pierre MD Cerclage placed on 11/22 -- vaginal progesterone Supervision of other high risk pregnancies, first trimester 12/17/2013 Previous Surgical History PAST SURGICAL HISTORY Procedure Laterality Date ABDOMINAL SURGERY HX APPENDECTOMY HX SNGL 2017 COLONOSCOPY 08/30/2022 LAPAROSCOPIC APPENDECTOMY 07/22/2007 PAST SURGICAL HISTORY OF 2016 kidney stone removal TUBAL LIGATION VAGINAL HYSTERECTOMY Family History FAMILY HISTORY Problem Relation Age of Onset Hypertension Mother Kidney Disease Mother Kidney transplant Diabetes Father Hypertension Father Arthritis Maternal Grandmother GI Maternal Grandmother Stroke Maternal Grandfather Parkinson s Disease Maternal Grandfather Heart Paternal Grandmother Prostate Cancer Paternal Grandfather Emphysema Paternal Grandfather Asthma Son Patient Allergies ALLERGIES Allergen Reactions Penicillins Other: See Comments CHILDHOOD REACTION Current Medications Current Outpatient Medications on File Prior to Visit Medication Sig lisdexamfetamine (VYVANSE) 60 mg capsule Take 1 capsule by mouth once daily for 30 days. Do not start before May 19, 2023. polyethylene glycol 3350 (MIRALAX) 17 gram packet Take 1 Packet by mouth once daily. Dissolve dose in 4 - 8 ounces of liquid and take as directed. topiramate (TOPAMAX) 100 mg tablet Take 1 tablet by mouth two times a day. lisdexamfetamine (VYVANSE) 60 mg capsule Take 1 capsule by mouth once daily for 30 days. lisdexamfetamine (VYVANSE) 60 mg capsule Take 1 capsule by mouth once daily for 30 days. Do not start before April 19, 2023. lisdexamfetamine (VYVANSE) 30 mg capsule Take 2 capsules by mouth once daily for 30 days. docusate sodium (COLACE) 100 mg capsule Take 1 capsule by mouth twice daily as needed for constipation. (Stool softener) (Patient not taking: Reported on 05/23/2023) No current facility-administered medications on file prior to visit. Social History Social History Tobacco Use Smoking status: Never Smokeless tobacco: Never Vaping Use Vaping Use: Never used Substance Use Topics Alcohol use: Yes Comment: socially- rare Drug use: No REVIEW OF SYSTEMS: as above Reviewed relevant PMHx, PSHx, Social Hx, current medications and allergies. Review of Symptoms REVIEW OF SYSTEMS See HPI. EXAM: BP 128/64 (BP Site: Left Arm, BP Position: Sitting, BP Cuff Size: Regular Adult) Pulse 64 Resp 12 Wt 73.5 kg (162 lb) LMP 01/11/2021 (Exact Date) BMI 26.96 kg/m General Appearance: Well appearing, alert, in no acute distress, well-hydrated, well nourished.. Skin: Skin color, texture, turgor normal, no suspicious rashes or lesions. Head: Normocephalic, no masses, lesions, tenderness or abnormalities. Lungs: Lungs clear to auscultation. No wheezing, rhonchi, rales.. Heart: RRR without murmur, gallop, or rubs. No ectopy. Health Maintenance List Hepatitis B Vaccine(1 of 3 - 3-dose series) Never done Influenza Vaccine(1) due on 12/09/2023 Covid-19 Vaccine(1) due on 05/23/2024 Pap Testing due on 01/11/2027 HPV Testing due on 01/11/2027 DTaP,Tdap,Td Vaccine(2 - Td or Tdap) due on 01/31/2027 Depression Assessment Completed Hepatitis C Screening Completed HIV Screening Completed HPV Vaccine Aged Out ASSESSMENT/PLAN: 1. Attention deficit disorder (ADD) in adult - ICD9: 314.00, ICD10: F98.8 Controlled substance agreement signed and updated. Refilled given for 70 mg dosage -- called pharmacy and they do have this dosage available now. Due for pain panel and tox screen -- pt aware and will have done with routine lab work. - LISDEXAMFETAMINE 70 MG CAPSULE - LISDEXAMFETAMINE 70 MG CAPSULE - LISDEXAMFETAMINE 70 MG CAPSULE - TOX SCREEN ROUT UR - PAIN PANEL, UR QUANT RTO in 6 months, sooner if needed. Prescription instructions reviewed with patient as applicable. Potential red flag symptoms discussed with the patient. Reviewed appropriate action plan to take if red flag symptoms occur. Patient agreeable to treatment plan. Josesito Price APRN.HUMIDIFIER ATTENDANT [id number] [place] [address] documented in this encounter [facility] 05-21-2023 Miscellaneous Notes Pt is scheduled for virtual visit with DIRECTOR [employer]ACTOR [employer] today at 11:40am. Provider is requesting in office visit and also pt is due for urine tox screen. Phoned pt to advise of the same, voicemail box is full, unable to leave message. Tomás Marquis documented in this encounter [facility] 05-19-2023 Miscellaneous Notes Attempted to reach pt by phone without success. Sent a [employer] message with explanation why medication was denied. Casandra Bain LPN Pt needs to be seen every 6 months to refill this d/t it being a controlled substance. Pt is overdue for appointment. Please schedule. Thank you, Josesito Levi APRN.HOME The following approved medication requests have been transmitted electronically. Requested Prescriptions Refused Prescriptions Disp Refills lisdexamfetamine (VYVANSE) 60 mg capsule 30 capsule 0 Sig: Take 1 capsule by mouth once daily for 30 days. Refused By: JOSESITO LEVI Reason for Refusal: Patient needs appointment Josesito Levi APRN.HUMIDIFIER ATTENDANT BHARATI-09/29/22 Labs-09/20/22 NOV-none Frances Ochoa LPN documented in this encounter [facility] 03-28-2023 Miscellaneous Notes Date of last office: 09/29/2022 Date of next office visit: None Requested Prescriptions Pending Prescriptions Disp Refills topiramate (TOPAMAX) 100 mg tablet 60 tablet 1 Sig: Take 1 tablet by mouth two times a day. Date of Last Labs: 09/20/2022 Please advise. Thank you. Magda Rothman RN. documented in this encounter [facility] 03-20-2023 Miscellaneous Notes OK to refill as ordered Rizwan Nichols MD patient calling due to insurance co will no longer cover the vyvanse 30mg 2 daily so she is needing a new rx for the 60mg once daily. rx has been pended for approval patient only needs called if problem with refilling medication documented in this encounter [facility] 03-19-2023 Miscellaneous Notes The following approved medication requests have been transmitted electronically. Requested Prescriptions Signed Prescriptions Disp Refills lisdexamfetamine (VYVANSE) 30 mg capsule 60 capsule 0 Sig: Take 2 capsules by mouth once daily for 30 days. Authorizing Provider: MEGHAN FRENCH APRN.CNP PDMP website checked and validated. All prescriptions have been APPROPRIATELY filled. No suspicious activity was identified. 03/19/2023 by Meghan French CNP. Patient has been identified by name and date of : Yes Requested Prescriptions Pending Prescriptions Disp Refills lisdexamfetamine (VYVANSE) 30 mg capsule 60 capsule 0 Sig: Take 2 capsules by mouth once daily for 30 days. RX INSTRUCTIONS: Patient aware RX will be sent to pharmacy. No need to notify patient. Patient last office visit: 09/29/22 Patient next office visit: none scheduled Faye Harper MA documented in this encounter [facility] 01-26-2023 Miscellaneous Notes Pt. informed via My Chart. Is she wanting to get a lower dose? No other options that I am aware of doing that are equivalent Modesto Zhu DO [facility] message turned into TE. No one seems to be able to get the 70mg vyvanse in stock so I haven't been able to get the Rx filled. Is there any other way to do the prescription? Thanks! Indu Torres MA documented in this encounter [facility] 01-25-2023 Miscellaneous Notes [facility] message turned into TE. Indu Torres MA documented in this encounter [facility] 12-15-2022 Miscellaneous Notes Pt notified via [facility] rx has been sent to pharm. Macario Johnson LPN The following approved medication requests have been transmitted electronically. Requested Prescriptions Signed Prescriptions Disp Refills lisdexamfetamine (VYVANSE) 70 mg capsule 30 capsule 0 Sig: Take 1 capsule by mouth once daily for 30 days. Authorizing Provider: LEONOR PRATER PA-C Patient has been identified by name and date of : Yes Patient phones for refill(s): Requested Prescriptions Pending Prescriptions Disp Refills lisdexamfetamine (VYVANSE) 70 mg capsule 30 capsule 0 Sig: Take 1 capsule by mouth once daily for 30 days. Date of last office visit in primary care: BHARATI 09/29/22 NOV not scheduled Last 2 Encounter Wt Readings: Date: Wt: 09/29/2022 87.1 kg (192 lb) 09/20/2022 88.9 kg (196 lb) Please advise. Thank you. ARELY Rodriguez documented in this encounter [facility] 09-29-2022 Note HNO ID: [id number] Author: Modesto Zhu, DO Service: ? Author Type: Physician Type: Progress Notes Filed: 09/29/2022 5:27 PM Note Text: CC:Jannette Gupta is a 37 year old female who presents to the office for follow up HPI: She had episode of blood in stool about 1 month ago. At that time, she was seen by Dr. Puentes and had a colonoscopy performed. 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 She was seen by Tower Supervisor Dr. Mendieta and was told to complete the stool study ordered and was concerned that it may be due to the vyvanse. Patient doesn't feel that this is true since she has only been on Vyvanse since Mar 2022 and feels well on this medication without any obvious SE and wasn't able to tolerate the Adderall medication. She would like to continue the vyvanse. Patient feels that her colitis could have been because she was taking a lot of laxatives and bowel stimulants for her constipation symptoms and was taking these most days- she has now stopped this. She would like to try to get on a miralax routine instead to help manage her constipation. She hasn't had any blood in her stools recently since this scope. No other symptoms. She is feeling well PAST MEDICAL HISTORY Diagnosis Date Abnormal Pap smear of cervix + HPV 2014 and 2018- planning LEEP Cervical funneling affecting in second trimester 11/16/2016 OTILIA III (cervical intraepithelial neoplasia grade III) with severe dysplasia 2018 FAUSTO (generalized anxiety disorder) 02/04/2021 Gestational diabetes Gestational hypertension 12/02/2013 Preeclampsia Short cervix during in second trimester 11/16/2016 November 21, 2016 Cerclage being placed by M on 11/22/16. On vaginal progesterone. Jessi Pierre MD Cerclage placed on 11/22 -- vaginal progesterone Supervision of other high risk pregnancies, first trimester 12/17/2013 PAST SURGICAL HISTORY Procedure Laterality Date ABDOMINAL SURGERY HX APPENDECTOMY HX SNGL 2017 LAPAROSCOPIC APPENDECTOMY 07/22/2007 PAST SURGICAL HISTORY OF 2016 kidney stone removal TUBAL LIGATION VAGINAL HYSTERECTOMY Current Outpatient Medications Medication Sig lisdexamfetamine (VYVANSE) 70 mg capsule Take 1 capsule by mouth once daily for 30 days. topiramate (TOPAMAX) 100 mg tablet Take 1 tablet by mouth twice daily. polyethylene glycol 3350 (MIRALAX) 17 gram packet Take 1 Packet by mouth once daily. Dissolve dose in 4 - 8 ounces of liquid and take as directed. docusate sodium (COLACE) 100 mg capsule Take 1 capsule by mouth twice daily as needed for constipation. (Stool softener) amphetamine-dextroamphetamine XR (ADDERALL XR) 30 mg 24 hr capsule Take 1 capsule by mouth once daily for 30 days. vitamin b complex tab Take 1 tablet by mouth once daily. No current facility-administered medications for this visit. ALLERGIES Allergen Reactions Penicillins Other: See Comments CHILDHOOD REACTION Social History Tobacco Use Smoking status: Never Smokeless tobacco: Never Vaping Use Vaping Use: Never used Substance Use Topics Alcohol use: Yes Comment: socially- rare Drug use: No ROS: See HPI PE: BP 120/80 Pulse 80 Temp (Src) 97.2 (Right Tympanic) Resp 16 Wt 192 lb (87.1kg) LMP 01/11/2021 Gen: AANDOX3, NAD, non-toxic appearing HEENT: PERRLA, EOMs intact b/l, nares without drainage, pharynx without erythema, exudate, lesions, or drainage. Uvula midline. Neck: No LAD, no thyromegaly, no meningismus. CV: RRR, no murmur Lungs: CTA b/l, no wheezing Skin: No rashes, lesions, or wounds on exposed skin. Abd: soft, NT, ND, normal BS ASSESSMENT/PLAN: 1. Constipation, unspecified constipation type - ICD9: 564.00, ICD10: K59.00 (primary diagnosis) - start on miralax and stool softener, f/u in office if symptoms aren't improving. - POLYETHYLENE GLYCOL 3350 17 GRAM ORAL POWDER PACKET - DOCUSATE SODIUM 100 MG CAPSULE 2. Attention deficit disorder (ADD) in adult - ICD9: 314.00, ICD10: F98.8 - patient wants to continue the Vyvanse and avoid the laxatives and stimulants for colon that she feels are what caused her colitis. D/w her that if she develops bloody stools again, has to stop the vyvanse and should d/w her irish moss gatherer as well. - LISDEXAMFETAMINE 70 MG CAPSULE 3. 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 D/w her that if she develops bloody stools again, has to stop the vyvanse and should d/w her irish moss gatherer as well. She is aware of the risk Modesto Zhu DO Return if no improvement. Follow up with Modesto Zhu DO. To ER if develops chest pain, shortness of breath Discussed risks, benefits, alternatives, and potential side effects of medications. Patient/Guardian expressed understanding and agreed with the plan. See patient (more content not included)... [facility] 09-20-2022 Note HNO ID: [id number] Author: Corinne Mendieta MD Service: ? Author Type: Physician Type: Progress Notes Filed: 09/24/2022 12:32 PM Note Text: NAME: Jannette Gupta [facility] NO: [id number] REASON FOR VISIT Jannette Gupta is a 37 year old female who is scheduled for a consult at the request of Rachel Puentes. Patient presents with: New Patient: Colitis consult PRESENTING COMPLAINT: Colitis HISTORY OF PRESENTING ILLNESS: This is a 37 years old female with history of ADHD and chronic constipation usually managed with laxatives presented in clinic today to establish care. She reports history of abdominal pain and started noticing blood in stools. Colonoscopy was done which showed patchy segmental inflammation in the colon. Biopsies showed active inflammation with apoptotic bodies. Current Medications None Prior Complications and Extraintestinal Manifestations Clostridium difficile: no Thrombosis: no Ocular (Uveitis, Episcleritis): no Dermatologic (Pyoderma gangrenosum, Erythema nodosum): no Arthropathy/Arthralgia: no Oral ulcers: no Primary Sclerosing Cholangitis: no Other: no Current Clinical Symptoms # of bowel movements daily: Varies between 4 to 5 days. One a day without medication and three every other day about 3 times a day depending on circumstances # of liquid stools daily: Consistency: formed, loose Bloody bowel movements: yes Urgency: no Abdominal pain: yes Abdominal distention: yes Nausea/vomiting: no Weight loss over last 3 months: no General well-being: very well Patient-Entered Data SIBDQ Scores 09/16/2022 Bowel Score 4 Emotional Score 3 Systemic Score 2.5 Social Score 7 Total Score 4 PRO-2 Ulcerative Colitis Score 09/16/2022 Ulcerative Colitis Score Incomplete PROMIS Global Health - (T-Scores - the mean of general population = 50. Five points is a clinically meaningful difference.) 03/18/2022 05/11/2022 09/19/2022 Physical T-Score 47.7 54.1 47.7 Mental T-Score 45.8 48.3 45.8 PROMIS Global Health Scale 03/18/2022 05/11/2022 09/19/2022 Physical Health Percentile 41 % 66 % 41 % Mental Health Percentile 34 % 43 % 34 % PAST SURGICAL HISTORY Procedure Laterality Date ABDOMINAL SURGERY HX APPENDECTOMY HX SNGL 2017 LAPAROSCOPIC APPENDECTOMY 07/22/2007 PAST SURGICAL HISTORY OF 2016 kidney stone removal TUBAL LIGATION VAGINAL HYSTERECTOMY PAST MEDICAL HISTORY Diagnosis Date Abnormal Pap smear of cervix + HPV 2014 and 2018- planning LEEP Cervical funneling affecting in second trimester 11/16/2016 OTILIA III (cervical intraepithelial neoplasia grade III) with severe dysplasia 2018 FAUSTO (generalized anxiety disorder) 02/04/2021 Gestational diabetes Gestational hypertension 12/02/2013 Preeclampsia Short cervix during in second trimester 11/16/2016 November 21, 2016 Cerclage being placed by M on 11/22/16. On vaginal progesterone. Jessi Pierre MD Cerclage placed on 11/22 -- vaginal progesterone Supervision of other high risk pregnancies, first trimester 12/17/2013 Current Outpatient Medications Medication Sig Dispense Refill lisdexamfetamine (VYVANSE) 70 mg capsule Take 1 capsule by mouth once daily for 30 days. 30 capsule 0 topiramate (TOPAMAX) 100 mg tablet Take 1 tablet by mouth twice daily. 60 tablet 1 amphetamine-dextroamphetamine XR (ADDERALL XR) 30 mg 24 hr capsule Take 1 capsule by mouth once daily for 30 days. 30 capsule 0 vitamin b complex tab Take 1 tablet by mouth once daily. 90 tablet 1 No current facility-administered medications for this visit. Penicillins Recent Labs: CBC: WBC (k/uL) Date Value 02/07/2021 4.22 11/20/2018 6.72 Hematocrit (%) Date Value 02/07/2021 37.8 02/07/2021 36.6 MCV (fL) Date Value 02/07/2021 81.8 Platelet Count (k/uL) Date Value 02/07/2021 294 Lymph% (%) Date Value 02/07/2021 23.9 Hepatic Function Panel: Albumin (g/dL) Date Value 02/07/2021 4.3 Bilirubin, Total (mg/dL) Date Value 02/07/2021 0.3 Alkaline Phosphatase (U/L) Date Value 02/07/2021 46 AST (U/L) Date Value 02/07/2021 17 ALT (U/L) Date Value 02/07/2021 15 Protein, Total (g/dL) Date Value 02/07/2021 6.8 Social History Tobacco Use Smoking status: Never Smokeless tobacco: Never Vaping Use Vaping Use: Never used Substance Use Topics Alcohol use: Yes Comment: socially- rare Drug use: No Colonoscopy 08/30/2022 Impression: - Non-bleeding external and internal hemorrhoids. - Segmental and patchy inflammation was found in the entire examined colon secondary to colitis. Biopsied at right colon/transverse and left colon (nurse didn't separate)/left colon/sigmoid colon/rectum. Pathology FINAL DIAGNOSIS A. Colon, right random, biopsy: -Melanosis coli. B. Colon, sigmoid random, biopsy: -Colonic mucosa with patchy active colitis and increased crypt apoptosis, see comment. -Melanosis coli. C. Colon, transverse and (more content not included)... [facility] 09-20-2022 History of Present illness Narrative NAME: Jannette Cleary [facility] NO: [id number] REASON FOR VISIT Jannette Gupta is a 37 year old female who is scheduled for a consult at the request of Rachel Puentes. Patient presents with: New Patient: Colitis consult PRESENTING COMPLAINT: Colitis HISTORY OF PRESENTING ILLNESS: This is a 37 years old female with history of ADHD and chronic constipation usually managed with laxatives presented in clinic today to establish care. She reports history of abdominal pain and started noticing blood in stools. Colonoscopy was done which showed patchy segmental inflammation in the colon. Biopsies showed active inflammation with apoptotic bodies. Current Medications None Prior Complications and Extraintestinal Manifestations Clostridium difficile: no Thrombosis: no Ocular (Uveitis, Episcleritis): no Dermatologic (Pyoderma gangrenosum, Erythema nodosum): no Arthropathy/Arthralgia: no Oral ulcers: no Primary Sclerosing Cholangitis: no Other: no Current Clinical Symptoms # of bowel movements daily: Varies between 4 to 5 days. One a day without medication and three every other day about 3 times a day depending on circumstances # of liquid stools daily: Consistency: formed, loose Bloody bowel movements: yes Urgency: no Abdominal pain: yes Abdominal distention: yes Nausea/vomiting: no Weight loss over last 3 months: no General well-being: very well Patient-Entered Data SIBDQ Scores 09/16/2022 Bowel Score 4 Emotional Score 3 Systemic Score 2.5 Social Score 7 Total Score 4 PRO-2 Ulcerative Colitis Score 09/16/2022 Ulcerative Colitis Score Incomplete PROMIS Global Health - (T-Scores - the mean of general population = 50. Five points is a clinically meaningful difference.) 03/18/2022 05/11/2022 09/19/2022 Physical T-Score 47.7 54.1 47.7 Mental T-Score 45.8 48.3 45.8 PROMIS Global Health Scale 03/18/2022 05/11/2022 09/19/2022 Physical Health Percentile 41 % 66 % 41 % Mental Health Percentile 34 % 43 % 34 % PAST SURGICAL HISTORY Procedure Laterality Date ABDOMINAL SURGERY HX APPENDECTOMY HX SNGL 2017 LAPAROSCOPIC APPENDECTOMY 07/22/2007 PAST SURGICAL HISTORY OF 2016 kidney stone removal TUBAL LIGATION VAGINAL HYSTERECTOMY PAST MEDICAL HISTORY Diagnosis Date Abnormal Pap smear of cervix + HPV 2014 and 2018- planning LEEP Cervical funneling affecting in second trimester 11/16/2016 OTILIA III (cervical intraepithelial neoplasia grade III) with severe dysplasia 2018 FAUSTO (generalized anxiety disorder) 02/04/2021 Gestational diabetes Gestational hypertension 12/02/2013 Preeclampsia Short cervix during in second trimester 11/16/2016 November 21, 2016 Cerclage being placed by M on 11/22/16. On vaginal progesterone. Jessi Pierre MD Cerclage placed on 11/22 -- vaginal progesterone Supervision of other high risk pregnancies, first trimester 12/17/2013 Current Outpatient Medications Medication Sig Dispense Refill lisdexamfetamine (VYVANSE) 70 mg capsule Take 1 capsule by mouth once daily for 30 days. 30 capsule 0 topiramate (TOPAMAX) 100 mg tablet Take 1 tablet by mouth twice daily. 60 tablet 1 amphetamine-dextroamphetamine XR (ADDERALL XR) 30 mg 24 hr capsule Take 1 capsule by mouth once daily for 30 days. 30 capsule 0 vitamin b complex tab Take 1 tablet by mouth once daily. 90 tablet 1 No current facility-administered medications for this visit. Penicillins Recent Labs: CBC: WBC (k/uL) Date Value 02/07/2021 4.22 11/20/2018 6.72 Hematocrit (%) Date Value 02/07/2021 37.8 02/07/2021 36.6 MCV (fL) Date Value 02/07/2021 81.8 Platelet Count (k/uL) Date Value 02/07/2021 294 Lymph% (%) Date Value 02/07/2021 23.9 Hepatic Function Panel: Albumin (g/dL) Date Value 02/07/2021 4.3 Bilirubin, Total (mg/dL) Date Value 02/07/2021 0.3 Alkaline Phosphatase (U/L) Date Value 02/07/2021 46 AST (U/L) Date Value 02/07/2021 17 ALT (U/L) Date Value 02/07/2021 15 Protein, Total (g/dL) Date Value 02/07/2021 6.8 Social History Tobacco Use Smoking status: Never Smokeless tobacco: Never Vaping Use Vaping Use: Never used Substance Use Topics Alcohol use: Yes Comment: socially- rare Drug use: No Colonoscopy 08/30/2022 Impression: - Non-bleeding external and internal hemorrhoids. - Segmental and patchy inflammation was found in the entire examined colon secondary to colitis. Biopsied at right colon/transverse and left colon (nurse didn't separate)/left colon/sigmoid colon/rectum. Pathology FINAL DIAGNOSIS A. Colon, right random, biopsy: -Melanosis coli. B. Colon, sigmoid random, biopsy: -Colonic mucosa with patchy active colitis and increased crypt apoptosis, see comment. -Melanosis coli. C. Colon, transverse and left random, biopsy: -Colonic mucosa with patchy active colitis and increased crypt apoptosis, see comment. -Melanosis coli. D. Rectum, random, biopsy: -Rectal mucosa with patchy active proctitis and increased crypt apoptosis, see comment. -Melanosis coli. PERSONAL HABITS: Tobacco: No Alcohol: No PAST MEDICAL HISTORY Colon polyps:No Colon cancer: No Other cancer:No Radiation / Chemotherapy:No Crohn's disease / Ulcerative colitis:No High cholesterol or triglycerides:No Ulcers: No Gallstones:No Hepatitis / jaundice: No Heart Disease: No Lung Disease:No Liver problems:No Thyroid disease: No Kidney stones:Yes Pancreatitis:No Diabetes:yes, gestational Arthritis:No Rheumatic fever:No Gastrointestinal bleeding:No Depression or other mental illness:Yes, depression during and anxiety right after Other personal illness: No GI SPECIFIC ROS Difficulty swallowing / foods sticking in throat:No Heartburn:No Hoarseness:No Chronic cough:No Regurgitation:No Chest pain:No Filling up quickly at meals:No Loss of appetite:No Nausea:No Vomiting: No Abdominal pain:Yes. Sometimes Recent change in bowel movements: No Bloody or black, bowel movements:Yes, bloody stool not black Constipation: Yes Diarrhea: No Loss of control of bowel movements:No Night sweats, fever, chills: No Thought or memory problems: No Fluid in abdomen (ascites): Yes Prominent leg swelling: No Vomiting blood: No Recent change in weight:No ROS EyesNegative for vision changes, diplopia or epiphora. Ears, Mouth, nose, throat:No problems Cardiovascular: No Problems Respiratory: Negative for cough, wheezing and shortness of breath Gastrointestinal : No problems Genitourinary: Negative Musuloskeletal: Normal Integumentary: no rashes, lesions, or jaundice Neurological: No history of neurologic problems Endocrine: Negative for cold or heat intolerance, polyuria, polydipsia and goiter. Psychiatric: Cooperative and agreeable Allergic/ Immunologic: Negative All others negative FAMILY HISTORY Has anyone in your family (grandparents, parents, brothers, sisters, aunts, or uncles) had: Liver problems: No Colitis: No, crohn's Colon cancer:No Other cancers: No FAMILY HISTORY Problem Relation Age of Onset Hypertension Mother Kidney Disease Mother Kidney transplant Diabetes Father Hypertension Father Arthritis Maternal Grandmother GI Maternal Grandmother Stroke Maternal Grandfather Parkinson s Disease Maternal Grandfather Heart Paternal Grandmother Prostate Cancer Paternal Grandfather Emphysema Paternal Grandfather Asthma Son PHYSICAL EXAMINATION General Appearance: alert, oriented x 3, pleasant and in no acute distress Eyes: No icterus or conjunctival pallor.. Oropharynx: Lips, tongue, and oral mucosa normal. There is no thrush or oral ulcers. Lungs: breath sounds clear to auscultation bilaterally Heart: regular rate and rhythm, no murmurs or gallops. Abdomen: Not distended. Normal bowel sounds. Soft and non-tender. No masses or organomegaly. Rectal: No external lesions, no masses Extremities: no cyanosis or edema. Skin: no rashes or lesions Lymph: No cervical, axillary, supraclavicular, or adenopathy. 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 -Continue with laxatives with life style changes Follow up in 3-6 months Corinne Mendieta MD, MD September 19, 2022 4:56 PM documented in this encounter [facility] 09-13-2022 Miscellaneous Notes The following approved medication requests have been transmitted electronically. Requested Prescriptions Signed Prescriptions Disp Refills lisdexamfetamine (VYVANSE) 70 mg capsule 30 capsule 0 Sig: Take 1 capsule by mouth once daily for 30 days. Authorizing Provider: MEGHAN FRENCH APRN.CNP PDMP website checked and validated. All prescriptions have been APPROPRIATELY filled. No suspicious activity was identified. 09/13/2022 by Meghan French CNP. Nov--nothing scheduled Bharati--05/17/22 Last refill--08/14/22 30 with 0 refills Last labs-02/07/21 documented in this encounter [facility] 08-30-2022 Nurse Note Arrived in phase II via cart. Left lateral position. Sedated, but responds to verbal stimuli. Color normal; skin warm and dry. Respirations wnl and unlabored. Abdomen soft and with + bowel sounds in quads X 4. Patient resting comfortably. Elisa Harp RN documented in this encounter [facility] 08-30-2022 History and physical note UPDATED PROCEDURAL SEDATION HISTORY AND PHYSICAL EXAMINATION SERVICE DATE: 08/30/2022 SERVICE TIME: 10:29 PHYSICAL EXAM MUST BE COMPLETED ON ADMISSION PROCEDURE: colonoscopy, possible biopsies Procedure Indications: blood in stools The History and Physical (completed in the past 30 days) has been reviewed and the patient has been examined. The contents accurately reflect the patient's condition with the following additions or revisions since the H&P was completed. ASA Class: ASA Class:: Patient with mild systemic disease Examination indicates no changes. AIRWAY: Airway Visualization of Uvula: Yes Mouth opening greater than 2 fingerbreadths: Yes Neck Full Range of Motion: Yes LUNGS: Lungs clear to auscultation CARDIAC: Regular rhythm,Regular rate Provisional Diagnosis/Treatment Plan: colonoscopy, possible biopsies SEDATION GOAL: Moderate This H&P can be found in the Electronic Medical Record. SIGNATURE: Rachel Puentes MD PATIENT NAME: Jannette Cleary Alonso DATE: August 30, 2022 TIME: 10:31 AM Source Note - Rachel Puentes MD - 08/30/2022 11:15 AM EDT HISTORY AND PHYSICAL Jannette Gupta 1985 REFERRING PHYSICIAN: Meghan French APRN* CHIEF COMPLAINT: No chief complaint on file. HPI: The patient is a 37 year old female presents for colonoscopy for evaluation of blood in stools The patient denies chronic abdominal pain, and denies changes in bowel habits. The patient notes no colon cancer in immediate family. The patient has not had previous colonoscopy. PAST MEDICAL HISTORY Diagnosis Date Abnormal Pap smear of cervix + HPV 2014 and 2018- planning LEEP Cervical funneling affecting in second trimester 11/16/2016 OTILIA III (cervical intraepithelial neoplasia grade III) with severe dysplasia 2018 FAUSTO (generalized anxiety disorder) 02/04/2021 Gestational diabetes Gestational hypertension 12/02/2013 Preeclampsia Short cervix during in second trimester 11/16/2016 November 21, 2016 Cerclage being placed by [facility] on 11/22/16. On vaginal progesterone. Jessi Pierre MD Cerclage placed on 11/22 -- vaginal progesterone Supervision of other high risk pregnancies, first trimester 12/17/2013 PAST SURGICAL HISTORY Procedure Laterality Date SNGL 2017 LAPAROSCOPIC APPENDECTOMY 07/22/2007 PAST SURGICAL HISTORY OF 2016 kidney stone removal TUBAL LIGATION Current Outpatient Medications Medication Sig lisdexamfetamine (VYVANSE) 70 mg capsule Take 1 capsule by mouth once daily for 30 days. topiramate (TOPAMAX) 100 mg tablet Take 1 tablet by mouth twice daily. amphetamine-dextroamphetamine XR (ADDERALL XR) 30 mg 24 hr capsule Take 1 capsule by mouth once daily for 30 days. vitamin b complex tab Take 1 tablet by mouth once daily. ALLERGIES: Penicillins PERSONAL HISTORY: Social History Tobacco Use Smoking status: Never Smokeless tobacco: Never Vaping Use Vaping Use: Never used Substance Use Topics Alcohol use: Yes Comment: socially- rare Drug use: No FAMILY HISTORY Problem Relation Age of Onset Hypertension Mother Kidney Disease Mother Kidney transplant Diabetes Father Hypertension Father Arthritis Maternal Grandmother GI Maternal Grandmother Stroke Maternal Grandfather Parkinson s Disease Maternal Grandfather Heart Paternal Grandmother Prostate Cancer Paternal Grandfather Emphysema Paternal Grandfather Asthma Son REVIEW OF SYSTEMS: General - denies fevers HEENT - denies trauma/infections Resp - denies coughing up blood, denies breathing difficulties Cardiac - denies chest pain GI - denies vomiting up of blood - denies blood in urine Endocrine - denies diabetes Psych - denies hallucinations Physical examination: Vital signs in chart, reviewed and noted by me General - WD/WN WF in no apparent distress, alert and oriented Head - Normocephalic. EOM intact with sclera clear. Mouth with mucus membranes moist. Neck - supple with no jugular venous distention noted. Trachea is midline. Lungs - clear to auscultation. Normal breath sounds. No rales/rhonchi/wheezing noted. Heart - normal heart sounds. No rubs/clicks/murmurs noted. Regular rate. Abdomen - soft and benign. Extremities - no pitting edema noted. Skin - Normal skin integrity. Neurological - non focal Psych - calm and appropriate Impression: blood in stools Discussion/Plan/Recommendations: I have discussed the above with the patient. I have offered colonoscopy , possible biopsies I have explained the procedure to the patient. I have counseled the patient as to the risks of the procedure, including but not limited to: infection, bleeding, injury to any intrabdominal organs such as liver/spleen, perforation of the GI tract, inability to complete the procedure, complications of anesthesia, etc. - the patient understands. The patient wishes to proceed. I have answered all questions to the patient s satisfaction and the patient has no further questions. Rachel Puentes MD HISTORY AND PHYSICAL Jannette Gupta 1985 REFERRING PHYSICIAN: Meghan French APRN* CHIEF COMPLAINT: No chief complaint on file. HPI: The patient is a 37 year old female presents for colonoscopy for evaluation of blood in stools The patient denies chronic abdominal pain, and denies changes in bowel habits. The patient notes no colon cancer in immediate family. The patient has not had previous colonoscopy. PAST MEDICAL HISTORY Diagnosis Date Abnormal Pap smear of cervix + HPV 2014 and 2018- planning LEEP Cervical funneling affecting in second trimester 11/16/2016 OTILIA III (cervical intraepithelial neoplasia grade III) with severe dysplasia 2018 FAUSTO (generalized anxiety disorder) 02/04/2021 Gestational diabetes Gestational hypertension 12/02/2013 Preeclampsia Short cervix during in second trimester 11/16/2016 November 21, 2016 Cerclage being placed by [facility] on 11/22/16. On vaginal progesterone. Jessi Pierre MD Cerclage placed on 11/22 -- vaginal progesterone Supervision of other high risk pregnancies, first trimester 12/17/2013 PAST SURGICAL HISTORY Procedure Laterality Date SNGL 2016 LAPAROSCOPIC APPENDECTOMY 07/22/2007 PAST SURGICAL HISTORY OF 2016 kidney stone removal TUBAL LIGATION Current Outpatient Medications Medication Sig lisdexamfetamine (VYVANSE) 70 mg capsule Take 1 capsule by mouth once daily for 30 days. topiramate (TOPAMAX) 100 mg tablet Take 1 tablet by mouth twice daily. amphetamine-dextroamphetamine XR (ADDERALL XR) 30 mg 24 hr capsule Take 1 capsule by mouth once daily for 30 days. vitamin b complex tab Take 1 tablet by mouth once daily. ALLERGIES: Penicillins PERSONAL HISTORY: Social History Tobacco Use Smoking status: Never Smokeless tobacco: Never Vaping Use Vaping Use: Never used Substance Use Topics Alcohol use: Yes Comment: socially- rare Drug use: No FAMILY HISTORY Problem Relation Age of Onset Hypertension Mother Kidney Disease Mother Kidney transplant Diabetes Father Hypertension Father Arthritis Maternal Grandmother GI Maternal Grandmother Stroke Maternal Grandfather Parkinson s Disease Maternal Grandfather Heart Paternal Grandmother Prostate Cancer Paternal Grandfather Emphysema Paternal Grandfather Asthma Son REVIEW OF SYSTEMS: General - denies fevers HEENT - denies trauma/infections Resp - denies coughing up blood, denies breathing difficulties Cardiac - denies chest pain GI - denies vomiting up of blood - denies blood in urine Endocrine - denies diabetes Psych - denies hallucinations Physical examination: Vital signs in chart, reviewed and noted by me General - WD/WN WF in no apparent distress, alert and oriented Head - Normocephalic. EOM intact with sclera clear. Mouth with mucus membranes moist. Neck - supple with no jugular venous distention noted. Trachea is midline. Lungs - clear to auscultation. Normal breath sounds. No rales/rhonchi/wheezing noted. Heart - normal heart sounds. No rubs/clicks/murmurs noted. Regular rate. Abdomen - soft and benign. Extremities - no pitting edema noted. Skin - Normal skin integrity. Neurological - non focal Psych - calm and appropriate Impression: blood in stools Discussion/Plan/Recommendations: I have discussed the above with the patient. I have offered colonoscopy , possible biopsies I have explained the procedure to the patient. I have counseled the patient as to the risks of the procedure, including but not limited to: infection, bleeding, injury to any intrabdominal organs such as liver/spleen, perforation of the GI tract, inability to complete the procedure, complications of anesthesia, etc. - the patient understands. The patient wishes to proceed. I have answered all questions to the patient s satisfaction and the patient has no further questions. Rachel Puentes MD documented in this encounter [facility] 08-28-2022 Miscellaneous Notes Miralax/Dulcolax bowel prep instruction sent to Jannette via My Chart. Marjorie Tran RN Pt calls to report she has a colonoscopy scheduled for this Weds 08/30. Pt reports she bought Miralax for bowel prep. Pt reports the directions have her doing a liquid diet today and tomorrow. Pt wants to make sure that is correct. Pt ask for a reply in [facility]. Ros Wagner LPN documented in this encounter [facility] 08-24-2022 Miscellaneous Notes Noted, agree with below. Meghan French APRN.HOME Patient call in for rectal bleeding, blood darker than normal hemorrhoid blood. Patient's family has a history for Crohn's disease which patient has scheduled colonoscopy. Nurse Triage assessment completed with protocol recommending for disposition of See PCP in 2 weeks. Patient has scheduled colonoscopy on 08/30/2022. Care advice reviewed with patient, patient stated understanding. Patient advised to contact office or seek evaluation in urgent care or ER if symptoms persist or gets worse. Reason for Disposition [1] Rectal bleeding is minimal (e.g., blood just on toilet paper, few drops, streaks on surface of normal formed BM) AND [2] bleeding recurs 3 or more times on treatment Answer Assessment - Initial Assessment Questions 1. APPEARANCE of BLOOD: Dark Red color almost maroon color; mixed in with stool 2. AMOUNT: Unsure; at least a quarter sized each time 3. FREQUENCY: 3 times; started yesterday late afternoon; last time was 3 am this morning; loose stools 4. ONSET: Yesterday 5. DIARRHEA: Loose stool; rarely has anything but loose stools. 3 loose stools since yesterday afternoon 6. CONSTIPATION: constipation; has been an issue for a long time. Has gotten worse since hysterectomy in April. 7. RECURRENT SYMPTOMS: Yes has had blood in stools, does have hemorrhoids, usually blood is a brighter red. 8. BLOOD THINNERS: Denies 9. OTHER SYMPTOMS: Abdominal Pain located upper mid section; felt nauseous; tired and fatigued 10. : Had Hysterectomy in April Protocols used: Rectal [id number] TC patient in regards to [employer] message. Left message for patient to call back and speak with a triage nurse regarding blood in stool. Magda Rothman RN documented in this encounter [facility] 08-14-2022 Miscellaneous Notes PDMP website checked and validated. All prescriptions have been APPROPRIATELY filled. No suspicious activity was identified. 08/14/2022 by Josesito Levi APRN.HUMIDIFIER ATTENDANT The following approved medication requests have been transmitted electronically. Requested Prescriptions Signed Prescriptions Disp Refills lisdexamfetamine (VYVANSE) 70 mg capsule 30 capsule 0 Sig: Take 1 capsule by mouth once daily for 30 days. Authorizing Provider: JOSESITO LEVI APRN.HOME Patient has been identified by name and date of : Yes Requested Prescriptions Pending Prescriptions Disp Refills lisdexamfetamine (VYVANSE) 70 mg capsule 30 capsule 0 Sig: Take 1 capsule by mouth once daily for 30 days. RX INSTRUCTIONS: Patient aware RX will be sent to pharmacy. No need to notify patient. BHARATI 05/17/22 NOV none scheduled Faye Harper MA documented in this encounter [facility] 07-12-2022 Miscellaneous Notes PDMP website checked and validated. All prescriptions have been APPROPRIATELY filled. No suspicious activity was identified. 07/12/2022 by Josesito Levi APRN.CNP The following approved medication requests have been transmitted electronically. Requested Prescriptions Signed Prescriptions Disp Refills lisdexamfetamine (VYVANSE) 70 mg capsule 30 capsule 0 Sig: Take 1 capsule by mouth once daily for 30 days. Authorizing Provider: JOSESITO LEVI APRN.CNP Patient has been identified by name and date of : Yes Patient phones for refill(s): Requested Prescriptions Pending Prescriptions Disp Refills lisdexamfetamine (VYVANSE) 70 mg capsule 30 capsule 0 Sig: Take 1 capsule by mouth once daily for 30 days. Date of last office visit in primary care: 01/27/2022 Please advise. Thank you. Lilly Rai LPN documented in this encounter [facility] 07-11-2022 Miscellaneous Notes Patient has been identified by name and date of : Yes Patient phones for refill(s): Requested Prescriptions Pending Prescriptions Disp Refills topiramate (TOPAMAX) 50 mg tablet 60 tablet 1 Sig: Take 1 tablet by mouth twice daily. Date of last office visit in primary care: 01/27/2022 Please advise. Thank you. Lilly Rai LPN documented in this encounter [facility] 06-15-2022 Miscellaneous Notes The following approved medication requests have been transmitted electronically. Requested Prescriptions Signed Prescriptions Disp Refills lisdexamfetamine (VYVANSE) 70 mg capsule 30 capsule 0 Sig: Take 1 capsule by mouth once daily for 30 days. Authorizing Provider: MEGHAN FRENCH APRN.HUMIDIFIER ATTENDANT PDMP website checked and validated. All prescriptions have been APPROPRIATELY filled. No suspicious activity was identified. 06/15/2022 by Meghan French CNP. Bharati--05/17/22 Nov--nothing scheduled Last refill--05/17/22 30 with -0 refills Last labs--02/07/21 documented in this encounter [facility] 05-17-2022 History of Present illness Narrative Unable to connect via virtual platform, visit changed to telephone visit. AMBULATORY TELEPHONE VISIT Jannette Gupta has consented to this telephone encounter. Persons Present: patient Chief Complaint/Reason: medication review HPI: Had started Vyvanse in April, which didn't seem to do much, so went back to Adderall 30mg. The Adderall isn't really lasting much past lunch time. Data Reviewed: Most recent labs and imaging results. OARRS report Assessment: (F98.8) Attention deficit disorder (ADD) in adult (primary encounter diagnosis) Plan: Begin Vyvanse 70mg daily. If no improvement, consider returning to Adderall with extra prnn early afternoon dose. PDMP website checked and validated. All prescriptions have been APPROPRIATELY filled. No suspicious activity was identified. 05/17/2022 by Meghan French CNP. Total Time Spent: 11 minutes Meghan French APRN.CNP documented in this encounter [facility] 04-27-2022 Miscellaneous Notes Called and left a detailed voicemail notifying patient of providers message. Hospital phone number was left in case patient had any questions. Marzena Zarco RN The following approved medication requests have been transmitted electronically. Requested Prescriptions Signed Prescriptions Disp Refills amphetamine-dextroamphetamine XR (ADDERALL XR) 30 mg 24 hr capsule 30 capsule 0 Sig: Take 1 capsule by mouth once daily for 30 days. Authorizing Provider: MODESTO ZHU DO Pt would like to try adderall. Please send to [facility] in [employer]. Ana Galan Ma Please call Jannette and let her know that I can either have her go back to taking Adderall and just increase the XR form of Adderall to 30 mg a day (highest dose) or can continue to increase her Vyvanse up to 50 mg as the next dose up. What is her preference? Modesto Zhu DO Images from the original note were not included. Please see patient's additional [facility] message sent 04/24: Images from the original note were not included. Please see pt mychart message and advise documented in this encounter [facility] 04-20-2022 Miscellaneous Notes See TE 04/20 Ana Galan Ma documented in this encounter [facility] 04-12-2022 Miscellaneous Notes Please see TE 04/12 Ana Galna Ma documented in this encounter [facility] 03-22-2022 History of Present illness Narrative In lieu of an in person visit due to coronavirus COVID 19 pandemic concerns, a virtual visit was performed with patient. Patient is aware that I am not fully able to assess symptoms and do a full physical exam including vital signs in office at this time. Patient consents to the visit. VIRTUAL VISIT PROGRESS NOTE This is a virtual visit using [employer] video visit. It required patient-provider interaction for the medical decision making as documented below. Jannette Gupta is a 36 year old female seen for follow up. Obesity, previously 2 months ago her weight 238 lbs, BMI 39.61. has tolerated adipex in the past, she was restarted on this medication 2 month ago- she is tolerating rx well. Weight 1 month ago was 220 lbs. Is trying to be routinely physically active as well as cutting back on her fried/fast/fatty foods. Trying to eat more vegetables and fresh fruits. Currently weight is 215 lbs ADD, taking Adderall as prescribed, tolerating well without SE to medication but doesn't feel her symptoms are well controlled, struggling with attention and focus as the day goes on. Is taking 25 mg a day of the Adderall medication HISTORY REVIEWED (electronic chart updated): PAST MEDICAL HISTORY Diagnosis Date Abnormal Pap smear of cervix + HPV 2014 and 2018- planning LEEP Cervical funneling affecting in second trimester 11/16/2016 OTILIA III (cervical intraepithelial neoplasia grade III) with severe dysplasia 2018 FAUSTO (generalized anxiety disorder) 02/04/2021 Gestational diabetes Gestational hypertension 12/02/2013 Preeclampsia Short cervix during in second trimester 11/16/2016 November 21, 2016 Cerclage being placed by [facility] on 11/22/16. On vaginal progesterone. Jessi Pierre MD Cerclage placed on 11/22 -- vaginal progesterone Supervision of other high risk pregnancies, first trimester 12/17/2013 PAST SURGICAL HISTORY Procedure Laterality Date SNGL 2017 LAPAROSCOPIC APPENDECTOMY 07/22/2007 PAST SURGICAL HISTORY OF 2016 kidney stone removal TUBAL LIGATION FAMILY HISTORY Problem Relation Age of Onset Hypertension Mother Kidney Disease Mother Kidney transplant Diabetes Father Hypertension Father Arthritis Maternal Grandmother GI Maternal Grandmother Stroke Maternal Grandfather Parkinson s Disease Maternal Grandfather Heart Paternal Grandmother Prostate Cancer Paternal Grandfather Emphysema Paternal Grandfather Asthma Son Social History Tobacco Use Smoking status: Never Smokeless tobacco: Never Vaping Use Vaping Use: Never used Substance Use Topics Alcohol use: Yes Comment: socially- rare Drug use: No Current Outpatient Medications Medication Sig Phentermine HCl 37.5 mg capsule Take 1 capsule by mouth once daily for 30 days. BMI 36.74 amphetamine-dextroamphetamine XR (ADDERALL XR) 25 mg 24 hr capsule Take 1 capsule by mouth once daily for 30 days. Do not start before March 20, 2022. ferrous sulfate 325 mg (65 mg iron) tablet Take 1 tablet by mouth twice daily with meals. vitamin b complex tab Take 1 tablet by mouth once daily. No current facility-administered medications for this visit. ALLERGIES Allergen Reactions Penicillins Other: See Comments CHILDHOOD REACTION REVIEW OF SYSTEMS: As noted in HPI PHYSICAL EXAMINATION: VIDEO EXAM: (if completed, performed via video enabled technology) GENERAL: alert and appropriate, in no distress, well-hydrated, well nourished, and happy, smiling, interactive ASSESSMENT: (E66.9) Obesity, Class II, BMI 35-39.9 (primary encounter diagnosis) (F98.8) Attention deficit disorder (ADD) in adult (R73.01) IFG (impaired fasting glucose) PLAN: Continue adipex for weight loss, consider trial of Topamax after this course is complete. D/c Adderall, start on Vyvanse due to need for medication change since symptoms aren't controlled. There are no Patient Instructions on file for this visit. I spent a total of 25 minutes on the date of the service which included preparing to see the patient, [id number] patient care, completing clinical documentation, obtaining and/or reviewing separately obtained history, and performing a medically appropriate examination Modesto Zhu DO documented in this encounter [facility] 02-27-2022 History of Present illness Narrative In lieu of an in person visit due to coronavirus COVID 19 pandemic concerns, a virtual visit was performed with patient. Patient is aware that I am not fully able to assess symptoms and do a full physical exam including vital signs in office at this time. Patient consents to the visit. VIRTUAL VISIT PROGRESS NOTE This is a virtual visit using [employer] video visit. It required patient-provider interaction for the medical decision making as documented below. Jannette Gupta is a 36 year old female seen for follow up Obesity, previously 1 month ago her weight 238 lbs, BMI 39.61. has tolerated adipex in the past, she was restarted on this medication 1 month ago- she is tolerating rx well. Weight now is 220 lbs. Is trying to be routinely physically active as well as cutting back on her fried/fast/fatty foods. Trying to eat more vegetables and fresh fruits. ADD, stable, taking Adderall as prescribed, tolerating well without SE to medication HISTORY REVIEWED (electronic chart updated): PAST MEDICAL HISTORY Diagnosis Date Abnormal Pap smear of cervix + HPV 2014 and 2018- planning LEEP Cervical funneling affecting in second trimester 11/16/2016 OTILIA III (cervical intraepithelial neoplasia grade III) with severe dysplasia 2018 FAUSTO (generalized anxiety disorder) 02/04/2021 Gestational diabetes Gestational hypertension 12/02/2013 Preeclampsia Short cervix during in second trimester 11/16/2016 November 21, 2016 Cerclage being placed by [facility] on 11/22/16. On vaginal progesterone. Jessi Pierre MD Cerclage placed on 11/22 -- vaginal progesterone Supervision of other high risk pregnancies, first trimester 12/17/2013 PAST SURGICAL HISTORY Procedure Laterality Date SNGL 2017 LAPAROSCOPIC APPENDECTOMY 07/22/2007 PAST SURGICAL HISTORY OF 2016 kidney stone removal TUBAL LIGATION FAMILY HISTORY Problem Relation Age of Onset Hypertension Mother Kidney Disease Mother Kidney transplant Diabetes Father Hypertension Father Arthritis Maternal Grandmother GI Maternal Grandmother Stroke Maternal Grandfather Parkinson s Disease Maternal Grandfather Heart Paternal Grandmother Prostate Cancer Paternal Grandfather Emphysema Paternal Grandfather Asthma Son Social History Tobacco Use Smoking status: Never Smokeless tobacco: Never Vaping Use Vaping Use: Never used Substance Use Topics Alcohol use: Yes Comment: socially- rare Drug use: No Current Outpatient Medications Medication Sig Phentermine HCl 37.5 mg capsule Take 1 capsule by mouth once daily for 30 days. BMI 36.74 [START ON 03/20/2022] amphetamine-dextroamphetamine XR (ADDERALL XR) 25 mg 24 hr capsule Take 1 capsule by mouth once daily for 30 days. Do not start before March 20, 2022. ferrous sulfate 325 mg (65 mg iron) tablet Take 1 tablet by mouth twice daily with meals. vitamin b complex tab Take 1 tablet by mouth once daily. No current facility-administered medications for this visit. ALLERGIES Allergen Reactions Penicillins Other: See Comments CHILDHOOD REACTION REVIEW OF SYSTEMS: See HPI PHYSICAL EXAMINATION: VIDEO EXAM: (if completed, performed via video enabled technology) GENERAL: alert and appropriate, in no distress, well-hydrated, well nourished, and happy, smiling, interactive ASSESSMENT: (E66.9) Obesity, Class II, BMI 35-39.9 (R73.01) IFG (impaired fasting glucose) (F98.8) Attention deficit disorder (ADD) in adult PLAN: Continue Adipex, continue Adderall medication. No SE to medication. Tolerating rx well without concerns. She is aware of risks and SE Can consider starting Topamax after finishing up Adipex. PDMP website checked and validated. All prescriptions have been APPROPRIATELY filled. No suspicious activity was identified. 02/27/2022 by Modesto Zhu DO There are no Patient Instructions on file for this visit. I spent a total of 30 minutes on the date of the service which included preparing to see the patient, [id number] patient care, completing clinical documentation, obtaining and/or reviewing separately obtained history, performing a medically appropriate examination, and ordering medications, tests, or procedures Modesto Zhu DO documented in this encounter [facility] 02-10-2022 Miscellaneous Notes PDMP website checked and validated. All prescriptions have been APPROPRIATELY filled. No suspicious activity was identified. 02/10/2022 by Josesito Price APRN.CNP The following approved medication requests have been transmitted electronically. Requested Prescriptions Pending Prescriptions Disp Refills amphetamine-dextroamphetamine XR (ADDERALL XR) 25 mg 24 hr capsule 30 capsule 0 Sig: Take 1 capsule by mouth once daily for 30 days. Josesito Price APRN.CNP Patient phones requesting refills as follows: Requested Prescriptions Pending Prescriptions Disp Refills amphetamine-dextroamphetamine XR (ADDERALL XR) 25 mg 24 hr capsule 30 capsule 0 Sig: Take 1 capsule by mouth once daily for 30 days. BHARATI-01/27/22 Labs-01/16/21 NOV-02/24/22 med filled 01/12/22 Please review and advise. Frances Ochoa LPN documented in this encounter [facility] 01-12-2022 Miscellaneous Notes PDMP website checked and validated. All prescriptions have been APPROPRIATELY filled. No suspicious activity was identified. 01/12/2022 by Josesito Price APRN.CNP The following approved medication requests have been transmitted electronically. Signed Prescriptions Disp Refills amphetamine-dextroamphetamine XR (ADDERALL XR) 25 mg 24 hr capsule 30 capsule 0 Sig: Take 1 capsule by mouth once daily for 30 days. MARTINA Class: C-II Josesito Price APRN.CNP See update from message. Last Rx sent in on 12/15/21. Leslye Quiles Ma The following approved medication requests have been transmitted electronically. Signed Prescriptions Disp Refills dextroamphetamine-amphetamine (ADDERALL) 20 mg tablet 30 tablet 0 Sig: Take 1 tablet by mouth once daily for 30 days. MARTINA Class: C-II Meghan French APRN.CNP PDMP website checked and validated. All prescriptions have been APPROPRIATELY filled. No suspicious activity was identified. 12/15/2021 by Meghan French CNP. Please see pt update Ana Galan Ma documented in this encounter [facility] 11-30-2021 Miscellaneous Notes Mailed to patient home address Ana Galan Ma [place] mail patient Adult ADD/ADHD questionnaire. Meghan French APRN.CNP documented in this encounter [facility] 11-30-2021 History of Present illness Narrative VIRTUAL VISIT PROGRESS NOTE This is a virtual visit using [employer] video visit. It required patient-provider interaction for the medical decision making as documented below. Jannette Gupta is a 36 year old female seen for medication/ADHD. Today: Would like to get an opinion about ADHD. Has friends with this dx and feels like she may have this. At work, has difficulty staying on task. Works for [employer], and talks to a lot of other doctors on the phone. Feels like she is zoning out and seems to be unable to focus on details. Has been looking over details at work-this is a newer thing for her, as she has been at the job for 5 years. At home, feels overwhelmed, so ends up doing nothing because she is just overwhelmed. has noticed that she has had a quick temper-like agitated quickly. Sleep-has a 4 year old that doesn't sleep well, so difficult to get much sleep anyway. Appetite-goes long periods of time and doesn't eat, but then seems to binge eat. These sx have been gradually. Seem to be getting worse over the past 6 months or so. Her coworker has pointed it out, so has been paying more attention to it. 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 On vaginal progesterone. Jessi Pierre MD Cerclage placed on 11/22 -- vaginal progesterone Supervision of other high risk pregnancies, first trimester 12/17/2013 PAST SURGICAL HISTORY Procedure Laterality Date SNGL 2016 LAPAROSCOPIC APPENDECTOMY 07/22/2007 PAST SURGICAL HISTORY OF 2016 kidney stone removal TUBAL LIGATION FAMILY HISTORY Problem Relation Age of Onset Hypertension Mother Kidney Disease Mother Kidney transplant Diabetes Father Hypertension Father Arthritis Maternal Grandmother GI Maternal Grandmother Stroke Maternal Grandfather Parkinson s Disease Maternal Grandfather Heart Paternal Grandmother Prostate Cancer Paternal Grandfather Emphysema Paternal Grandfather Asthma Son Social History Tobacco Use Smoking status: Never Smoker Smokeless tobacco: Never Used Vaping Use Vaping Use: Never used Substance Use Topics Alcohol use: Yes Comment: socially- rare Drug use: No Current Outpatient Medications Medication Sig FLUoxetine (PROZAC) 20 mg capsule take 1 capsule by mouth once daily ferrous sulfate 325 mg (65 mg iron) tablet Take 1 tablet by mouth twice daily with meals. vitamin b complex tab Take 1 tablet by mouth once daily. No current facility-administered medications for this visit. ALLERGIES Allergen Reactions Penicillins Other: See Comments CHILDHOOD REACTION REVIEW OF SYSTEMS: All other ROS: negative As noted in HPI PHYSICAL EXAMINATION: VIDEO EXAM: (if completed, performed via video enabled technology) No exam performed ASSESSMENT: (F98.8) Attention deficit disorder (ADD) in adult (primary encounter diagnosis) PLAN: Begin low dose Adderall. Both of her kids take this medication, so she is very familiar with the medication. Discussed common side effects with medication. She will notify the office via [employer] with update. May consider increasing/changing dose at that point. Mailing out questionnaire for adult ADHD that patient will return via [employer] message. Meghan French APRN.CNP PDMP website checked and validated. All prescriptions have been APPROPRIATELY filled. No suspicious activity was identified. 11/30/2021 by Meghan French CNP. documented in this encounter [facility] 10-20-2021 Miscellaneous Notes Last office visit: 06/29/21 F/u scheduled: none Shelbie Burns Ma documented in this encounter [facility] 09-14-2021 Miscellaneous Notes Pt notified she would need appt to discuss ADHD. Advised her to call in and schedule. Shelbie Burns Ma documented in this encounter [facility] 09-12-2021 Miscellaneous Notes Agree with below. Meghan French APRN.CNP Advised patient to schedule appt for concern Ana Galan Ma documented in this encounter [facility] 02-17-2021 Miscellaneous Notes Phone call placed patient reported x2 moles located (LT) abd slightly raised, appointment scheduled w/ Dr. Zhu 05/04/2021 for possible removal if needed. Angie Bain LPN documented in this encounter [facility] documented as of this encounter (statuses as of 09/12/2021) [facility] History of Past illness Narrative* Problem Noted Date Resolved Date Short cervix during in second trimeste r 11/16/2016 07/07/2019 Overview: November 21, 2016 Cerclage being placed by MFM on 11/22/16. On vaginal progesterone. Jessi Pierre MD Cerclage placed on 11/22 -- vaginal progesterone Cervical funneling affecting in second trimester 11/16/2016 07/07/2019 History of gestational diabe noris in prior , currently 08/10/2016 08/15/2016 Overview: 08/10/2016Patient has a history of gestational diabetes with both of her previous pregnancies. She will plan on GCT @ [facility] visit with Dr Pierre. TKRN Supervision of other high risk pregnancies, firs t trimester 12/17/2013 07/07/2019 Abnormal maternal glucose tolerance, antepartum 12/05/2013 02/04/2014 High-risk supervision 12/02/2013 01/07/2014 Overview: December 02, 2013 patient admitted twice for STO for initially severely elevated bps that resolve into normal with rest and observation. Plan home bp moitoring, weekly NST/dr visit. Ordered growth us. Swathi Lewis MD October 21, 2013 Pt in hospital 10/19 overnight for TPTL, spotting, increased BP. No steroids given. 24 hr urine done was 164 mg. Other labs normal Jessi Pierre MD Gestational hypertension 12/02/2013 014 Overview: 11/29/13 urine protein 278mg. Bps labile but normal with bed rest. S/p BMX x two. Weekly nst/dr visit with IOL at 37 weeks. Abnormal heart rate or rhythm 12/02/2013 01/07/2014 Overview: December 01, 2013 had late decel in triage with 10 x 10 reactive tracing 8/8 BPP with normal prolonged monitoring at hospital. Kick counts and fu NST in office the end of the week Swathi Lewis MD Abnormal glucose complicating 10/14/19 14 10/27/2013 LSIL (low grade squamous int raepithelial lesion) on Pap smear 06/06/2013 02/04/2014 Overview: June 06, 2013 LSIL cannot r/o HSIL pap colposcopy ordered. Jessi Pierre MD Bacterial vaginosis 06/06/2013 01/07/2014 Overview: June 06, 2013 BV- treated. Jessi Pierre MD Gestational diabetes 10/06/2010 10/26/2010 Unspecified high-risk 08/08/2010 10/26/2010 Poor growth, affecting management of mother, antepartum condition or complication 03/28/2010 10/26/2010 Acute appendicitis without mention of peritoniti s 07/24/2007 10/26/2010 documented as of this encounter (statuses as of 09/14/2021) [facility] History of Past illness Narrative* Problem Noted Date Resolved Date Short cervix during in second trimeste r 11/16/2016 07/07/2019 Overview: November 21, 2016 Cerclage being placed by M on 11/22/16. On vaginal progesterone. Jessi Pierre MD Cerclage placed on 11/22 -- vaginal progesterone Cervical funneling affecting in second trimester 11/16/2016 07/07/2019 History of gestational diabe noris in prior , currently 08/10/2016 08/15/2016 Overview: 08/10/2016Patient has a history of gestational diabetes with both of her previous pregnancies. She will plan on GCT @ [facility] visit with Dr Pierre. TKRN Supervision of other high risk pregnancies, firs t trimester 12/17/2013 07/07/2019 Abnormal maternal glucose tolerance, antepartum 12/05/2013 02/04/2014 High-risk supervision 12/02/2013 01/07/2014 Overview: December 02, 2013 patient admitted twice for STO for initially severely elevated bps that resolve into normal with rest and observation. Plan home bp moitoring, weekly NST/dr visit. Ordered growth us. Swathi Lewis MD October 21, 2013 Pt in hospital 10/19 overnight for TPTL, spotting, increased BP. No steroids given. 24 hr urine done was 164 mg. Other labs normal Jessi Pierre MD Gestational hypertension 12/02/2013 014 Overview: 11/29/13 urine protein 278mg. Bps labile but normal with bed rest. S/p BMX x two. Weekly nst/dr visit with IOL at 37 weeks. Abnormal heart rate or rhythm 12/02/2013 01/07/2014 Overview: December 01, 2013 had late decel in triage with 10 x 10 reactive tracing 01/16 BPP with normal prolonged monitoring at hospital. Kick counts and fu NST in office the end of the week Swathi Lewis MD Abnormal glucose complicating 10/14/19 14 10/27/2013 LSIL (low grade squamous int raepithelial lesion) on Pap smear 06/06/2013 02/04/2014 Overview: June 06, 2013 LSIL cannot r/o HSIL pap colposcopy ordered. Jessi Pierre MD Bacterial vaginosis 06/06/2013 01/07/2014 Overview: June 06, 2013 BV- treated. Jessi Pierre MD Gestational diabetes 10/06/2010 10/26/2010 Unspecified high-risk 08/08/2010 10/26/2010 Poor growth, affecting management of mother, antepartum condition or complication 03/28/2010 10/26/2010 Acute appendicitis without mention of peritoniti s 07/24/2007 10/26/2010 documented as of this encounter (statuses as of 10/20/2021) [facility] History of Past illness Narrative* Problem Noted Date Resolved Date Short cervix during in second trimeste r 11/16/2016 07/07/2019 Overview: November 21, 2016 Cerclage being placed by M on 11/22/16. On vaginal progesterone. Jessi Pierre MD Cerclage placed on 11/22 -- vaginal progesterone Cervical funneling affecting in second trimester 11/16/2016 07/07/2019 History of gestational diabe noris in prior , currently 08/10/2016 08/15/2016 Overview: 08/10/2016Patient has a history of gestational diabetes with both of her previous pregnancies. She will plan on GCT @ [facility] visit with Dr Pierre. TKRN Supervision of other high risk pregnancies, firs t trimester 12/17/2013 07/07/2019 Abnormal maternal glucose tolerance, antepartum 12/05/2013 02/04/2014 High-risk supervision 12/02/2013 01/07/2014 Overview: December 02, 2013 patient admitted twice for STO for initially severely elevated bps that resolve into normal with rest and observation. Plan home bp moitoring, weekly NST/dr visit. Ordered growth us. Swathi Lewis MD October 21, 2013 Pt in hospital 10/19 overnight for TPTL, spotting, increased BP. No steroids given. 24 hr urine done was 164 mg. Other labs normal Jessi Pierre MD Gestational hypertension 12/02/2013 014 Overview: 11/29/13 urine protein 278mg. Bps labile but normal with bed rest. S/p BMX x two. Weekly nst/dr visit with IOL at 37 weeks. Abnormal heart rate or rhythm 12/02/2013 01/07/2014 Overview: December 01, 2013 had late decel in triage with 10 x 10 reactive tracing 8/8 BPP with normal prolonged monitoring at hospital. Kick counts and fu NST in office the end of the week Swathi Lewis MD Abnormal glucose complicating 10/14/19 14 10/27/2013 LSIL (low grade squamous int raepithelial lesion) on Pap smear 06/06/2013 02/04/2014 Overview: June 06, 2013 LSIL cannot r/o HSIL pap colposcopy ordered. Jessi Pierre MD Bacterial vaginosis 06/06/2013 01/07/2014 Overview: June 06, 2013 BV- treated. Jessi Pierre MD Gestational diabetes 10/06/2010 10/26/2010 Unspecified high-risk 08/08/2010 10/26/2010 Poor growth, affecting management of mother, antepartum condition or complication 03/28/2010 10/26/2010 Acute appendicitis without mention of peritoniti s 07/24/2007 10/26/2010 documented as of this encounter (statuses as of 11/15/2021) [facility] History of Past illness Narrative* Problem Noted Date Resolved Date Short cervix during in second trimeste r 11/16/2016 07/07/2019 Overview: November 21, 2016 Cerclage being placed by [facility] on 11/22/16. On vaginal progesterone. Jessi Pierre MD Cerclage placed on 11/22 -- vaginal progesterone Cervical funneling affecting in second trimester 11/16/2016 07/07/2019 History of gestational diabe noris in prior , currently 08/10/2016 08/15/2016 Overview: 08/10/2016Patient has a history of gestational diabetes with both of her previous pregnancies. She will plan on GCT @ [facility] visit with Dr Pierre. TKRN Supervision of other high risk pregnancies, firs t trimester 12/17/2013 07/07/2019 Abnormal maternal glucose tolerance, antepartum 12/05/2013 02/04/2014 High-risk supervision 12/02/2013 01/07/2014 Overview: December 02, 2013 patient admitted twice for STO for initially severely elevated bps that resolve into normal with rest and observation. Plan home bp moitoring, weekly NST/dr visit. Ordered growth us. Swathi Lewis MD October 21, 2013 Pt in hospital 10/19 overnight for TPTL, spotting, increased BP. No steroids given. 24 hr urine done was 164 mg. Other labs normal Jessi Pierre MD Gestational hypertension 12/02/2013 014 Overview: 11/29/13 urine protein 278mg. Bps labile but normal with bed rest. S/p BMX x two. Weekly nst/dr visit with IOL at 37 weeks. Abnormal heart rate or rhythm 12/02/2013 01/07/2014 Overview: December 01, 2013 had late decel in triage with 10 x 10 reactive tracing 01/16 BPP with normal prolonged monitoring at hospital. Kick counts and fu NST in office the end of the week Swathi Lewis MD Abnormal glucose complicating 10/14/19 14 10/27/2013 LSIL (low grade squamous int raepithelial lesion) on Pap smear 06/06/2013 02/04/2014 Overview: June 06, 2013 LSIL cannot r/o HSIL pap colposcopy ordered. Jessi Pierre MD Bacterial vaginosis 06/06/2013 01/07/2014 Overview: June 06, 2013 BV- treated. Jessi Pierre MD Gestational diabetes 10/06/2010 10/26/2010 Unspecified high-risk 08/08/2010 10/26/2010 Poor growth, affecting management of mother, antepartum condition or complication 03/28/2010 10/26/2010 Acute appendicitis without mention of peritoniti s 07/24/2007 10/26/2010 documented as of this encounter (statuses as of 11/30/2021) [facility] of Past illness Narrative* Problem Noted Date Resolved Date Short cervix during in second trimeste r 11/16/2016 07/07/2019 Overview: November 21, 2016 Cerclage being placed by [facility] on 11/22/16. On vaginal progesterone. Jessi Pierre MD Cerclage placed on 11/22 -- vaginal progesterone Cervical funneling affecting in second trimester 11/16/2016 07/07/2019 History of gestational diabe noris in prior , currently 08/10/2016 08/15/2016 Overview: 08/10/2016Patient has a history of gestational diabetes with both of her previous pregnancies. She will plan on GCT @ NO[facility] visit with Dr Pierre. TKRN Supervision of other high risk pregnancies, firs t trimester 12/17/2013 07/07/2019 Abnormal maternal glucose tolerance, antepartum 12/05/2013 02/04/2014 High-risk supervision 12/02/2013 01/07/2014 Overview: December 02, 2013 patient admitted twice for STO for initially severely elevated bps that resolve into normal with rest and observation. Plan home bp moitoring, weekly NST/dr visit. Ordered growth us. Swathi Lewis MD October 21, 2013 Pt in hospital 10/19 overnight for TPTL, spotting, increased BP. No steroids given. 24 hr urine done was 164 mg. Other labs normal Jessi Pierre MD Gestational hypertension 12/02/2013 014 Overview: 11/29/13 urine protein 278mg. Bps labile but normal with bed rest. S/p BMX x two. Weekly nst/dr visit with IOL at 37 weeks. Abnormal heart rate or rhythm 12/02/2013 01/07/2014 Overview: December 01, 2013 had late decel in triage with 10 x 10 reactive tracing 01/16 BPP with normal prolonged monitoring at hospital. Kick counts and fu NST in office the end of the week Swathi Lewis MD Abnormal glucose complicating 10/14/19 14 10/27/2013 LSIL (low grade squamous int raepithelial lesion) on Pap smear 06/06/2013 02/04/2014 Overview: June 06, 2013 LSIL cannot r/o HSIL pap colposcopy ordered. Jessi Pierre MD Bacterial vaginosis 06/06/2013 01/07/2014 Overview: June 06, 2013 BV- treated. Jessi Pierre MD Gestational diabetes 10/06/2010 10/26/2010 Unspecified high-risk 08/08/2010 10/26/2010 Poor growth, affecting management of mother, antepartum condition or complication 03/28/2010 10/26/2010 Acute appendicitis without mention of peritoniti s 07/24/2007 10/26/2010 documented as of this encounter (statuses as of 11/30/2021) [facility] of Past illness Narrative* Problem Noted Date Resolved Date Short cervix during in second trimeste r 11/16/2016 07/07/2019 Overview: November 21, 2016 Cerclage being placed by [facility] on 11/22/16. On vaginal progesterone. Jessi Pierre MD Cerclage placed on 11/22 -- vaginal progesterone Cervical funneling affecting in second trimester 11/16/2016 07/07/2019 History of gestational diabe noris in prior , currently 08/10/2016 08/15/2016 Overview: 08/10/2016Patient has a history of gestational diabetes with both of her previous pregnancies. She will plan on GCT @ NO[facility] visit with Dr Pierre. TKRN Supervision of other high risk pregnancies, firs t trimester 12/17/2013 07/07/2019 Abnormal maternal glucose tolerance, antepartum 12/05/2013 02/04/2014 High-risk supervision 12/02/2013 01/07/2014 Overview: December 02, 2013 patient admitted twice for STO for initially severely elevated bps that resolve into normal with rest and observation. Plan home bp moitoring, weekly NST/dr visit. Ordered growth us. Swathi Lewis MD October 21, 2013 Pt in hospital 10/19 overnight for TPTL, spotting, increased BP. No steroids given. 24 hr urine done was 164 mg. Other labs normal Jessi Pierre MD Gestational hypertension 12/02/2013 014 Overview: 11/29/13 urine protein 278mg. Bps labile but normal with bed rest. S/p BMX x two. Weekly nst/dr visit with IOL at 37 weeks. Abnormal heart rate or rhythm 12/02/2013 01/07/2014 Overview: December 01, 2013 had late decel in triage with 10 x 10 reactive tracing 8/8 BPP with normal prolonged monitoring at hospital. Kick counts and fu NST in office the end of the week Swathi Lewis MD Abnormal glucose complicating 10/14/19 14 10/27/2013 LSIL (low grade squamous int raepithelial lesion) on Pap smear 06/06/2013 02/04/2014 Overview: June 06, 2013 LSIL cannot r/o HSIL pap colposcopy ordered. Jessi Pierre MD Bacterial vaginosis 06/06/2013 01/07/2014 Overview: June 06, 2013 BV- treated. Jessi Pierre MD Gestational diabetes 10/06/2010 10/26/2010 Unspecified high-risk 08/08/2010 10/26/2010 Poor growth, affecting management of mother, antepartum condition or complication 03/28/2010 10/26/2010 Acute appendicitis without mention of peritoniti s 07/24/2007 10/26/2010 documented as of this encounter (statuses as of 01/12/2022) [facility] of Past illness Narrative* Problem Noted Date Resolved Date Short cervix during in second trimeste r 11/16/2016 07/07/2019 Overview: November 21, 2016 Cerclage being placed by [facility] on 11/22/16. On vaginal progesterone. Jessi Pierre MD Cerclage placed on 11/22 -- vaginal progesterone Cervical funneling affecting in second trimester 11/16/2016 07/07/2019 History of gestational diabe noris in prior , currently 08/10/2016 08/15/2016 Overview: 08/10/2016Patient has a history of gestational diabetes with both of her previous pregnancies. She will plan on GCT @ [facility] visit with Dr Pierre. TKRN Supervision of other high risk pregnancies, firs t trimester 12/17/2013 07/07/2019 Abnormal maternal glucose tolerance, antepartum 12/05/2013 02/04/2014 High-risk supervision 12/02/2013 01/07/2014 Overview: December 02, 2013 patient admitted twice for STO for initially severely elevated bps that resolve into normal with rest and observation. Plan home bp moitoring, weekly NST/dr visit. Ordered growth us. Swathi Lewis MD October 21, 2013 Pt in hospital 10/19 overnight for TPTL, spotting, increased BP. No steroids given. 24 hr urine done was 164 mg. Other labs normal Jessi Pierre MD Gestational hypertension 12/02/2013 014 Overview: 11/29/13 urine protein 278mg. Bps labile but normal with bed rest. S/p BMX x two. Weekly nst/dr visit with IOL at 37 weeks. Abnormal heart rate or rhythm 12/02/2013 01/07/2014 Overview: December 01, 2013 had late decel in triage with 10 x 10 reactive tracing 01/16 BPP with normal prolonged monitoring at hospital. Kick counts and fu NST in office the end of the week Swathi Lewis MD Abnormal glucose complicating 10/14/19 14 10/27/2013 LSIL (low grade squamous int raepithelial lesion) on Pap smear 06/06/2013 02/04/2014 Overview: June 06, 2013 LSIL cannot r/o HSIL pap colposcopy ordered. Jessi Pierre MD Bacterial vaginosis 06/06/2013 01/07/2014 Overview: June 06, 2013 BV- treated. Jessi Pierre MD Gestational diabetes 10/06/2010 10/26/2010 Unspecified high-risk 08/08/2010 10/26/2010 Poor growth, affecting management of mother, antepartum condition or complication 03/28/2010 10/26/2010 Acute appendicitis without mention of peritoniti s 07/24/2007 10/26/2010 documented as of this encounter (statuses as of 02/10/2022) [facility] History of Past illness Narrative* Problem Noted Date Resolved Date Short cervix during in second trimeste r 11/16/2016 07/07/2019 Overview: November 21, 2016 Cerclage being placed by M on 11/22/16. On vaginal progesterone. Jessi Pierre MD Cerclage placed on 11/22 -- vaginal progesterone Cervical funneling affecting in second trimester 11/16/2016 07/07/2019 History of gestational diabe noris in prior , currently 08/10/2016 08/15/2016 Overview: 08/10/2016Patient has a history of gestational diabetes with both of her previous pregnancies. She will plan on GCT @ NO[facility] visit with Dr Pierre. TKRN Supervision of other high risk pregnancies, firs t trimester 12/17/2013 07/07/2019 Abnormal maternal glucose tolerance, antepartum 12/05/2013 02/04/2014 High-risk supervision 12/02/2013 01/07/2014 Overview: December 02, 2013 patient admitted twice for STO for initially severely elevated bps that resolve into normal with rest and observation. Plan home bp moitoring, weekly NST/dr visit. Ordered growth us. Swathi Lewis MD October 21, 2013 Pt in hospital 10/19 overnight for TPTL, spotting, increased BP. No steroids given. 24 hr urine done was 164 mg. Other labs normal Jessi Pierre MD Gestational hypertension 12/02/2013 014 Overview: 11/29/13 urine protein 278mg. Bps labile but normal with bed rest. S/p BMX x two. Weekly nst/dr visit with IOL at 37 weeks. Abnormal heart rate or rhythm 12/02/2013 01/07/2014 Overview: December 01, 2013 had late decel in triage with 10 x 10 reactive tracing 8/8 BPP with normal prolonged monitoring at hospital. Kick counts and fu NST in office the end of the week Swathi Lewis MD Abnormal glucose complicating 10/14/19 14 10/27/2013 LSIL (low grade squamous int raepithelial lesion) on Pap smear 06/06/2013 02/04/2014 Overview: June 06, 2013 LSIL cannot r/o HSIL pap colposcopy ordered. Jessi Pierre MD Bacterial vaginosis 06/06/2013 01/07/2014 Overview: June 06, 2013 BV- treated. Jessi Pierre MD Gestational diabetes 10/06/2010 10/26/2010 Unspecified high-risk 08/08/2010 10/26/2010 Poor growth, affecting management of mother, antepartum condition or complication 03/28/2010 10/26/2010 Acute appendicitis without mention of peritoniti s 07/24/2007 10/26/2010 documented as of this encounter (statuses as of 02/23/2022) [facility] History of Past illness Narrative* Problem Noted Date Resolved Date Short cervix during in second trimeste r 11/16/2016 07/07/2019 Overview: November 21, 2016 Cerclage being placed by [facility] on 11/22/16. On vaginal progesterone. Jessi Pierre MD Cerclage placed on 11/22 -- vaginal progesterone Cervical funneling affecting in second trimester 11/16/2016 07/07/2019 History of gestational diabe noris in prior , currently 08/10/2016 08/15/2016 Overview: 08/10/2016Patient has a history of gestational diabetes with both of her previous pregnancies. She will plan on GCT @ [facility] visit with Dr Pierre. TKRN Supervision of other high risk pregnancies, firs t trimester 12/17/2013 07/07/2019 Abnormal maternal glucose tolerance, antepartum 12/05/2013 02/04/2014 High-risk supervision 12/02/2013 01/07/2014 Overview: December 02, 2013 patient admitted twice for STO for initially severely elevated bps that resolve into normal with rest and observation. Plan home bp moitoring, weekly NST/dr visit. Ordered growth us. Swathi Lewis MD October 21, 2013 Pt in hospital 10/19 overnight for TPTL, spotting, increased BP. No steroids given. 24 hr urine done was 164 mg. Other labs normal Jessi Pierre MD Gestational hypertension 12/02/2013 014 Overview: 11/29/13 urine protein 278mg. Bps labile but normal with bed rest. S/p BMX x two. Weekly nst/dr visit with IOL at 37 weeks. Abnormal heart rate or rhythm 12/02/2013 01/07/2014 Overview: December 01, 2013 had late decel in triage with 10 x 10 reactive tracing 01/16 BPP with normal prolonged monitoring at hospital. Kick counts and fu NST in office the end of the week Swathi Lewis MD Abnormal glucose complicating 10/14/19 14 10/27/2013 LSIL (low grade squamous int raepithelial lesion) on Pap smear 06/06/2013 02/04/2014 Overview: June 06, 2013 LSIL cannot r/o HSIL pap colposcopy ordered. Jessi Pierre MD Bacterial vaginosis 06/06/2013 01/07/2014 Overview: June 06, 2013 BV- treated. Jessi Pierre MD Gestational diabetes 10/06/2010 10/26/2010 Unspecified high-risk 08/08/2010 10/26/2010 Poor growth, affecting management of mother, antepartum condition or complication 03/28/2010 10/26/2010 Acute appendicitis without mention of peritoniti s 07/24/2007 10/26/2010 documented as of this encounter (statuses as of 02/27/2022) [facility] History of Past illness Narrative* Problem Noted Date Resolved Date Short cervix during in second trimeste r 11/16/2016 07/07/2019 Overview: November 21, 2016 Cerclage being placed by M on 11/22/16. On vaginal progesterone. Jessi Pierre MD Cerclage placed on 11/22 -- vaginal progesterone Cervical funneling affecting in second trimester 11/16/2016 07/07/2019 History of gestational diabe noris in prior , currently 08/10/2016 08/15/2016 Overview: 08/10/2016Patient has a history of gestational diabetes with both of her previous pregnancies. She will plan on GCT @ NO[facility] visit with Dr Pierre. TKRN Supervision of other high risk pregnancies, firs t trimester 12/17/2013 07/07/2019 Abnormal maternal glucose tolerance, antepartum 12/05/2013 02/04/2014 High-risk supervision 12/02/2013 01/07/2014 Overview: December 02, 2013 patient admitted twice for STO for initially severely elevated bps that resolve into normal with rest and observation. Plan home bp moitoring, weekly NST/dr visit. Ordered growth us. Swathi Lewis MD October 21, 2013 Pt in hospital 5/ overnight for TPTL, spotting, increased BP. No steroids given. 24 hr urine done was 164 mg. Other labs normal Jessi Pierre MD Gestational hypertension 12/02/2013 014 Overview: 11/29/13 urine protein 278mg. Bps labile but normal with bed rest. S/p BMX x two. Weekly nst/dr visit with IOL at 37 weeks. Abnormal heart rate or rhythm 12/02/2013 01/07/2014 Overview: December 01, 2013 had late decel in triage with 10 x 10 reactive tracing 01/16 BPP with normal prolonged monitoring at hospital. Kick counts and fu NST in office the end of the week Swathi Lewis MD Abnormal glucose complicating 10/14/19 14 10/27/2013 LSIL (low grade squamous int raepithelial lesion) on Pap smear 06/06/2013 02/04/2014 Overview: June 06, 2013 LSIL cannot r/o HSIL pap colposcopy ordered. Jessi Pierre MD Bacterial vaginosis 06/06/2013 01/07/2014 Overview: June 06, 2013 BV- treated. Jessi Pierre MD Gestational diabetes 10/06/2010 10/26/2010 Unspecified high-risk 08/08/2010 10/26/2010 Poor growth, affecting management of mother, antepartum condition or complication 03/28/2010 10/26/2010 Acute appendicitis without mention of peritoniti s 07/24/2007 10/26/2010 documented as of this encounter (statuses as of 03/22/2022) [facility] History of Past illness Narrative* Problem Noted Date Resolved Date Short cervix during in second trimeste r 11/16/2016 07/07/2019 Overview: November 21, 2016 Cerclage being placed by M[facility] on 11/22/16. On vaginal progesterone. Jessi Pierre MD Cerclage placed on 11/22 -- vaginal progesterone Cervical funneling affecting in second trimester 11/16/2016 07/07/2019 History of gestational diabe noris in prior , currently 08/10/2016 08/15/2016 Overview: 08/10/2016Patient has a history of gestational diabetes with both of her previous pregnancies. She will plan on GCT @ NO[facility] visit with Dr Pierre. TKRN Supervision of other high risk pregnancies, firs t trimester 12/17/2013 07/07/2019 Abnormal maternal glucose tolerance, antepartum 12/05/2013 02/04/2014 High-risk supervision 12/02/2013 01/07/2014 Overview: December 02, 2013 patient admitted twice for STO for initially severely elevated bps that resolve into normal with rest and observation. Plan home bp moitoring, weekly NST/dr visit. Ordered growth us. Swathi Lewis MD October 21, 2013 Pt in hospital 10/19 overnight for TPTL, spotting, increased BP. No steroids given. 24 hr urine done was 164 mg. Other labs normal Jessi Pierre MD Gestational hypertension 12/02/2013 014 Overview: 11/29/13 urine protein 278mg. Bps labile but normal with bed rest. S/p BMX x two. Weekly nst/dr visit with IOL at 37 weeks. Abnormal heart rate or rhythm 12/02/2013 01/07/2014 Overview: December 01, 2013 had late decel in triage with 10 x 10 reactive tracing 8/8 BPP with normal prolonged monitoring at hospital. Kick counts and fu NST in office the end of the week Swathi Lewis MD Abnormal glucose complicating 10/14/19 14 10/27/2013 LSIL (low grade squamous int raepithelial lesion) on Pap smear 06/06/2013 02/04/2014 Overview: June 06, 2013 LSIL cannot r/o HSIL pap colposcopy ordered. Jessi Pierre MD Bacterial vaginosis 06/06/2013 01/07/2014 Overview: June 06, 2013 BV- treated. Jessi Pierre MD Gestational diabetes 10/06/2010 10/26/2010 Unspecified high-risk 08/08/2010 10/26/2010 Poor growth, affecting management of mother, antepartum condition or complication 03/28/2010 10/26/2010 Acute appendicitis without mention of peritoniti s 07/24/2007 10/26/2010 documented as of this encounter (statuses as of 04/12/2022) [facility] History of Past illness Narrative* Problem Noted Date Resolved Date Short cervix during in second trimeste r 11/16/2016 07/07/2019 Overview: November 21, 2016 Cerclage being placed by M[facility] on 11/22/16. On vaginal progesterone. Jessi Pierre MD Cerclage placed on 11/22 -- vaginal progesterone Cervical funneling affecting in second trimester 11/16/2016 07/07/2019 History of gestational diabe noris in prior , currently 08/10/2016 08/15/2016 Overview: 08/10/2016Patient has a history of gestational diabetes with both of her previous pregnancies. She will plan on GCT @ NO[facility] visit with Dr Pierre. TKRN Supervision of other high risk pregnancies, firs t trimester 12/17/2013 07/07/2019 Abnormal maternal glucose tolerance, antepartum 12/05/2013 02/04/2014 High-risk supervision 12/02/2013 01/07/2014 Overview: December 02, 2013 patient admitted twice for STO for initially severely elevated bps that resolve into normal with rest and observation. Plan home bp moitoring, weekly NST/dr visit. Ordered growth us. Swathi Lewis MD October 21, 2013 Pt in hospital 10/19 overnight for TPTL, spotting, increased BP. No steroids given. 24 hr urine done was 164 mg. Other labs normal Jessi Pierre MD Gestational hypertension 12/02/2013 014 Overview: 11/29/13 urine protein 278mg. Bps labile but normal with bed rest. S/p BMX x two. Weekly nst/dr visit with IOL at 37 weeks. Abnormal heart rate or rhythm 12/02/2013 01/07/2014 Overview: December 01, 2013 had late decel in triage with 10 x 10 reactive tracing 01/16 BPP with normal prolonged monitoring at hospital. Kick counts and fu NST in office the end of the week Swathi Lewis MD Abnormal glucose complicating 10/14/19 14 10/27/2013 LSIL (low grade squamous int raepithelial lesion) on Pap smear 06/06/2013 02/04/2014 Overview: June 06, 2013 LSIL cannot r/o HSIL pap colposcopy ordered. Jessi Pierre MD Bacterial vaginosis 06/06/2013 01/07/2014 Overview: June 06, 2013 BV- treated. Jessi Pierre MD Gestational diabetes 10/06/2010 10/26/2010 Unspecified high-risk 08/08/2010 10/26/2010 Poor growth, affecting management of mother, antepartum condition or complication 03/28/2010 10/26/2010 Acute appendicitis without mention of peritoniti s 07/24/2007 10/26/2010 documented as of this encounter (statuses as of 04/20/2022) [facility] History of Past illness Narrative* Problem Noted Date Resolved Date Short cervix during in second trimeste r 11/16/2016 07/07/2019 Overview: November 21, 2016 Cerclage being placed by [facility] on 11/22/16. On vaginal progesterone. Jessi Pierre MD Cerclage placed on 11/22 -- vaginal progesterone Cervical funneling affecting in second trimester 11/16/2016 07/07/2019 History of gestational diabe noris in prior , currently 08/10/2016 08/15/2016 Overview: 08/10/2016Patient has a history of gestational diabetes with both of her previous pregnancies. She will plan on GCT @ NO[facility] visit with Dr Pierre. TKRN Supervision of other high risk pregnancies, firs t trimester 12/17/2013 07/07/2019 Abnormal maternal glucose tolerance, antepartum 12/05/2013 02/04/2014 High-risk supervision 12/02/2013 01/07/2014 Overview: December 02, 2013 patient admitted twice for STO for initially severely elevated bps that resolve into normal with rest and observation. Plan home bp moitoring, weekly NST/dr visit. Ordered growth us. Swathi Lewis MD October 21, 2013 Pt in hospital 10/19 overnight for TPTL, spotting, increased BP. No steroids given. 24 hr urine done was 164 mg. Other labs normal Jessi Pierre MD Gestational hypertension 12/02/2013 014 Overview: 11/29/13 urine protein 278mg. Bps labile but normal with bed rest. S/p BMX x two. Weekly nst/dr visit with IOL at 37 weeks. Abnormal heart rate or rhythm 12/02/2013 01/07/2014 Overview: December 01, 2013 had late decel in triage with 10 x 10 reactive tracing 8/8 BPP with normal prolonged monitoring at hospital. Kick counts and fu NST in office the end of the week Swathi Lewis MD Abnormal glucose complicating 10/14/19 14 10/27/2013 LSIL (low grade squamous int raepithelial lesion) on Pap smear 06/06/2013 02/04/2014 Overview: June 06, 2013 LSIL cannot r/o HSIL pap colposcopy ordered. Jessi Pierre MD Bacterial vaginosis 06/06/2013 01/07/2014 Overview: June 06, 2013 BV- treated. Jessi Pierre MD Gestational diabetes 10/06/2010 10/26/2010 Unspecified high-risk 08/08/2010 10/26/2010 Poor growth, affecting management of mother, antepartum condition or complication 03/28/2010 10/26/2010 Acute appendicitis without mention of peritoniti s 07/24/2007 10/26/2010 documented as of this encounter (statuses as of 04/27/2022) [facility] History of Past illness Narrative* Problem Noted Date Resolved Date Short cervix during in second trimeste r 11/16/2016 07/07/2019 Overview: November 21, 2016 Cerclage being placed by [facility] on 11/22/16. On vaginal progesterone. Jessi Pierre MD Cerclage placed on 11/22 -- vaginal progesterone Cervical funneling affecting in second trimester 11/16/2016 07/07/2019 History of gestational diabe noris in prior , currently 08/10/2016 08/15/2016 Overview: 08/10/2016Patient has a history of gestational diabetes with both of her previous pregnancies. She will plan on GCT @ NO[facility] visit with Dr Pierre. TKRN Supervision of other high risk pregnancies, firs t trimester 12/17/2013 07/07/2019 Abnormal maternal glucose tolerance, antepartum 12/05/2013 02/04/2014 High-risk supervision 12/02/2013 01/07/2014 Overview: December 02, 2013 patient admitted twice for STO for initially severely elevated bps that resolve into normal with rest and observation. Plan home bp moitoring, weekly NST/dr visit. Ordered growth us. Swathi Lewis MD October 21, 2013 Pt in hospital 10/19 overnight for TPTL, spotting, increased BP. No steroids given. 24 hr urine done was 164 mg. Other labs normal Jessi Pierre MD Gestational hypertension 12/02/2013 014 Overview: 11/29/13 urine protein 278mg. Bps labile but normal with bed rest. S/p BMX x two. Weekly nst/dr visit with IOL at 37 weeks. Abnormal heart rate or rhythm 12/02/2013 01/07/2014 Overview: December 01, 2013 had late decel in triage with 10 x 10 reactive tracing 01/16 BPP with normal prolonged monitoring at hospital. Kick counts and fu NST in office the end of the week Swathi Lewis MD Abnormal glucose complicating 10/14/19 14 10/27/2013 LSIL (low grade squamous int raepithelial lesion) on Pap smear 06/06/2013 02/04/2014 Overview: June 06, 2013 LSIL cannot r/o HSIL pap colposcopy ordered. Jessi Pierre MD Bacterial vaginosis 06/06/2013 01/07/2014 Overview: June 06, 2013 BV- treated. Jessi Pierre MD Gestational diabetes 10/06/2010 10/26/2010 Unspecified high-risk 08/08/2010 10/26/2010 Poor growth, affecting management of mother, antepartum condition or complication 03/28/2010 10/26/2010 Acute appendicitis without mention of peritoniti s 07/24/2007 10/26/2010 documented as of this encounter (statuses as of 05/17/2022) [facility] History of Past illness Narrative* Problem Noted Date Resolved Date Short cervix during in second trimeste r 11/16/2016 07/07/2019 Overview: November 21, 2016 Cerclage being placed by [facility] on 11/22/16. On vaginal progesterone. Jessi Pierre MD Cerclage placed on 11/22 -- vaginal progesterone Cervical funneling affecting in second trimester 11/16/2016 07/07/2019 History of gestational diabe noris in prior , currently 08/10/2016 08/15/2016 Overview: 08/10/2016Patient has a history of gestational diabetes with both of her previous pregnancies. She will plan on GCT @ NO[facility] visit with Dr Pierre. TKRN Supervision of other high risk pregnancies, firs t trimester 12/17/2013 07/07/2019 Abnormal maternal glucose tolerance, antepartum 12/05/2013 02/04/2014 High-risk supervision 12/02/2013 01/07/2014 Overview: December 02, 2013 patient admitted twice for STO for initially severely elevated bps that resolve into normal with rest and observation. Plan home bp moitoring, weekly NST/dr visit. Ordered growth us. Swathi Lewis MD October 21, 2013 Pt in hospital 10/19 overnight for TPTL, spotting, increased BP. No steroids given. 24 hr urine done was 164 mg. Other labs normal Jessi Pierre MD Gestational hypertension 12/02/2013 014 Overview: 11/29/13 urine protein 278mg. Bps labile but normal with bed rest. S/p BMX x two. Weekly nst/dr visit with IOL at 37 weeks. Abnormal heart rate or rhythm 12/02/2013 01/07/2014 Overview: December 01, 2013 had late decel in triage with 10 x 10 reactive tracing 01/16 BPP with normal prolonged monitoring at hospital. Kick counts and fu NST in office the end of the week Swathi Lewis MD Abnormal glucose complicating 10/14/19 14 10/27/2013 LSIL (low grade squamous int raepithelial lesion) on Pap smear 06/06/2013 02/04/2014 Overview: June 06, 2013 LSIL cannot r/o HSIL pap colposcopy ordered. Jessi Pierre MD Bacterial vaginosis 06/06/2013 01/07/2014 Overview: June 06, 2013 BV- treated. Jessi Pierre MD Gestational diabetes 10/06/2010 10/26/2010 Unspecified high-risk 08/08/2010 10/26/2010 Poor growth, affecting management of mother, antepartum condition or complication 03/28/2010 10/26/2010 Acute appendicitis without mention of peritoniti s 07/24/2007 10/26/2010 documented as of this encounter (statuses as of 06/16/2022) [facility] Past illness Narrative* Problem Noted Date Resolved Date Short cervix during in second trimeste r 11/16/2016 07/07/2019 Overview: November 21, 2016 Cerclage being placed by [facility] on 11/22/16. On vaginal progesterone. Jessi Pierre MD Cerclage placed on 11/22 -- vaginal progesterone Cervical funneling affecting in second trimester 11/16/2016 07/07/2019 History of gestational diabe noris in prior , currently 08/10/2016 08/15/2016 Overview: 08/10/2016Patient has a history of gestational diabetes with both of her previous pregnancies. She will plan on GCT @ NOB visit with Dr Pierre. TKRN Supervision of other high risk pregnancies, firs t trimester 12/17/2013 07/07/2019 Abnormal maternal glucose tolerance, antepartum 12/05/2013 02/04/2014 High-risk supervision 12/02/2013 01/07/2014 Overview: December 02, 2013 patient admitted twice for STO for initially severely elevated bps that resolve into normal with rest and observation. Plan home bp moitoring, weekly NST/dr visit. Ordered growth us. Swathi Lewis MD October 21, 2013 Pt in hospital 10/19 overnight for TPTL, spotting, increased BP. No steroids given. 24 hr urine done was 164 mg. Other labs normal Jessi Pierre MD Gestational hypertension 12/02/2013 014 Overview: 11/29/13 urine protein 278mg. Bps labile but normal with bed rest. S/p BMX x two. Weekly nst/dr visit with IOL at 37 weeks. Abnormal heart rate or rhythm 12/02/2013 01/07/2014 Overview: December 01, 2013 had late decel in triage with 10 x 10 reactive tracing / BPP with normal prolonged monitoring at hospital. Kick counts and fu NST in office the end of the week Swathi Lewis MD Abnormal glucose complicating 10/14/19 14 10/27/2013 LSIL (low grade squamous int raepithelial lesion) on Pap smear 06/06/2013 02/04/2014 Overview: June 06, 2013 LSIL cannot r/o HSIL pap colposcopy ordered. Jessi Pierre MD Bacterial vaginosis 06/06/2013 01/07/2014 Overview: June 06, 2013 BV- treated. Jessi Pierre MD Gestational diabetes 10/06/2010 10/26/2010 Unspecified high-risk 08/08/2010 10/26/2010 Poor growth, affecting management of mother, antepartum condition or complication 03/28/2010 10/26/2010 Acute appendicitis without mention of peritoniti s 07/24/2007 10/26/2010 documented as of this encounter (statuses as of 07/12/2022) [facility] Past illness Narrative* Problem Noted Date Resolved Date Short cervix during in second trimeste r 11/16/2016 07/07/2019 Overview: November 21, 2016 Cerclage being placed by M on 11/22/16. On vaginal progesterone. Jessi Pierre MD Cerclage placed on 11/22 -- vaginal progesterone Cervical funneling affecting in second trimester 11/16/2016 07/07/2019 History of gestational diabe noris in prior , currently 08/10/2016 08/15/2016 Overview: 08/10/2016Patient has a history of gestational diabetes with both of her previous pregnancies. She will plan on GCT @ NOB visit with Dr Pierre. TKRN Supervision of other high risk pregnancies, firs t trimester 12/17/2013 07/07/2019 Abnormal maternal glucose tolerance, antepartum 12/05/2013 02/04/2014 High-risk supervision 12/02/2013 01/07/2014 Overview: December 02, 2013 patient admitted twice for STO for initially severely elevated bps that resolve into normal with rest and observation. Plan home bp moitoring, weekly NST/dr visit. Ordered growth us. Swathi Lewis MD October 21, 2013 Pt in hospital 10/19 overnight for TPTL, spotting, increased BP. No steroids given. 24 hr urine done was 164 mg. Other labs normal Jessi Pierre MD Gestational hypertension 12/02/2013 014 Overview: 11/29/13 urine protein 278mg. Bps labile but normal with bed rest. S/p BMX x two. Weekly nst/dr visit with IOL at 37 weeks. Abnormal heart rate or rhythm 12/02/2013 01/07/2014 Overview: December 01, 2013 had late decel in triage with 10 x 10 reactive tracing 01/16 BPP with normal prolonged monitoring at hospital. Kick counts and fu NST in office the end of the week Swathi Lewis MD Abnormal glucose complicating 10/14/19 14 10/27/2013 LSIL (low grade squamous int raepithelial lesion) on Pap smear 06/06/2013 02/04/2014 Overview: June 06, 2013 LSIL cannot r/o HSIL pap colposcopy ordered. Jessi Pierre MD Bacterial vaginosis 06/06/2013 01/07/2014 Overview: June 06, 2013 BV- treated. Jessi Pierre MD Gestational diabetes 10/06/2010 10/26/2010 Unspecified high-risk 08/08/2010 10/26/2010 Poor growth, affecting management of mother, antepartum condition or complication 03/28/2010 10/26/2010 Acute appendicitis without mention of peritoniti s 07/24/2007 10/26/2010 documented as of this encounter (statuses as of 07/12/2022) [facility] Past illness Narrative* Problem Noted Date Resolved Date Short cervix during in second trimeste r 11/16/2016 07/07/2019 Overview: November 21, 2016 Cerclage being placed by M on 11/22/16. On vaginal progesterone. Jessi Pierre MD Cerclage placed on 11/22 -- vaginal progesterone Cervical funneling affecting in second trimester 11/16/2016 07/07/2019 History of gestational diabe noris in prior , currently 08/10/2016 08/15/2016 Overview: 08/10/2016Patient has a history of gestational diabetes with both of her previous pregnancies. She will plan on GCT @ NOB visit with Dr Pierre. TKRN Supervision of other high risk pregnancies, firs t trimester 12/17/2013 07/07/2019 Abnormal maternal glucose tolerance, antepartum 12/05/2013 02/04/2014 High-risk supervision 12/02/2013 01/07/2014 Overview: December 02, 2013 patient admitted twice for STO for initially severely elevated bps that resolve into normal with rest and observation. Plan home bp moitoring, weekly NST/dr visit. Ordered growth us. Swathi Lewis MD October 21, 2013 Pt in hospital 10/19 overnight for TPTL, spotting, increased BP. No steroids given. 24 hr urine done was 164 mg. Other labs normal Jessi Pierre MD Gestational hypertension 12/02/2013 014 Overview: 11/29/13 urine protein 278mg. Bps labile but normal with bed rest. S/p BMX x two. Weekly nst/dr visit with IOL at 37 weeks. Abnormal heart rate or rhythm 12/02/2013 01/07/2014 Overview: December 01, 2013 had late decel in triage with 10 x 10 reactive tracing 8/8 BPP with normal prolonged monitoring at hospital. Kick counts and fu NST in office the end of the week Swathi Lewis MD Abnormal glucose complicating 10/14/19 14 10/27/2013 LSIL (low grade squamous int raepithelial lesion) on Pap smear 06/06/2013 02/04/2014 Overview: June 06, 2013 LSIL cannot r/o HSIL pap colposcopy ordered. Jessi Pierre MD Bacterial vaginosis 06/06/2013 01/07/2014 Overview: June 06, 2013 BV- treated. Jessi Pierre MD Gestational diabetes 10/06/2010 10/26/2010 Unspecified high-risk 08/08/2010 10/26/2010 Poor growth, affecting management of mother, antepartum condition or complication 03/28/2010 10/26/2010 Acute appendicitis without mention of peritoniti s 07/24/2007 10/26/2010 documented as of this encounter (statuses as of 08/14/2022) [facility] History of Past illness Narrative* Problem Noted Date Resolved Date Short cervix during in second trimeste r 11/16/2016 07/07/2019 Overview: November 21, 2016 Cerclage being placed by M on 11/22/16. On vaginal progesterone. Jessi Pierre MD Cerclage placed on 11/22 -- vaginal progesterone Cervical funneling affecting in second trimester 11/16/2016 07/07/2019 History of gestational diabe noris in prior , currently 08/10/2016 08/15/2016 Overview: 08/10/2016Patient has a history of gestational diabetes with both of her previous pregnancies. She will plan on GCT @ [facility] visit with Dr Pierre. TKRN Supervision of other high risk pregnancies, firs t trimester 12/17/2013 07/07/2019 Abnormal maternal glucose tolerance, antepartum 12/05/2013 02/04/2014 High-risk supervision 12/02/2013 01/07/2014 Overview: December 02, 2013 patient admitted twice for STO for initially severely elevated bps that resolve into normal with rest and observation. Plan home bp moitoring, weekly NST/dr visit. Ordered growth us. Swathi Lewis MD October 21, 2013 Pt in hospital 10/19 overnight for TPTL, spotting, increased BP. No steroids given. 24 hr urine done was 164 mg. Other labs normal Jessi Pierre MD Gestational hypertension 12/02/2013 014 Overview: 11/29/13 urine protein 278mg. Bps labile but normal with bed rest. S/p BMX x two. Weekly nst/dr visit with IOL at 37 weeks. Abnormal heart rate or rhythm 12/02/2013 01/07/2014 Overview: December 01, 2013 had late decel in triage with 10 x 10 reactive tracing 8/8 BPP with normal prolonged monitoring at hospital. Kick counts and fu NST in office the end of the week Swathi Lewis MD Abnormal glucose complicating 10/14/19 14 10/27/2013 LSIL (low grade squamous int raepithelial lesion) on Pap smear 06/06/2013 02/04/2014 Overview: June 06, 2013 LSIL cannot r/o HSIL pap colposcopy ordered. Jessi Pierre MD Bacterial vaginosis 06/06/2013 01/07/2014 Overview: June 06, 2013 BV- treated. Jessi Pierre MD Gestational diabetes 10/06/2010 10/26/2010 Unspecified high-risk 08/08/2010 10/26/2010 Poor growth, affecting management of mother, antepartum condition or complication 03/28/2010 10/26/2010 Acute appendicitis without mention of peritoniti s 07/24/2007 10/26/2010 documented as of this encounter (statuses as of 08/24/2022) [facility] History of Past illness Narrative* Problem Noted Date Resolved Date Short cervix during in second trimeste r 11/16/2016 07/07/2019 Overview: November 21, 2016 Cerclage being placed by M on 11/22/16. On vaginal progesterone. Jessi Pierre MD Cerclage placed on 11/22 -- vaginal progesterone Cervical funneling affecting in second trimester 11/16/2016 07/07/2019 History of gestational diabe noris in prior , currently 08/10/2016 08/15/2016 Overview: 08/10/2016Patient has a history of gestational diabetes with both of her previous pregnancies. She will plan on GCT @ [facility] visit with Dr Pierre. TKRN Supervision of other high risk pregnancies, firs t trimester 12/17/2013 07/07/2019 Abnormal maternal glucose tolerance, antepartum 12/05/2013 02/04/2014 High-risk supervision 12/02/2013 01/07/2014 Overview: December 02, 2013 patient admitted twice for STO for initially severely elevated bps that resolve into normal with rest and observation. Plan home bp moitoring, weekly NST/dr visit. Ordered growth us. Swathi Lewis MD October 21, 2013 Pt in hospital 10/19 overnight for TPTL, spotting, increased BP. No steroids given. 24 hr urine done was 164 mg. Other labs normal Jessi Pierre MD Gestational hypertension 12/02/2013 014 Overview: 11/29/13 urine protein 278mg. Bps labile but normal with bed rest. S/p BMX x two. Weekly nst/dr visit with IOL at 37 weeks. Abnormal heart rate or rhythm 12/02/2013 01/07/2014 Overview: December 01, 2013 had late decel in triage with 10 x 10 reactive tracing 01/16 BPP with normal prolonged monitoring at hospital. Kick counts and fu NST in office the end of the week Swathi Lewis MD Abnormal glucose complicating 10/14/19 14 10/27/2013 LSIL (low grade squamous int raepithelial lesion) on Pap smear 06/06/2013 02/04/2014 Overview: June 06, 2013 LSIL cannot r/o HSIL pap colposcopy ordered. Jessi Pierre MD Bacterial vaginosis 06/06/2013 01/07/2014 Overview: June 06, 2013 BV- treated. Jessi Pierre MD Gestational diabetes 10/06/2010 10/26/2010 Unspecified high-risk 08/08/2010 10/26/2010 Poor growth, affecting management of mother, antepartum condition or complication 03/28/2010 10/26/2010 Acute appendicitis without mention of peritoniti s 07/24/2007 10/26/2010 documented as of this encounter (statuses as of 08/28/2022) [facility] History of Past illness Narrative* Problem Noted Date Resolved Date Short cervix during in second trimeste r 11/16/2016 07/07/2019 Overview: November 21, 2016 Cerclage being placed by MFM on 11/22/16. On vaginal progesterone. Jessi Pierre MD Cerclage placed on 11/22 -- vaginal progesterone Cervical funneling affecting in second trimester 11/16/2016 07/07/2019 History of gestational diabe noris in prior , currently 08/10/2016 08/15/2016 Overview: 08/10/2016Patient has a history of gestational diabetes with both of her previous pregnancies. She will plan on GCT @ [facility] visit with Dr Pierre. TKRN Supervision of other high risk pregnancies, firs t trimester 12/17/2013 07/07/2019 Abnormal maternal glucose tolerance, antepartum 12/05/2013 02/04/2014 High-risk supervision 12/02/2013 01/07/2014 Overview: December 02, 2013 patient admitted twice for STO for initially severely elevated bps that resolve into normal with rest and observation. Plan home bp moitoring, weekly NST/dr visit. Ordered growth us. Swathi Lewis MD October 21, 2013 Pt in hospital 10/19 overnight for TPTL, spotting, increased BP. No steroids given. 24 hr urine done was 164 mg. Other labs normal Jessi Pierre MD Gestational hypertension 12/02/2013 014 Overview: 11/29/13 urine protein 278mg. Bps labile but normal with bed rest. S/p BMX x two. Weekly nst/dr visit with IOL at 37 weeks. Abnormal heart rate or rhythm 12/02/2013 01/07/2014 Overview: December 01, 2013 had late decel in triage with 10 x 10 reactive tracing 8/8 BPP with normal prolonged monitoring at hospital. Kick counts and fu NST in office the end of the week Swathi Lewis MD Abnormal glucose complicating 10/14/19 14 10/27/2013 LSIL (low grade squamous int raepithelial lesion) on Pap smear 06/06/2013 02/04/2014 Overview: June 06, 2013 LSIL cannot r/o HSIL pap colposcopy ordered. Jessi Pierre MD Bacterial vaginosis 06/06/2013 01/07/2014 Overview: June 06, 2013 BV- treated. Jessi Pierre MD Gestational diabetes 10/06/2010 10/26/2010 Unspecified high-risk 08/08/2010 10/26/2010 Poor growth, affecting management of mother, antepartum condition or complication 03/28/2010 10/26/2010 Acute appendicitis without mention of peritoniti s 07/24/2007 10/26/2010 documented as of this encounter (statuses as of 08/28/2022) [facility] History of Past illness Narrative* Problem Noted Date Resolved Date Short cervix during in second trimeste r 11/16/2016 07/07/2019 Overview: November 21, 2016 Cerclage being placed by MFM on 11/22/16. On vaginal progesterone. Jessi Pierre MD Cerclage placed on 11/22 -- vaginal progesterone Cervical funneling affecting in second trimester 11/16/2016 07/07/2019 History of gestational diabe noris in prior , currently 08/10/2016 08/15/2016 Overview: 08/10/2016Patient has a history of gestational diabetes with both of her previous pregnancies. She will plan on GCT @ [facility] visit with Dr Pierre. TKRN Supervision of other high risk pregnancies, firs t trimester 12/17/2013 07/07/2019 Abnormal maternal glucose tolerance, antepartum 12/05/2013 02/04/2014 High-risk supervision 12/02/2013 01/07/2014 Overview: December 02, 2013 patient admitted twice for STO for initially severely elevated bps that resolve into normal with rest and observation. Plan home bp moitoring, weekly NST/dr visit. Ordered growth us. Swathi Lewis MD October 21, 2013 Pt in hospital 10/19 overnight for TPTL, spotting, increased BP. No steroids given. 24 hr urine done was 164 mg. Other labs normal Jessi Pierre MD Gestational hypertension 12/02/2013 014 Overview: 11/29/13 urine protein 278mg. Bps labile but normal with bed rest. S/p BMX x two. Weekly nst/dr visit with IOL at 37 weeks. Abnormal heart rate or rhythm 12/02/2013 01/07/2014 Overview: December 01, 2013 had late decel in triage with 10 x 10 reactive tracing 01/16 BPP with normal prolonged monitoring at hospital. Kick counts and fu NST in office the end of the week Swathi Lewis MD Abnormal glucose complicating 10/14/19 14 10/27/2013 LSIL (low grade squamous int raepithelial lesion) on Pap smear 06/06/2013 02/04/2014 Overview: June 06, 2013 LSIL cannot r/o HSIL pap colposcopy ordered. Jessi Pierre MD Bacterial vaginosis 06/06/2013 01/07/2014 Overview: June 06, 2013 BV- treated. Jessi Pierre MD Gestational diabetes 10/06/2010 10/26/2010 Unspecified high-risk 08/08/2010 10/26/2010 Poor growth, affecting management of mother, antepartum condition or complication 03/28/2010 10/26/2010 Acute appendicitis without mention of peritoniti s 07/24/2007 10/26/2010 documented as of this encounter (statuses as of 08/30/2022) [facility] History of Past illness Narrative* Problem Noted Date Resolved Date Short cervix during in second trimeste r 11/16/2016 07/07/2019 Overview: November 21, 2016 Cerclage being placed by MFM on 11/22/16. On vaginal progesterone. Jessi Pierre MD Cerclage placed on 11/22 -- vaginal progesterone Cervical funneling affecting in second trimester 11/16/2016 07/07/2019 History of gestational diabe noris in prior , currently 08/10/2016 08/15/2016 Overview: 08/10/2016Patient has a history of gestational diabetes with both of her previous pregnancies. She will plan on GCT @ [facility] visit with Dr Pierre. TKRN Supervision of other high risk pregnancies, firs t trimester 12/17/2013 07/07/2019 Abnormal maternal glucose tolerance, antepartum 12/05/2013 02/04/2014 High-risk supervision 12/02/2013 01/07/2014 Overview: December 02, 2013 patient admitted twice for STO for initially severely elevated bps that resolve into normal with rest and observation. Plan home bp moitoring, weekly NST/dr visit. Ordered growth us. Swathi Lewis MD October 21, 2013 Pt in hospital 10/19 overnight for TPTL, spotting, increased BP. No steroids given. 24 hr urine done was 164 mg. Other labs normal Jessi Pierre MD Gestational hypertension 12/02/2013 014 Overview: 11/29/13 urine protein 278mg. Bps labile but normal with bed rest. S/p BMX x two. Weekly nst/dr visit with IOL at 37 weeks. Abnormal heart rate or rhythm 12/02/2013 01/07/2014 Overview: December 01, 2013 had late decel in triage with 10 x 10 reactive tracing / BPP with normal prolonged monitoring at hospital. Kick counts and fu NST in office the end of the week Swathi Lewis MD Abnormal glucose complicating 10/14/19 14 10/27/2013 LSIL (low grade squamous int raepithelial lesion) on Pap smear 06/06/2013 02/04/2014 Overview: June 06, 2013 LSIL cannot r/o HSIL pap colposcopy ordered. Jessi Pierre MD Bacterial vaginosis 06/06/2013 01/07/2014 Overview: June 06, 2013 BV- treated. Jessi Pierre MD Gestational diabetes 10/06/2010 10/26/2010 Unspecified high-risk 08/08/2010 10/26/2010 Poor growth, affecting management of mother, antepartum condition or complication 03/28/2010 10/26/2010 Acute appendicitis without mention of peritoniti s 07/24/2007 10/26/2010 documented as of this encounter (statuses as of 09/14/2022) [facility] History of Past illness Narrative* Problem Noted Date Resolved Date Short cervix during in second trimeste r 11/16/2016 07/07/2019 Overview: November 21, 2016 Cerclage being placed by M on 11/22/16. On vaginal progesterone. Jessi Pierre MD Cerclage placed on 11/22 -- vaginal progesterone Cervical funneling affecting in second trimester 11/16/2016 07/07/2019 History of gestational diabe noris in prior , currently 08/10/2016 08/15/2016 Overview: 08/10/2016Patient has a history of gestational diabetes with both of her previous pregnancies. She will plan on GCT @ [facility] visit with Dr Pierre. TKRN Supervision of other high risk pregnancies, firs t trimester 12/17/2013 07/07/2019 Abnormal maternal glucose tolerance, antepartum 12/05/2013 02/04/2014 High-risk supervision 12/02/2013 01/07/2014 Overview: December 02, 2013 patient admitted twice for STO for initially severely elevated bps that resolve into normal with rest and observation. Plan home bp moitoring, weekly NST/dr visit. Ordered growth us. Swathi Lewis MD October 21, 2013 Pt in hospital 10/19 overnight for TPTL, spotting, increased BP. No steroids given. 24 hr urine done was 164 mg. Other labs normal Jessi Pierre MD Gestational hypertension 12/02/2013 014 Overview: 11/29/13 urine protein 278mg. Bps labile but normal with bed rest. S/p BMX x two. Weekly nst/dr visit with IOL at 37 weeks. Abnormal heart rate or rhythm 12/02/2013 01/07/2014 Overview: December 01, 2013 had late decel in triage with 10 x 10 reactive tracing 8/8 BPP with normal prolonged monitoring at hospital. Kick counts and fu NST in office the end of the week Swathi Lewis MD Abnormal glucose complicating 10/14/19 14 10/27/2013 LSIL (low grade squamous int raepithelial lesion) on Pap smear 06/06/2013 02/04/2014 Overview: June 06, 2013 LSIL cannot r/o HSIL pap colposcopy ordered. Jessi Pierre MD Bacterial vaginosis 06/06/2013 01/07/2014 Overview: June 06, 2013 BV- treated. Jessi Pierre MD Gestational diabetes 10/06/2010 10/26/2010 Unspecified high-risk 08/08/2010 10/26/2010 Poor growth, affecting management of mother, antepartum condition or complication 03/28/2010 10/26/2010 Acute appendicitis without mention of peritoniti s 07/24/2007 10/26/2010 documented as of this encounter (statuses as of 09/24/2022) [facility] History of Past illness Narrative* Problem Noted Date Resolved Date Short cervix during in second trimeste r 11/16/2016 07/07/2019 Overview: November 21, 2016 Cerclage being placed by M on 11/22/16. On vaginal progesterone. Jessi Pierre MD Cerclage placed on 11/22 -- vaginal progesterone Cervical funneling affecting in second trimester 11/16/2016 07/07/2019 History of gestational diabe noris in prior , currently 08/10/2016 08/15/2016 Overview: 08/10/2016Patient has a history of gestational diabetes with both of her previous pregnancies. She will plan on GCT @ [facility] visit with Dr Pierre. TKRN Supervision of other high risk pregnancies, firs t trimester 12/17/2013 07/07/2019 Abnormal maternal glucose tolerance, antepartum 12/05/2013 02/04/2014 High-risk supervision 12/02/2013 01/07/2014 Overview: December 02, 2013 patient admitted twice for STO for initially severely elevated bps that resolve into normal with rest and observation. Plan home bp moitoring, weekly NST/ visit. Ordered growth us. Swathi Lewis MD October 21, 2013 Pt in hospital 10/19 overnight for TPTL, spotting, increased BP. No steroids given. 24 hr urine done was 164 mg. Other labs normal Jessi Pierre MD Gestational hypertension 12/02/2013 014 Overview: 11/29/13 urine protein 278mg. Bps labile but normal with bed rest. S/p BMX x two. Weekly nst/dr visit with IOL at 37 weeks. Abnormal heart rate or rhythm 12/02/2013 01/07/2014 Overview: December 01, 2013 had late decel in triage with 10 x 10 reactive tracing 01/16 BPP with normal prolonged monitoring at hospital. Kick counts and fu NST in office the end of the week Swathi Lewis MD Abnormal glucose complicating 10/14/19 14 10/27/2013 LSIL (low grade squamous int raepithelial lesion) on Pap smear 06/06/2013 02/04/2014 Overview: June 06, 2013 LSIL cannot r/o HSIL pap colposcopy ordered. Jessi Pierre MD Bacterial vaginosis 06/06/2013 01/07/2014 Overview: June 06, 2013 BV- treated. Jessi Pierre MD Gestational diabetes 10/06/2010 10/26/2010 Unspecified high-risk 08/08/2010 10/26/2010 Poor growth, affecting management of mother, antepartum condition or complication 03/28/2010 10/26/2010 Acute appendicitis without mention of peritoniti s 07/24/2007 10/26/2010 documented as of this encounter (statuses as of 09/29/2022) [facility] History of Past illness Narrative* Problem Noted Date Resolved Date Short cervix during in second trimeste r 11/16/2016 07/07/2019 Overview: November 21, 2016 Cerclage being placed by M on 11/22/16. On vaginal progesterone. Jessi Pierre MD Cerclage placed on 11/22 -- vaginal progesterone Cervical funneling affecting in second trimester 11/16/2016 07/07/2019 History of gestational diabe noris in prior , currently 08/10/2016 08/15/2016 Overview: 08/10/2016Patient has a history of gestational diabetes with both of her previous pregnancies. She will plan on GCT @ [facility] visit with Dr Pierre. TKRN Supervision of other high risk pregnancies, firs t trimester 12/17/2013 07/07/2019 Abnormal maternal glucose tolerance, antepartum 12/05/2013 02/04/2014 High-risk supervision 12/02/2013 01/07/2014 Overview: December 02, 2013 patient admitted twice for STO for initially severely elevated bps that resolve into normal with rest and observation. Plan home bp moitoring, weekly NST/dr visit. Ordered growth us. Swathi Lewis MD October 21, 2013 Pt in hospital 10/19 overnight for TPTL, spotting, increased BP. No steroids given. 24 hr urine done was 164 mg. Other labs normal Jessi Pierre MD Gestational hypertension 12/02/2013 014 Overview: 11/29/13 urine protein 278mg. Bps labile but normal with bed rest. S/p BMX x two. Weekly nst/dr visit with IOL at 37 weeks. Abnormal heart rate or rhythm 12/02/2013 01/07/2014 Overview: December 01, 2013 had late decel in triage with 10 x 10 reactive tracing 8/8 BPP with normal prolonged monitoring at hospital. Kick counts and fu NST in office the end of the week Swathi Lewis MD Abnormal glucose complicating 10/14/19 14 10/27/2013 LSIL (low grade squamous int raepithelial lesion) on Pap smear 06/06/2013 02/04/2014 Overview: June 06, 2013 LSIL cannot r/o HSIL pap colposcopy ordered. Jessi Pierre MD Bacterial vaginosis 06/06/2013 01/07/2014 Overview: June 06, 2013 BV- treated. Jessi Pierre MD Gestational diabetes 10/06/2010 10/26/2010 Unspecified high-risk 08/08/2010 10/26/2010 Poor growth, affecting management of mother, antepartum condition or complication 03/28/2010 10/26/2010 Acute appendicitis without mention of peritoniti s 07/24/2007 10/26/2010 documented as of this encounter (statuses as of 12/15/2022) [facility] Past illness Narrative* Problem Noted Date Diagnosed Date Resolved Date Short cervix during pregnanc y in second trimester 11/16/2016 07/07/2019 Overview: November 21, 2016 Cerclage being placed by M on 11/22/16. On vaginal progesterone. Jessi Pierre MD Cerclage placed on 11/22 -- vaginal progesterone Cervical funneling affecting in second trimester 11/16/2016 07/07/2019 History of gestational diabe noris in prior , currently 08/10/2016 08/15/2016 Overview: 08/10/2016Patient has a history of gestational diabetes with both of her previous pregnancies. She will plan on GCT @ NO[facility] visit with Dr Pierre. TKRN Supervision of other high ri sk pregnancies, first trimester 12/17/2013 07/07/2019 Abnormal maternal glucose to lerance, antepartum 12/05/2013 02/04/2014 High-risk supervision 12/02/2013 01/07/2014 Overview: December 02, 2013 patient admitted twice for STO for initially severely elevated bps that resolve into normal with rest and observation. Plan home bp moitoring, weekly NST/dr visit. Ordered growth us. Swathi Lewis MD October 21, 2013 Pt in hospital 10/19 overnight for TPTL, spotting, increased BP. No steroids given. 24 hr urine done was 164 mg. Other labs normal Jessi Pierre MD Gestational hypertension 12/02/2013 Overview: 11/29/13 urine protein 278mg. Bps labile but normal with bed rest. S/p BMX x two. Weekly nst/dr visit with IOL at 37 weeks. Abnormal heart rate or rhythm 12/02/2013 01/07/2014 Overview: December 01, 2013 had late decel in triage with 10 x 10 reactive tracing 01/16 BPP with normal prolonged monitoring at hospital. Kick counts and fu NST in office the end of the week Swathi Lewis MD Abnormal glucose complicating 10/13/2013 10/27/2013 LSIL (low grade squamous int raepithelial lesion) on Pap smear 06/06/2013 02/04/2014 Overview: June 06, 2013 LSIL cannot r/o HSIL pap colposcopy ordered. Jessi Pierre MD Bacterial vaginosis 06/06/2013 01/08/20 14 Overview: June 06, 2013 BV- treated. Jessi Pirere MD Gestational diabetes 10/06/2010 011 Unspecified high-risk 08/08/2010 10/26/2010 Poor growth, affecting management of mother, antepartum condition or complication 03/28/2010 10/26/2010 Acute appendicitis without m ention of peritonitis 07/24/2007 10/26/2010 documented as of this encounter (statuses as of 01/25/2023) [facility] History of Past illness Narrative* Problem Noted Date Diagnosed Date Resolved Date Short cervix during pregnanc y in second trimester 11/16/2016 07/07/2019 Overview: November 21, 2016 Cerclage being placed by M on 11/22/16. On vaginal progesterone. Jessi Pierre MD Cerclage placed on 11/22 -- vaginal progesterone Cervical funneling affecting in second trimester 11/16/2016 07/07/2019 History of gestational diabe noris in prior , currently 08/10/2016 08/15/2016 Overview: 08/10/2016Patient has a history of gestational diabetes with both of her previous pregnancies. She will plan on GCT @ NO[facility] visit with Dr Pierre. TKRN Supervision of other high ri sk pregnancies, first trimester 12/17/2013 07/07/2019 Abnormal maternal glucose to lerance, antepartum 12/05/2013 02/04/2014 High-risk supervision 12/02/2013 01/07/2014 Overview: December 02, 2013 patient admitted twice for STO for initially severely elevated bps that resolve into normal with rest and observation. Plan home bp moitoring, weekly NST/dr visit. Ordered growth us. Swathi Lewis MD October 21, 2013 Pt in hospital 10/19 overnight for TPTL, spotting, increased BP. No steroids given. 24 hr urine done was 164 mg. Other labs normal Jessi Pierre MD Gestational hypertension 12/02/2013 Overview: 11/29/13 urine protein 278mg. Bps labile but normal with bed rest. S/p BMX x two. Weekly nst/dr visit with IOL at 37 weeks. Abnormal heart rate or rhythm 12/02/2013 01/07/2014 Overview: December 01, 2013 had late decel in triage with 10 x 10 reactive tracing 01/16 BPP with normal prolonged monitoring at hospital. Kick counts and fu NST in office the end of the week Swathi Lewis MD Abnormal glucose complicating 10/13/2013 10/27/2013 LSIL (low grade squamous int raepithelial lesion) on Pap smear 06/06/2013 02/04/2014 Overview: June 06, 2013 LSIL cannot r/o HSIL pap colposcopy ordered. Jessi Pierre MD Bacterial vaginosis 06/06/2013 01/08/20 14 Overview: June 06, 2013 BV- treated. Jessi Pierre MD Gestational diabetes 10/06/2010 011 Unspecified high-risk 08/08/2010 10/26/2010 Poor growth, affecting management of mother, antepartum condition or complication 03/28/2010 10/26/2010 Acute appendicitis without m ention of peritonitis 07/24/2007 10/26/2010 documented as of this encounter (statuses as of 01/26/2023) [facility] History of Past illness Narrative* Problem Noted Date Diagnosed Date Resolved Date Short cervix during pregnanc y in second trimester 11/16/2016 07/07/2019 Overview: November 21, 2016 Cerclage being placed by MFM on 11/22/16. On vaginal progesterone. Jessi Pierre MD Cerclage placed on 11/22 -- vaginal progesterone Cervical funneling affecting in second trimester 11/16/2016 07/07/2019 History of gestational diabe noris in prior , currently 08/10/2016 08/15/2016 Overview: 08/10/2016Patient has a history of gestational diabetes with both of her previous pregnancies. She will plan on GCT @ NO[facility] visit with Dr Pierre. TKRN Supervision of other high ri sk pregnancies, first trimester 12/17/2013 07/07/2019 Abnormal maternal glucose to [facility], antepartum 12/05/2013 02/04/2014 High-risk supervision 12/02/2013 01/07/2014 Overview: December 02, 2013 patient admitted twice for STO for initially severely elevated bps that resolve into normal with rest and observation. Plan home bp moitoring, weekly NST/dr visit. Ordered growth us. Swathi Lewis MD October 21, 2013 Pt in hospital 10/19 overnight for TPTL, spotting, increased BP. No steroids given. 24 hr urine done was 164 mg. Other labs normal Jessi Pierre MD Gestational hypertension 12/02/2013 Overview: 11/29/13 urine protein 278mg. Bps labile but normal with bed rest. S/p BMX x two. Weekly nst/dr visit with IOL at 37 weeks. Abnormal heart rate or rhythm 12/02/2013 01/07/2014 Overview: December 01, 2013 had late decel in triage with 10 x 10 reactive tracing 8/8 BPP with normal prolonged monitoring at hospital. Kick counts and fu NST in office the end of the week Swathi Lewis MD Abnormal glucose complicating 10/13/2013 10/27/2013 LSIL (low grade squamous int raepithelial lesion) on Pap smear 06/06/2013 02/04/2014 Overview: June 06, 2013 LSIL cannot r/o HSIL pap colposcopy ordered. Jessi Pierre MD Bacterial vaginosis 06/06/2013 01/08/20 14 Overview: June 06, 2013 BV- treated. Jessi Pierre MD Gestational diabetes 10/06/2010 011 Unspecified high-risk 08/08/2010 10/26/2010 Poor growth, affecting management of mother, antepartum condition or complication 03/28/2010 10/26/2010 Acute appendicitis without m ention of peritonitis 07/24/2007 10/26/2010 documented as of this encounter (statuses as of 02/15/2023) [facility] History of Past illness Narrative* Problem Noted Date Diagnosed Date Resolved Date Short cervix during pregnanc y in second trimester 11/16/2016 07/07/2019 Overview: November 21, 2016 Cerclage being placed by M on 11/22/16. On vaginal progesterone. Jessi Pierre MD Cerclage placed on 11/22 -- vaginal progesterone Cervical funneling affecting in second trimester 11/16/2016 07/07/2019 History of gestational diabe noris in prior , currently 08/10/2016 08/15/2016 Overview: 08/10/2016Patient has a history of gestational diabetes with both of her previous pregnancies. She will plan on GCT @ [facility] visit with Dr Pierre. TKRN Supervision of other high ri sk pregnancies, first trimester 12/17/2013 07/07/2019 Abnormal maternal glucose to [facility], antepartum 12/05/2013 02/04/2014 High-risk supervision 12/02/2013 01/07/2014 Overview: December 02, 2013 patient admitted twice for STO for initially severely elevated bps that resolve into normal with rest and observation. Plan home bp moitoring, weekly NST/dr visit. Ordered growth us. Swathi Lewis MD October 21, 2013 Pt in hospital 10/19 overnight for TPTL, spotting, increased BP. No steroids given. 24 hr urine done was 164 mg. Other labs normal Jessi Pierre MD Gestational hypertension 12/02/2013 Overview: 11/29/13 urine protein 278mg. Bps labile but normal with bed rest. S/p BMX x two. Weekly nst/dr visit with IOL at 37 weeks. Abnormal heart rate or rhythm 12/02/2013 01/07/2014 Overview: December 01, 2013 had late decel in triage with 10 x 10 reactive tracing 01/16 BPP with normal prolonged monitoring at hospital. Kick counts and fu NST in office the end of the week Swathi Lewis MD Abnormal glucose complicating 10/13/2013 10/27/2013 LSIL (low grade squamous int raepithelial lesion) on Pap smear 06/06/2013 02/04/2014 Overview: June 06, 2013 LSIL cannot r/o HSIL pap colposcopy ordered. Jessi Pierre MD Bacterial vaginosis 06/06/2013 01/08/20 Overview: June 06, 2013 BV- treated. Jessi Pierre MD Gestational diabetes 10/06/2010 011 Unspecified high-risk 08/08/2010 10/26/2010 Poor growth, affecting management of mother, antepartum condition or complication 03/28/2010 10/26/2010 Acute appendicitis without m ention of peritonitis 07/24/2007 10/26/2010 documented as of this encounter (statuses as of 03/20/2023) [facility] of Past illness Narrative* Problem Noted Date Diagnosed Date Resolved Date Short cervix during pregnanc y in second trimester 11/16/2016 07/07/2019 Overview: November 21, 2016 Cerclage being placed by [facility] on 11/22/16. On vaginal progesterone. Jessi Pierre MD Cerclage placed on 11/22 -- vaginal progesterone Cervical funneling affecting in second trimester 11/16/2016 07/07/2019 History of gestational diabe noris in prior , currently 08/10/2016 08/15/2016 Overview: 08/10/2016Patient has a history of gestational diabetes with both of her previous pregnancies. She will plan on GCT @ NO[facility] visit with Dr Pierre. TKRN Supervision of other high ri sk pregnancies, first trimester 12/17/2013 07/07/2019 Abnormal maternal glucose to [facility], antepartum 12/05/2013 02/04/2014 High-risk supervision 12/02/2013 01/07/2014 Overview: December 02, 2013 patient admitted twice for STO for initially severely elevated bps that resolve into normal with rest and observation. Plan home bp moitoring, weekly NST/dr visit. Ordered growth us. Swathi Lewis MD October 21, 2013 Pt in hospital 10/19 overnight for TPTL, spotting, increased BP. No steroids given. 24 hr urine done was 164 mg. Other labs normal Jessi Pierre MD Gestational hypertension 12/02/2013 Overview: 11/29/13 urine protein 278mg. Bps labile but normal with bed rest. S/p BMX x two. Weekly nst/dr visit with IOL at 37 weeks. Abnormal heart rate or rhythm 12/02/2013 01/07/2014 Overview: December 01, 2013 had late decel in triage with 10 x 10 reactive tracing 8/8 BPP with normal prolonged monitoring at hospital. Kick counts and fu NST in office the end of the week Swathi Lewis MD Abnormal glucose complicating 10/13/2013 10/27/2013 LSIL (low grade squamous int raepithelial lesion) on Pap smear 06/06/2013 02/04/2014 Overview: June 06, 2013 LSIL cannot r/o HSIL pap colposcopy ordered. Jessi Pierre MD Bacterial vaginosis 06/06/2013 01/08/20 14 Overview: June 06, 2013 BV- treated. Jessi Pierre MD Gestational diabetes 10/06/2010 011 Unspecified high-risk 08/08/2010 10/26/2010 Poor growth, affecting management of mother, antepartum condition or complication 03/28/2010 10/26/2010 Acute appendicitis without m ention of peritonitis 07/24/2007 10/26/2010 documented as of this encounter (statuses as of 03/21/2023) [facility] of Past illness Narrative* Problem Noted Date Diagnosed Date Resolved Date Short cervix during pregnanc y in second trimester 11/16/2016 07/07/2019 Overview: November 21, 2016 Cerclage being placed by [facility] on 11/22/16. On vaginal progesterone. Jessi Pierre MD Cerclage placed on 11/22 -- vaginal progesterone Cervical funneling affecting in second trimester 11/16/2016 07/07/2019 History of gestational diabe noris in prior , currently 08/10/2016 08/15/2016 Overview: 08/10/2016Patient has a history of gestational diabetes with both of her previous pregnancies. She will plan on GCT @ [facility] visit with Dr Pierre. TKRN Supervision of other high ri sk pregnancies, first trimester 12/17/2013 07/07/2019 Abnormal maternal glucose to [facility], antepartum 12/05/2013 02/04/2014 High-risk supervision 12/02/2013 01/07/2014 Overview: December 02, 2013 patient admitted twice for STO for initially severely elevated bps that resolve into normal with rest and observation. Plan home bp moitoring, weekly NST/dr visit. Ordered growth us. Swathi Lewis MD October 21, 2013 Pt in hospital 10/19 overnight for TPTL, spotting, increased BP. No steroids given. 24 hr urine done was 164 mg. Other labs normal Jessi Pierre MD Gestational hypertension 12/02/2013 Overview: 11/29/13 urine protein 278mg. Bps labile but normal with bed rest. S/p BMX x two. Weekly nst/dr visit with IOL at 37 weeks. Abnormal heart rate or rhythm 12/02/2013 01/07/2014 Overview: December 01, 2013 had late decel in triage with 10 x 10 reactive tracing 01/16 BPP with normal prolonged monitoring at hospital. Kick counts and fu NST in office the end of the week Swathi Lewis MD Abnormal glucose complicating 10/13/2013 10/27/2013 LSIL (low grade squamous int raepithelial lesion) on Pap smear 06/06/2013 02/04/2014 Overview: June 06, 2013 LSIL cannot r/o HSIL pap colposcopy ordered. Jessi Pierre MD Bacterial vaginosis 06/06/2013 01/08/20 14 Overview: June 06, 2013 BV- treated. Jessi Pierre MD Gestational diabetes 10/06/2010 011 Unspecified high-risk 08/08/2010 10/26/2010 Poor growth, affecting management of mother, antepartum condition or complication 03/28/2010 10/26/2010 Acute appendicitis without m ention of peritonitis 07/24/2007 10/26/2010 documented as of this encounter (statuses as of 03/28/2023) [facility] Past illness Narrative* Problem Noted Date Diagnosed Date Resolved Date Short cervix during pregnanc y in second trimester 11/16/2016 07/07/2019 Overview: November 21, 2016 Cerclage being placed by MFM on 11/22/16. On vaginal progesterone. Jessi Pierre MD Cerclage placed on 11/22 -- vaginal progesterone Cervical funneling affecting in second trimester 11/16/2016 07/07/2019 History of gestational diabe noris in prior , currently 08/10/2016 08/15/2016 Overview: 08/10/2016Patient has a history of gestational diabetes with both of her previous pregnancies. She will plan on GCT @ [facility] visit with Dr Pierre. TKRN Supervision of other high ri sk pregnancies, first trimester 12/17/2013 07/07/2019 Abnormal maternal glucose to [facility], antepartum 12/05/2013 02/04/2014 High-risk supervision 12/02/2013 01/07/2014 Overview: December 02, 2013 patient admitted twice for STO for initially severely elevated bps that resolve into normal with rest and observation. Plan home bp moitoring, weekly NST/dr visit. Ordered growth us. Swathi Lewis MD October 21, 2013 Pt in hospital 10/19 overnight for TPTL, spotting, increased BP. No steroids given. 24 hr urine done was 164 mg. Other labs normal Jessi Pierre MD Gestational hypertension 12/02/2013 Overview: 11/29/13 urine protein 278mg. Bps labile but normal with bed rest. S/p BMX x two. Weekly nst/dr visit with IOL at 37 weeks. Abnormal heart rate or rhythm 12/02/2013 01/07/2014 Overview: December 01, 2013 had late decel in triage with 10 x 10 reactive tracing / BPP with normal prolonged monitoring at hospital. Kick counts and fu NST in office the end of the week Swathi Lewis MD Abnormal glucose complicating 10/13/2013 10/27/2013 LSIL (low grade squamous int raepithelial lesion) on Pap smear 06/06/2013 02/04/2014 Overview: June 06, 2013 LSIL cannot r/o HSIL pap colposcopy ordered. Jessi Pierre MD Bacterial vaginosis 06/06/2013 01/08/20 14 Overview: June 06, 2013 BV- treated. Jessi Pierre MD Gestational diabetes 10/06/2010 011 Unspecified high-risk 08/08/2010 10/26/2010 Poor growth, affecting management of mother, antepartum condition or complication 03/28/2010 10/26/2010 Acute appendicitis without m ention of peritonitis 07/24/2007 10/26/2010 documented as of this encounter (statuses as of 04/15/2023) [facility] Past illness Narrative* Problem Noted Date Diagnosed Date Resolved Date Short cervix during pregnanc y in second trimester 11/16/2016 07/07/2019 Overview: November 21, 2016 Cerclage being placed by M on 11/22/16. On vaginal progesterone. Jessi Pierre MD Cerclage placed on 11/22 -- vaginal progesterone Cervical funneling affecting in second trimester 11/16/2016 07/07/2019 History of gestational diabe noris in prior , currently 08/10/2016 08/15/2016 Overview: 08/10/2016Patient has a history of gestational diabetes with both of her previous pregnancies. She will plan on GCT @ NO[facility] visit with Dr Pierre. TKRN Supervision of other high ri sk pregnancies, first trimester 12/17/2013 07/07/2019 Abnormal maternal glucose to [facility], antepartum 12/05/2013 02/04/2014 High-risk supervision 12/02/2013 01/07/2014 Overview: December 02, 2013 patient admitted twice for STO for initially severely elevated bps that resolve into normal with rest and observation. Plan home bp moitoring, weekly NST/dr visit. Ordered growth us. Swathi Lewis MD October 21, 2013 Pt in hospital 10/19 overnight for TPTL, spotting, increased BP. No steroids given. 24 hr urine done was 164 mg. Other labs normal Jessi Pierre MD Gestational hypertension 12/02/2013 Overview: 11/29/13 urine protein 278mg. Bps labile but normal with bed rest. S/p BMX x two. Weekly nst/dr visit with IOL at 37 weeks. Abnormal heart rate or rhythm 12/02/2013 01/07/2014 Overview: December 01, 2013 had late decel in triage with 10 x 10 reactive tracing 8/8 BPP with normal prolonged monitoring at hospital. Kick counts and fu NST in office the end of the week Swathi Lewis MD Abnormal glucose complicating 10/13/2013 10/27/2013 LSIL (low grade squamous int raepithelial lesion) on Pap smear 06/06/2013 02/04/2014 Overview: June 06, 2013 LSIL cannot r/o HSIL pap colposcopy ordered. Jessi Pierre MD Bacterial vaginosis 06/06/2013 01/08/20 14 Overview: June 06, 2013 BV- treated. Jessi Pierre MD Gestational diabetes 10/06/2010 011 Unspecified high-risk 08/08/2010 10/26/2010 Poor growth, affecting management of mother, antepartum condition or complication 03/28/2010 10/26/2010 Acute appendicitis without m ention of peritonitis 07/24/2007 10/26/2010 documented as of this encounter (statuses as of 04/18/2023) [facility] Past illness Narrative* Problem Noted Date Diagnosed Date Resolved Date Short cervix during pregnanc y in second trimester 11/16/2016 07/07/2019 Overview: November 21, 2016 Cerclage being placed by M on 11/22/16. On vaginal progesterone. Jessi Pirere MD Cerclage placed on 11/22 -- vaginal progesterone Cervical funneling affecting in second trimester 11/16/2016 07/07/2019 History of gestational diabe noris in prior , currently 08/10/2016 08/15/2016 Overview: 08/10/2016Patient has a history of gestational diabetes with both of her previous pregnancies. She will plan on GCT @ NO[facility] visit with Dr Pierre. TKRN Supervision of other high ri sk pregnancies, first trimester 12/17/2013 07/07/2019 Abnormal maternal glucose to [facility], antepartum 12/05/2013 02/04/2014 High-risk supervision 12/02/2013 01/07/2014 Overview: December 02, 2013 patient admitted twice for STO for initially severely elevated bps that resolve into normal with rest and observation. Plan home bp moitoring, weekly NST/dr visit. Ordered growth us. Swathi Lewis MD October 21, 2013 Pt in hospital 10/19 overnight for TPTL, spotting, increased BP. No steroids given. 24 hr urine done was 164 mg. Other labs normal Jessi Pierre MD Gestational hypertension 12/02/2013 Overview: 11/29/13 urine protein 278mg. Bps labile but normal with bed rest. S/p BMX x two. Weekly nst/dr visit with IOL at 37 weeks. Abnormal heart rate or rhythm 12/02/2013 01/07/2014 Overview: December 01, 2013 had late decel in triage with 10 x 10 reactive tracing 01/16 BPP with normal prolonged monitoring at hospital. Kick counts and fu NST in office the end of the week Swathi Lewis MD Abnormal glucose complicating 10/13/2013 10/27/2013 LSIL (low grade squamous int raepithelial lesion) on Pap smear 06/06/2013 02/04/2014 Overview: June 06, 2013 LSIL cannot r/o HSIL pap colposcopy ordered. Jessi Pierre MD Bacterial vaginosis 06/06/2013 01/08/20 14 Overview: June 06, 2013 BV- treated. Jessi Pierre MD Gestational diabetes 10/06/2010 011 Unspecified high-risk 08/08/2010 10/26/2010 Poor growth, affecting management of mother, antepartum condition or complication 03/28/2010 10/26/2010 Acute appendicitis without m ention of peritonitis 07/24/2007 10/26/2010 documented as of this encounter (statuses as of 05/19/2023) [facility] Past illness Narrative* Problem Noted Date Diagnosed Date Resolved Date Short cervix during pregnanc y in second trimester 11/16/2016 07/07/2019 Overview: November 21, 2016 Cerclage being placed by MFM on 11/22/16. On vaginal progesterone. Jessi Pierre MD Cerclage placed on 11/22 -- vaginal progesterone Cervical funneling affecting in second trimester 11/16/2016 07/07/2019 History of gestational diabe noris in prior , currently 08/10/2016 08/15/2016 Overview: 08/10/2016Patient has a history of gestational diabetes with both of her previous pregnancies. She will plan on GCT @ NO[facility] visit with Dr Pierre. TKRN Supervision of other high ri sk pregnancies, first trimester 12/17/2013 07/07/2019 Abnormal maternal glucose to [facility], antepartum 12/05/2013 02/04/2014 High-risk supervision 12/02/2013 01/07/2014 Overview: December 02, 2013 patient admitted twice for STO for initially severely elevated bps that resolve into normal with rest and observation. Plan home bp moitoring, weekly NST/dr visit. Ordered growth us. Swathi Lewis MD October 21, 2013 Pt in hospital 10/19 overnight for TPTL, spotting, increased BP. No steroids given. 24 hr urine done was 164 mg. Other labs normal Jessi Pierre MD Gestational hypertension 12/02/2013 Overview: 11/29/13 urine protein 278mg. Bps labile but normal with bed rest. S/p BMX x two. Weekly nst/dr visit with IOL at 37 weeks. Abnormal heart rate or rhythm 12/02/2013 01/07/2014 Overview: December 01, 2013 had late decel in triage with 10 x 10 reactive tracing 8/8 BPP with normal prolonged monitoring at hospital. Kick counts and fu NST in office the end of the week Swathi Lewis MD Abnormal glucose complicating 10/13/2013 10/27/2013 LSIL (low grade squamous int raepithelial lesion) on Pap smear 06/06/2013 02/04/2014 Overview: June 06, 2013 LSIL cannot r/o HSIL pap colposcopy ordered. Jessi Pierre MD Bacterial vaginosis 06/06/2013 01/08/20 14 Overview: June 06, 2013 BV- treated. Jessi Pierre MD Gestational diabetes 10/06/2010 011 Unspecified high-risk 08/08/2010 10/26/2010 Poor growth, affecting management of mother, antepartum condition or complication 03/28/2010 10/26/2010 Acute appendicitis without m ention of peritonitis 07/24/2007 10/26/2010 documented as of this encounter (statuses as of 05/21/2023) [facility] Past [facility] Narrative* Problem Noted Date Diagnosed Date Resolved Date Short cervix during pregnanc y in second trimester 11/16/2016 07/07/2019 Overview: November 21, 2016 Cerclage being placed by M on 11/22/16. On vaginal progesterone. Jessi Pierre MD Cerclage placed on 11/22 -- vaginal progesterone Cervical funneling affecting in second trimester 11/16/2016 07/07/2019 History of gestational diabe noris in prior , currently 08/10/2016 08/15/2016 Overview: 08/10/2016Patient has a history of gestational diabetes with both of her previous pregnancies. She will plan on GCT @ NOB visit with Dr Pierre. TKRN Supervision of other high ri sk pregnancies, first trimester 12/17/2013 07/07/2019 Abnormal maternal glucose to [facility], antepartum 12/05/2013 02/04/2014 High-risk supervision 12/02/2013 01/07/2014 Overview: December 02, 2013 patient admitted twice for STO for initially severely elevated bps that resolve into normal with rest and observation. Plan home bp moitoring, weekly NST/dr visit. Ordered growth us. Swathi Lewis MD October 21, 2013 Pt in hospital 10/19 overnight for TPTL, spotting, increased BP. No steroids given. 24 hr urine done was 164 mg. Other labs normal Jessi Pierre MD Gestational hypertension 12/02/2013 Overview: 11/29/13 urine protein 278mg. Bps labile but normal with bed rest. S/p BMX x two. Weekly nst/dr visit with IOL at 37 weeks. Abnormal heart rate or rhythm 12/02/2013 01/07/2014 Overview: December 01, 2013 had late decel in triage with 10 x 10 reactive tracing 01/16 BPP with normal prolonged monitoring at hospital. Kick counts and fu NST in office the end of the week Swathi Lewis MD Abnormal glucose complicating 10/13/2013 10/27/2013 LSIL (low grade squamous int raepithelial lesion) on Pap smear 06/06/2013 02/04/2014 Overview: June 06, 2013 LSIL cannot r/o HSIL pap colposcopy ordered. Jessi Pierre MD Bacterial vaginosis 06/06/2013 01/08/20 14 Overview: June 06, 2013 BV- treated. Jessi Pierre MD Gestational diabetes 10/06/2010 011 Unspecified high-risk 08/08/2010 10/26/2010 Poor growth, affecting management of mother, antepartum condition or complication 03/28/2010 10/26/2010 Acute appendicitis without m ention of peritonitis 07/24/2007 10/26/2010 documented as of this encounter (statuses as of 05/23/2023) [facility] Diagnosis Attention deficit disorder (ADD) in adult- Primary Disorganized thought process Other symptoms involving nervous and musculoskeletal systems Difficulty with household tasks [facility] Attention deficit disorder (ADD) in adult- Primary [facility] (ADD) in adult [facility] Obesity, Class II, BMI 35-39.9 Obesity, unspecified IFG (impaired fasting glucose) Impaired fasting glucose Attention deficit disorder (ADD) in adult [facility] Diagnosis Obesity, Class II, BMI 35-39.9- Primary Obesity, unspecified Attention deficit disorder (ADD) in adult IFG (impaired fasting glucose) Impaired fasting glucose [facility] Diagnosis Attention deficit disorder (ADD) in adult- Primary [facility] Diagnosis Attention deficit disorder (ADD) in adult- Primary documented in this encounter [facility]* Diagnosis Attention deficit disorder (ADD) in adult documented in this encounter [facility] note* Diagnosis Obesity, Class II, BMI 35-39.9 Obesity, unspecified documented in this encounter [facility] note* Diagnosis Attention deficit disorder (ADD) in adult documented in this encounter [facility] note* Diagnosis Attention deficit disorder (ADD) in adult documented in this encounter [facility] note* Diagnosis Attention deficit disorder (ADD) in adult documented in this encounter [facility] note* Diagnosis Indeterminate colitis- Primary Other and unspecified noninfectious gastroenteritis and colitis documented in this encounter [facility] note* Diagnosis Attention deficit disorder (ADD) in adult documented in this encounter [facility] note* Diagnosis Attention deficit disorder (ADD) in adult- Primary documented in this encounter [facility] note* Diagnosis Attention deficit disorder (ADD) in adult documented in this encounter [facility] note* Diagnosis Attention deficit disorder (ADD) in adult- Primary documented in this encounter [facility] note* Diagnosis Obesity, Class II, BMI 35-39.9 Obesity, unspecified documented in this encounter [facility] note* Diagnosis Change in bowel movement- Primary Other symptoms involving digestive system Rectal bleeding Hemorrhage of rectum and anus Constipation, unspecified constipation type Family history of Crohn's disease Family history of other digestive disorders documented in this encounter [facility] note* Diagnosis Attention deficit disorder (ADD) in adult documented in this encounter [facility] note* Diagnosis Attention deficit disorder (ADD) in adult documented in this encounter [facility] note* Diagnosis Attention deficit disorder (ADD) in adult documented in this encounter [facility] for referral (narrative)* Outpatient Procedure (Routine) - Closed Specialty Diagnoses / Procedures Referred By Contni t Referred To Contact [facility] Diagnoses Constipation, unspecified constipation type Family history of Crohn's disease Procedures COLONOSCOPY DIAGNOSTIC COLONOSCOPY FLX DX W/COLLJ SPEC WHEN PFRMD Meghan French APRN.HUMIDIFIER ATTENDANT [address] [place] [address] [facility] [address] [place] [address] Referral ID Status Reason Start Date Expiration Date V isits Requested Visits Authorized [id number] Closed Auto-Generate d Referral 08/23/2022 08/24/2023 1 [facility]patient Procedure (Routine) - Closed Specialty Diagnoses / Procedures Referred By Contac t Referred To Contact [facility] Diagnoses Constipation, unspecified constipation type Family history of Crohn's disease Procedures COLONOSCOPY DIAGNOSTIC COLONOSCOPY FLX DX W/COLLJ SPEC WHEN PFRMD Meghan French APRN.HUMIDIFIER ATTENDANT [address] [place] [address] [facility] [address] [place] [address] Referral ID Status Reason Start Date Expiration Date V isits Requested Visits Authorized [id number] Closed Auto-Generate d Referral 08/23/2022 08/24/2023 1 1 [facility] Summary Purpose Family History No Family History Records FoundNo Family History Records Found Advance Directives No Advanced Directives Records FoundNo Advanced Directives Records Found Reason for Referral Specialty Diagnoses / Procedures Referred By Contac t Referred To Contact Diagnoses Obesity, Class II, BMI 35-39.9 IFG (impaired fasting glucose) Modesto Zhu DO [address] [place] [address] Referral ID Status Reason Start Date Expiration Date Visits Re quested Visits Authorized [id number] Closed 1 1 Specialty Diagnoses / Procedures Referred By Contac t Referred To Contact Gastroenterology Procedures CONSULT TO GASTROENTEROLOGY OFFICE/OUTPATIENT [facility] MDM 60-74 MINUTES Rachel Puentes MD [address] [place] [address] Referral ID Status Reason Start Date Expiration Date Visits Requested Visits Authorized [id number] Authorized PCP Requested Referral 09/13/2022 08/30/2023 1 1 Specialty Diagnoses / Procedures Referred By Contac t Referred To Contact Diagnoses Attention deficit disorder (ADD) in adult Josesito Levi APRN.HUMIDIFIER ATTENDANT [address] [place] [address] Referral ID Status Reason Start Date Expiration Date V isits Requested Visits Authorized [id number] Pending Review 1 1 Medications Administered Section Inactive Administered Medications - up to 3 most recent administrations Medication Order MAR Action Action Date Dose Rate Site diphenhydrAMINE 12.5-50 mg injection (BENADRYL) 12.5-50 mg, INTRAVENOUS, DIRECTED, Starting on Sun08/30/22 at 1130, Until Sun08/30/22 at 1529, DOSING DIRECTED BY PHYSICIAN FOR PROCEDURAL SEDATION ONLY, Intraprocedure Given 08/30/2022 11:10 AM EDT 50 mg fentaNYL 50 mcg/mL 25-100 mcg injection (SUBLIMAZE) 25-100 mcg, INTRAVENOUS, DIRECTED, Starting on Sun08/30/22 at 1130, Until Sun08/30/22 at 1529, DOSING DIRECTED BY PHYSICIAN FOR PROCEDURAL SEDATION ONLY, Intraprocedure Given 08/30/2022 11:15 AM EDT 50 mcg Additional Source Comments INFORMATION SOURCE (unrecogn ized section and content) DATE CREATED AUTHOR AUTHOR'S ORGANIZ ATION 05/25/2023 [facility] Source Comments (unrecognize d section and content) In the event this informatio n is protected by the Federal Confidentiality of Alcohol and Drug Abuse Patient Records regulations: The Federal rules restrict any use of the information to criminally investigate or prosecute any alcohol or drug abuse patient.[facility] the event this information is protected by the Federal Confidentiality of Alcohol and Drug Abuse Patient Records regulations: The Federal rules restrict any use of the information to criminally investigate or prosecute any alcohol or drug abuse patient.[facility] the event this information is protected by the Federal Confidentiality of Alcohol and Drug Abuse Patient Records regulations: The Federal rules restrict any use of the information to criminally investigate or prosecute any alcohol or drug abuse patient.[facility] the event this information is protected by the Federal Confidentiality of Alcohol and Drug Abuse Patient Records regulations: The Federal rules restrict any use of the information to criminally investigate or prosecute any alcohol or drug abuse patient.[facility] the event this information is protected by the Federal Confidentiality of Alcohol and Drug Abuse Patient Records regulations: The Federal rules restrict any use of the information to criminally investigate or prosecute any alcohol or drug abuse patient.[facility] the event this information is protected by the Federal Confidentiality of Alcohol and Drug Abuse Patient Records regulations: The Federal rules restrict any use of the information to criminally investigate or prosecute any alcohol or drug abuse patient.[facility] Hospital[facility] the event this information is protected by the Federal Confidentiality of Alcohol and Drug Abuse Patient Records regulations: The Federal rules restrict any use of the information to criminally investigate or prosecute any alcohol or drug abuse patient.[facility] the event this information is protected by the Federal Confidentiality of Alcohol and Drug Abuse Patient Records regulations: The Federal rules restrict any use of the information to criminally investigate or prosecute any alcohol or drug abuse patient.[facility] the event this information is protected by the Federal Confidentiality of Alcohol and Drug Abuse Patient Records regulations: The Federal rules restrict any use of the information to criminally investigate or prosecute any alcohol or drug abuse patient.[facility] the event this information is protected by the Federal Confidentiality of Alcohol and Drug Abuse Patient Records regulations: The Federal rules restrict any use of the information to criminally investigate or prosecute any alcohol or drug abuse patient.[facility] the event this information is protected by the Federal Confidentiality of Alcohol and Drug Abuse Patient Records regulations: The Federal rules restrict any use of the information to criminally investigate or prosecute any alcohol or drug abuse patient.[facility] the event this information is protected by the Federal Confidentiality of Alcohol and Drug Abuse Patient Records regulations: The Federal rules restrict any use of the information to criminally investigate or prosecute any alcohol or drug abuse patient.[facility] Hospital[facility] the event this information is protected by the Federal Confidentiality of Alcohol and Drug Abuse Patient Records regulations: The Federal rules restrict any use of the information to criminally investigate or prosecute any alcohol or drug abuse patient.[facility] the event this information is protected by the Federal Confidentiality of Alcohol and Drug Abuse Patient Records regulations: The Federal rules restrict any use of the information to criminally investigate or prosecute any alcohol or drug abuse patient.[facility] Hospital[facility] the event this information is protected by the Federal Confidentiality of Alcohol and Drug Abuse Patient Records regulations: The Federal rules restrict any use of the information to criminally investigate or prosecute any alcohol or drug abuse patient.[facility] Hospital[facility] the event this information is protected by the Federal Confidentiality of Alcohol and Drug Abuse Patient Records regulations: The Federal rules restrict any use of the information to criminally investigate or prosecute any alcohol or drug abuse patient.[facility] Hospital[facility] the event this information is protected by the Federal Confidentiality of Alcohol and Drug Abuse Patient Records regulations: The Federal rules restrict any use of the information to criminally investigate or prosecute any alcohol or drug abuse patient.[facility] Hospital[facility] the event this information is protected by the Federal Confidentiality of Alcohol and Drug Abuse Patient Records regulations: The Federal rules restrict any use of the information to criminally investigate or prosecute any alcohol or drug abuse patient.[facility] Hospital[facility] the event this information is protected by the Federal Confidentiality of Alcohol and Drug Abuse Patient Records regulations: The Federal rules restrict any use of the information to criminally investigate or prosecute any alcohol or drug abuse patient.[facility] Hospital[facility] the event this information is protected by the Federal Confidentiality of Alcohol and Drug Abuse Patient Records regulations: The Federal rules restrict any use of the information to criminally investigate or prosecute any alcohol or drug abuse patient.[facility] HospitalIn the event this information is protected by the Federal Confidentiality of Alcohol and Drug Abuse Patient Records regulations: The Federal rules restrict any use of the information to criminally investigate or prosecute any alcohol or drug abuse patient.[facility] HospitalIn the event this information is protected by the Federal Confidentiality of Alcohol and Drug Abuse Patient Records regulations: The Federal rules restrict any use of the information to criminally investigate or prosecute any alcohol or drug abuse patient.[facility] Hospital[facility] the event this information is protected by the Federal Confidentiality of Alcohol and Drug Abuse Patient Records regulations: The Federal rules restrict any use of the information to criminally investigate or prosecute any alcohol or drug abuse patient.[facility] HospitalIn the event this information is protected by the Federal Confidentiality of Alcohol and Drug Abuse Patient Records regulations: The Federal rules restrict any use of the information to criminally investigate or prosecute any alcohol or drug abuse patient.[facility] the event this information is protected by the Federal Confidentiality of Alcohol and Drug Abuse Patient Records regulations: The Federal rules restrict any use of the information to criminally investigate or prosecute any alcohol or drug abuse patient.[facility] HospitalIn the event this information is protected by the Federal Confidentiality of Alcohol and Drug Abuse Patient Records regulations: The Federal rules restrict any use of the information to criminally investigate or prosecute any alcohol or drug abuse patient.[facility] HospitalIn the event this information is protected by the Federal Confidentiality of Alcohol and Drug Abuse Patient Records regulations: The Federal rules restrict any use of the information to criminally investigate or prosecute any alcohol or drug abuse patient.[facility] HospitalIn the event this information is protected by the Federal Confidentiality of Alcohol and Drug Abuse Patient Records regulations: The Federal rules restrict any use of the information to criminally investigate or prosecute any alcohol or drug abuse patient.[facility] HospitalIn the event this information is protected by the Federal Confidentiality of Alcohol and Drug Abuse Patient Records regulations: The Federal rules restrict any use of the information to criminally investigate or prosecute any alcohol or drug abuse patient.[facility] HospitalIn the event this information is protected by the Federal Confidentiality of Alcohol and Drug Abuse Patient Records regulations: The Federal rules restrict any use of the information to criminally investigate or prosecute any alcohol or drug abuse patient.[facility] HospitalIn the event this information is protected by the Federal Confidentiality of Alcohol and Drug Abuse Patient Records regulations: The Federal rules restrict any use of the information to criminally investigate or prosecute any alcohol or drug abuse patient.[facility] HospitalIn the event this information is protected by the Federal Confidentiality of Alcohol and Drug Abuse Patient Records regulations: The Federal rules restrict any use of the information to criminally investigate or prosecute any alcohol or drug abuse patient.[facility] HospitalIn the event this information is protected by the Federal Confidentiality of Alcohol and Drug Abuse Patient Records regulations: The Federal rules restrict any use of the information to criminally investigate or prosecute any alcohol or drug abuse patient.[facility] HospitalIn the event this information is protected by the Federal Confidentiality of Alcohol and Drug Abuse Patient Records regulations: The Federal rules restrict any use of the information to criminally investigate or prosecute any alcohol or drug abuse patient.[facility] HospitalIn the event this information is protected by the Federal Confidentiality of Alcohol and Drug Abuse Patient Records regulations: The Federal rules restrict any use of the information to criminally investigate or prosecute any alcohol or drug abuse patient.[facility] HospitalIn the event this information is protected by the Federal Confidentiality of Alcohol and Drug Abuse Patient Records regulations: The Federal rules restrict any use of the information to criminally investigate or prosecute any alcohol or drug abuse patient.[facility] HospitalIn the event this information is protected by the Federal Confidentiality of Alcohol and Drug Abuse Patient Records regulations: The Federal rules restrict any use of the information to criminally investigate or prosecute any alcohol or drug abuse patient.[facility] HospitalIn the event this information is protected by the [facility] Confidentiality of Alcohol and Drug Abuse Patient Records regulations: The Federal rules restrict any use of the information to criminally investigate or prosecute any alcohol or drug abuse patient.[facility] HospitalIn the event this information is protected by the Federal Confidentiality of Alcohol and Drug Abuse Patient Records regulations: The Federal rules restrict any use of the information to criminally investigate or prosecute any alcohol or drug abuse patient.[facility] Care Teams (unrecognized sec tion and content) Attending Anesthesiologist Relationship Specialty Start Date End Date Modesto Zhu, DO [address] [place] [address] PCP - General Family Practice 08/27/20 Attending Anesthesiologist Relationship Specialty Start Date End Date Modesto Zhu, [address] [place] [address] PCP - General Family Practice 08/27/20 Attending Anesthesiologist Relationship Specialty Start Date End Date Modesto Zhu DO [address] [place] [address] PCP - General Family Practice 08/27/20 Attending Anesthesiologist Relationship Specialty Start Date End Date Modesto Zhu, DO [address] [place] [address] PCP - General Family Practice 08/27/20 Attending Anesthesiologist Relationship Specialty Start Date End Date Modesto Zhu, DO [address] [place] [address] PCP - General Family Practice 08/27/20 Attending Anesthesiologist Relationship Specialty Start Date End Date Modesto Zhu, DO [address] [place] [address] PCP - General Family Practice 08/27/20 Attending Anesthesiologist Relationship Specialty Start Date End Date Modesto Zhu, DO [address] [place] [address] PCP - General Family Practice 08/27/20 Attending Anesthesiologist Relationship Specialty Start Date End Date Modesto Zhu, DO [address] [place] [address] PCP - General Family Medicine 08/27/20 Attending Anesthesiologist Relationship Specialty Start Date End Date Modesto Zhu, DO [address] [place] [address] PCP - General Family Medicine 08/27/20 Attending Anesthesiologist Relationship Specialty Start Date End Date Modesto Zhu, DO [address] [place] [address] PCP - General Family Medicine 08/27/20 Attending Anesthesiologist Relationship Specialty Start Date End Date Modesto Zhu, DO [address] [place] [address] PCP - General Family Medicine 08/27/20 Attending Anesthesiologist Relationship Specialty Start Date End Date Modesto Zhu, DO [address] [place] [address] PCP - General Family Medicine 08/27/20 Attending Anesthesiologist Relationship Specialty Start Date End Date Modesto Zhu, DO [address] [facility] [place] [address] PCP - General Family Medicine 08/27/20 Attending Anesthesiologist Relationship Specialty Start Date End Date Modesto Zhu, DO [address] [facility] [place] [address] PCP - General Family Medicine 08/27/20 Attending Anesthesiologist Relationship Specialty Start Date End Date Modesto Zhu DO [address] [facility] [place] [place] [address] PCP - General Family Medicine 08/27/20 Attending Anesthesiologist Relationship Specialty Start Date End Date Modesto Zhu DO [address] [facility] [place] [address] PCP - General Family Medicine 08/27/20 Attending Anesthesiologist Relationship Specialty Start Date End Date Modesto Zhu DO [address] [facility] [place] [address] PCP - General Family Medicine 08/27/20 Attending Anesthesiologist Relationship Specialty Start Date End Date Modesto Zhu DO [address] [facility] [place] [address] PCP - General Family Medicine 08/27/20 Attending Anesthesiologist Relationship Specialty Start Date End Date Modesto Zhu DO [address] [facility] [place] [address] PCP - General Family Medicine 08/27/20 Attending Anesthesiologist Relationship Specialty Start Date End Date Modesto Zhu DO [address] [facility] [place] [address] PCP - General Family Medicine 08/27/20 Attending Anesthesiologist Relationship Specialty Start Date End Date Modesto Zhu DO [address] [place] [address] PCP - General Family Medicine 08/27/20 Attending Anesthesiologist Relationship Specialty Start Date End Date Modesto Zhu DO [address] [place] [address] PCP - General Family Medicine 08/27/20 Attending Anesthesiologist Relationship Specialty Start Date End Date Modesto Zhu DO [address] [place] [address] PCP - General Family Medicine 08/27/20 Attending Anesthesiologist Relationship Specialty Start Date End Date Modesto Zhu DO [address] [place] [address] PCP - General Family Medicine 08/27/20 Attending Anesthesiologist Relationship Specialty Start Date End Date Modesto Zhu DO [address] [place] [address] PCP - General Family Medicine 08/27/20 Attending Anesthesiologist Relationship Specialty Start Date End Date Modesto Zhu DO [address] [place] [address] PCP - General Family Medicine 08/27/20 Attending Anesthesiologist Relationship Specialty Start Date End Date Modesto Zhu DO [address] [place] [address] PCP - General Family Medicine 08/27/20 Attending Anesthesiologist Relationship Specialty Start Date End Date Modesto Zhu DO [address] [place] [address] PCP - General Family Medicine 08/27/20 Reason for Visit (unrecogniz ed section and content) Reason Comments Patient Update Reason Comments Behavioral Problem Reason Comments mail form Reason Onset Date Comments Refill Request 02/09/2022 Reason Comments Follow Up Reason Comments Follow Up Reason Comments Medication Problem Reason Comments medication review Reason Onset Date Comments Refill Request 06/15/2022 Reason Onset Date Comments Refill Request 07/11/2022 Reason Onset Date Comments Refill Request 08/13/2022 Reason Comments Rectal Problem Reason Comments bowel prep question Reason Onset Date Comments Refill Request 09/13/2022 Reason Comments New Patient Colitis consult Specialty Diagnoses / Procedures Referred By Contac t Referred To Contact Gastroenterology Procedures CONSULT TO GASTROENTEROLOGY OFFICE/OUTPATIENT NEW HIGH MDM 60-74 MINUTES Rachel Puentes MD [address] [place] [address] Referral ID Status Reason Start Date Expiration Date V isits Requested Visits Authorized [id number] Closed PCP Requested Referral 09/13/2022 08/30/2023 1 1 Reason Onset Date Comments Refill Request 12/15/2022 Reason Onset Date Comments Refill Request 03/19/2023 Reason Onset Date Comments Refill Request 03/28/2023 Reason Onset Date Comments Refill Request 04/18/2023 Reason Onset Date Comments Refill Request 05/18/2023 Reason Comments Appointment Reason Comments new script for vyvanse Specialty Diagnoses / Procedures Referred By Contac t Referred To Contact Family Medicine / [facility] DEPARTMENT Diagnoses Need to get a new rx for my vyvanse Procedures VIDEO PRIMARY EST Self Marley Moncada, CHILD SUPPORT SPECIALIST.HUMIDIFIER ATTENDANT [address] [place] [address] Referral ID Status Reason Start Date Expiration Date V isits Requested Visits Authorized [id number] New Request 05/21/2023 08/20/2023 99 99 FOR RECORDS PERTAINING TO PATIENTS WHO ARE OR HAVE BEEN ENROLLED IN A CHEMICAL DEPENDENCY/SUBSTANCEABUSE PROGRAM, SOME INFORMATION MAY BE OMITTED. This clinical summary was aggregated from multiple sources. Caution should be exercised in using it in the provision of clinical care. This summary normalizes information from multiple sources, and as a consequence, information in this document may materially change the coding, format and clinical context of patient data. In addition, data may be omitted in some cases. CLINICAL DECISIONS SHOULD BE BASED ON THE PRIMARY CLINICAL RECORDS. [facility]. provides no warranty or guarantee of the accuracy or completeness of information in this document.
== END 2023-07-20 13:00 | disposition left against medical advice (07) ==
LOC: ED 13:04
PROVIDERS: PCP Student in an Organized Health Care Education/Training Program
DX: R10.9 Unspecified abdominal pain (principal)

== ENCOUNTER 2023-07-27 06:01 | Day surgery (SDC) | payer OTHER, SELFPAY ==
[2023-07-27] VITALS (7 sets, daily range): BP systolic 124–141; BP diastolic 74–97; PULSE 89–104; RESP 16; TEMP 36.2–37.1; O2SAT 100; BMI 27.0
--- OUTSIDE RECORDS SUMMARY | 2023-07-27 06:04 | XMS RPT_ITS | CCD ---
Author Name Unknown Address [address] [place] [address] Organization [facility] Care Team Providers Care Advertising Campaign Manager Name Role Phone Swathi Lewis MD Unavailable [phone] KAYLA CARTER Unavailable Unavailable KAYLA CARTER Unavailable Unavailable Modesto Zhu DO Primary Care Provider [phone] Modesto Zhu DO Primary Care Provider [phone] Modesto Zhu DO Primary Care Provider [phone] Modesto Zhu DO Primary Care Provider [phone] MEGHAN FRENCH Referring Unavailable RACHEL PUENTES Attending Unavailable MODESTO ZHU Primary Care Unavailable MODESTO ZHU Primary Care Unavailable JOSESITO LEVI Attending Unavailable MODESTO ZHU Primary Care Unavailable MODESTO ZHU Attending Unavailable MODESTO ZHU Primary Care Unavailable CORINNE MENDIETA Referring Unavailable MODESTO ZHU Primary Care Unavailable CORINNE MENDIETA Attending Unavailable RACHEL PUENTES Referring Unavailable MODESTO ZHU DO Primary Care Physician Allergies Allergy Classification Reported Allergen(s) Allergy Type Date of Onset Reaction(s) Facility (2 sources) penicillin v Drug Allergy 7 [facility] (20 sources) Penicillins; Translations: [PENICILLINS] Propensity to adverse reactions to drug (disorder) 8 Other: See Comments [facility] Other [facility] (1 source) Penicillin; Translations: [penicillins] Drug Allergy [facility] Medications Current Medications Medication Drug Class(es) Dates Sig (Normalized) Sig (Original) acetaminophen 325 mg / oxyCODONE hydrochloride 5 mg oral tablet (1 source) Opioid Agonist Start: 07-20-2023 End: 07-23-2023 take 1 tablet by mouth every six hours as needed for pain acetaminophen-oxyCO DONE 325 mg-5 mg oral tablet Dose = 1 tab(s), Oral, q6h, PRN for pain, X 3 day(s), # 12 tab(s), 0 Refill(s), Colic, ureteral, 70.8 Start Date: 07/20/23 Stop Date: 07/23/23 Status: Ordered albuterol MDI (90 mcg/inh) CFC free inhalation aerosol (1 source) Start: 06-28-2016 take 2 puff(s) by inhalation every four hours as needed for wheezing albuterol MDI (90 mcg/inh) CFC free inhalation aerosol 2 puff(s), Inhalation, q4h, PRN as needed for wheezing, # 1 EA, 0 Refill(s) Start Date: 06/28/16 Status: Ordered cephalexin 500 mg oral capsule (1 source) Cephalosporin Antibacterial Start: 07-20-2023 End: 07-30-2023 cephalexin 500 mg oral capsule Dose : 500 mg = 1 cap(s), Oral, q12h, X 10 day(s), # 20 cap(s), 0 Refill(s), 07/30/23 9:21:00 PM EST, 70.8 Start Date: 07/20/23 Stop Date: 07/30/23 Status: Ordered ondansetron 4 mg disintegrating oral tablet (1 source) Serotonin-3 Receptor Antagonist Start: 07-20-2023 End: 07-25-2023 ondansetron 4 mg oral tablet, disintegrating Dose : 4 mg = 1 tab(s), Oral, q6h, PRN Nausea/Vomiting, X 5 day(s), # 20 tab(s), 0 Refill(s), 07/25/23 9:15:00 PM EST Start Date: 07/20/23 Stop Date: 07/25/23 Status: Ordered phentermine hydrochloride 37.5 mg oral capsule (10 sources) Sympathomimetic Amine Anorectic Start: 01-27-2022 End: 04-21-2022 take 1 capsule by mouth once daily Phentermine HCl 37.5 mg capsule Indications: Obesity, Class II, BMI 35-39.9 , IFG (impaired fasting glucose) Take 1 capsule by mouth once daily for 30 days. BMI 35.78 30 capsule 0 03/22/2022 04/21/2022 Active Completed/Discontinued Medications Medication Drug Class(es) Dates [...] [Generalized anxiety disorder] Onset: 02-04-2021 02-04-2021 Chronic Calculus of urinary tract (1 source) Renal colic; Translations: [Unspecified renal colic] Onset: 07-20-2023 Episodic Diabetes or abnormal glucose tolerance complicating [...] Date Time Vital Sign Value Performing Clinician Faci [facility] 07-20-2023 21:27-0500 Diastolic blood pressure 67 mm[Hg] ESTELLA TOMAS MD [facility] 07-20-2023 21:27-0500 Heart rate 73 /min ESTELLA TOMAS MD [facility] 07-20-2023 21:27-0500 Respiratory rate 16 /min ESTELLA TOMAS MD [facility] 07-20-2023 21:27-0500 Systolic blood pressure 101 mm[Hg] ESTELLA TOMAS MD [address] [place] [address] 07-20-2023 19:15-0500 Diastolic Blood Pressure Non-Invasive 90 mm[Hg] ESTELLA TOMAS MD [address] [place] [address] 07-20-2023 19:15-0500 Heart rate 88 /min ESTELLA TOMAS MD [address] [place] [address] 07-20-2023 19:15-0500 Respiratory rate 18 /min ESTELLA TOMAS MD [address] [place] [address] 07-20-2023 19:15-0500 Systolic Blood Pressure Non-Invasive 130 mm[Hg] ESTELLA TOMAS MD [facility] 07-20-2023 17:12-0500 Diastolic Blood Pressure Non-Invasive 71 mm[Hg] ESTELLA TOMAS MD [address] [place] [address] 07-20-2023 17:12-0500 Heart rate 92 /min ESTELLA TOMAS MD [address] [place] [address] 07-20-2023 17:12-0500 Respiratory rate 20 /min ESTELLA TOMAS MD [address] [place] [address] 07-20-2023 17:12-0500 Systolic Blood Pressure Non-Invasive 123 mm[Hg] ESTELLA TOMAS MD [address] [place] [address] 07-20-2023 14:22-0500 Blood Pressure Location ESTELLA TOMAS MD [facility] 07-20-2023 14:22-0500 Body temperature 96.98 [degF] ESTELLA TOMAS MD [address] [place] [address] 07-20-2023 14:22-0500 Body weight 70.8 kg ESTELLA TOMAS MD [facility] 07-20-2023 14:22-0500 Diastolic Blood Pressure Non-Invasive 92 mm[Hg] ESTELLA TOMAS MD [facility] 07-20-2023 14:22-0500 Systolic Blood Pressure Non-Invasive 136 mm[Hg] ESTELLA TOMAS MD [facility] 05-23-2023 09:16-0500 Body weight 73.48 kg Josesito Levi TRIM DIE MAKER.MILK TANKER DRIVER Work Phone: [facility] 05-23-2023 09:16-0500 Diastolic blood pressure 64 mm[Hg] Josesito Levi TRIM DIE MAKER.MILK TANKER DRIVER Work Phone: [facility] 05-23-2023 09:16-0500 Heart rate 64 /min Josesito Levi TRIM DIE MAKER.MILK TANKER DRIVER Work Phone: [facility] 05-23-2023 09:16-0500 Respiratory rate 12 /min Josesito Levi TRIM DIE MAKER.MILK TANKER DRIVER Work Phone: [facility] 05-23-2023 09:16-0500 Systolic blood pressure 128 mm[Hg] Josesito Levi TRIM DIE MAKER.MILK TANKER DRIVER Work Phone: [facility] 09-20-2022 10:51-0400 Body height 165.1 cm Corinne Mendieta MD Work Phone: [facility] 09-20-2022 10:51-0400 Body temperature 98.29 [degF] Corinne Mendieta MD Work Phone: [facility] 09-20-2022 10:51-0400 Body weight 88.91 kg Corinne Mendieta MD Work Phone: [facility] 09-20-2022 10:51-0400 Diastolic blood pressure 91 mm[Hg] Corinne Mendieta MD Work Phone: [facility] 09-20-2022 10:51-0400 Heart rate 119 /min Croinne Mendieta MD Work Phone: [facility] 09-20-2022 10:51-0400 Respiratory rate 18 /min Corinne Mendieta MD Work Phone: [facility] 09-20-2022 10:51-0400 SaO2% (BldA) [Mass fraction] 100 % Corinne Mendieta MD Work Phone: [facility] 09-20-2022 10:51-0400 Systolic blood pressure 135 mm[Hg] Corinne Mendieta MD Work Phone: [facility] 08-30-2022 12:26-0400 Heart rate 91 /min Rachel Puentes MD Work Phone: [facility] 08-30-2022 12:26-0400 SaO2% (BldA) [Mass fraction] 100 % Rachel Puentes MD Work Phone: [facility] 08-30-2022 12:16-0400 Diastolic blood pressure 84 mm[Hg] Rachel Puentes MD Work Phone: [facility] 08-30-2022 12:16-0400 Respiratory rate 16 /min Rachel Puentes MD Work Phone: [facility] 08-30-2022 12:16-0400 Systolic blood pressure 124 mm[Hg] Rachel Puentes MD Work Phone: [facility] 08-30-2022 10:44-0400 Body temperature 98.4 [degF] Rachel Puentes MD Work Phone: [facility] 03-22-2022 15:09-0400 Body weight 97.52 kg Modesto Zhu DO Work Phone: [facility] 02-24-2022 10:51-0400 Body weight 100.15 kg Modesto Zhu DO Work Phone: [facility] 04-30-2017 14:06-0500 BMI (Body Mass Index) 38.8 kg/m2 Swathi Lewis MD [facility] 04-30-2017 14:06-0500 BP Diastolic 82 mm[Hg] Swathi Lewis MD [facility] 04-30-2017 14:06-0500 BP Systolic 133 mm[Hg] Swathi Lewis MD [facility] 04-30-2017 14:06-0500 Height 166.37 cm Swathi Lewis MD [facility] 04-30-2017 14:06-0500 Weight 107.41 kg Swathi Lewis MD [facility] 04-03-2017 09:57-0400 BMI (Body Mass Index) 39.72 kg/m2 Swathi Lewis MD [facility] 04-03-2017 09:57-0400 Body Temperature 98.3 [degF] Swathi Lewis MD [facility] 04-03-2017 09:57-0400 BP Diastolic 80 mm[Hg] Swathi Lewis MD [facility] 04-03-2017 09:57-0400 BP Systolic 127 mm[Hg] Swathi Lewis MD [facility] 04-03-2017 09:57-0400 Pulse (Heart Rate) 107 /min Swathi Lewis MD [facility] 04-03-2017 09:57-0400 Respiratory Rate 16 /min Swathi Lewis MD [facility] 04-03-2017 09:57-0400 Weight 112.31 kg Swathi Lewis MD [facility] 02-12-2017 09:05-0400 Height 168.15 cm Swathi Lewis MD [facility] Encounters Encounter Date Encounter Type Care Provider Facility Start: 07-20-2023 End: 07-20-2023 Emergency department patient visit ESTELLA TOMAS MD [facility] Start: 05-23-2023 End: 05-23-2023 ambulatory MODESTO ZHU Facility:[facility] Start: 05-23-2023 End: 05-23-2023 Patient encounter procedure Josesito Levi HUA.MILK TANKER DRIVER Work Phone: [facility] Procedures Date Procedure Procedure Detail Performing Clinician Start: 08-30-2022 Level iv surg pathol ogy gross&microscopic exam Rachel Puentes MD Work Phone: Start: 08-30-2022 Colonoscopy flx dx w /collj spec when pfrmd Meghan French TRIM DIE MAKER.MILK TANKER DRIVER Work Phone: Start: 02-01-2021 Adult depression scr [...] P,Tdap,Td Vaccine (2 - Td or Tdap) [facility] Start: 01-11-2027 HPV TESTING HPV TESTING [facility] Start: 01-11-2027 PAP TESTING PAP TESTING [facility] Start: 01-11-2027 Screening for malign ant neoplasm of cervix [facility] Start: 01-14-2025 HPV TESTING HPV TESTING [facility] Start: 01-14-2025 PAP TESTING PAP TESTING [facility] Start: 05-23-2024 Covid-19 Vaccine (#1) Covid-19 Vacci ne (#1) [facility] Immunizations Immunization Date Immunization Notes Care Provider Fa cility 07-07-2019 influenza virus vaccine, unspecified formulation Josesito Levi TRIM DIE MAKER.MILK TANKER DRIVER Work Phone: [facility] 01-31-2017 tetanus toxoid, reduced diphtheria toxoid, and acellular pertussis vaccine, adsorbed Swathi Lewis MD [facility] 01-17-2017 [id number] Swathi garcia MD [facility] 05-13-2013 influenza virus vaccine, unspecified formulation Modesto Zhu DO Work Phone: [facility] Work Phone: Payers Date Payer Category Payer Unknown [employer] PPO [id number] 2023-Present [phone] [address] [place] [address] PPO [id number] 2023 Unknown [id number] 2022 Medicaid [id number] 2016 Medicaid [employer] [id number] 2016-Present [phone] [address] [place] [address] Medicaid [id number] 2016 Medicaid [id number] Social History Date Type Detail Facility Start: 05-28-2013 End: 08-30-2022 Tobacco smoking status NHIS Never smoked tobacco [facility] Start: 06-29-2021 End: 05-23-2023 Alcohol intake Current drinker of alcohol (finding) [facility] Start: 11-22-2019 End: 05-11-2022 History SDOH Alcohol Frequency 2 [facility] Start: 11-22-2019 End: 05-11-2022 History SDOH Alcohol Std Drinks 1 [facility] Start: 11-20-2018 History SDOH Alcohol Comment socially- rare [facility] Start: 11-22-2019 End: 05-11-2022 History SDOH Social Connections Phone 5 [facility] Start: 11-22-2019 End: 05-11-2022 History SDOH Social Connections Zoroastrianism 3 [facility] Start: 11-21-2019 Education 21 [facility] Start: 1985 Sex Assigned At Not on file C [facility] Start: 01-05-2021 End: 01-27-2022 Exposure to SARS-CoV-2 (event) Not sure [facility] Start: 05-28-2013 End: 08-30-2022 Tobacco use and exposure Smokeless tobacco non-user [facility] Start: 05-11-2022 History SDOH Alcohol Std Drinks 0 [facility] Start: 05-11-2022 History SDOH Social Connections Meetings 98 [facility] Start: 05-11-2022 End: 05-21-2023 History of Social function [facility] Start: 05-11-2022 End: 05-21-2023 Social connection and isolation panel [facility] Do you belong to any clubs or organizations such as anglican groups, Moov cc.s, M-Changa or athletic groups, or school groups? No [facility] How often do you att end meetings of the clubs or organizations you belong to? Patient refused [facility] Are you now , , , , never or living with a partner? [facility] How often to you hav e a drink containing alcohol? Never [facility] Do you feel stress - tense, restless, nervous, or anxious, or unable to sleep at night because your mind is troubled all the time - these days [OSQ] To some extent [facility] (I/We) worried wheth er (my/our) food would run out before (I/we) got money to buy more. Never true [facility] Do you belong to any clubs or organizations such as anglican groups, [employer] cc.s, M-Changa or athleVino Volo groups, or school groups? Yes [facility] Sex Assigned At Sex [facility] Functional Status Date Assessment Result Facility 07-20-2023 Functional Status Independent [facility] 07-20-2023 Functional Status Standard Safet y ID band on, Allergy Band on, Call device within reach, Bed in low position, Wheels locked, Upper/Half-Length side-rails up [facility] Mental Status Date Assessment Result Facility 07-20-2023 Mental Status Orientation Oriented x 4 [facility] 07-20-2023 Mental Status [facility] Clinical Notes 11-16-2016 to 07-20-2023 Josesito Levi APRN.MILK TANKER DRIVER - 05/23/2023 9:19 AM ESTTelephone Encounter - Tomás Marquis - 05/21/2023 8:41 AM ESTTelephone Encounter - Casandra Bain LPN - 05/19/2023 8:19 AM EST Note Date & Type Note Facility 07-20-2023 Hospital Discharge instructions Patient Education 07/20/2023 21:16:32 Kidney Stone w/ Colic Kidney Stone with Pain The sharp cramping pain on either side of your lower back and nausea/vomiting that you have are because of a small stone that has formed in the kidney. It is now passing down a narrow tube (ureter) on its way to your bladder. Once the stone reaches your bladder, the pain will often stop. But it may come back as the stone continues to pass out of the bladder and through the urethra. The stone may pass in your urine stream in one piece. The size may be 1/16 inch to 1/4 inch (1 mm to 6 mm). Or, the stone may break up into hossein fragments that you may not even notice. Once you have had a kidney stone, you are at risk of getting another one in the future. There are 4 types of kidney stones. Eighty percent are calcium stones mostly calcium oxalate but also some with calcium phosphate. The other 3 types include uric acid stones, struvite stones (from a preceding infection), and rarely, cystine stones. Most stones will pass on their own, but may take from a few hours to a few days. Sometimes the stone is too large to pass by itself. In that case, the healthcare provider will need to use other ways to remove the stone. These techniques include: Lithotripsy. This uses ultrasound waves to break up the stone. Ureteroscopy. This pushes a basket-like instrument through the urethra and bladder and into the ureter to pull out the stone. Various types of direct surgery through the skin Home care The following are general care guidelines: Drink plenty of fluids. This means at least 12, 8-ounce glasses of fluid mostly water a day. Each time you urinate, do so in a jar. Pour the urine from the jar through the strainer and into the toilet. Continue doing this until 24 hours after your pain stops. By then, if there was a kidney stone, it should pass from your bladder. Some stones dissolve into sand-like particles and pass right through the strainer. In that case, you won t ever see a stone. Save any stone that you find in the strainer and bring it to your healthcare provider to look at. It may be possible to stop certain types of stones from forming. For this reason, it is important to know what kind of stone you have. Try to stay as active as possible. This will help the stone pass. Don't stay in bed unless your pain keeps you from getting up. You may notice a red, pink, or brown color to your urine. This is normal while passing a kidney stone. If you develop pain, you may take ibuprofen or naproxen for pain, unless another medicine was prescribed. If you have chronic liver or kidney disease, talk with your healthcare provider before taking these medicines. Also talk with your provider if you've had a stomach ulcer or GI bleeding. Preventing stones Each year for the next 5 to 7 years, you are at risk that a new stone will form. Your risk is a 50% chance over this time period. The risk is higher if you have a family history of kidney stones or have certain chronic illnesses like hypertension, obesity, or diabetes. But you can make changes to your lifestyle and diet that can lower your risk for another stone. Most kidney stones are made of calcium. The following is advice for preventing another calcium stone. If you don t know the type of stone you have, follow this advice until the cause of your stone is found. Things that help: The most important thing you can do is to drink plenty of fluids each day. See home care above. Eat foods that contain phytates. These include wheat, rice, rye, barley, and beans. Phytates are substances that may lower your risk for any type of stone to form. Eat more fruits and vegetables. Choose those that are high in potassium. Eat foods high in natural citrate like fruit and low-sugar fruit juices. Having too little calcium in your diet can put you at risk for calcium kidney stones. Eat a normal amount of calcium in your diet and talk with your healthcare provider if you are taking calcium supplements. Cutting back on your calcium intake may raise your risk. New research shows that eating calcium-rich and oxalate-rich foods together lowers your risk for stones by binding the minerals in the stomach and intestines before they can reach the kidneys. Limit salt intake to 2 grams (1 teaspoon) per day. Use limited amounts when cooking, and don t add salt at the table. Processed and canned foods are usually high in salt. Spinach, rhubarb, peanuts, cashews, almonds, grapefruit, and grapefruit juice are all high oxalate foods. You should limit how much of these you eat. Or eat them with calcium-rich foods. These include dairy products, dark leafy greens, soy products, and calcium-enriched foods. Reducing the amount of animal meat and high protein foods in your diet may lower your risk for uric acid stones. Avoid excess sugar (sucrose) and fructose (sweetener in many soft drinks) in your diet. If you take vitamin C as a supplement, don't take more than 1,000 mg a day. A dietitian or your healthcare provider can give you information about changes in your diet that will help prevent more kidney stones from forming. Follow-up care Follow up with your healthcare provider, or as advised, if the pain lasts more than 48 hours. Talk with your provider about urine and blood tests to find out the cause of your stone. If you had an X-ray, CT scan, or other diagnostic test, you will be told of any new findings that may affect your care. Call 911 Call 911 if you have any of these: Weakness, dizziness, or fainting When to seek medical advice Call your healthcare provider right away if any of these occur: Pain that is not controlled by the medicine given Repeated vomiting or unable to keep down fluids Fever of 100.4 F (38 C) or higher, or as directed by your healthcare provider Passage of solid red or brown urine (can't see through it) or urine with lots of blood clots Foul-smelling or cloudy urine Unable to pass urine for 8 hours and increasing bladder pressure [id number] [employer]. [address] [place] [address]. All rights reserved. This information is not intended as a substitute for professional medical care. Always follow your healthcare professional's instructions. Follow Up Care 07/20/2023 13:56:26 With:BRINA NAVA MD, [facility] Address: [address] [place] [address], [address] [facility] [place] [address] [phone] When:2-4 days [facility] 07-20-2023 Emergency department Discharge summary Discharge Instructions Thank you for allowing [facility] to assist you with your healthcare needs. The following is important discharge information regarding your hospital visit. Diagnosis from Today's Visit Blood in urine Colic, ureteral Flank pain What to Do Next Instructions from Your Care Team No qualifying data available. Post Acute Orders No qualifying data available. You Need to Schedule the Following Appointments Follow Up with BRINA NAVA MD, [facility] When Within 2-4 days Where: [address], [address] [facility] [place] [address]- [phone] Allergies penicillin Medications Please ask your primary doctor or pharmacist before taking any other medication not listed, including over the counter drugs, herbal medications, vitamins and or supplements as they may interact with your home medications. What How Much When Why Instructions Last Dose New acetaminophen-oxyCODONE (acetaminophen-oxyCODONE 325 mg-5 mg oral tablet) 1 tab(s) by mouth Every 6 hours as needed for for pain Colic, ureteral Duration: 3 Days Printed Prescription New cephalexin (cephalexin 500 mg oral capsule) 1 cap by mouth Every 12 hours Duration: 10 Days Printed Prescription New ondansetron (ondansetron 4 mg oral tablet, disintegrating) 1 tab(s) by mouth Every 6 hours as needed for Nausea/Vomiting Duration: 5 Days Printed Prescription New tamsulosin (Flomax 0.4 mg oral capsule) 1 cap by mouth Once a day Printed Prescription Unchanged albuterol (albuterol MDI (90 mcg/ inh) CFC free inhalation aerosol) 2 puff(s) by inhalation Every 4 hours as needed for as needed for wheezing Unchanged lisdexamfetamine (lisdexamfetamine 70 mg oral capsule) 1 cap by mouth Once a day (in the morning) Unchanged topiramate (topiramate 100 mg oral tablet) 1 tab(s) by mouth Two (2) times a day Please take this list to your next doctor s visit. Bring all medications you take, including over the counter medications, herbals and other supplements with you to your doctor s visit. Patients and families are reminded to discard old lists and to update any records with all medication providers or retail pharmacies. Education Materials Kidney Stone with Pain The sharp cramping pain on either side of your lower back and nausea/vomiting that you have are because of a small stone that has formed in the kidney. It is now passing down a narrow tube (ureter) on its way to your bladder. Once the stone reaches your bladder, the pain will often stop. But it may come back as the stone continues to pass out of the bladder and through the urethra. The stone may pass in your urine stream in one piece. The size may be 1/16 inch to 1/4 inch (1 mm to 6 mm). Or, the stone may break up into hossein fragments that you may not even notice. Once you have had a kidney stone, you are at risk of getting another one in the future. There are 4 types of kidney stones. Eighty percent are calcium stones mostly calcium oxalate but also some with calcium phosphate. The other 3 types include uric acid stones, struvite stones (from a preceding infection), and rarely, cystine stones. Most stones will pass on their own, but may take from a few hours to a few days. Sometimes the stone is too large to pass by itself. In that case, the healthcare provider will need to use other ways to remove the stone. These techniques include: Lithotripsy. This uses ultrasound waves to break up the stone. Ureteroscopy. This pushes a basket-like instrument through the urethra and bladder and into the ureter to pull out the stone. Various types of direct surgery through the skin Home care The following are general care guidelines: Drink plenty of fluids. This means at least 12, 8-ounce glasses of fluid mostly water a day. Each time you urinate, do so in a jar. Pour the urine from the jar through the strainer and into the toilet. Continue doing this until 24 hours after your pain stops. By then, if there was a kidney stone, it should pass from your bladder. Some stones dissolve into sand-like particles and pass right through the strainer. In that case, you won t ever see a stone. Save any stone that you find in the strainer and bring it to your healthcare provider to look at. It may be possible to stop certain types of stones from forming. For this reason, it is important to know what kind of stone you have. Try to stay as active as possible. This will help the stone pass. Don't stay in bed unless your pain keeps you from getting up. You may notice a red, pink, or brown color to your urine. This is normal while passing a kidney stone. If you develop pain, you may take ibuprofen or naproxen for pain, unless another medicine was prescribed. If you have chronic liver or kidney disease, talk with your healthcare provider before taking these medicines. Also talk with your provider if you've had a stomach ulcer or GI bleeding. Preventing stones Each year for the next 5 to 7 years, you are at risk that a new stone will form. Your risk is a 50% chance over this time period. The risk is higher if you have a family history of kidney stones or have certain chronic illnesses like hypertension, obesity, or diabetes. But you can make changes to your lifestyle and diet that can lower your risk for another stone. Most kidney stones are made of calcium. The following is advice for preventing another calcium stone. If you don t know the type of stone you have, follow this advice until the cause of your stone is found. Things that help: The most important thing you can do is to drink plenty of fluids each day. See home care above. Eat foods that contain phytates. These include wheat, rice, rye, barley, and beans. Phytates are substances that may lower your risk for any type of stone to form. Eat more fruits and vegetables. Choose those that are high in potassium. Eat foods high in natural citrate like fruit and low-sugar fruit juices. Having too little calcium in your diet can put you at risk for calcium kidney stones. Eat a normal amount of calcium in your diet and talk with your healthcare provider if you are taking calcium supplements. Cutting back on your calcium intake may raise your risk. New research shows that eating calcium-rich and oxalate-rich foods together lowers your risk for stones by binding the minerals in the stomach and intestines before they can reach the kidneys. Limit salt intake to 2 grams (1 teaspoon) per day. Use limited amounts when cooking, and don t add salt at the table. Processed and canned foods are usually high in salt. Spinach, rhubarb, peanuts, cashews, almonds, grapefruit, and grapefruit juice are all high oxalate foods. You should limit how much of these you eat. Or eat them with calcium-rich foods. These include dairy products, dark leafy greens, soy products, and calcium-enriched foods. Reducing the amount of animal meat and high protein foods in your diet may lower your risk for uric acid stones. Avoid excess sugar (sucrose) and fructose (sweetener in many soft drinks) in your diet. If you take vitamin C as a supplement, don't take more than 1,000 mg a day. A dietitian or your healthcare provider can give you information about changes in your diet that will help prevent more kidney stones from forming. Follow-up care Follow up with your healthcare provider, or as advised, if the pain lasts more than 48 hours. Talk with your provider about urine and blood tests to find out the cause of your stone. If you had an X-ray, CT scan, or other diagnostic test, you will be told of any new findings that may affect your care. Call 911 Call 911 if you have any of these: Weakness, dizziness, or fainting When to seek medical advice Call your healthcare provider right away if any of these occur: Pain that is not controlled by the medicine given Repeated vomiting or unable to keep down fluids Fever of 100.4 F (38 C) or higher, or as directed by your healthcare provider Passage of solid red or brown urine (can't see through it) or urine with lots of blood clots Foul-smelling or cloudy urine Unable to pass urine for 8 hours and increasing bladder pressure 4159-9004 [employer]. [address] [place] [address]. All rights reserved. This information is not intended as a substitute for professional medical care. Always follow your healthcare professional's instructions. Additional Information VACCINATE! IT SAVES LIVES! Members of the community who have not yet received the COVID-19 vaccine and would like to receive it can visit one of [facility] vaccine clinics. There are many vaccine clinic locations within the [facility]. For locations and available times, please visit [email or web address] It is important to note that some COVID mobile vaccine clinics are held outdoors and may be canceled in rainy or stormy conditions. To learn more about pediatric vaccinations (ages 5-11), we invite you to visit the [facility] webpage. [email or web address]-[email or web address] [email or web address] To learn more about the COVID-19 vaccine, we invite you to visit the CDC website for a list of frequently asked questions. https://www.cdc.gov/coronavirus/2 019-ncov/vaccines/faq.html [facility] Patient Portal Access Instructions: Stay connected with your healthcare team and access your personal medical information anytime with the [facility] Patient Portal. If you would like a full copy of your medical records please contact the [facility] Medical Records Department Sunday through Sunday between 8a.m. and 4:30p.m. Please follow the directions below to access the portal: 1.Access the email account you provided upon registration to the [facility].2.Look for an invitation email from [facility].3.Open the email and access the invitation link: Accept Invitation to [facility].Fill in the required royal to create your account. Sign into [email or web address] with your username and password that you created in the above steps to stay up to date. You can then view a summary of results, a summary of your visits, and the ability to download your summaries to your computer or send the information securely to a physician. Remember that your healthcare information is confidential, so carefully consider who you will allow to register on the [facility] Patient Portal for access to your information. You can also access the [facility] Patient Portal on the Cherry. Simply click on Health Records under Health Data and then click on the [employer] logo. HOW TO SAFELY DISPOSE OF PRESCRIPTION MEDICATIONS Please use one of the following methods to safely dispose of your unused medications. 1.Use a drug disposal kit: the drug disposal pouch allows you to safely discard your old and unused drugs. Ask your nurse to give you one when you are discharged.2.Visit a local take-back location: Many local pharmacies and police departments have programs that collect old and unwanted prescription drugs. Call your local pharmacy or go to http://eBay.Swift Navigation/0P9Ek0e to find one close to you.3.Make use of household items: Use cat litter or old coffee grounds to dispose medications if other options are not available. Mix your drugs with these household products, seal them in an airtight container and throw it into the garbage. Call [facility]: [phone] to be sure your drugs can be disposed of in this way. Some medicines may require a different approach.4.Never flush your medications down the toilet. IF YOU HAVE BEEN PRESCRIBED AN OPIOIDS FOR PAIN If you have been prescribed an opioid (such as hydrocodone, oxycodone or morphine), it is critical to understand the possible side effects and risks of opioid pain medications. Even when taken as directed, opioids can have several side effects including: Tolerance, meaning you might need to take more of a medication for the same pain relief. Nausea, vomiting and/or constipation. Sleepiness, dizziness, dry mouth, confusion, depression or itching. Physical dependence, meaning you have withdrawal symptoms when a medication is stopped ? this can develop within a few days. KNOW YOUR RESPONSIBILITIES It is important to know exactly how much and how often to take the opioid pain medications you are prescribed. Never take opioids in higher amounts or more often than prescribed. Do not combine opioids with alcohol or other drugs that cause drowsiness, such as benzodiazepines, also known as benzos, including diazepam and alprazolam, muscle relaxants or sleep aids. Never sell or share prescription opioids. This is illegal. Store opioids in a secure place and out of reach of others (including children, family, friends and visitors). The last page(s) of this document has been signed and retained as a CHART COPY Signatures Patient Education Materials Kidney Stone w/ Colic Medication Leaflets My discharge plan and instructions have been reviewed and explained to me and IALONSO ABBY L understand my current condition and have read and understand these discharge instructions. I have received a written copy of the plan/instructions. If I have questions, I am aware that I should contact my doctor. Patient/Associate Teacher Signature: Date/Time: Relationship to Patient: ____ Witness Name/Signature: Date/Time: [facility] 07-20-2023 Emergency department Discharge summary Discharge Instructions Thank you for allowing [facility] to assist you with your healthcare needs. The following is important discharge information regarding your hospital visit. Diagnosis from Today's Visit Blood in urine Colic, ureteral Flank pain What to Do Next Instructions from Your Care Team No qualifying data available. Post Acute Orders No qualifying data available. You Need to Schedule the Following Appointments Follow Up with BRINA NAVA MD, [facility] When Within 2-4 days Where: [address], [address] [facility] [place] [address]- [phone] Allergies penicillin Medications Please ask your primary doctor or pharmacist before taking any other medication not listed, including over the counter drugs, herbal medications, vitamins and or supplements as they may interact with your home medications. What How Much When Why Instructions Last Dose New acetaminophen-oxyCODONE (acetaminophen-oxyCODONE 325 mg-5 mg oral tablet) 1 tab(s) by mouth Every 6 hours as needed for for pain Colic, ureteral Duration: 3 Days Printed Prescription New ondansetron (ondansetron 4 mg oral tablet, disintegrating) 1 tab(s) by mouth Every 6 hours as needed for Nausea/Vomiting Duration: 5 Days Printed Prescription New tamsulosin (Flomax 0.4 mg oral capsule) 1 cap by mouth Once a day Printed Prescription Unchanged albuterol (albuterol MDI (90 mcg/ inh) CFC free inhalation aerosol) 2 puff(s) by inhalation Every 4 hours as needed for as needed for wheezing Unchanged lisdexamfetamine (lisdexamfetamine 70 mg oral capsule) 1 cap by mouth Once a day (in the morning) Unchanged topiramate (topiramate 100 mg oral tablet) 1 tab(s) by mouth Two (2) times a day Please take this list to your next doctor s visit. Bring all medications you take, including over the counter medications, herbals and other supplements with you to your doctor s visit. Patients and families are reminded to discard old lists and to update any records with all medication providers or retail pharmacies. Education Materials Kidney Stone with Pain The sharp cramping pain on either side of your lower back and nausea/vomiting that you have are because of a small stone that has formed in the kidney. It is now passing down a narrow tube (ureter) on its way to your bladder. Once the stone reaches your bladder, the pain will often stop. But it may come back as the stone continues to pass out of the bladder and through the urethra. The stone may pass in your urine stream in one piece. The size may be 1/16 inch to 1/4 inch (1 mm to 6 mm). Or, the stone may break up into hossein fragments that you may not even notice. Once you have had a kidney stone, you are at risk of getting another one in the future. There are 4 types of kidney stones. Eighty percent are calcium stones mostly calcium oxalate but also some with calcium phosphate. The other 3 types include uric acid stones, struvite stones (from a preceding infection), and rarely, cystine stones. Most stones will pass on their own, but may take from a few hours to a few days. Sometimes the stone is too large to pass by itself. In that case, the healthcare provider will need to use other ways to remove the stone. These techniques include: Lithotripsy. This uses ultrasound waves to break up the stone. Ureteroscopy. This pushes a basket-like instrument through the urethra and bladder and into the ureter to pull out the stone. Various types of direct surgery through the skin Home care The following are general care guidelines: Drink plenty of fluids. This means at least 12, 8-ounce glasses of fluid mostly water a day. Each time you urinate, do so in a jar. Pour the urine from the jar through the strainer and into the toilet. Continue doing this until 24 hours after your pain stops. By then, if there was a kidney stone, it should pass from your bladder. Some stones dissolve into sand-like particles and pass right through the strainer. In that case, you won t ever see a stone. Save any stone that you find in the strainer and bring it to your healthcare provider to look at. It may be possible to stop certain types of stones from forming. For this reason, it is important to know what kind of stone you have. Try to stay as active as possible. This will help the stone pass. Don't stay in bed unless your pain keeps you from getting up. You may notice a red, pink, or brown color to your urine. This is normal while passing a kidney stone. If you develop pain, you may take ibuprofen or naproxen for pain, unless another medicine was prescribed. If you have chronic liver or kidney disease, talk with your healthcare provider before taking these medicines. Also talk with your provider if you've had a stomach ulcer or GI bleeding. Preventing stones Each year for the next 5 to 7 years, you are at risk that a new stone will form. Your risk is a 50% chance over this time period. The risk is higher if you have a family history of kidney stones or have certain chronic illnesses like hypertension, obesity, or diabetes. But you can make changes to your lifestyle and diet that can lower your risk for another stone. Most kidney stones are made of calcium. The following is advice for preventing another calcium stone. If you don t know the type of stone you have, follow this advice until the cause of your stone is found. Things that help: The most important thing you can do is to drink plenty of fluids each day. See home care above. Eat foods that contain phytates. These include wheat, rice, rye, barley, and beans. Phytates are substances that may lower your risk for any type of stone to form. Eat more fruits and vegetables. Choose those that are high in potassium. Eat foods high in natural citrate like fruit and low-sugar fruit juices. Having too little calcium in your diet can put you at risk for calcium kidney stones. Eat a normal amount of calcium in your diet and talk with your healthcare provider if you are taking calcium supplements. Cutting back on your calcium intake may raise your risk. New research shows that eating calcium-rich and oxalate-rich foods together lowers your risk for stones by binding the minerals in the stomach and intestines before they can reach the kidneys. Limit salt intake to 2 grams (1 teaspoon) per day. Use limited amounts when cooking, and don t add salt at the table. Processed and canned foods are usually high in salt. Spinach, rhubarb, peanuts, cashews, almonds, grapefruit, and grapefruit juice are all high oxalate foods. You should limit how much of these you eat. Or eat them with calcium-rich foods. These include dairy products, dark leafy greens, soy products, and calcium-enriched foods. Reducing the amount of animal meat and high protein foods in your diet may lower your risk for uric acid stones. Avoid excess sugar (sucrose) and fructose (sweetener in many soft drinks) in your diet. If you take vitamin C as a supplement, don't take more than 1,000 mg a day. A dietitian or your healthcare provider can give you information about changes in your diet that will help prevent more kidney stones from forming. Follow-up care Follow up with your healthcare provider, or as advised, if the pain lasts more than 48 hours. Talk with your provider about urine and blood tests to find out the cause of your stone. If you had an X-ray, CT scan, or other diagnostic test, you will be told of any new findings that may affect your care. Call 911 Call 911 if you have any of these: Weakness, dizziness, or fainting When to seek medical advice Call your healthcare provider right away if any of these occur: Pain that is not controlled by the medicine given Repeated vomiting or unable to keep down fluids Fever of 100.4 F (38 C) or higher, or as directed by your healthcare provider Passage of solid red or brown urine (can't see through it) or urine with lots of blood clots Foul-smelling or cloudy urine Unable to pass urine for 8 hours and increasing bladder pressure [id number] [employer]. [address] [place] [address]. All rights reserved. This information is not intended as a substitute for professional medical care. Always follow your healthcare professional's instructions. Additional Information VACCINATE! IT SAVES LIVES! Members of the community who have not yet received the COVID-19 vaccine and would like to receive it can visit one of [facility] vaccine clinics. There are many vaccine clinic locations within the [facility]. For locations and available times, please visit [email or web address] It is important to note that some COVID mobile vaccine clinics are held outdoors and may be canceled in rainy or stormy conditions. To learn more about pediatric vaccinations (ages 5-11), we invite you to visit the [facility] webpage. [email or web address] [email or web address]-Pbijzdhsfxs-Freque [email or web address].html To learn more about the COVID-19 vaccine, we invite you to visit the CDC website for a list of frequently asked questions. https://www.cdc.gov/coronavirus/2 019-ncov/vaccines/faq.html [facility] Patient Portal Access Instructions: Stay connected with your healthcare team and access your personal medical information anytime with the [employer] [facility] Patient Portal. If you would like a full copy of your medical records please contact the [facility] Medical Records Department Sunday through Sunday between 8a.m. and 4:30p.m. Please follow the directions below to access the portal: 1.Access the email account you provided upon registration to the [facility].2.Look for an invitation email from [facility].3.Open the email and access the invitation link: Accept Invitation to [facility].Fill in the required royal to create your account. Sign into [email or web address] with your username and password that you created in the above steps to stay up to date. You can then view a summary of results, a summary of your visits, and the ability to download your summaries to your computer or send the information securely to a physician. Remember that your healthcare information is confidential, so carefully consider who you will allow to register on the [facility] Patient Portal for access to your information. You can also access the [facility] Patient Portal on the [employer] mir. Simply click on Health Records under Health Data and then click on the Jess logo. HOW TO SAFELY DISPOSE OF PRESCRIPTION MEDICATIONS Please use one of the following methods to safely dispose of your unused medications. 1.Use a drug disposal kit: the drug disposal pouch allows you to safely discard your old and unused drugs. Ask your nurse to give you one when you are discharged.2.Visit a local take-back location: Many local pharmacies and police departments have programs that collect old and unwanted prescription drugs. Call your local pharmacy or go to http://eBay.Swift Navigation/6V1Ev2d to find one close to you.3.Make use of household items: Use cat litter or old coffee grounds to dispose medications if other options are not available. Mix your drugs with these household products, seal them in an airtight container and throw it into the garbage. Call [facility]: [phone] to be sure your drugs can be disposed of in this way. Some medicines may require a different approach.4.Never flush your medications down the toilet. IF YOU HAVE BEEN PRESCRIBED AN OPIOIDS FOR PAIN If you have been prescribed an opioid (such as hydrocodone, oxycodone or morphine), it is critical to understand the possible side effects and risks of opioid pain medications. Even when taken as directed, opioids can have several side effects including: Tolerance, meaning you might need to take more of a medication for the same pain relief. Nausea, vomiting and/or constipation. Sleepiness, dizziness, dry mouth, confusion, depression or itching. Physical dependence, meaning you have withdrawal symptoms when a medication is stopped ? this can develop within a few days. KNOW YOUR RESPONSIBILITIES It is important to know exactly how much and how often to take the opioid pain medications you are prescribed. Never take opioids in higher amounts or more often than prescribed. Do not combine opioids with alcohol or other drugs that cause drowsiness, such as benzodiazepines, also known as benzos, including diazepam and alprazolam, muscle relaxants or sleep aids. Never sell or share prescription opioids. This is illegal. Store opioids in a secure place and out of reach of others (including children, family, friends and visitors). The last page(s) of this document has been signed and retained as a CHART COPY Signatures Patient Education Materials Kidney Stone w/ Colic Medication Leaflets My discharge plan and instructions have been reviewed and explained to me and I,JANNETTE GUPTA understand my current condition and have read and understand these discharge instructions. I have received a written copy of the plan/instructions. If I have questions, I am aware that I should contact my doctor. Patient/Associate Teacher Signature: Date/Time: Relationship to Patient: ____ Witness Name/Signature: Date/Time: [facility] 07-20-2023 Note ORIGINAL EXAMINATION: CT OF THE ABDOMEN AND PELVIS WITHOUT CONTRAST07/20/2023 3:[address] ABDOMEN/PELVIS WITHOUT CONTRAST TECHNIQUE: CT of the abdomen and pelvis was performed without the administration of intravenous contrast. Multiplanar reformatted images are provided for review. Automated exposure control, iterative reconstruction, and/or weight based adjustment of the mA/kV was utilized to reduce the radiation dose to as low as reasonably achievable. COMPARISON: None HISTORY: ORDERING SYSTEM PROVIDED HISTORY: Reason for Exam: right flank pain FINDINGS: Liver, gallbladder, spleen, pancreas, and adrenals are within normal limits. Right ureteropelvic junction 5 mm calculus causes moderate right hydronephrosis. In addition, punctate bilateral nonobstructive nephrolithiasis. Unremarkable left ureter. Urinary bladder is under distended, limiting evaluation. Included upper GI tract is unremarkable. Nonaneurysmal abdominal aorta. There is no acute abnormality of the GI tract. Prior cholecystectomy. No free air, free fluid, or adenopathy. Scattered pelvic phleboliths. 2.6 cm right ovarian cyst. No follow-up is recommended. Umbilical hernia with nonspecific soft tissue/skin thickening. Unremarkable bony structures. Noncontributory lung bases. IMPRESSION: Moderate right hydronephrosis with obstructing 5 mm right ureteropelvic junction stone. Bilateral punctate nonobstructive nephrolithiasis also noted. Nonspecific umbilical region skin thickening. Correlate with physical examination. Preliminary Report was Dictated by a Resident RECOMMENDATIONS: 2.6 cm right ovarian simple-appearing cyst. No follow-up imaging is recommended. Reference: JACR 2019;17(2):[id number] Interpreted by: Demetri Adams Preliminary Report By: Jose Angel Fernandez Electronically signed By Demetri Adams Dictated Date: 07/20/2023 4:04:14 PM Prelim Date: 07/20/2023 4:10:03 PM Sign Date: 07/20/2023 4:34:19 PM Ordering Provider: [facility] 07-20-2023 Evaluation + Plan note Diagnostic Tests PendingUrine Culture 07/20/23 [facility] 05-23-2023 Note HNO ID: [id number] Author: Josesito Levi APRN.MILK TANKER DRIVER Service: ? Author Type: Nurse Practitioner Type: [...] for pain pane (more content not included)... [facility] 05-23-2023 History of Present illness Narrative Chief [...] Date ABDOMINAL SURGERY HX APPENDECTOMY HX SNGL 2016 COLONOSCOPY 08/30/2022 LAPAROSCOPIC APPENDECTOMY 07/22/2007 PAST SURGICAL [...] Patient agreeable to treatment plan. Josesito Price APRN.MILK TANKER DRIVER [address] [place] [address] documented in this encounter [facility] 05-21-2023 Miscellaneous Notes Pt is scheduled for virtual visit with ACADEMY EDUCATION DIRECTOR today at 11:40am. Provider is requesting in office visit and also pt is due for urine tox screen. Phoned pt to advise of the same, voicemail box is full, unable to leave message. Tomás Marquis documented in this encounter [facility] 05-19-2023 Miscellaneous Notes Attempted to reach pt by phone without success. Sent a [facility] message with explanation why medication was denied. Casandra Bain LPN Pt needs to be seen every 6 months to refill this d/t it being a controlled substance. Pt is overdue for appointment. Please schedule. Thank you, Josesito Levi APRN.MILK TANKER DRIVER The following approved medication requests have been transmitted electronically. Requested Prescriptions Refused Prescriptions Disp Refills lisdexamfetamine (VYVANSE) 60 mg capsule 30 capsule 0 Sig: Take 1 capsule by mouth once daily for 30 days. Refused By: JOSESITO LEVI Reason for Refusal: Patient needs appointment Josesito Levi APRN.MILK TANKER DRIVER BHARATI-09/29/22 Labs-09/20/22 NOV-none Frances Ochoa LPN documented in this encounter [facility] 03-28-2023 Miscellaneous Notes Date of last office: 09/29/2022 Date of next office visit: None Requested Prescriptions Pending Prescriptions Disp Refills topiramate (TOPAMAX) 100 mg tablet 60 tablet 1 Sig: Take 1 tablet by mouth two times a day. Date of Last Labs: 09/20/2022 Please advise. Thank you. Magda Rothman RN. documented in this encounter [facility] 03-20-2023 Miscellaneous Notes OK to refill as ordered Rizwan Nichols MD patient calling due to insurance co will no longer cover the vyvanse 30mg 2 daily so she is needing a new rx for the 60mg once daily. rx has been pended for approval patient only needs called if problem with refilling medication documented in this encounter [facility] 03-19-2023 Miscellaneous Notes The following approved [...] Faye Harper MA documented in this encounter [facility] 01-26-2023 Miscellaneous Notes Pt. informed via [...] Indu Torres MA documented in this encounter [facility] 01-25-2023 Miscellaneous Notes [facility] message turned into TE. Indu Torres MA documented in this encounter [facility] 12-15-2022 Miscellaneous Notes Pt notified via rx has been sent to pharm. Macario [...] of last office visit in primary care: [facility] 09/29/22 NOV not scheduled Last 2 Encounter Wt Readings: Date: Wt: 09/29/2022 87.1 kg (192 lb) 09/20/2022 88.9 kg (196 lb) Please advise. Thank you. ARELY Rodriguez documented in this encounter [facility] 09-29-2022 Note HNO ID: [id number] Author: Modesto Zhu, DO Service: ? Author [...] no other changes. She was seen by Factory Clerk Dr. Mendieta and was told to complete [...] November 21, 2016 Cerclage being placed by [facility] on 11/22/16. On vaginal progesterone. Jessi Pierre MD Cerclage placed on 11/22 -- vaginal progesterone Supervision of other high risk pregnancies, first trimester 12/17/2013 PAST SURGICAL HISTORY Procedure Laterality Date ABDOMINAL SURGERY HX APPENDECTOMY HX SNGL 2016 LAPAROSCOPIC APPENDECTOMY 07/22/2007 PAST SURGICAL [...] stop the vyvanse and should d/w her consumer credit counselor as well. - LISDEXAMFETAMINE 70 MG CAPSULE 3. 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 D/w her that if she develops bloody stools again, has to stop the vyvanse and should d/w her consumer credit counselor as well. She is aware of the risk Modesto Zhu DO Return if no improvement. Follow up with Modesto Zhu DO. To ER if develops chest pain, shortness of breath Discussed risks, benefits, alternatives, and potential side effects of medications. Patient/Guardian expressed understanding and agreed with the plan. See patient (more content not included)... [facility] 09-20-2022 Note HNO ID: [id number] Author: Corinne Mendieta MD Service: ? Author Type: Physician Type: Progress Notes Filed: 09/24/2022 12:32 PM Note Text: NAME: Jannette Gupta [employer] NO: [id number] REASON FOR VISIT Jannette Gupta is a [...] 48.3 45.8 PROMIS Global Health Scale 03/18/2022 05/11/202209/19/2022 Physical Health Percentile 41 % 66 % [...] Colon, transverse and (more content not included)... [facility] 09-20-2022 History of Present illness Narrative NAME: Jannette Gupta [employer] NO: [id number] REASON FOR VISIT Jannette Gupta is a [...] November 21, 2016 Cerclage being placed by [facility] on 11/22/16. On vaginal progesterone. Jessi [...] up in 3-6 months Corinne Mendieta MD, September 19, 2022 4:56 PM documented in this encounter [facility] 09-13-2022 Miscellaneous Notes The following approved medication requests have been transmitted electronically. Requested Prescriptions Signed Prescriptions Disp Refills lisdexamfetamine (VYVANSE) 70 mg capsule 30 capsule 0 Sig: Take 1 capsule by mouth once daily for 30 days. Authorizing Provider: MEGHAN FRENCH APRN.[facility] PDMP website checked and validated. All prescriptions have been APPROPRIATELY filled. No suspicious activity was identified. 09/13/2022 by Meghan French CNP. Nov--nothing scheduled Bharati--05/17/22 Last refill--08/14/22 30 with 0 refills Last labs-02/07/21 documented in this encounter [facility] 08-30-2022 Nurse Note Arrived in phase II via cart. Left lateral position. Sedated, but responds to verbal stimuli. Color normal; skin warm and dry. Respirations wnl and unlabored. Abdomen soft and with + bowel sounds in quads X 4. Patient resting comfortably. Elisa Harp RN documented in this encounter [facility] 08-30-2022 History and physical note UPDATED [...] SIGNATURE: Rachel Puentes MD PATIENT NAME: Jannette Gupta DATE: August 30, 2022 TIME: 10:31 AM Source Note - Rachel Puentes MD - 08/30/2022 11:15 AM EDT HISTORY AND PHYSICAL Jannette Cleary Alonso 1985 REFERRING PHYSICIAN: Meghan French APRN* CHIEF [...] November 21, 2016 Cerclage being placed by [facility] on 11/22/16. On vaginal progesterone. Jessi [...] November 21, 2016 Cerclage being placed by [facility] on 11/22/16. On vaginal progesterone. Jessi [...] Rachel Puentes MD documented in this encounter [facility] 08-28-2022 Miscellaneous Notes Miralax/Dulcolax bowel prep instruction sent to Jannette via My Chart. Marjorie Tran RN Pt calls to report she has a colonoscopy scheduled for this 08/30. Pt reports she bought Miralax for bowel prep. Pt reports the directions have her doing a liquid diet today and tomorrow. Pt wants to make sure that is correct. Pt ask for a reply in [facility]. Ros Wagner LPN documented in this encounter [facility] 08-24-2022 Miscellaneous Notes Noted, agree with below. Meghan French APRN.CNP Patient call in for rectal bleeding, blood [...] Had Hysterectomy in April Protocols used: Rectal [id number] TC patient in regards to MyChart message. Left message for patient to call back and speak with a triage nurse regarding blood in stool. Magda Rothman RN documented in this encounter [facility] 08-14-2022 Miscellaneous Notes PDMP website checked and validated. All prescriptions have been APPROPRIATELY filled. No suspicious activity was identified. 08/14/2022 by Josesito Levi APRN.CNP The following approved [...] Faye Harper MA documented in this encounter [facility] 07-12-2022 Miscellaneous Notes PDMP website checked and validated. All prescriptions have been APPROPRIATELY filled. No suspicious activity was identified. 07/12/2022 by Josesito Levi APRN.CNP The following approved medication requests have been transmitted electronically. Requested Prescriptions Signed Prescriptions Disp Refills lisdexamfetamine (VYVANSE) 70 mg capsule 30 capsule 0 Sig: Take 1 capsule by mouth once daily for 30 days. Authorizing Provider: JOSESITO LEVI APRN.MILK TANKER DRIVER Patient has been identified by name and date of : Yes Patient phones for refill(s): Requested Prescriptions Pending Prescriptions Disp Refills lisdexamfetamine (VYVANSE) 70 mg capsule 30 capsule 0 Sig: Take 1 capsule by mouth once daily for 30 days. Date of last office visit in primary care: 01/27/2022 Please advise. Thank you. Lilly Rai LPN documented in this encounter [facility] 07-11-2022 Miscellaneous Notes Patient has been identified by name and date of : Yes Patient phones for refill(s): Requested Prescriptions Pending Prescriptions Disp Refills topiramate (TOPAMAX) 50 mg tablet 60 tablet 1 Sig: Take 1 tablet by mouth twice daily. Date of last office visit in primary care: 01/27/2022 Please advise. Thank you. Lilly Rai LPN documented in this encounter [facility] 06-15-2022 Miscellaneous Notes The following approved [...] refills Last labs--02/07/21 documented in this encounter [facility] 05-17-2022 History of Present illness Narrative [...] Total Time Spent: 11 minutes Meghan French APRN.HOME documented in this encounter [facility] 04-27-2022 Miscellaneous Notes Called and left [...] adderall. Please send to [facility]y [facility] in [place]. Ana Galan Ma Please call Jannette and [...] note were not included. Please see pt [employer] message and advise documented in this encounter [facility] 04-20-2022 Miscellaneous Notes See TE 04/20 Ana Galan Ma documented in this encounter [facility] 04-12-2022 Miscellaneous Notes Please see TE 04/12 Ana Galan Ma documented in this encounter [facility] 03-22-2022 History of Present illness Narrative [...] NOTE This is a virtual visit using [facility] video visit. It required patient-provider interaction for [...] November 21, 2016 Cerclage being placed by [facility] on 11/22/16. On vaginal progesterone. Jessi [...] which included preparing to see the patient, [id number] patient care, completing clinical documentation, obtaining and/or reviewing separately obtained history, and performing a medically appropriate examination Modesto Zhu DO documented in this encounter [facility] 02-27-2022 History of Present illness Narrative [...] NOTE This is a virtual visit using [facility] video visit. It required patient-provider interaction for [...] which included preparing to see the patient, [id number] patient care, completing clinical documentation, obtaining and/or reviewing separately obtained history, performing a medically appropriate examination, and ordering medications, tests, or procedures Modesto Zhu DO documented in this encounter [facility] 02-10-2022 Miscellaneous Notes PDMP website checked and validated. All prescriptions have been APPROPRIATELY filled. No suspicious activity was identified. 02/10/2022 by Josesito Price APRN.HOME The following approved medication requests have been transmitted electronically. Requested Prescriptions Pending Prescriptions Disp Refills amphetamine-dextroamphetamine XR (ADDERALL XR) 25 mg 24 hr capsule 30 capsule 0 Sig: Take 1 capsule by mouth once daily for 30 days. Josesito Price APRN.HOME Patient phones requesting refills as follows: Requested Prescriptions Pending Prescriptions Disp Refills amphetamine-dextroamphetamine XR (ADDERALL XR) 25 mg 24 hr capsule 30 capsule 0 Sig: Take 1 capsule by mouth once daily for 30 days. BHARATI-01/27/22 Labs-01/16/21 NOV-02/24/22 med filled 01/12/22 Please review and advise. Frances Ochoa LPN documented in this encounter [facility] 01-12-2022 Miscellaneous Notes PDMP website checked [...] Ana Galan Ma documented in this encounter [facility] 11-30-2021 Miscellaneous Notes Mailed to patient home address Ana Galan Ma [employer] mail patient Adult ADD/ADHD questionnaire. Meghan French APRN.CNP documented in this encounter [facility] 11-30-2021 History of Present illness Narrative VIRTUAL VISIT PROGRESS NOTE This is a virtual visit using [facility] video visit. It required patient-provider interaction for the medical decision making as documented below. Jannette Gupta is a 36 year old female seen for medication/ADHD. Today: Would like to get an opinion about ADHD. Has friends with this dx and feels like she may have this. At work, has difficulty staying on task. Works for [employer], and talks to a lot of other [...] November 21, 2016 Cerclage being placed by [facility] on 11/22/16. On vaginal progesterone. Jessi [...] medication. She will notify the office via [facility] with update. May consider increasing/changing dose at that point. Mailing out questionnaire for adult ADHD that patient will return via [facility] message. Meghan French APRN.HOME PDMP website checked and validated. All prescriptions have been APPROPRIATELY filled. No suspicious activity was identified. 11/30/2021 by Meghan French CNP. documented in this encounter [facility] 10-20-2021 Miscellaneous Notes Last office visit: 06/29/21 F/u scheduled: none Shelbie Burns Ma documented in this encounter [facility] 09-14-2021 Miscellaneous Notes Pt notified she would need appt to discuss ADHD. Advised her to call in and schedule. Shelbie Burns Ma documented in this encounter [facility] 09-12-2021 Miscellaneous Notes Agree with below. Meghan French APRN.HOME Advised patient to schedule appt for concern Ana Galan Ma documented in this encounter [facility] 02-17-2021 Miscellaneous Notes Phone call placed patient reported x2 moles located (LT) abd slightly raised, appointment scheduled w/ Dr. Zhu 05/04/2021 for possible removal if needed. Angie Bain LPN documented in this encounter [facility] documented as of this encounter (statuses as of 09/12/2021) [facility] History of Past illness Narrative* Problem Noted Date Resolved Date Short cervix during in second trimeste r 11/16/2016 07/07/2019 Overview: November 21, 2016 Cerclage being placed by [facility] on 11/22/16. On vaginal progesterone. Jessi [...] of this encounter (statuses as of 09/14/2021) [facility] of Past illness Narrative* Problem [...] of this encounter (statuses as of 10/20/2021) [facility] of [facility] Narrative* Problem [...] of this encounter (statuses as of 11/15/2021) [facility] of [facility] Narrative* Problem [...] of this encounter (statuses as of 11/30/2021) [facility] of [facility] Narrative* Problem [...] of this encounter (statuses as of 11/30/2021) [facility] of [facility] Narrative* Problem [...] of this encounter (statuses as of 01/12/2022) [facility] of Past [facility] Narrative* Problem Noted Date Resolved Date Short cervix during in second trimeste r 11/16/2016 07/07/2019 Overview: November 21, 2016 Cerclage being placed by [facility] on 11/22/16. On vaginal progesterone. 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 No [...] of this encounter (statuses as of 04/12/2022) [facility] Narrative* Problem [...] of this encounter (statuses as of 04/20/2022) [facility] N[facility]ative* Problem [...] of this encounter (statuses as of 04/27/2022) [facility] Narrative* Problem [...] of this encounter (statuses as of 05/17/2022) [facility] N[facility]* Problem [...] of this encounter (statuses as of 06/16/2022) [facility] N[facility]* Problem [...] of this encounter (statuses as of 07/12/2022) [facility] Narrative* Problem [...] of this encounter (statuses as of 07/12/2022) [facility] Narrative* Problem Noted Date Resolved Date Short cervix during in second trimeste r 11/16/2016 07/07/2019 Overview: November 21, 2016 Cerclage being placed by [facility] on 11/22/16. On vaginal progesterone. Jessi [...] of this encounter (statuses as of 08/14/2022) [facility] Narrative* Problem [...] of this encounter (statuses as of 08/24/2022) [facility] N[facility]* Problem [...] of this encounter (statuses as of 08/28/2022) [facility] N[facility]ative* Problem [...] of this encounter (statuses as of 08/28/2022) [facility] N[facility]* Problem [...] triage with 10 x 10 reactive tracing /8 BPP with normal prolonged monitoring at hospital. [...] of this encounter (statuses as of 08/30/2022) [facility] N[facility]* Problem [...] of this encounter (statuses as of 09/14/2022) [facility] N[facility]* Problem Noted Date Resolved Date Short cervix during in second trimeste r 11/16/2016 07/07/2019 Overview: November 21, 2016 Cerclage being placed by [facility] on 11/22/16. On vaginal progesterone. Jessi [...] of this encounter (statuses as of 09/24/2022) [facility] Narrative* Problem Noted Date Resolved Date Short cervix during in second trimeste r 11/16/2016 07/07/2019 Overview: November 21, 2016 Cerclage being placed by [facility] on 11/22/16. On vaginal progesterone. Jessi [...] of this encounter (statuses as of 09/29/2022) [facility] Narrative* Problem [...] of this encounter (statuses as of 12/15/2022) [facility]* Problem Noted Date Diagnosed Date Resolved Date Short cervix during pregnanc y in second trimester 11/16/2016 07/07/2019 Overview: November 21, 2016 Cerclage being placed by [facility] on 11/22/16. On vaginal progesterone. Jessi [...] of this encounter (statuses as of 01/25/2023) [facility] Narrative* Problem [...] trimester 12/17/2013 07/07/2019 Abnormal maternal glucose to [facility], antepartum 12/05/2013 02/04/2014 High-risk supervision 12/02/2013 01/07/2014 [...] of this encounter (statuses as of 01/26/2023) [facility] N[facility]* Problem [...] of this encounter (statuses as of 02/15/2023) [facility]* Problem [...] of this encounter (statuses as of 03/20/2023) [facility]* Problem [...] of this encounter (statuses as of 03/21/2023) [facility]* Problem [...] of this encounter (statuses as of 03/28/2023) [facility]* Problem [...] of this encounter (statuses as of 04/15/2023) [facility]* Problem [...] of this encounter (statuses as of 04/18/2023) [facility]* Problem Noted Date Diagnosed Date Resolved Date Short cervix during pregnanc y in second trimester 11/16/2016 07/07/2019 Overview: November 21, 2016 Cerclage being placed by [facility] on 11/22/16. On vaginal progesterone. Jessi [...] of this encounter (statuses as of 05/19/2023) [facility] Narrative* Problem [...] of this encounter (statuses as of 05/21/2023) [facility]06[facility] History of Past illness Narrative* Problem [...] of this encounter (statuses as of 05/23/2023) [facility] note* Diagnosis Attention deficit disorder (ADD) in adult- Primary Disorganized thought process Other symptoms involving nervous and musculoskeletal systems Difficulty with household tasks documented in this encounter [facility] note* Diagnosis Attention deficit disorder (ADD) in adult- Primary documented in this encounter [facility] note* Diagnosis Attention deficit disorder (ADD) in adult [facility] Diagnosis Obesity, Class II, BMI 35-39.9 Obesity, unspecified IFG (impaired fasting glucose) Impaired fasting glucose Attention deficit disorder (ADD) in adult documented in this encounter [facility] note* Diagnosis Obesity, Class II, BMI 35-39.9- Primary Obesity, unspecified Attention deficit disorder (ADD) in adult IFG (impaired fasting glucose) Impaired fasting glucose documented in this encounter [facility] note* Diagnosis Attention deficit disorder (ADD) in adult- Primary documented in this encounter [facility] note* Diagnosis Attention deficit disorder (ADD) in adult- Primary documented in this encounter [facility] note* Diagnosis Attention deficit disorder (ADD) in adult documented in this encounter [facility] note* Diagnosis Obesity, Class II, BMI 35-39.9 Obesity, unspecified documented in this encounter [facility] note* Diagnosis Attention deficit disorder (ADD) in adult [facility]* Diagnosis Attention deficit disorder (ADD) in adult documented in this encounter [facility] note* Diagnosis Attention deficit disorder (ADD) in adult [facility]* Diagnosis Indeterminate colitis- Primary Other and unspecified noninfectious gastroenteritis and colitis documented in this encounter [facility] note* Diagnosis Attention deficit disorder (ADD) in adult documented in this encounter [facility] note* Diagnosis Attention deficit disorder (ADD) in adult- Primary documented in this encounter [facility] note* Diagnosis Attention deficit disorder (ADD) in adult documented in this encounter [facility] note* Diagnosis Attention deficit disorder (ADD) in adult- Primary documented in this encounter [facility] note* Diagnosis Obesity, Class II, BMI 35-39.9 Obesity, unspecified documented in this encounter [facility] note* Diagnosis Change in bowel movement- Primary Other symptoms involving digestive system Rectal bleeding Hemorrhage of rectum and anus Constipation, unspecified constipation type Family history of Crohn's disease Family history of other digestive disorders documented in this encounter [facility] note* Diagnosis Attention deficit disorder (ADD) in adult documented in this encounter [facility] note* Diagnosis Attention deficit disorder (ADD) in adult documented in this encounter [facility] note* Diagnosis Attention deficit disorder (ADD) in adult documented in this encounter [facility] course Narrative No data available for this section [facility] for referral (narrative)* Outpatient Procedure (Routine) - Closed Specialty Diagnoses / Procedures Referred By Contac t Referred To Contact [facility] Diagnoses Constipation, unspecified constipation type Family history of Crohn's disease Procedures COLONOSCOPY DIAGNOSTIC COLONOSCOPY FLX DX W/COLLJ SPEC WHEN Meghan Kim APRN.CNP [address] [place] [address] [facility] [place] [address] [place] [address] Referral ID Status Reason Start Date Expiration Date V isits Requested Visits Authorized [id number] Closed Auto-Generate d Referral 08/23/2022 08/24/2023 1 1 [facility] for visit Narrative* Outpatient Procedure (Routine) - Closed Specialty Diagnoses / Procedures Referred By Abhijeet swanson Referred To Contact [facility] Diagnoses Constipation, unspecified constipation type Family history of Crohn's disease Procedures COLONOSCOPY DIAGNOSTIC COLONOSCOPY FLX DX W/COLLJ SPEC WHEN Meghan Kim APRN.CNP [address] [place] [address] [place] [address] [address] Referral ID Status Reason Start Date Expiration Date V isits Requested Visits Authorized [id number] Closed Auto-Generate d Referral 08/23/2022 08/24/2023 1 1 [facility] Summary Purpose Family History No Family History Records FoundNo Family History Records Found No data available for this section Advance Directives No Advanced Directives Records FoundNo Advanced Directives Records Found Reason for Referral Specialty Diagnoses / Procedures Referred By Contac t Referred To Contact Diagnoses Obesity, Class II, BMI 35-39.9 IFG (impaired fasting glucose) Modesto Zhu, DO [address] [place] [address] Referral ID Status Reason Start Date Expiration Date Visits Re quested Visits Authorized [id number] Closed 1 1 Specialty Diagnoses / Procedures Referred By Contac t Referred To Contact Gastroenterology Procedures CONSULT TO GASTROENTEROLOGY OFFICE/OUTPATIENT [facility] 60-74 MINUTES Rachel Puentes MD [address] [place] [address] Referral ID Status Reason Start Date Expiration Date Visits Requested Visits Authorized [id number] Authorized PCP Requested Referral 09/13/2022 08/30/2023 1 1 Specialty Diagnoses / Procedures Referred By Contac t Referred To Contact Diagnoses Attention deficit disorder (ADD) in adult Josesito Levi APRN.[employer]K T[employer] DRIVER [address] [place] [address] Referral ID Status Reason Start Date Expiration Date V isits Requested Visits Authorized [id number] Pending Review 1 1 Medications Administered Section [...] DATE CREATED AUTHOR AUTHOR'S ORGANIZ ATION 05/25/2023 [facility] Source Comments (unrecognize d section and content) In the event this informatio n is protected by the Federal Confidentiality of Alcohol and Drug Abuse Patient Records regulations: The Federal rules restrict any use of the information to criminally investigate or prosecute any alcohol or drug abuse patient.[facility] the event this information is protected by the Federal Confidentiality of Alcohol and Drug Abuse Patient Records regulations: The Federal rules restrict any use of the information to criminally investigate or prosecute any alcohol or drug abuse patient.[facility] the event this information is protected by the Federal Confidentiality of Alcohol and Drug Abuse Patient Records regulations: The Federal rules restrict any use of the information to criminally investigate or prosecute any alcohol or drug abuse patient.[facility] the event this information is protected by the Federal Confidentiality of Alcohol and Drug Abuse Patient Records regulations: The Federal rules restrict any use of the information to criminally investigate or prosecute any alcohol or drug abuse patient.[facility] the event this information is protected by the Federal Confidentiality of Alcohol and Drug Abuse Patient Records regulations: The Federal rules restrict any use of the information to criminally investigate or prosecute any alcohol or drug abuse patient.[facility] the event this information is protected by the Federal Confidentiality of Alcohol and Drug Abuse Patient Records regulations: The Federal rules restrict any use of the information to criminally investigate or prosecute any alcohol or drug abuse patient.[facility] the event this information is protected by the Federal Confidentiality of Alcohol and Drug Abuse Patient Records regulations: The Federal rules restrict any use of the information to criminally investigate or prosecute any alcohol or drug abuse patient.[facility] the event this information is protected by the Federal Confidentiality of Alcohol and Drug Abuse Patient Records regulations: The Federal rules restrict any use of the information to criminally investigate or prosecute any alcohol or drug abuse patient.[facility] the event this information is protected by the Federal Confidentiality of Alcohol and Drug Abuse Patient Records regulations: The Federal rules restrict any use of the information to criminally investigate or prosecute any alcohol or drug abuse patient.[facility] the event this information is protected by the Federal Confidentiality of Alcohol and Drug Abuse Patient Records regulations: The Federal rules restrict any use of the information to criminally investigate or prosecute any alcohol or drug abuse patient.[facility] the event this information is protected by the Federal Confidentiality of Alcohol and Drug Abuse Patient Records regulations: The Federal rules restrict any use of the information to criminally investigate or prosecute any alcohol or drug abuse patient.[facility] the event this information is protected by the Federal Confidentiality of Alcohol and Drug Abuse Patient Records regulations: The Federal rules restrict any use of the information to criminally investigate or prosecute any alcohol or drug abuse patient.[facility] the event this information is protected by the Federal Confidentiality of Alcohol and Drug Abuse Patient Records regulations: The Federal rules restrict any use of the information to criminally investigate or prosecute any alcohol or drug abuse patient.[facility] the event this information is protected by the Federal Confidentiality of Alcohol and Drug Abuse Patient Records regulations: The Federal rules restrict any use of the information to criminally investigate or prosecute any alcohol or drug abuse patient.[facility] the event this information is protected by the Federal Confidentiality of Alcohol and Drug Abuse Patient Records regulations: The Federal rules restrict any use of the information to criminally investigate or prosecute any alcohol or drug abuse patient.[facility] HospitalIn the event this information is protected by the Federal Confidentiality of Alcohol and Drug Abuse Patient Records regulations: The Federal rules restrict any use of the information to criminally investigate or prosecute any alcohol or drug abuse patient.[facility]In the event this information is protected by the Federal Confidentiality of Alcohol and Drug Abuse Patient Records regulations: The Federal rules restrict any use of the information to criminally investigate or prosecute any alcohol or drug abuse patient.[facility] HospitalIn the event this information is protected by the Federal Confidentiality of Alcohol and Drug Abuse Patient Records regulations: The Federal rules restrict any use of the information to criminally investigate or prosecute any alcohol or drug abuse patient.[facility] HospitalIn the event this information is protected by the Federal Confidentiality of Alcohol and Drug Abuse Patient Records regulations: The Federal rules restrict any use of the information to criminally investigate or prosecute any alcohol or drug abuse patient.[facility] the event this information is protected by the Federal Confidentiality of Alcohol and Drug Abuse Patient Records regulations: The Federal rules restrict any use of the information to criminally investigate or prosecute any alcohol or drug abuse patient.[facility]In the event this information is protected by the Federal Confidentiality of Alcohol and Drug Abuse Patient Records regulations: The Federal rules restrict any use of the information to criminally investigate or prosecute any alcohol or drug abuse patient.[facility]In the event this information is protected by the Federal Confidentiality of Alcohol and Drug Abuse Patient Records regulations: The Federal rules restrict any use of the information to criminally investigate or prosecute any alcohol or drug abuse patient.[facility]In the event this information is protected by the Federal Confidentiality of Alcohol and Drug Abuse Patient Records regulations: The Federal rules restrict any use of the information to criminally investigate or prosecute any alcohol or drug abuse patient.[facility]In the event this information is protected by the Federal Confidentiality of Alcohol and Drug Abuse Patient Records regulations: The Federal rules restrict any use of the information to criminally investigate or prosecute any alcohol or drug abuse patient.[facility]In the event this information is protected by the Federal Confidentiality of Alcohol and Drug Abuse Patient Records regulations: The Federal rules restrict any use of the information to criminally investigate or prosecute any alcohol or drug abuse patient.[facility]In the event this information is protected by the Federal Confidentiality of Alcohol and Drug Abuse Patient Records regulations: The Federal rules restrict any use of the information to criminally investigate or prosecute any alcohol or drug abuse patient.[facility]In the event this information is protected by the Federal Confidentiality of Alcohol and Drug Abuse Patient Records regulations: The Federal rules restrict any use of the information to criminally investigate or prosecute any alcohol or drug abuse patient.[facility] the event this information is protected by the Federal Confidentiality of Alcohol and Drug Abuse Patient Records regulations: The Federal rules restrict any use of the information to criminally investigate or prosecute any alcohol or drug abuse patient.[facility]In the event this information is protected by the Federal Confidentiality of Alcohol and Drug Abuse Patient Records regulations: The Federal rules restrict any use of the information to criminally investigate or prosecute any alcohol or drug abuse patient.[facility]In the event this information is protected by the Federal Confidentiality of Alcohol and Drug Abuse Patient Records regulations: The Federal rules restrict any use of the information to criminally investigate or prosecute any alcohol or drug abuse patient.[facility]In the event this information is protected by the Federal Confidentiality of Alcohol and Drug Abuse Patient Records regulations: The Federal rules restrict any use of the information to criminally investigate or prosecute any alcohol or drug abuse patient.[facility]In the event this information is protected by the Federal Confidentiality of Alcohol and Drug Abuse Patient Records regulations: The Federal rules restrict any use of the information to criminally investigate or prosecute any alcohol or drug abuse patient.[facility]In the event this information is protected by the Federal Confidentiality of Alcohol and Drug Abuse Patient Records regulations: The Federal rules restrict any use of the information to criminally investigate or prosecute any alcohol or drug abuse patient.[facility] HospitalIn the event this information is protected by the Federal Confidentiality of Alcohol and Drug Abuse Patient Records regulations: The Federal rules restrict any use of the information to criminally investigate or prosecute any alcohol or drug abuse patient.[facility] HospitalIn the event this information is protected by the Federal Confidentiality of Alcohol and Drug Abuse Patient Records regulations: The Federal rules restrict any use of the information to criminally investigate or prosecute any alcohol or drug abuse patient.[facility] HospitalIn the event this information is protected by the Federal Confidentiality of Alcohol and Drug Abuse Patient Records regulations: The Federal rules restrict any use of the information to criminally investigate or prosecute any alcohol or drug abuse patient.[facility] HospitalIn the event this information is protected by the Federal Confidentiality of Alcohol and Drug Abuse Patient Records regulations: The Federal rules restrict any use of the information to criminally investigate or prosecute any alcohol or drug abuse patient.[facility] HospitalIn the event this information is protected by the Federal Confidentiality of Alcohol and Drug Abuse Patient Records regulations: The Federal rules restrict any use of the information to criminally investigate or prosecute any alcohol or drug abuse patient.[facility] HospitalIn the event this information is protected by the Federal Confidentiality of Alcohol and Drug Abuse Patient Records regulations: The Federal rules restrict any use of the information to criminally investigate or prosecute any alcohol or drug abuse patient.[facility] Care Teams (unrecognized sec tion and content) Care Team Personnel Name: MODESTO ZHU DO Member Role: Primary Care Physician Address: Address: [address] [place] [address]- Care Team Related Persons Name: URVASHI GUPTA Address: [facility] Advertising Campaign Manager Relationship Specialty Start Date End Date Modesto Zhu DO [address] [facility] [place] [address] PCP - General Family Practice 08/27/20 Advertising Campaign Manager Relationship Specialty Start Date End Date Modesto Zhu DO [address] [facility] [place] [address] PCP - General Family Practice 08/27/20 Advertising Campaign Manager Relationship Specialty Start Date End Date Modesto Zhu DO [address] [facility] [place] [address] PCP - General Family Practice 08/27/20 Advertising Campaign Manager Relationship Specialty Start Date End Date Mdoesto Zhu DO [address] [facility] [place] [address] PCP - General Family Practice 08/27/20 Advertising Campaign Manager Relationship Specialty Start Date End Date Modesto Zhu DO [address] [facility] [place] [address] PCP - General Family Practice 08/27/20 Advertising Campaign Manager Relationship Specialty Start Date End Date Modesto Zhu DO [address] [facility] [place] [address] PCP - General Family Practice 08/27/20 Advertising Campaign Manager Relationship Specialty Start Date End Date Modesto Zhu, DO [address] [place] [address] PCP - General Family Practice 08/27/20 Advertising Campaign Manager Relationship Specialty Start Date End Date Modesto Zhu, DO [address] [place] [address] PCP - General Family Medicine 08/27/20 Advertising Campaign Manager Relationship Specialty Start Date End Date Modesto Zhu, DO [address] [place] [address] PCP - General Family Medicine 08/27/20 Advertising Campaign Manager Relationship Specialty Start Date End Date Modesto Zhu, DO [address] [place] [address] PCP - General Family Medicine 08/27/20 Advertising Campaign Manager Relationship Specialty Start Date End Date Modesto Zhu, DO [address] [place] [address] PCP - General Family Medicine 08/27/20 Advertising Campaign Manager Relationship Specialty Start Date End Date Modesto Zhu, DO [address] [place] [address] PCP - General Family Medicine 08/27/20 Advertising Campaign Manager Relationship Specialty Start Date End Date Modesto Zhu, DO [address] [place] [address] PCP - General Family Medicine 08/27/20 Advertising Campaign Manager Relationship Specialty Start Date End Date Modesto Zhu, DO [address] [place] [address] PCP - General Family Medicine 08/27/20 Advertising Campaign Manager Relationship Specialty Start Date End Date Modesto Zhu, DO [address] [place] [address] PCP - General Family Medicine 08/27/20 Advertising Campaign Manager Relationship Specialty Start Date End Date Modesto Zhu, DO [address] [facility] [place] [address] PCP - General Family Medicine 08/27/20 Advertising Campaign Manager Relationship Specialty Start Date End Date Modesto Zhu DO [address] [facility] [place] [address] PCP - General Family Medicine 08/27/20 Advertising Campaign Manager Relationship Specialty Start Date End Date Modesto Zhu DO [address] [facility] [place] [address] PCP - General Family Medicine 08/27/20 Advertising Campaign Manager Relationship Specialty Start Date End Date Modesto Zhu DO [address] [facility] [place] [address] PCP - General Family Medicine 08/27/20 Advertising Campaign Manager Relationship Specialty Start Date End Date Modesto Zhu DO [address] [facility] [place] [address] PCP - General Family Medicine 08/27/20 Advertising Campaign Manager Relationship Specialty Start Date End Date Modesto Zhu DO [address] [facility] [place] [address] PCP - General Family Medicine 08/27/20 Advertising Campaign Manager Relationship Specialty Start Date End Date Modesto Zhu DO [address] [facility] [place] [address] PCP - General Family Medicine 08/27/20 Advertising Campaign Manager Relationship Specialty Start Date End Date Modesto Zhu DO [address] [facility] [place] [address] PCP - General Family Medicine 08/27/20 Advertising Campaign Manager Relationship Specialty Start Date End Date Modesto Zhu, DO [address] [place], [place] [address] PCP - General Family Medicine 08/27/20 Advertising Campaign Manager Relationship Specialty Start Date End Date Modesto Zhu, DO [address] [place], [place] [address] PCP - General Family Medicine 08/27/20 Advertising Campaign Manager Relationship Specialty Start Date End Date Modesto Zhu, [address] [place], [place] [address] PCP - General Family Medicine 08/27/20 Advertising Campaign Manager Relationship Specialty Start Date End Date Modesto Zhu, DO [address] [place], [place] [address] PCP - General Family Medicine 08/27/20 Advertising Campaign Manager Relationship Specialty Start Date End Date Modesto Zhu, DO [address] [place], [place] [id number] PCP - General Family Medicine 08/27/20 Reason [...] consult Specialty Diagnoses / Procedures Referred By Abhijeet swanson Referred To Contact Gastroenterology Procedures CONSULT TO GASTROENTEROLOGY OFFICE/OUTPATIENT NEW HIGH MDM 60-74 MINUTES Rachel Puentes MD [address] [place] [address] Referral ID Status Reason Start Date Expiration Date V isits Requested Visits Authorized [id number] Closed PCP Requested Referral 09/13/2022 08/30/2023 1 1 Reason Onset Date Comments Refill Request 12/15/2022 Reason Onset Date Comments Refill Request 03/19/2023 Reason Onset Date Comments Refill Request 03/28/2023 Reason Onset Date Comments Refill Request 04/18/2023 Reason Onset Date Comments Refill Request 05/18/2023 Reason Comments Appointment Reason Comments new script for vyvanse Specialty Diagnoses / Procedures Referred By Abhijeet t Referred To Contact Family Medicine / [facility] DEPARTMENT Diagnoses Need to get a new rx for my vyvanse Procedures VIDEO PRIMARY EST Self Marley Moncada, TRIM DIE MAKER.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 [email or web address] provides no warranty or guarantee of the accuracy or completeness of information in this document.
[2023-07-27] MEDS: Lactated Ringers 1,000 ML 15 ML IV (06:40)
[2023-07-27] MEDS: Cefazolin 2 GM in 0.9% Normal Saline (100mL Bag) 100 ML IV (07:30)
--- NOTE | 2023-07-27 09:07 | DCINST_ITS ---
Discharge Instructions Diet Discharge Diet: No restrictions Activity Discharge Activity: Return to Normal Activity Dressing / Incision Call your doctor if you observe: Fever of 101 or Higher, Inability to urinate and Inability to have a bowel movement Follow Up Care Please Follow Up With: Malia Coughlin MD When: The office will call the patient to make arrangements for follow-up Test Results: Test results from this visit will be discussed in further detail at your follow- up appointment, if applicable. Discharge Plan Admission Attending Provider: Malia Coughlin Primary Care Provider: Modesto Nolasco Discharge Orders/Prescriptions Prescriptions: New phenazopyridine [Pyridium] 200 mg tablet 200 mg PO TID PRN PRN (Reason: Bladder Spasms) 7 Days Qty: 30 0RF cephalexin [cephalexin] 500 mg capsule 500 mg PO Q12 3 Days Qty: 6 0RF Continued lisdexamfetamine [Vyvanse] 30 mg capsule 60 mg PO DAILY Patient Comments: take 2 capsules by mouth once daily topiramate 100 mg tablet 100 mg PO DAILY Patient Comments: take 1 tablet by mouth twice a day tamsulosin 0.4 mg capsule 0.4 mg PO Q24H Patient Comments: take 1 capsule by mouth once daily Rx Instructions: Temporary med cephalexin 500 mg capsule 500 mg PO Q12H Patient Comments: take 1 capsule by mouth every 12 hours for 10 days Rx Instructions: Temporary Script Referrals / Follow Up: Modesto Nolasco DO [Primary Care Provider] - Disposition Disposition (needs filled in before D/C Order can be placed): Home, Self Care
--- NOTE | 2023-07-27 09:09 | OP.PCM_ITS ---
Report of Operation Date of Procedure: 07/27/23 Pre-Operative Diagnosis: Right ureteral calculus Post-Operative Diagnosis: Same Surgery/Procedure Performed:: Cystoscopy, right retrograde pyelogram, right ureteroscopy, holmium laser lithotripsy, stone basket extraction, right ureteral stent insertion Surgeon: Malia Coughlin Type of Anesthesia: General Specimen's removed: Stone fragments Description of Procedure: The patient is a 38-year-old female with a history of stones who presented to the office in pain after having been seen in the emergency room and diagnosed with a right proximal ureteral calculus. She was very uncomfortable and decided to proceed with surgical intervention. Informed consent was obtained. The patient was taken to the operating room and placed on the operating room table. Anesthesia monitored the head, neck, airway, IV access and vital signs throughout the case. Once anesthesia was appropriately administered, the patient was placed into dorsolithotomy position and was prepped and draped in usual sterile fashion. The cystoscope was inserted through the urethra under direct visualization into the urinary bladder. The bladder mucosa in its entirety was visualized with no evidence of mass, erythema or abnormality. The right ureteral orifice was identified and intubated with an 8 Occitan cone-tip catheter. Contrast was injected in retrograde fashion under fluoroscopic visualization revealing a filling defect consistent with a stone remaining in the proximal right ureter. At this time 2 separate 0.035 glide wires were pa ssed through the right ureteral orifice into the renal pelvis. The flexible ureteroscope was inserted over one of the wires and advanced into the proximal ureter where the stone was identified. A 200 ?m laser fiber was used to break the stone into the multiple small fragments. An attempt was made at stone basket extraction however this basket was difficult to maintain bandage winding machine operator on the stone. The laser was then used again to break the pieces into smaller fragments. Another attempt was made at stone basket extraction which was also unsuccessful. At this time in order for reentry into the ureter, the cystoscope was utilized to place the second wire and the ureteroscope was once again inserted over the wire. There was still difficulty grasping the stone fragments. The decision was made to place a ureteral access sheath. This was done with a safety wire and over one of the glide wires. At this time the ureteroscope was able to easily inserted into the right ureter. The ureteroscope was advanced to the level of the stone and this time a brand-new basket was utilized. The largest stones were removed and sent for analysis. The only remaining fragments were too small for basket extraction. Direct visualization of the entire length of the ureter was then performed with removal of the ureteral access sheath. There was no evidence of injury to the ureter but there was some edema at the previous level of the stone. At this time the cystoscope was used and the safety wire was backloaded. A 4.5 Occitan by 24 cm JJ stent was placed in good position in the renal pelvis as well as the urinary bladder over the safety wire. The patient's bladder was then emptied and the cystoscope was removed. She was awakened and taken to the recovery room in good condition. Grafts/Implants Used: 4.5 x 24 cm JJ stent Complications None Admit VTE Documentation VTE Present on Admission: Yes VTE Mechan Device Prophylaxis: SCD's VTE Pharm Prophylaxis ordered?: No Reason prophylaxis not ordered:: Treatment Not Indicated
[2023-07-27] MEDS: oxyCODONE 5 MG Tablet 10 MG PO (09:49)
== END 2023-07-27 09:57 | disposition home or self-care (01) ==
LOC: SDC 06:02 → AC 06:03
PROVIDERS: PCP Student in an Organized Health Care Education/Training Program; Referring Provider Urology; Visit Provider Urology
PROC: (CPT 52352; principal; 2023-07-27 07:20)
DX: N20.1 Calculus of ureter (principal); Z87.442 Personal history of urinary calculi; R10.9 Unspecified abdominal pain; R11.0 Nausea; F90.9 Attention-deficit hyperactivity disorder, unspecified type; Z90.710 Acquired absence of both cervix and uterus; Z90.49 Acquired absence of other specified parts of digestive tract; Z98.51 Tubal ligation status
CPT/HCPCS: 52356; 76000; 82360; J7120; J2405

== ENCOUNTER → 2023-07-31 | Outpatient (CLI) | payer OTHER, SELFPAY ==
--- NOTE | 2023-07-31 16:03 | CT_ITS ---
STUDY: CT ABDOMEN AND PELVIS WITHOUT CONTRAST REASON FOR EXAM: Female, 38 years old. FLANK PAIN RADIATION DOSAGE (If Supplied By Facility): CTDIvol = ( 6.75 ) mGy, DLP = ( 348.86 ) mGycm TECHNIQUE: Transaxial images were obtained from the dome of the diaphragm to the symphysis pubis without oral contrast, and without intravenous contrast. Sagittal and coronal images were reconstructed. Individualized dose optimization techniques were used for this CT. COMPARISON: 03/10/2023. FINDINGS: The visualized lung bases are unremarkable. The visualized portions of the heart are within normal limits. Normal liver. The gallbladder is contracted. Normal spleen. Normal pancreas. Normal bilateral adrenal glands. In the right kidney, the proximal and of the ureteral stent is seen in the upper right collecting system. There is minimal right hydronephrosis. The ureteral stent passes through a slightly distended right ureter and the distal pigtail and is in the distal right ureter rather than in the bladder. This can cause significant symptoms/pain. Tiny currently nonobstructing right renal stones are seen of the mid and lower right kidney. On the left, punctate mid and lower nonobstructing renal stones are seen and otherwise unremarkable left kidney. Evaluation of the GI tract is limited by absence of oral contrast. Cannot exclude stomach wall thickening. No dilated loops of bowel or evidence for obstruction. Cannot exclude segmental thickening of the atkinson of the small or large bowel. Cannot exclude enteritis or colitis. Moderate diffuse fecal retention. Previous appendectomy. Normal abdominal aorta. Normal inferior vena cava. Normal retroperitoneum. Normal contour of the urinary bladder. Tiny 2 mm ureteral stone seen on the posterior wall of the bladder, not present previously. Small amount of intraluminal air in the bladder probably from instrumentation. There is absence of the uterus consistent with a prior hysterectomy. Normal abdominal wall. Normal osseous structures. CT/Abdomen/Pelvis without Cont IMPRESSION: Right ureteral stent terminates in the distal ureter rather than in the bladder. This can be a source of pain. Mild right hydronephrosis. Multiple bilateral tiny nonobstructing renal stones. Probable small stone along the posterior wall of the bladder. Electronically Signed: Jovanny Pandey MD at 16:45 EST ,
--- OUTSIDE RECORDS SUMMARY | 2023-07-31 20:25 | XMS RPT_ITS | CCD ---
Author Name Unknown Address [address] [place] [address] Organization [facility] Care Team Providers Care Bmx Rider Name Role Phone Swathi Lewis MD Unavailable [phone] KAYLA CARTER Unavailable Unavailable KAYLA CARTER Unavailable [...] Attending Unavailable MODESTO ZHU Primary Care Unavailable DENYR CORINNE Referring Unavailable MODESTO ZHU Primary Care Unavailable GAYATRI CORINNE Attending Unavailable RACHEL PUENTES Referring Unavailable MODESTO ZHU DO Primary Care Physician MODESTO ZHU DO Primary Care Unavailable ESTELLA TOMAS MD Attending Unavailable Allergies Allergy Classification Reported Allergen(s) Allergy Type Date of Onset Reaction(s) Facility (2 sources) penicillin v Drug Allergy 7 [facility] (20 sources) Penicillins; Translations: [PENICILLINS] Propensity to adverse reactions to drug (disorder) 8 Other: See Comments [facility] Other [facility] (1 source) Penicillin; Translations: [penicillins] Drug Allergy [facility] Medications Current Medications Medication Drug Class(es) Dates [...] Time Vital Sign Value Performing Clinician Faci lity 07-20-2023 21:27-0500 Diastolic blood pressure 67 mm[Hg] ESTELLA TOMAS MD [facility] 07-20-2023 21:27-0500 Heart rate 73 /min ESTELLA TOMAS MD [facility] 07-20-2023 21:27-0500 Respiratory rate 16 /min ESTELLA TOMAS MD [facility] 07-20-2023 21:27-0500 Systolic blood pressure 101 mm[Hg] ESTELLA TOMAS MD [facility] 07-20-2023 19:15-0500 Diastolic Blood Pressure Non-Invasive 90 mm[Hg] ESTELLA TOMAS MD [facility] 07-20-2023 19:15-0500 Heart rate 88 /min ESTELLA TOMAS MD [facility] 07-20-2023 19:15-0500 Respiratory rate 18 /min ESTELLA TOMAS MD [facility] 07-20-2023 19:15-0500 Systolic Blood Pressure Non-Invasive 130 mm[Hg] ESTELLA TOMAS MD [facility] 07-20-2023 17:12-0500 Diastolic Blood Pressure Non-Invasive 71 mm[Hg] ESTELLA TOMAS MD [facility] 07-20-2023 17:12-0500 Heart rate 92 /min ESTELLA TOMAS MD [facility] 07-20-2023 17:12-0500 Respiratory rate 20 /min ESTELLA TOMAS MD [facility] 07-20-2023 17:12-0500 Systolic Blood Pressure Non-Invasive 123 mm[Hg] ESTELLA TOMAS MD [facility] 07-20-2023 14:22-0500 Blood Pressure Location ESTELLA TOMAS MD [facility] 07-20-2023 14:22-0500 Body temperature 96.98 [degF] ESTELLA TOMAS MD [facility] 07-20-2023 14:22-0500 Body weight 70.8 kg SETELLA TOMAS MD [facility] 07-20-2023 14:22-0500 Diastolic Blood Pressure Non-Invasive 92 mm[Hg] ESTELLA TOMAS MD [facility] 07-20-2023 14:22-0500 Systolic Blood Pressure Non-Invasive 136 mm[Hg] ESTELLA TOMAS MD [facility] 05-23-2023 09:16-0500 Body weight 73.48 kg Josesito Levi [employer] SUPERVISOR.CIVIL CAD DESIGNER Work Phone: [facility] 05-23-2023 09:16-0500 Diastolic blood pressure 64 mm[Hg] Josesito Levi [employer] SUPERVISOR.CIVIL CAD DESIGNER Work Phone: [facility] 05-23-2023 09:16-0500 Heart rate 64 /min Josesito Levi [employer] SUPERVISOR.CIVIL CAD DESIGNER Work Phone: [facility] 05-23-2023 09:16-0500 Respiratory rate 12 /min Josesito Levi [employer] SUPERVISOR.CIVIL CAD DESIGNER Work Phone: [facility] 05-23-2023 09:16-0500 Systolic blood pressure 128 mm[Hg] Josesito Levi [employer] SUPERVISOR.CIVIL CAD DESIGNER Work Phone: [facility] 09-20-2022 10:51-0400 Body height 165.1 cm Corinne De Leon MD Work Phone: [facility] 09-20-2022 10:51-0400 Body temperature 98.29 [degF] Corinne De Leon MD Work Phone: [facility] 09-20-2022 10:51-0400 Body weight 88.91 kg Corinne De Leon MD Work Phone: [facility] 09-20-2022 10:51-0400 Diastolic blood pressure 91 mm[Hg] Corinne De Leon MD Work Phone: [facility] 09-20-2022 10:51-0400 Heart rate 119 /min Corinne De Leon MD Work Phone: [facility] 09-20-2022 10:51-0400 Respiratory rate 18 /min Corinne De Leon MD Work Phone: [facility] 09-20-2022 10:51-0400 SaO2% (BldA) [Mass fraction] 100 % Corinne De Leon MD Work Phone: [facility] 09-20-2022 10:51-0400 Systolic blood pressure 135 mm[Hg] Corinne De Leon MD Work Phone: [facility] 08-30-2022 12:26-0400 Heart rate 91 /min Rachel Puentes MD Work Phone: [facility] 08-30-2022 12:26-0400 SaO2% (BldA) [Mass fraction] 100 % Rachel Puentes MD Work Phone: [facility] 08-30-2022 12:16-0400 Diastolic blood pressure 84 mm[Hg] Rachel Puentes MD Work Phone: [facility] 08-30-2022 12:16-0400 Respiratory rate 16 /min Rachel Puentes MD Work Phone: [facility] 08-30-2022 12:16-0400 Systolic blood pressure 124 mm[Hg] Rachel Puentes MD Work Phone: [facility] 08-30-2022 10:44-0400 Body temperature 98.4 [degF] Rachel Puentes MD Work Phone: [facility] 03-22-2022 15:09-0400 Body weight 97.52 kg Modesto Zhu DO Work Phone: [facility] 02-24-2022 10:51-0400 Body weight 100.15 kg Modesto Zhu DO Work Phone: [facility] 04-30-2017 14:06-0500 BMI (Body Mass Index) 38.8 kg/m2 Swathi Lewis MD [facility] 04-30-2017 14:06-0500 BP Diastolic 82 mm[Hg] Swathi Lewis MD [facility] 04-30-2017 14:06-0500 BP Systolic 133 mm[Hg] Swathi Lewis MD [facility] 04-30-2017 14:06-0500 Height 166.37 cm Swathi Lewis MD [facility] 04-30-2017 14:06-0500 Weight 107.41 kg Swathi Lewis MD [facility] 04-03-2017 09:57-0400 BMI (Body Mass Index) 39.72 kg/m2 Swathi Lewis MD [facility] 04-03-2017 09:57-0400 Body Temperature 98.3 [degF] Swathi Lewis MD [facility] 04-03-2017 09:57-0400 BP Diastolic 80 mm[Hg] Swathi Lewis MD [facility] 04-03-2017 09:57-0400 BP Systolic 127 mm[Hg] Swathi Lewis MD [facility] 04-03-2017 09:57-0400 Pulse (Heart Rate) 107 /min Swathi Lewis MD [facility] 04-03-2017 09:57-0400 Respiratory Rate 16 /min Swathi Lewis MD [facility] 04-03-2017 09:57-0400 Weight 112.31 kg Swathi Lewis MD [facility] 02-12-2017 09:05-0400 Height 168.15 cm Swathi Lewis MD [facility] Encounters Encounter Date Encounter Type Care Provider Facility Start: 07-20-2023 End: 07-20-2023 Emergency department patient visit MODESTO ZHU DO Facility:A Start: 07-20-2023 End: 07-20-2023 Emergency department patient visit ESTELLA TOMAS MD [facility] Start: 05-23-2023 End: 05-23-2023 ambulatory MODESTO ZHU Facility:[facility] Start: 05-23-2023 End: 05-23-2023 Patient encounter procedure Josesito Gurmeet BANQUET KITCHEN SUPERVISOR.CIVIL CAD DESIGNER Work Phone: [facility] Procedures Date Procedure Procedure Detail Performing Clinician Start: 08-30-2022 Level iv surg pathol ogy gross&microscopic exam Rachel Puentes MD Work Phone: Start: 08-30-2022 Colonoscopy flx dx w /collj spec when pfrmd Meghan French BANQUET KITCHEN SUPERVISOR.CIVIL CAD DESIGNER Work Phone: Start: 02-01-2021 Adult depression scr eening assessment Modesto Gaurav DO Work Phone: Start: 02-13-2017 End: 02-13-2017 nonstress test Swathi edwards MD Work Phone: Start: 01-17-2017 End: 01-17-2017 *CBC with Differential Swathi agrcia MD Work Phone: Start: 01-17-2017 End: 01-18-2017 *ROM Amnisure Rupture of Membranes Swathi Lewis MD Work Phone: Plan of Treatment Date Care Activity Detail Author Start: 01-31-2027 Urine microalbumin profile DTa P,Tdap,Td Vaccine (2 - Td or Tdap) [facility] Start: 01-11-2027 HPV TESTING HPV TESTING [facility] Start: 01-11-2027 PAP TESTING PAP TESTING [facility] Start: 01-11-2027 Screening for malign ant neoplasm of cervix [facility] Start: 01-14-2025 HPV TESTING HPV TESTING [facility] Start: 01-14-2025 PAP TESTING PAP TESTING [facility] Start: 05-23-2024 Covid-19 Vaccine (#1) Covid-19 Vacci ne (#1) [facility] Immunizations Immunization Date Immunization Notes Care Provider Fabiana leslie 07-07-2019 influenza virus vaccine, unspecified formulation Josesito Levi B[employer]ET K[employer] SUPERVISOR.CIVIL CAD DESIGNER Work Phone: [facility] 01-31-2017 tetanus toxoid, reduced diphtheria toxoid, and acellular pertussis vaccine, adsorbed Swathi Lewis MD [facility] 01-17-2017 [id number] Swathi garcia MD [facility] 05-13-2013 influenza virus vaccine, unspecified formulation Modesto Zhu DO Work Phone: [facility] Work Phone: Payers Date Payer Category Payer Unknown [employer] PPO [id number] 2023-Present [phone] [address] [place] [address] PPO [id number] 2023 Unknown [id number] 2022 Medicaid [id number] 2016 Medicaid [employer] [id number] 2016-Present [phone] [address] [place] [address] Medicaid [id number] 2016 Medicaid [id number] 1987 Unknown [id number] Social History Date Type Detail Facility Start: 05-28-2013 End: 08-30-2022 Tobacco smoking status [facility] Never smoked tobacco [facility] Start: 06-29-2021 End: 05-23-2023 Alcohol intake Current drinker of alcohol (finding) [facility] Start: 11-22-2019 End: 05-11-2022 History SDOH Alcohol Frequency 2 [facility] Start: 11-22-2019 End: 05-11-2022 History SDOH Alcohol Std Drinks 1 [facility] Start: 11-20-2018 History SDOH Alcohol Comment socially- rare [facility] Start: 11-22-2019 End: 05-11-2022 History SDOH Social Connections Phone 5 [facility] Start: 11-22-2019 End: 05-11-2022 History SDOH Social Connections Amish 3 [facility] Start: 11-21-2019 Education 21 [facility] Start: 1985 Sex Assigned At Not on file [facility] Start: 01-05-2021 End: 01-27-2022 Exposure to SARS-CoV-2 (event) Not sure [facility] Start: 05-28-2013 End: 08-30-2022 Tobacco use and exposure Smokeless tobacco non-user [facility] Start: 05-11-2022 History SDOH Alcohol Std Drinks 0 [facility] Start: 05-11-2022 History SDOH Social Connections Meetings 98 [facility] Start: 05-11-2022 End: 05-21-2023 History of Social function [facility] Start: 05-11-2022 End: 05-21-2023 Social connection and isolation panel [facility] Do you belong to any clubs or organizations such as rastafarian groups, [employer], [employer] or athletic groups, or school groups? No [facility] How often do you att end meetings of the clubs or organizations you belong to? Patient refused [facility] Are you now , , , , never or living with a partner? [facility] How often to you hav e a drink containing alcohol? Never [facility] Do you feel stress - tense, restless, nervous, or anxious, or unable to sleep at night because your mind is troubled all the time - these days [OSQ] To some extent [facility] (I/We) worried wheth er (my/our) food would run out before (I/we) got money to buy more. Never true [facility] Do you belong to any clubs or organizations such as rastafarian groups, unions, [employer] or athletic groups, or school groups? Yes [facility] Sex Assigned At Sex [facility] Functional Status Date Assessment Result Facility 07-20-2023 Functional Status [facility]23 Functional Status Standard Safet y ID band on, Allergy Band on, Call device within reach, Bed in low position, Wheels locked, Upper/Half-Length side-rails up [facility] Mental Status Date Assessment Result Facility 07-20-2023 Mental Status Orientation Oriented x 4 [facility] 07-20-2023 Mental Status [facility] Clinical Notes 11-16-2016 to 07-22-2023 Josesito Levi APRN.CIVIL CAD DESIGNER - 05/23/2023 9:19 AM ESTTelephone Encounter - Tomás Marquis - 05/21/2023 8:41 AM ESTTelephone Encounter - OdellCasandra burns ISADORA - 05/19/2023 8:19 AM EST Note Date & Type Note Facility 07-22-2023 Note . MICRO - Microbiology PROCEDURE: Urine Culture [*1] SOURCE: Urine BODY SITE: COLLECTED DATE/TIME: 07/20/2023 19:32 EST RECEIVED DATE/TIME: 07/20/2023 20:12 EST START DATE/TIME: 07/20/2023 20:12 EST FREE TEXT SOURCE: FINAL REPORTS Final Report [] Verified Date/Time/Personnel: 07/22/2023 07:40 EST 50,000 - 100,000 cfu/ml Mixed growth consistent with normal urogenital anthony. PRELIMINARY REPORTS Preliminary Report [] Verified Date/Time/Personnel: 07/21/2023 09:03 EST No growth to date Performing Locations *1: This test was performed at: [facility], [address] [place] [address], [id number] , [facility] ([place]) 07-20-2023 Hospital Discharge instructions Patient Education 07/20/2023 [...] for 8 hours and increasing bladder pressure [id number] [email or web address]. [address] [place] [address]. All rights reserved. This information is not intended as a substitute for professional medical care. Always follow your healthcare professional's instructions. Follow Up Care 07/20/2023 13:56:26 With:BRINA NAVA MD, [facility] [employer] Address: [address] [place] [address]- [phone] When:2-4 days [facility] 07-20-2023 Emergency department Discharge summary Discharge Instructions Thank you for allowing [facility] to assist you with your healthcare needs. The following is important discharge information regarding your hospital visit. Diagnosis from Today's Visit Blood in urine Colic, ureteral Flank pain What to Do Next Instructions from Your Care Team No qualifying data available. Post Acute Orders No qualifying data available. You Need to Schedule the Following Appointments Follow Up with BRINA NAVA MD, [facility] When Within 2-4 days Where: [address] [place] [address], [facility] [address] [place] [address]- [phone] Allergies penicillin Medications Please ask your primary [...] for 8 hours and increasing bladder pressure [phone] [employer]. [address] [place] [address], [place] [address]. All rights reserved. This information is not intended as a substitute for professional medical care. Always follow your healthcare professional's instructions. Additional Information VACCINATE! IT SAVES LIVES! Members of the community who have not yet received the COVID-19 vaccine and would like to receive it can visit one of [facility] vaccine clinics. There are many vaccine clinic locations within the [facility]. For locations and available times, please visit www.[email or web address].[place].g ov/. It is important to note that some COVID mobile vaccine clinics are held outdoors and may be canceled in rainy or stormy conditions. To learn more about pediatric vaccinations (ages 5-11), we invite you to visit the [employer] [facility] webpage. https://www.Function Spaces.org/pa ges/9103-Gczqe-Bbhffrhjrfh-Freque kddn-Jpbcf-Buruxbkcb.html To learn more about the COVID-19 vaccine, we invite you to visit the CDC website for a list of frequently asked questions. https://www.cdc.gov/coronavirus/2 019-ncov/vaccines/faq.html [facility] Patient Portal Access Instructions: Stay connected with your healthcare team and access your personal medical information anytime with the [facility] Patient Portal. If you would like a full copy of your medical records please contact the [facility] Medical Records Department Sunday through Sunday between 8a.m. and 4:30p.m. Please follow the directions below to access the portal: 1.Access the email account you provided upon registration to the hospital.2.Look for an invitation email from [facility].3.Open the email and access the invitation link: Accept Invitation to [facility]4.Fill in the required royal to create your account. Sign into [email or web address] with your username and password that you [...] you will allow to register on the [employer] Patient Portal for access to your information. You can also access the [employer] Patient Portal on the [employer]. Simply click on Health Records under Health Data and then click on the Departing logo. HOW TO SAFELY DISPOSE OF PRESCRIPTION [...] Call your local pharmacy or go to http://Class Messenger.Widbook/6D1Zh4s to find one close to you.3.Make use of household items: Use cat litter or old coffee grounds to dispose medications if other options are not available. Mix your drugs with these household products, seal them in an airtight container and throw it into the garbage. Call [facility]: [phone] to be sure your drugs can be [...] aware that I should contact my doctor. Patient/Computer Assistant Signature: Date/Time: Relationship to Patient: ____ Witness Name/Signature: Date/Time: [facility] 07-20-2023 Emergency department Discharge summary Discharge Instructions Thank you for allowing [facility] to assist you with your healthcare needs. The following is important discharge information regarding your hospital visit. Diagnosis from Today's Visit Blood in urine Colic, ureteral Flank pain What to Do Next Instructions from Your Care Team No qualifying data available. Post Acute Orders No qualifying data available. You Need to Schedule the Following Appointments Follow Up with BRINA NAVA MD, [facility] When Within 2-4 days Where: [address] [facility], [address] [facility] [place] [address]- [phone] Allergies penicillin Medications Please ask your primary [...] for 8 hours and increasing bladder pressure [phone] [employer]. [address] [place] [address]. All rights reserved. This information is not intended as a substitute for professional medical care. Always follow your healthcare professional's instructions. Additional Information VACCINATE! IT SAVES LIVES! Members of the community who have not yet received the COVID-19 vaccine and would like to receive it can visit one of [facility] vaccine clinics. There are many vaccine clinic locations within the [facility]. For locations and available times, please visit www.gettheshot.coronavirus.[place].g ov/. It is important to note that some COVID mobile vaccine clinics are held outdoors and may be canceled in rainy or stormy conditions. To learn more about pediatric vaccinations (ages 5-11), we invite you to visit the [employer] webpage. https://www.Function Spaces.org/pa ges/4317-Eokxf-Kntckvhedyq-Freque bloh-Sgxbe-Xdowdfjlf.html To learn more about the COVID-19 vaccine, we invite you to visit the CDC website for a list of frequently asked questions. https://www.cdc.gov/coronavirus/2 019-ncov/vaccines/faq.html [facility] [employer] Patient Portal Access Instructions: Stay connected with your healthcare team and access your personal medical information anytime with the [facility] Patient Portal. If you would like a full copy of your medical records please contact the [facility] Medical Records Department Sunday through Sunday between 8a.m. and 4:30p.m. Please follow the directions below to access the portal: 1.Access the email account you provided upon registration to the [facility].2.Look for an invitation email from [facility].3.Open the email and access the invitation link: Accept Invitation to [facility] [employer].Fill in the required royal to create your account. Sign into [email or web address] with your username and password that you [...] you will allow to register on the [facility] [employer] Patient Portal for access to your information. You can also access the [employer] Patient Portal on the [employer] mir. Simply click on Health Records under Health Data and then click on the Departing logo. HOW TO SAFELY DISPOSE OF PRESCRIPTION [...] Call your local pharmacy or go to http://Class Messenger.Widbook/5A6Lm7l to find one close to you.3.Make use of household items: Use cat litter or old coffee grounds to dispose medications if other options are not available. Mix your drugs with these household products, seal them in an airtight container and throw it into the garbage. Call [facility]: [phone] to be sure your drugs can be [...] aware that I should contact my doctor. Patient/Computer Assistant Signature: Date/Time: Relationship to Patient: ____ Witness Name/Signature: Date/Time: [facility] 07-20-2023 Note ORIGINAL EXAMINATION: CT OF THE [...] No follow-up imaging is recommended. Reference: JACR 2019;[id number](3):[id number] Interpreted by: Demetri Adams Preliminary Report By: Jose Angel Fernandez Electronically signed By Demetri Adams Dictated Date: 07/20/2023 4:04:14 PM Prelim Date: 07/20/2023 4:10:03 PM Sign Date: 07/20/2023 4:34:19 PM Ordering Provider: [facility] 07-20-2023 Evaluation + Plan note Diagnostic Tests PendingUrine Culture 07/20/23 [facility] 05-23-2023 Note HNO ID: [id number] Author: Josesito Levi APRN.CIVIL CAD DESIGNER Service: ? Author Type: Nurse Practitioner Type: [...] November 21, 2016 Cerclage being placed by [facility] on 11/22/16. On vaginal progesterone. Jessi [...] for pain pane (more content not included)... [facility] 05-23-2023 History of Present illness Narrative Chief [...] Patient agreeable to treatment plan. Josesito Price APRN.CIVIL CAD DESIGNER [address] [place] [address] documented in this encounter [facility] 05-21-2023 Miscellaneous Notes Pt is scheduled for virtual visit with [employer] today at 11:40am. Provider is requesting in office visit and also pt is due for urine tox screen. Phoned pt to advise of the same, voicemail box is full, unable to leave message. Tomás Marquis documented in this encounter [facility] 05-19-2023 Miscellaneous Notes Attempted to reach pt by phone without success. Sent a [employer] message with explanation why medication was denied. [...] for Refusal: Patient needs appointment Josesito Levi APRN.CIVIL CAD DESIGNER BHARATI-09/29/22 Labs-09/20/22 NOV-none Frances Ochoa LPN documented in this encounter [facility] 03-28-2023 Miscellaneous Notes Date of last office: 09/29/2022 Date of next office visit: None Requested Prescriptions Pending Prescriptions Disp Refills topiramate (TOPAMAX) 100 mg tablet 60 tablet 1 Sig: Take 1 tablet by mouth two times a day. Date of Last Labs: 09/20/2022 Please advise. Thank you. Magda Rothman RN. documented in this encounter [facility] 03-20-2023 Miscellaneous Notes OK to refill as ordered Rizwan Nichols MD patient calling due to insurance co will no longer cover the vyvanse 30mg 2 daily so she is needing a new rx for the 60mg once daily. rx has been pended for approval patient only needs called if problem with refilling medication documented in this encounter [facility] 03-19-2023 Miscellaneous Notes The following approved medication requests have been transmitted electronically. Requested Prescriptions Signed Prescriptions Disp Refills lisdexamfetamine (VYVANSE) 30 mg capsule 60 capsule 0 Sig: Take 2 capsules by mouth once daily for 30 days. Authorizing Provider: MEGHAN RFENCH APRN.CNP PDMP website checked and validated. All [...] Faye Harper MA documented in this encounter [facility] 01-26-2023 Miscellaneous Notes Pt. informed via My Chart. Is she wanting to get a lower dose? No other options that I am aware of doing that are equivalent Modesto Zhu DO message turned into TE. No one seems to be able to get the 70mg vyvanse in stock so I haven't been able to get the Rx filled. Is there any other way to do the prescription? Thanks! Indu Torres MA documented in this encounter [facility] 01-25-2023 Miscellaneous Notes MC message turned into TE. Indu Torres MA documented in this encounter [facility] 12-15-2022 Miscellaneous Notes Pt notified via [...] you. ARELY Rodriguez documented in this encounter [facility] 09-29-2022 Note HNO ID: [id number] Author: Modesto Zhu, DO Service: ? Author [...] no other changes. She was seen by [employer] Dr. 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 - LISDEXAMFETAMINE 70 MG CAPSULE 3. 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 D/w her that if she develops bloody stools again, has to stop the vyvanse and should d/w her refiner operator as well. She is aware of the risk Modesto Zhu DO Return if no improvement. Follow up with Modesto Zhu DO. To ER if develops chest pain, shortness of breath Discussed risks, benefits, alternatives, and potential side effects of medications. Patient/Guardian expressed understanding and agreed with the plan. See patient (more content not included)... [facility] 09-20-2022 Note HNO ID: [id number] Author: Corinne De Leon MD Service: ? Author Type: Physician Type: Progress Notes Filed: 09/24/2022 12:32 PM Note Text: NAME: Jannette Gupta [facility] NO: [id number] REASON FOR VISIT Jannette Gupta is a [...] Colon, transverse and (more content not included)... [facility] 09-20-2022 History of Present illness Narrative NAME: Jannette Gupta CLINIC NO: [id number] REASON FOR VISIT Jannette Gupta is a [...] smear of cervix + HPV 2014 and 2019- planning LEEP Cervical funneling affecting in second [...] changes Follow up in 3-6 months Corinne De Leon MD, MD September 19, 2022 4:56 PM documented in this encounter [facility] 09-13-2022 Miscellaneous Notes The following approved medication requests have been transmitted electronically. Requested Prescriptions Signed Prescriptions Disp Refills lisdexamfetamine (VYVANSE) 70 mg capsule 30 capsule 0 Sig: Take 1 capsule by mouth once daily for 30 days. Authorizing Provider: MEGHAN FRENCH APRN.HOME PDMP website checked and validated. All prescriptions have been APPROPRIATELY filled. No suspicious activity was identified. 09/13/2022 by Meghan French CNP. Nov--nothing scheduled Bharati--05/17/22 Last refill--08/14/22 30 with 0 refills Last labs-02/07/21 documented in this encounter [facility] 08-30-2022 Nurse Note Arrived in phase II via cart. Left lateral position. Sedated, but responds to verbal stimuli. Color normal; skin warm and dry. Respirations wnl and unlabored. Abdomen soft and with + bowel sounds in quads X 4. Patient resting comfortably. Elisa Harp RN documented in this encounter [facility] 08-30-2022 History and physical note UPDATED [...] Rachel Puentes MD documented in this encounter [facility] 08-28-2022 Miscellaneous Notes Miralax/Dulcolax bowel prep [...] Ros Wagner LPN documented in this encounter [facility] 08-24-2022 Miscellaneous Notes Noted, agree with [...] Had Hysterectomy in April Protocols used: Rectal [id number]-[id number]-TA TC patient in regards to [employer] message. Left message for patient to call back and speak with a triage nurse regarding blood in stool. Magda Rothman RN documented in this encounter [facility] 08-14-2022 Miscellaneous Notes PDMP website checked and validated. All prescriptions have been APPROPRIATELY filled. No suspicious activity was identified. 08/14/2022 by Josesito Levi APRN.CIVIL CAD DESIGNER The following approved medication requests have been [...] Faye Harper MA documented in this encounter [facility] 07-12-2022 Miscellaneous Notes PDMP website checked [...] Lilly Rai LPN documented in this encounter [facility] 07-11-2022 Miscellaneous Notes Patient has been identified by name and date of : Yes Patient phones for refill(s): Requested Prescriptions Pending Prescriptions Disp Refills topiramate (TOPAMAX) 50 mg tablet 60 tablet 1 Sig: Take 1 tablet by mouth twice daily. Date of last office visit in primary care: 01/27/2022 Please advise. Thank you. Lilly Rai LPN documented in this encounter [facility] 06-15-2022 Miscellaneous Notes The following approved medication requests have been transmitted electronically. Requested Prescriptions Signed Prescriptions Disp Refills lisdexamfetamine (VYVANSE) 70 mg capsule 30 capsule 0 Sig: Take 1 capsule by mouth once daily for 30 days. Authorizing Provider: MEGHAN FRENCH APRN.[facility] PDMP website checked and validated. All prescriptions have been APPROPRIATELY filled. No suspicious activity was identified. 06/15/2022 by Meghan French CNP. Bharati--05/17/22 Nov--nothing scheduled Last refill--05/17/22 30 with -0 refills Last labs--02/07/21 documented in this encounter [facility] 05-17-2022 History of Present illness Narrative Unable to connect via virtual platform, visit changed to telephone visit. AMBULATORY TELEPHONE VISIT Jannette Evin Vargaser has consented to this telephone encounter. Persons [...] Meghan French APRN.CNP documented in this encounter [facility] 04-27-2022 Miscellaneous Notes Called and left [...] adderall. Please send to [facility] in [place]. Ana Galan Ma Please call Jannette and [...] note were not included. Please see pt [employer] message and advise documented in this encounter [facility] 04-20-2022 Miscellaneous Notes See TE 04/20 Ana Galan Ma documented in this encounter [facility] 04-12-2022 Miscellaneous Notes Please see TE 04/12 Ana Galan Ma documented in this encounter [facility] 03-22-2022 History of Present illness Narrative [...] NOTE This is a virtual visit using [employer] video visit. It required patient-provider interaction for [...] which included preparing to see the patient, [id number] patient care, completing clinical documentation, obtaining and/or reviewing separately obtained history, and performing a medically appropriate examination Modesto Zhu DO documented in this encounter [facility] 02-27-2022 History of Present illness Narrative [...] NOTE This is a virtual visit using Lupate[employer] video visit. It required patient-provider interaction for [...] November 21, 2016 Cerclage being placed by [facility] on 11/22/16. On vaginal progesterone. Jessi [...] which included preparing to see the patient, [id number] patient care, completing clinical documentation, obtaining and/or reviewing separately obtained history, performing a medically appropriate examination, and ordering medications, tests, or procedures Modesto Zhu DO documented in this encounter [facility] 02-10-2022 Miscellaneous Notes PDMP website checked [...] Frances Ochoa LPN documented in this encounter [facility] 01-12-2022 Miscellaneous Notes [facility] website checked and validated. All prescriptions have [...] Ana Galan Ma documented in this encounter [facility] 11-30-2021 Miscellaneous Notes Mailed to patient home address Ana Galan Ma [place] mail patient Adult ADD/ADHD questionnaire. Meghan French APRN.CNP documented in this encounter [facility] 11-30-2021 History of Present illness Narrative VIRTUAL VISIT PROGRESS NOTE This is a virtual visit using Lupate[employer] video visit. It required patient-provider interaction for the medical decision making as documented below. Jannette Gupta is a 36 year old female seen for medication/ADHD. Today: Would like to get an opinion about ADHD. Has friends with this dx and feels like she may have this. At work, has difficulty staying on task. Works for [employer], and talks to a lot of other [...] November 21, 2016 Cerclage being placed by [facility] on 11/22/16. On vaginal progesterone. Jessi [...] medication. She will notify the office via [employer] with update. May consider increasing/changing dose at that point. Mailing out questionnaire for adult ADHD that patient will return via [employer] message. Meghan French APRN.CNP PDMP website checked and validated. All prescriptions have been APPROPRIATELY filled. No suspicious activity was identified. 11/30/2021 by Meghan French CNP. documented in this encounter [facility] 10-20-2021 Miscellaneous Notes Last office visit: 06/29/21 F/u scheduled: none Shelbie Burns Ma documented in this encounter [facility] 09-14-2021 Miscellaneous Notes Pt notified she would need appt to discuss ADHD. Advised her to call in and schedule. Shelbie Burns Ma documented in this encounter [facility] 09-12-2021 Miscellaneous Notes Agree with below. Meghan French APRN.CNP Advised patient to schedule appt for concern Ana Galan Ma documented in this encounter [facility] 02-17-2021 Miscellaneous Notes Phone call placed patient reported x2 moles located (LT) abd slightly raised, appointment scheduled w/ Dr. Zhu 05/04/2021 for possible removal if needed. Angie Bain LPN documented in this encounter [facility] documented as of this encounter (statuses as of 09/12/2021) [facility] History of Past illness Narrative* Problem [...] BPP with normal prolonged monitoring at hospital. Halie counts and fu NST in office the [...] of this encounter (statuses as of 09/14/2021) [facility] Narrative* Problem [...] of this encounter (statuses as of 10/20/2021) [facility] Narrative* Problem [...] of this encounter (statuses as of 11/15/2021) [facility] Narrative* Problem [...] of this encounter (statuses as of 11/30/2021) [facility] Narrative* Problem [...] of this encounter (statuses as of 11/30/2021) [facility] Narrative* Problem [...] of this encounter (statuses as of 01/12/2022) [facility] N[facility]ative* Problem [...] of this encounter (statuses as of 02/10/2022) [facility] Narrative* Problem [...] of this encounter (statuses as of 02/23/2022) [facility] N[facility]ative* Problem [...] of this encounter (statuses as of 02/27/2022) [facility] N[facility]* Problem [...] of this encounter (statuses as of 03/22/2022) [facility] Narrative* Problem [...] of this encounter (statuses as of 04/12/2022) [facility] N[facility]ative* Problem [...] of this encounter (statuses as of 04/20/2022) [facility] N[facility]* Problem [...] of this encounter (statuses as of 04/27/2022) [facility]* Problem [...] of this encounter (statuses as of 05/17/2022) [facility]* Problem [...] of this encounter (statuses as of 06/16/2022) [facility]* Problem [...] of this encounter (statuses as of 07/12/2022) [facility] N[facility]* Problem [...] of this encounter (statuses as of 07/12/2022) [facility]* Problem [...] of this encounter (statuses as of 08/14/2022) [facility] N[facility]* Problem Noted Date Resolved Date Short cervix during in second trimeste r 11/16/2016 07/07/2019 Overview: November 21, 2016 Cerclage being placed by [facility] on 11/22/16. On vaginal progesterone. Jessi [...] of this encounter (statuses as of 08/24/2022) [facility] Narrative* Problem [...] of this encounter (statuses as of 08/28/2022) [facility]* Problem [...] of this encounter (statuses as of 08/28/2022) [facility]* Problem [...] of this encounter (statuses as of 08/30/2022) [facility] N[facility]* Problem [...] of this encounter (statuses as of 09/14/2022) [facility] N[facility]* Problem [...] of this encounter (statuses as of 09/24/2022) [facility] N[facility]* Problem [...] of this encounter (statuses as of 09/29/2022) [facility] N[facility]* Problem [...] of this encounter (statuses as of 12/15/2022) [facility]* Problem [...] of this encounter (statuses as of 01/25/2023) [facility] N[facility]* Problem Noted Date Diagnosed Date Resolved Date Short cervix during pregnanc y in second trimester 11/16/2016 07/07/2019 Overview: November 21, 2016 Cerclage being placed by [facility] on 11/22/16. On vaginal progesterone. Jessi [...] of this encounter (statuses as of 01/26/2023) [facility] Narrative* Problem [...] trimester 12/17/2013 07/07/2019 Abnormal maternal glucose to [facility], antepartum 12/05/2013 02/04/2014 High-risk supervision 12/02/2013 [...] of this encounter (statuses as of 02/15/2023) [facility] N[facility]* Problem [...] of this encounter (statuses as of 03/20/2023) [facility]* Problem [...] of this encounter (statuses as of 03/21/2023) [facility] N[facility]ative* Problem [...] of this encounter (statuses as of 03/28/2023) [facility] N[facility]* Problem [...] triage with 10 x 10 reactive tracing 8/ BPP with normal prolonged monitoring at hospital. [...] of this encounter (statuses as of 04/15/2023) [facility] Narrative* Problem [...] of this encounter (statuses as of 04/18/2023) [facility] Narrative* Problem [...] 14 Overview: June 06, 2013 BV- treated. eJssi Pierre MD Gestational diabetes 10/06/2010 011 Unspecified high-risk 08/08/2010 10/26/2010 Poor growth, affecting management of mother, antepartum condition or complication 03/28/2010 10/26/2010 Acute appendicitis without m ention of peritonitis 07/24/2007 10/26/2010 documented as of this encounter (statuses as of 05/19/2023) [facility] Narrative* Problem [...] of this encounter (statuses as of 05/21/2023) [facility] Narrative* Problem [...] of this encounter (statuses as of 05/23/2023) [facility] Diagnosis Attention deficit disorder (ADD) in adult- Primary Disorganized thought process Other symptoms involving nervous and musculoskeletal systems Difficulty with household tasks [facility] Attention deficit disorder (ADD) in adult- Primary [facility] Diagnosis Attention deficit disorder (ADD) in adult [facility] Diagnosis Obesity, Class II, BMI 35-39.9 Obesity, unspecified IFG (impaired fasting glucose) Impaired fasting glucose Attention deficit disorder (ADD) in adult [facility] Diagnosis Obesity, Class II, BMI 35-39.9- Primary Obesity, unspecified Attention deficit disorder (ADD) in adult IFG (impaired fasting glucose) Impaired fasting glucose [facility] Diagnosis Attention deficit disorder (ADD) in adult- Primary documented in this encounter [facility] note* Diagnosis Attention deficit disorder (ADD) in adult- Primary documented in this encounter [facility] note* Diagnosis Attention deficit disorder (ADD) in adult documented in this encounter [facility] note* Diagnosis Obesity, Class II, BMI 35-39.9 Obesity, unspecified documented in this encounter [facility] note* Diagnosis Attention deficit disorder (ADD) in adult documented in this encounter [facility] note* Diagnosis Attention deficit disorder (ADD) in adult documented in this encounter [facility] note* Diagnosis Attention deficit disorder (ADD) in adult documented in this encounter [facility] note* Diagnosis Indeterminate colitis- Primary Other and unspecified noninfectious gastroenteritis and colitis documented in this encounter [facility] note* Diagnosis Attention deficit disorder (ADD) in adult documented in this encounter [facility] note* Diagnosis Attention deficit disorder (ADD) in adult- Primary documented in this encounter [facility] note* Diagnosis Attention deficit disorder (ADD) in adult documented in this encounter [facility] note* Diagnosis Attention deficit disorder (ADD) in adult- Primary documented in this encounter [facility] note* Diagnosis Obesity, Class II, BMI 35-39.9 Obesity, unspecified documented in this encounter [facility] note* Diagnosis Change in bowel movement- Primary Other symptoms involving digestive system Rectal bleeding Hemorrhage of rectum and anus Constipation, unspecified constipation type Family history of Crohn's disease Family history of other digestive disorders documented in this encounter [facility] note* Diagnosis Attention deficit disorder (ADD) in adult documented in this encounter [facility] note* Diagnosis Attention deficit disorder (ADD) in adult documented in this encounter [facility] note* Diagnosis Attention deficit disorder (ADD) in adult documented in this encounter [facility] course Narrative No data available for this section [facility] Reason for referral (narrative)* Outpatient Procedure (Routine) - Closed Specialty Diagnoses / Procedures Referred By Abhijeet t Referred To Contact [facility] Diagnoses Constipation, unspecified constipation type Family history of Crohn's disease Procedures COLONOSCOPY DIAGNOSTIC COLONOSCOPY FLX DX W/COLLJ SPEC WHEN PFRMD Meghan French APRN.CIVIL CAD DESIGNER [address] [place] [address] [facility] [address] [place] [address] Referral ID Status Reason Start Date Expiration Date V isits Requested Visits Authorized [id number] Closed Auto-Generate d Referral 08/23/2022 08/24/2023 1 1 [facility] for visit Narrative* Outpatient Procedure (Routine) - Closed Specialty Diagnoses / Procedures Referred By Contac t Referred To Contact [facility] Diagnoses Constipation, unspecified constipation type Family history of Crohn's disease Procedures COLONOSCOPY DIAGNOSTIC COLONOSCOPY FLX DX W/COLLJ SPEC WHEN PFRMMeghan Webster APRN.CIVIL CAD DESIGNER [address] [place] [address] [facility] [address] [address] Referral ID Status Reason Start Date Expiration Date V isits Requested Visits Authorized [id number] Closed Auto-Generate d Referral 08/23/2022 08/24/2023 1 1 [facility] Summary Purpose Family History No Family History Records FoundNo Family History Records Found No data available for this section No Family History Records Found Advance Directives No Advanced Directives Records FoundNo Advanced Directives Records FoundNo Advanced Directives Records Found Reason for Referral Specialty Diagnoses / Procedures Referred By Contac t Referred To Contact Diagnoses Obesity, Class II, BMI 35-39.9 IFG (impaired fasting glucose) Modesto Zhu DO [address] [place] [address] Referral ID Status Reason Start Date Expiration Date Visits Re quested Visits Authorized [id number] Closed 1 1 Specialty Diagnoses / Procedures Referred By Contac t Referred To Contact Gastroenterology Procedures CONSULT TO GASTROENTEROLOGY OFFICE/OUTPATIENT [facility] 60-74 MINUTES Rachel Puentes MD [address] [place] [address] Referral ID Status Reason Start Date Expiration Date Visits Requested Visits Authorized [id number] Authorized PCP Requested Referral 09/13/2022 08/30/2023 1 1 Specialty Diagnoses / Procedures Referred By Contac t Referred To Contact Diagnoses Attention deficit disorder (ADD) in adult Josesito Levi, [employer] SUPERVISOR.CIVIL CAD DESIGNER [address] [place] [address] Referral ID Status Reason Start Date Expiration Date V isits Requested Visits Authorized [id number] Pending Review 1 1 Medications Administered Section [...] DATE CREATED AUTHOR AUTHOR'S ORGANIZ ATION 05/25/2023 [facility] DATE CREATED AUTHOR AUTHOR'S ORGANIZ ATION 07/29/2023 [facility] Source Comments (unrecognize d section and content) In the event this informatio n is protected by the Federal Confidentiality of Alcohol and Drug Abuse Patient Records regulations: The Federal rules restrict any use of the information to criminally investigate or prosecute any alcohol or drug abuse patient.[facility] the event this information is protected by the Federal Confidentiality of Alcohol and Drug Abuse Patient Records regulations: The Federal rules restrict any use of the information to criminally investigate or prosecute any alcohol or drug abuse patient.[facility] the event this information is protected by the Federal Confidentiality of Alcohol and Drug Abuse Patient Records regulations: The Federal rules restrict any use of the information to criminally investigate or prosecute any alcohol or drug abuse patient.[facility] the event this information is protected by the Federal Confidentiality of Alcohol and Drug Abuse Patient Records regulations: The Federal rules restrict any use of the information to criminally investigate or prosecute any alcohol or drug abuse patient.[facility] the event this information is protected by the Federal Confidentiality of Alcohol and Drug Abuse Patient Records regulations: The Federal rules restrict any use of the information to criminally investigate or prosecute any alcohol or drug abuse patient.[facility] the event this information is protected by the Federal Confidentiality of Alcohol and Drug Abuse Patient Records regulations: The Federal rules restrict any use of the information to criminally investigate or prosecute any alcohol or drug abuse patient.[facility]In the event this information is protected by the Federal Confidentiality of Alcohol and Drug Abuse Patient Records regulations: The Federal rules restrict any use of the information to criminally investigate or prosecute any alcohol or drug abuse patient.[facility]In the event this information is protected by the Federal Confidentiality of Alcohol and Drug Abuse Patient Records regulations: The Federal rules restrict any use of the information to criminally investigate or prosecute any alcohol or drug abuse patient.[facility]In the event this information is protected by the Federal Confidentiality of Alcohol and Drug Abuse Patient Records regulations: The Federal rules restrict any use of the information to criminally investigate or prosecute any alcohol or drug abuse patient.[facility] HospitalIn the event this information is protected by the Federal Confidentiality of Alcohol and Drug Abuse Patient Records regulations: The Federal rules restrict any use of the information to criminally investigate or prosecute any alcohol or drug abuse patient.[facility] HospitalIn the event this information is protected by the Federal Confidentiality of Alcohol and Drug Abuse Patient Records regulations: The Federal rules restrict any use of the information to criminally investigate or prosecute any alcohol or drug abuse patient.[facility] HospitalIn the event this information is protected by the Federal Confidentiality of Alcohol and Drug Abuse Patient Records regulations: The Federal rules restrict any use of the information to criminally investigate or prosecute any alcohol or drug abuse patient.[facility] HospitalIn the event this information is protected by the Federal Confidentiality of Alcohol and Drug Abuse Patient Records regulations: The Federal rules restrict any use of the information to criminally investigate or prosecute any alcohol or drug abuse patient.[facility] HospitalIn the event this information is protected by the Federal Confidentiality of Alcohol and Drug Abuse Patient Records regulations: The Federal rules restrict any use of the information to criminally investigate or prosecute any alcohol or drug abuse patient.[facility] HospitalIn the event this information is protected by the Federal Confidentiality of Alcohol and Drug Abuse Patient Records regulations: The Federal rules restrict any use of the information to criminally investigate or prosecute any alcohol or drug abuse patient.[facility] HospitalIn the event this information is protected by the Federal Confidentiality of Alcohol and Drug Abuse Patient Records regulations: The Federal rules restrict any use of the information to criminally investigate or prosecute any alcohol or drug abuse patient.[facility] HospitalIn the event this information is protected by the Federal Confidentiality of Alcohol and Drug Abuse Patient Records regulations: The Federal rules restrict any use of the information to criminally investigate or prosecute any alcohol or drug abuse patient.[facility] HospitalIn the event this information is protected by the Federal Confidentiality of Alcohol and Drug Abuse Patient Records regulations: The Federal rules restrict any use of the information to criminally investigate or prosecute any alcohol or drug abuse patient.[facility] HospitalIn the event this information is protected by the Federal Confidentiality of Alcohol and Drug Abuse Patient Records regulations: The Federal rules restrict any use of the information to criminally investigate or prosecute any alcohol or drug abuse patient.[facility] HospitalIn the event this information is protected by the Federal Confidentiality of Alcohol and Drug Abuse Patient Records regulations: The Federal rules restrict any use of the information to criminally investigate or prosecute any alcohol or drug abuse patient.[facility] HospitalIn the event this information is protected by the Federal Confidentiality of Alcohol and Drug Abuse Patient Records regulations: The Federal rules restrict any use of the information to criminally investigate or prosecute any alcohol or drug abuse patient.[facility] HospitalIn the event this information is protected by the Federal Confidentiality of Alcohol and Drug Abuse Patient Records regulations: The Federal rules restrict any use of the information to criminally investigate or prosecute any alcohol or drug abuse patient.[facility] HospitalIn the event this information is protected by the Federal Confidentiality of Alcohol and Drug Abuse Patient Records regulations: The Federal rules restrict any use of the information to criminally investigate or prosecute any alcohol or drug abuse patient.[facility] HospitalIn the event this information is protected by the Federal Confidentiality of Alcohol and Drug Abuse Patient Records regulations: The Federal rules restrict any use of the information to criminally investigate or prosecute any alcohol or drug abuse patient.[facility] HospitalIn the event this information is protected by the Federal Confidentiality of Alcohol and Drug Abuse Patient Records regulations: The Federal rules restrict any use of the information to criminally investigate or prosecute any alcohol or drug abuse patient.[facility] HospitalIn the event this information is protected by the Federal Confidentiality of Alcohol and Drug Abuse Patient Records regulations: The Federal rules restrict any use of the information to criminally investigate or prosecute any alcohol or drug abuse patient.[facility] HospitalIn the event this information is protected by the Federal Confidentiality of Alcohol and Drug Abuse Patient Records regulations: The Federal rules restrict any use of the information to criminally investigate or prosecute any alcohol or drug abuse patient.[facility] HospitalIn the event this information is protected by the Federal Confidentiality of Alcohol and Drug Abuse Patient Records regulations: The Federal rules restrict any use of the information to criminally investigate or prosecute any alcohol or drug abuse patient.[facility] HospitalIn the event this information is protected by the Federal Confidentiality of Alcohol and Drug Abuse Patient Records regulations: The Federal rules restrict any use of the information to criminally investigate or prosecute any alcohol or drug abuse patient.[facility]In the event this information is protected by the Federal Confidentiality of Alcohol and Drug Abuse Patient Records regulations: The Federal rules restrict any use of the information to criminally investigate or prosecute any alcohol or drug abuse patient.[facility]In the event this information is protected by the Federal Confidentiality of Alcohol and Drug Abuse Patient Records regulations: The Federal rules restrict any use of the information to criminally investigate or prosecute any alcohol or drug abuse patient.[facility] HospitalIn the event this information is protected by the Federal Confidentiality of Alcohol and Drug Abuse Patient Records regulations: The Federal rules restrict any use of the information to criminally investigate or prosecute any alcohol or drug abuse patient.[facility]In the event this information is protected by the Federal Confidentiality of Alcohol and Drug Abuse Patient Records regulations: The Federal rules restrict any use of the information to criminally investigate or prosecute any alcohol or drug abuse patient.[facility] HospitalIn the event this information is protected by the Federal Confidentiality of Alcohol and Drug Abuse Patient Records regulations: The Federal rules restrict any use of the information to criminally investigate or prosecute any alcohol or drug abuse patient.[facility] HospitalIn the event this information is protected by the Federal Confidentiality of Alcohol and Drug Abuse Patient Records regulations: The Federal rules restrict any use of the information to criminally investigate or prosecute any alcohol or drug abuse patient.[facility] HospitalIn the event this information is protected by the Federal Confidentiality of Alcohol and Drug Abuse Patient Records regulations: The Federal rules restrict any use of the information to criminally investigate or prosecute any alcohol or drug abuse patient.[facility] HospitalIn the event this information is protected by the Federal Confidentiality of Alcohol and Drug Abuse Patient Records regulations: The Federal rules restrict any use of the information to criminally investigate or prosecute any alcohol or drug abuse patient.[facility]In the event this information is protected by the Federal Confidentiality of Alcohol and Drug Abuse Patient Records regulations: The Federal rules restrict any use of the information to criminally investigate or prosecute any alcohol or drug abuse patient.[facility] HospitalIn the event this information is protected by the Federal Confidentiality of Alcohol and Drug Abuse Patient Records regulations: The Federal rules restrict any use of the information to criminally investigate or prosecute any alcohol or drug abuse patient.[facility] Care Teams (unrecognized sec tion and content) Bmx Rider Relationship Specialty Start Date End Date Modesto Zhu DO [address] [place] [address] PCP - General Family Practice 08/27/20 Bmx Rider Relationship Specialty Start Date End Date Modesto Zhu, DO [address] [place] [address] PCP - General Family Practice 08/27/20 Bmx Rider Relationship Specialty Start Date End Date Modesto Zhu, DO [address] [place] [address] PCP - General Family Practice 08/27/20 Bmx Rider Relationship Specialty Start Date End Date Modesto Zhu, DO [address] [place] [address] PCP - General Family Practice 08/27/20 Bmx Rider Relationship Specialty Start Date End Date Modesto Zhu, DO [address] [place] [address] PCP - General Family Practice 08/27/20 Bmx Rider Relationship Specialty Start Date End Date Modesto Zhu, DO [address] [place] [address] PCP - General Family Practice 08/27/20 Bmx Rider Relationship Specialty Start Date End Date Modesto Zhu, DO [address] [place] [address] PCP - General Family Practice 08/27/20 Bmx Rider Relationship Specialty Start Date End Date Modesto Zhu, DO [address] [place] [address] PCP - General Family Medicine 08/27/20 Bmx Rider Relationship Specialty Start Date End Date Modesto Zhu, DO [address] [place] [address] PCP - General Family Medicine 08/27/20 Bmx Rider Relationship Specialty Start Date End Date Modesto Zhu, DO [address] [place] [address] PCP - General Family Medicine 08/27/20 Bmx Rider Relationship Specialty Start Date End Date Modesto Zhu, DO [address] [place] [address] PCP - General Family Medicine 08/27/20 Bmx Rider Relationship Specialty Start Date End Date Modesto Zhu, DO [address] [place] [address] PCP - General Family Medicine 08/27/20 Bmx Rider Relationship Specialty Start Date End Date Modesto Zhu, DO [address] [place] [address] PCP - General Family Medicine 08/27/20 Bmx Rider Relationship Specialty Start Date End Date Modesto Zhu, DO [address] [place] [address] PCP - General Family Medicine 08/27/20 Bmx Rider Relationship Specialty Start Date End Date Modesto Zhu, DO [address] [place] [address] PCP - General Family Medicine 08/27/20 Bmx Rider Relationship Specialty Start Date End Date Modesto Zhu, DO [address] [place] [address] PCP - General Family Medicine 08/27/20 Bmx Rider Relationship Specialty Start Date End Date Modesto Zhu, DO [address] [place] [address] PCP - General Family Medicine 08/27/20 Bmx Rider Relationship Specialty Start Date End Date Modesto Zhu DO [address] [place] [address] PCP - General Family Medicine 08/27/20 Bmx Rider Relationship Specialty Start Date End Date Modesto Zhu DO [address] [place] [address] PCP - General Family Medicine 08/27/20 Bmx Rider Relationship Specialty Start Date End Date Modesto Zhu DO [address] [facility] [place] [address] PCP - General Family Medicine 08/27/20 Bmx Rider Relationship Specialty Start Date End Date Modesto Zhu DO [address] [facility] [place] [address] PCP - General Family Medicine 08/27/20 Bmx Rider Relationship Specialty Start Date End Date Modesto Zhu DO [address] [facility] [place] [address] PCP - General Family Medicine 08/27/20 Bmx Rider Relationship Specialty Start Date End Date Modesto Zhu DO [address] [facility] [place] [address] PCP - General Family Medicine 08/27/20 Bmx Rider Relationship Specialty Start Date End Date Modesto Zhu DO [address] [facility] [place] [address] PCP - General Family Medicine 08/27/20 Bmx Rider Relationship Specialty Start Date End Date Modesto Zhu DO [address] [facility] [place] [address] PCP - General Family Medicine 08/27/20 Bmx Rider Relationship Specialty Start Date End Date Modesto Zhu DO [address] [facility] [place] [address] PCP - General Family Medicine 08/27/20 Bmx Rider Relationship Specialty Start Date End Date Modseto Zhu DO [address] [place] [address] PCP - General Family Medicine 08/27/20 Bmx Rider Relationship Specialty Start Date End Date Modesto Zhu DO [address] [place] [address] PCP - General Family Medicine 08/27/20 Reason [...] 60-74 MINUTES Rachel Puentes MD [address] [facility] [place] [address] Referral ID Status Reason Start Date Expiration Date V isits Requested Visits Authorized [id number] Closed PCP Requested Referral 09/13/2022 08/30/2023 1 [...] vyvanse Procedures VIDEO PRIMARY EST Self Marley Moncada APRN.CIV[employer] DES[employer]ER [address] [place] [address] Referral ID Status Reason Start Date Expiration Date V isits Requested Visits Authorized [id number] New Request 05/21/2023 08/20/2023 99 99 FOR [...] BE BASED ON THE PRIMARY CLINICAL RECORDS. [facility]. provides no warranty or guarantee of the accuracy or completeness of information in this document.
== END | disposition home or self-care (01) ==
LOC: CT 16:01
PROVIDERS: PCP Student in an Organized Health Care Education/Training Program; Referring Provider Urology; Visit Provider Urology
DX: R10.9 Unspecified abdominal pain (principal); T83.122A Displacement of indwelling ureteral stent, initial encounter
CPT/HCPCS: 74176

== ENCOUNTER 2023-08-01 05:32 | Day surgery (SDC) | payer OTHER, SELFPAY ==
--- OUTSIDE RECORDS SUMMARY | 2023-08-01 05:35 | XMS RPT_ITS | CCD ---
Author Name Unknown Address [address] [place] [address] Organization [facility] Care Team Providers Care Conduit Installer Name Role Phone Swathi Lewis MD Unavailable [phone] KAYLA CARTER Unavailable Unavailable KAYLA CARTER Unavailable [...] (2 sources) penicillin v Drug Allergy 7 [facility] (20 sources) Penicillins; Translations: [PENICILLINS] Propensity to adverse reactions to drug (disorder) 8 Other: See Comments [facility] Other [facility] (1 source) Penicillin; Translations: [penicillins] Drug Allergy [facility] Medications Current Medications Medication Drug Class(es) [...] blood pressure 67 mm[Hg] ESTELLA TOMAS MD [facility] 07-20-2023 21:27-0500 Heart rate 73 /min ESTELLA TOMAS MD [facility] 07-20-2023 21:27-0500 Respiratory rate 16 /min ESTELLA TOMAS MD [facility] 07-20-2023 21:27-0500 Systolic blood pressure 101 mm[Hg] ESTELLA TOMAS MD [facility] 07-20-2023 19:15-0500 Diastolic Blood Pressure Non-Invasive 90 mm[Hg] ESTELLA TOMAS MD [facility] 07-20-2023 19:15-0500 Heart rate 88 /min ESTELLA TOMAS MD [facility] 07-20-2023 19:15-0500 Respiratory rate 18 /min ESTELLA TOMAS MD [facility] 07-20-2023 19:15-0500 Systolic Blood Pressure Non-Invasive 130 mm[Hg] ESTELLA TOMAS MD [facility] 07-20-2023 17:12-0500 Diastolic Blood Pressure Non-Invasive 71 mm[Hg] ESTELLA TOMAS MD [facility] 07-20-2023 17:12-0500 Heart rate 92 /min ESTELLA TOMAS MD [facility] 07-20-2023 17:12-0500 Respiratory rate 20 /min ESTELLA TOMAS MD [facility] 07-20-2023 17:12-0500 Systolic Blood Pressure Non-Invasive 123 mm[Hg] ESTELLA TOMAS MD [facility] 07-20-2023 14:22-0500 Blood Pressure Location ESTELLA TOMAS MD [facility] 07-20-2023 14:22-0500 Body temperature 96.98 [degF] ESTELLA TOMAS MD [facility] 07-20-2023 14:22-0500 Body weight 70.8 kg ESTELLA TOMAS MD [facility] 07-20-2023 14:22-0500 Diastolic Blood Pressure Non-Invasive 92 mm[Hg] ESTELLA TOMAS MD [facility] 07-20-2023 14:22-0500 Systolic Blood Pressure Non-Invasive 136 mm[Hg] ESTELLA TOMAS MD [facility] 05-23-2023 09:16-0500 Body weight 73.48 kg Josesito Levi JEWELRY DRI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 PERINATAL Work Phone: [facility] 05-23-2023 09:16-0500 Diastolic blood pressure 64 mm[Hg] Josesito Levi JEWELRY DRI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 PERINATAL Work Phone: [facility] 05-23-2023 09:16-0500 Heart rate 64 /min Josesito Levi JEWELRY DRI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 PERINATAL Work Phone: [facility] 05-23-2023 09:16-0500 Respiratory rate 12 /min Josesiot Levi JEWELRY DRI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 PERINATAL Work Phone: [facility] 05-23-2023 09:16-0500 Systolic blood pressure 128 mm[Hg] Josesito Levi JEWELRY DRI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 PERINATAL Work Phone: [facility] 09-20-2022 10:51-0400 Body height 165.1 cm Corinne De Leon MD Work Phone: [facility] 09-20-2022 10:51-0400 Body temperature 98.29 [degF] Corinne De Leon MD Work Phone: [facility] 09-20-2022 10:51-0400 Body weight 88.91 kg Corinne De Leon MD Work Phone: [facility] 09-20-2022 10:51-0400 Diastolic blood pressure 91 mm[Hg] Corinne De Leon MD Work Phone: [facility] 09-20-2022 10:51-0400 Heart rate 119 /min Corinne De Leon MD Work Phone: [facility] 09-20-2022 10:51-0400 Respiratory rate 18 /min Corinne De Leon MD Work Phone: [facility] 09-20-2022 10:51-0400 SaO2% (BldA) [Mass fraction] 100 % Corinne De Leon MD Work Phone: [facility] 09-20-2022 10:51-0400 Systolic blood pressure 135 mm[Hg] Corinne De Leon MD Work Phone: [facility] 08-30-2022 12:26-0400 Heart rate 91 /min Rachel Puentes MD Work Phone: [facility] 08-30-2022 12:26-0400 SaO2% (BldA) [Mass fraction] 100 % Rachel Puentes MD Work Phone: [facility] 08-30-2022 12:16-0400 Diastolic blood pressure 84 mm[Hg] Rachel Puentes MD Work Phone: [facility] 08-30-2022 12:16-0400 Respiratory rate 16 /min Rachel Puentes MD Work Phone: [facility] 08-30-2022 12:16-0400 Systolic blood pressure 124 mm[Hg] Rachel Puentes MD Work Phone: [facility] 08-30-2022 10:44-0400 Body temperature 98.4 [degF] Rachel Puentes MD Work Phone: [facility] 03-22-2022 15:09-0400 Body weight 97.52 kg Modesto Zhu DO Work Phone: [facility] 02-24-2022 10:51-0400 Body weight 100.15 kg Modesto Zhu DO Work Phone: [facility] 04-30-2017 14:06-0500 BMI (Body Mass Index) 38.8 kg/m2 Swathi Lewis MD [facility] 04-30-2017 14:06-0500 BP Diastolic 82 mm[Hg] Swathi Lewis MD [facility] 04-30-2017 14:06-0500 BP Systolic 133 mm[Hg] Swathi Lewis MD [facility] 04-30-2017 14:06-0500 Height 166.37 cm Swathi Lewis MD [facility] 04-30-2017 14:06-0500 Weight 107.41 kg Swathi Lewis MD [facility] 04-03-2017 09:57-0400 BMI (Body Mass Index) 39.72 kg/m2 Swathi Lewis MD [facility] 04-03-2017 09:57-0400 Body Temperature 98.3 [degF] Swathi Lewis MD [facility] 04-03-2017 09:57-0400 BP Diastolic 80 mm[Hg] Swathi Lewis MD [facility] 04-03-2017 09:57-0400 BP Systolic 127 mm[Hg] Swathi Lewis MD [facility] 04-03-2017 09:57-0400 Pulse (Heart Rate) 107 /min Swathi Lewis MD [facility] 04-03-2017 09:57-0400 Respiratory Rate 16 /min Swathi Lewis MD [facility] 04-03-2017 09:57-0400 Weight 112.31 kg Swathi Lewis MD [facility] 02-12-2017 09:05-0400 Height 168.15 cm Swathi Lewis MD [facility] Encounters Encounter Date Encounter Type Care Provider Facility Start: 07-20-2023 End: 07-20-2023 Emergency department patient visit MODESTO ZHU DO Facility:A Start: 07-20-2023 End: 07-20-2023 Emergency department patient visit ESTELLA TOMAS MD [facility] Start: 05-23-2023 End: 05-23-2023 ambulatory MODESTO ZHU Facility:[facility] Start: 05-23-2023 End: 05-23-2023 Patient encounter procedure Josesito Gurmeet JEWELRY DRI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 PERINATAL Work Phone: [facility] Procedures Date Procedure Procedure Detail Performing Clinician Start: 08-30-2022 Level iv surg pathol ogy gross&microscopic exam Rachel Puentes MD Work Phone: Start: 08-30-2022 Colonoscopy flx dx w /collj spec when pfrmd Meghan French JEWELRY DRI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 PERINATAL Work Phone: Start: 02-01-2021 Adult depression scr [...] P,Tdap,Td Vaccine (2 - Td or Tdap) [facility] Start: 01-11-2027 HPV TESTING HPV TESTING [facility] Start: 01-11-2027 PAP TESTING PAP TESTING [facility] Start: 01-11-2027 Screening for malign ant neoplasm of cervix [facility] Start: 01-14-2025 HPV TESTING HPV TESTING [facility] Start: 01-14-2025 PAP TESTING PAP TESTING [facility] Start: 05-23-2024 Covid-19 Vaccine (#1) Covid-19 Vacci ne (#1) [facility] Immunizations Immunization Date Immunization Notes Care Provider Fabiana leslie 07-07-2019 influenza virus vaccine, unspecified formulation Josesito Levi JEWELRY DRI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 PERINATAL Work Phone: [facility] 01-31-2017 tetanus toxoid, reduced diphtheria toxoid, and acellular pertussis vaccine, adsorbed Swathi Lewis MD [facility] 01-17-2017 [id number] Swathi garcia MD [facility] 05-13-2013 influenza virus vaccine, unspecified formulation Modesto Zhu DO Work Phone: [facility] Work Phone: Payers Date Payer Category Payer Unknown [employer] PPO [id number] 2023-Present [phone] [address] [place] [address] PPO [id number] 2023 Unknown [id number] 2022 Medicaid [id number] 2016 Medicaid [employer] [id number] 2016-Present [phone] [address] [place] [address] Medicaid [id number] 2016 Medicaid [id number] 1987 Unknown [id number] Social History Date Type Detail Facility Start: 05-28-2013 End: 08-30-2022 Tobacco smoking status [facility] Never smoked tobacco [facility] Start: 06-29-2021 End: 05-23-2023 Alcohol intake Current drinker of alcohol (finding) [facility] Start: 11-22-2019 End: 05-11-2022 History SDOH Alcohol Frequency 2 [facility] Start: 11-22-2019 End: 05-11-2022 History SDOH Alcohol Std Drinks 1 [facility] Start: 11-20-2018 History SDOH Alcohol Comment socially- rare [facility] Start: 11-22-2019 End: 05-11-2022 History SDOH Social Connections Phone 5 [facility] Start: 11-22-2019 End: 05-11-2022 History SDOH Social Connections Bahai 3 [facility] Start: 11-21-2019 Education 21 [facility] Start: 1985 Sex Assigned At Not on file C [facility] Start: 01-05-2021 End: 01-27-2022 Exposure to SARS-CoV-2 (event) Not sure [facility] Start: 05-28-2013 End: 08-30-2022 Tobacco use and exposure Smokeless tobacco non-user [facility] Start: 05-11-2022 History SDOH Alcohol Std Drinks 0 [facility] Start: 05-11-2022 History SDOH Social Connections Meetings 98 [facility] Start: 05-11-2022 End: 05-21-2023 [facility] Start: 05-11-2022 End: 05-21-2023 Social connection and isolation panel [facility] Do you belong to any clubs or organizations such as yazidism groups, Kiddys, fflickternal or athletic groups, or school groups? No [facility] How often do you att end meetings of the clubs or organizations you belong to? Patient refused [facility] Are you now , , , , never or living with a partner? [facility] How often to you hav e a drink containing alcohol? Never [facility] Do you feel stress - tense, restless, nervous, or anxious, or unable to sleep at night because your mind is troubled all the time - these days [OSQ] To some extent [facility] (I/We) worried wheth er (my/our) food would run out before (I/we) got money to buy more. Never true [facility] Do you belong to any clubs or organizations such as yazidism groups, unions, fflickternal or athletic groups, or school groups? Yes [facility] Sex Assigned At Sex [facility] Functional Status Date Assessment Result Facility 07-20-2023 Functional Status Independent [facility] 07-20-[facility]23 Functional Status Standard Safet y ID band on, Allergy Band on, Call device within reach, Bed in low position, Wheels locked, Upper/Half-Length side-rails up [facility] Mental Status Date Assessment Result Facility 07-20-2023 Mental Status Orientation Oriented x 4 [facility] 07-20-2023 Mental Status [facility] Clinical Notes 11-16-2016 to 07-22-2023 Josesito Levi APRN.RN PERINATAL - 05/23/2023 9:19 AM ESTTelephone Encounter - [...] Locations *1: This test was performed at: [facility], [address] [place] [address], [phone]- , [facility] ([place]) 07-20-2023 Hospital Discharge instructions Patient Education 07/20/2023 [...] for 8 hours and increasing bladder pressure [id number] [place] [address]. All rights reserved. This information is not intended as a substitute for professional medical care. Always follow your healthcare professional's instructions. Follow Up Care 07/20/2023 13:56:26 With:BRINA NAVA MD, [facility] Address: [address] [place] [phone] [phone] When:2-4 days [facility] 07-20-2023 Emergency department Discharge summary Discharge Instructions Thank you for allowing [facility] to assist you with your healthcare needs. The following is important discharge information regarding your hospital visit. Diagnosis from Today's Visit Blood in urine Colic, ureteral Flank pain What to Do Next Instructions from Your Care Team No qualifying data available. Post Acute Orders No qualifying data available. You Need to Schedule the Following Appointments Follow Up with [facility]AVA MD, [facility] When Within 2-4 days Where: [address] [place] [address], [facility] [address] [place] [address]- [phone] Allergies penicillin Medications Please ask your primary [...] for 8 hours and increasing bladder pressure [id number] [employer]. [address] [place] [address], [place] [address]. All rights reserved. This information is not intended as a substitute for professional medical care. Always follow your healthcare professional's instructions. Additional Information VACCINATE! IT SAVES LIVES! Members of the community who have not yet received the COVID-19 vaccine and would like to receive it can visit one of [facility] vaccine clinics. There are many vaccine clinic locations within the [facility]. For locations and available times, please visit [email or web address] [email or web address] It is important to note that some COVID mobile vaccine clinics are held outdoors and may be canceled in rainy or stormy conditions. To learn more about pediatric vaccinations (ages 5-11), we invite you to visit the [facility] webpage. https://www.SegmentFaults.org/pa ges/6340-Ieygi-Qtoxybhfnsi-Freque mcvd-Rcspz-Fobsfwgvj.html To learn more about the COVID-19 vaccine, we invite you to visit the CDC website for a list of frequently asked questions. https://www.cdc.gov/coronavirus/2 019-ncov/vaccines/faq.html [facility] Patient Portal Access Instructions: Stay connected with your healthcare team and access your personal medical information anytime with the [facility] Patient Portal. If you would like a full copy of your medical records please contact the [facility] Medical Records Department Sunday through Sunday between 8a.m. and 4:30p.m. Please follow the directions below to access the portal: 1.Access the email account you provided upon registration to the hospital.2.Look for an invitation email from [facility].3.Open the email and access the invitation link: Accept Invitation to [facility]4.Fill in the required royal to create your account. Sign into www.[employer] with your username and password that you [...] you will allow to register on the [facility] Patient Portal for access to your information. You can also access the [facility] Patient Portal on the [employer] mir. Simply click on Health Records under Health Data and then click on the [employer] logo. HOW TO SAFELY DISPOSE OF PRESCRIPTION [...] Call your local pharmacy or go to http://Insmed.Jaree/6B2Gh8f to find one close to you.3.Make use of household items: Use cat litter or old coffee grounds to dispose medications if other options are not available. Mix your drugs with these household products, seal them in an airtight container and throw it into the garbage. Call [facility]: [phone] to be sure your drugs can be [...] aware that I should contact my doctor. Patient/Manufacturing Maintenance Manager Signature: Date/Time: Relationship to Patient: ____ Witness Name/Signature: Date/Time: [facility] 07-20-2023 Emergency department Discharge summary Discharge Instructions Thank you for allowing [facility] to assist you with your healthcare needs. The following is important discharge information regarding your hospital visit. Diagnosis from Today's Visit Blood in urine Colic, ureteral Flank pain What to Do Next Instructions from Your Care Team No qualifying data available. Post Acute Orders No qualifying data available. You Need to Schedule the Following Appointments Follow Up with BRINA NAVA MD, [facility] When Within 2-4 days Where: [address] [facility], [address] [facility] [place] [phone] Allergies penicillin Medications Please ask your primary [...] for 8 hours and increasing bladder pressure [phone] [employer]. [address] [place] [address]. All rights reserved. This information is not intended as a substitute for professional medical care. Always follow your healthcare professional's instructions. Additional Information VACCINATE! IT SAVES LIVES! Members of the community who have not yet received the COVID-19 vaccine and would like to receive it can visit one of [facility] vaccine clinics. There are many vaccine clinic locations within the [facility]. For locations and available times, please visit [email or web address] ov/. It is important to note that some COVID mobile vaccine clinics are held outdoors and may be canceled in rainy or stormy conditions. To learn more about pediatric vaccinations (ages 5-11), we invite you to visit the [facility] webpage. https://www.SegmentFaults.org/pa ges/9166-Cyedl-Kgzqxjwnwoj-Freque cjtv-Mdntz-Qjxejrwjd.html To learn more about the COVID-19 vaccine, we invite you to visit the CDC website for a list of frequently asked questions. https://www.cdc.gov/coronavirus/2 019-ncov/vaccines/faq.html [facility] Patient Portal Access Instructions: Stay connected with your healthcare team and access your personal medical information anytime with the [facility] Patient Portal. If you would like a full copy of your medical records please contact the [facility] Medical Records Department Sunday through Sunday between 8a.m. and 4:30p.m. Please follow the directions below to access the portal: 1.Access the email account you provided upon registration to the [facility].2.Look for an invitation email from [facility].3.Open the email and access the invitation link: Accept Invitation to [facility]4.Fill in the required royal to create your account. Sign into www.[employer] with your username and password that you [...] you will allow to register on the [facility] Patient Portal for access to your information. You can also access the [facility] Patient Portal on the [employer] mir. Simply click on Health Records under Health Data and then click on the [employer] logo. HOW TO SAFELY DISPOSE OF PRESCRIPTION [...] Call your local pharmacy or go to http://Insmed.Jaree/1J4Fm7d to find one close to you.3.Make use of household items: Use cat litter or old coffee grounds to dispose medications if other options are not available. Mix your drugs with these household products, seal them in an airtight container and throw it into the garbage. Call [facility]: [phone] to be sure your drugs can be [...] aware that I should contact my doctor. Patient/Manufacturing Maintenance Manager Signature: Date/Time: Relationship to Patient: ____ Witness Name/Signature: Date/Time: [facility] 07-20-2023 Note ORIGINAL EXAMINATION: CT OF [...] No follow-up imaging is recommended. Reference: JACR 2019;17(4):[id number] Interpreted by: Demetri Adams Preliminary Report By: Jose Angel Fernandez Electronically signed By Demetri Adams Dictated Date: 07/20/2023 4:04:14 PM Prelim Date: 07/20/2023 4:10:03 PM Sign Date: 07/20/2023 4:34:19 PM Ordering Provider: [facility] 07-20-2023 Evaluation + Plan note Diagnostic Tests PendingUrine Culture 07/20/23 [facility] 05-23-2023 Note HNO ID: [id number] Author: Josesito Levi APRN.RN PERINATAL Service: ? Author Type: Nurse Practitioner Type: [...] November 21, 2016 Cerclage being placed by [facility] on 11/22/16. On vaginal progesterone. Jessi Pierre [...] for pain pane (more content not included)... [facility] 05-23-2023 History of Present illness Narrative [...] occur. Patient agreeable to treatment plan. Josesito Prcie APRN.RN PERINATAL [address] [place] [address] documented in this encounter [facility] 05-21-2023 Miscellaneous Notes Pt is scheduled for virtual visit with STRATEGIC ALLIANCES MANAGER today at 11:40am. Provider is requesting in office visit and also pt is due for urine tox screen. Phoned pt to advise of the same, voicemail box is full, unable to leave message. Tomás Marquis documented in this encounter [facility] 05-19-2023 Miscellaneous Notes Attempted to reach pt by phone without success. Sent a [employer] message with explanation why medication was denied. [...] for Refusal: Patient needs appointment Josesito Levi APRN.RN PERINATAL BHARATI-09/29/22 Labs-09/20/22 NOV-none Frances Ochoa LPN documented in this encounter [facility] 03-28-2023 Miscellaneous Notes Date of last office: 09/29/2022 Date of next office visit: None Requested Prescriptions Pending Prescriptions Disp Refills topiramate (TOPAMAX) 100 mg tablet 60 tablet 1 Sig: Take 1 tablet by mouth two times a day. Date of Last Labs: 09/20/2022 Please advise. Thank you. Magda Rothman RN. documented in this encounter [facility] 03-20-2023 Miscellaneous Notes OK to refill as ordered Rizwan Nichols MD patient calling due to insurance co will no longer cover the vyvanse 30mg 2 daily so she is needing a new rx for the 60mg once daily. rx has been pended for approval patient only needs called if problem with refilling medication documented in this encounter [facility] 03-19-2023 Miscellaneous Notes The following approved medication [...] Faye Harper MA documented in this encounter [facility] 01-26-2023 Miscellaneous Notes Pt. informed via My [...] Indu Torres MA documented in this encounter [facility] 01-25-2023 Miscellaneous Notes MC message turned into TE. Indu Torres MA documented in this encounter [facility] 12-15-2022 Miscellaneous Notes Pt notified via MC [...] you. ARELY Rodriguez documented in this encounter [facility] 09-29-2022 Note HNO ID: [id number] Author: Modesto Zhu, DO Service: ? Author [...] no other changes. She was seen by Incoming Inspector Dr. De Leon and was told to [...] stop the vyvanse and should d/w her border measurer as well. - LISDEXAMFETAMINE 70 MG CAPSULE 3. 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 D/w her that if she develops bloody stools again, has to stop the vyvanse and should d/w her border measurer as well. She is aware of the risk Modesto Zhu DO Return if no improvement. Follow up with Modesto Zhu DO. To ER if develops chest pain, shortness of breath Discussed risks, benefits, alternatives, and potential side effects of medications. Patient/Guardian expressed understanding and agreed with the plan. See patient (more content not included)... [facility] 09-20-2022 Note HNO ID: [id number] Author: Corinne De Leon MD Service: ? Author Type: Physician Type: Progress Notes Filed: 09/24/2022 12:32 PM Note Text: NAME: Jannette Gupta [facility] NO: [id number] REASON FOR VISIT Jannette Gupta is a [...] Colon, transverse and (more content not included)... [facility] 09-20-2022 History of Present illness Narrative NAME: Jannette Gupta CLINIC NO: [id number] REASON FOR VISIT Jannette Gupta is a [...] 2022 4:56 PM documented in this encounter [facility] 09-13-2022 Miscellaneous Notes The following approved medication [...] refills Last labs-02/07/21 documented in this encounter [facility] 08-30-2022 Nurse Note Arrived in phase II via cart. Left lateral position. Sedated, but responds to verbal stimuli. Color normal; skin warm and dry. Respirations wnl and unlabored. Abdomen soft and with + bowel sounds in quads X 4. Patient resting comfortably. Elisa Harp RN documented in this encounter [facility] 08-30-2022 History and physical note UPDATED PROCEDURAL [...] Rachel Puentes MD documented in this encounter [facility] 08-28-2022 Miscellaneous Notes Miralax/Dulcolax bowel prep instruction [...] Ros Wagner LPN documented in this encounter [facility] 08-24-2022 Miscellaneous Notes Noted, agree with below. [...] Had Hysterectomy in April Protocols used: Rectal [id number] TC patient in regards to [employer] message. Left message for patient to call back and speak with a triage nurse regarding blood in stool. Magda Rothman RN documented in this encounter [facility] 08-14-2022 Miscellaneous Notes PDMP website checked and validated. All prescriptions have been APPROPRIATELY filled. No suspicious activity was identified. 08/14/2022 by Josesito Levi APRN.RN PERINATAL The following approved medication requests have been [...] Faye Harper MA documented in this encounter [facility] 07-12-2022 Miscellaneous Notes PDMP website checked and [...] Lilly Rai LPN documented in this encounter [facility] 07-11-2022 Miscellaneous Notes Patient has been identified by name and date of : Yes Patient phones for refill(s): Requested Prescriptions Pending Prescriptions Disp Refills topiramate (TOPAMAX) 50 mg tablet 60 tablet 1 Sig: Take 1 tablet by mouth twice daily. Date of last office visit in primary care: 01/27/2022 Please advise. Thank you. Lilly Rai LPN documented in this encounter [facility] 06-15-2022 Miscellaneous Notes The following approved medication requests have been transmitted electronically. Requested Prescriptions Signed Prescriptions Disp Refills lisdexamfetamine (VYVANSE) 70 mg capsule 30 capsule 0 Sig: Take 1 capsule by mouth once daily for 30 days. Authorizing Provider: MEGHAN FRENCH APRN.[facility] PDMP website checked and validated. All prescriptions have been APPROPRIATELY filled. No suspicious activity was identified. 06/15/2022 by Meghan French CNP. Bharati--05/17/22 Nov--nothing scheduled Last refill--05/17/22 30 with -0 refills Last labs--02/07/21 documented in this encounter [facility] 05-17-2022 History of Present illness Narrative Unable [...] Meghan French APRN.CNP documented in this encounter [facility] 04-27-2022 Miscellaneous Notes Called and left a [...] adderall. Please send to jessy [facility] in [place]. Ana Galan Ma Please call Jannette and [...] note were not included. Please see pt [employer] message and advise documented in this encounter [facility] 04-20-2022 Miscellaneous Notes See TE 04/20 Ana Galan Ma documented in this encounter [facility] 04-12-2022 Miscellaneous Notes Please see TE 04/12 Ana Galan Ma documented in this encounter [facility] 03-22-2022 History of Present illness Narrative In [...] NOTE This is a virtual visit using [employer] video visit. It required patient-provider interaction for [...] which included preparing to see the patient, [id number] patient care, completing clinical documentation, obtaining and/or reviewing separately obtained history, and performing a medically appropriate examination Modesto Zhu DO documented in this encounter [facility] 02-27-2022 History of Present illness Narrative In [...] NOTE This is a virtual visit using [employer] video visit. It required patient-provider interaction for [...] November 21, 2016 Cerclage being placed by [facility] on 11/22/16. On vaginal progesterone. Jessi Pierre [...] which included preparing to see the patient, [id number] patient care, completing clinical documentation, obtaining and/or reviewing separately obtained history, performing a medically appropriate examination, and ordering medications, tests, or procedures Modesto Zhu DO documented in this encounter [facility] 02-10-2022 Miscellaneous Notes PDMP website checked and [...] Frances Ochoa LPN documented in this encounter [facility] 01-12-2022 Miscellaneous Notes [facility] website checked and validated. All prescriptions [...] Ana Galan Ma documented in this encounter [facility] 11-30-2021 Miscellaneous Notes Mailed to patient home address Ana Galan Ma [place] mail patient Adult ADD/ADHD questionnaire. Meghan French APRN.CNP documented in this encounter [facility] 11-30-2021 History of Present illness Narrative VIRTUAL VISIT PROGRESS NOTE This is a virtual visit using [employer] video visit. It required patient-provider interaction for the medical decision making as documented below. Jannette Gupta is a 36 year old female seen for medication/ADHD. Today: Would like to get an opinion about ADHD. Has friends with this dx and feels like she may have this. At work, has difficulty staying on task. Works for [employer], and talks to a lot of other [...] November 21, 2016 Cerclage being placed by [facility] on 11/22/16. On vaginal progesterone. Jessi Pierre [...] medication. She will notify the office via [employer] with update. May consider increasing/changing dose at that point. Mailing out questionnaire for adult ADHD that patient will return via [employer] message. Meghan French APRN.CNP PDMP website checked and validated. All prescriptions have been APPROPRIATELY filled. No suspicious activity was identified. 11/30/2021 by Meghan French CNP. documented in this encounter [facility] 10-20-2021 Miscellaneous Notes Last office visit: 06/29/21 F/u scheduled: none Shelbie Burns Ma documented in this encounter [facility] 09-14-2021 Miscellaneous Notes Pt notified she would need appt to discuss ADHD. Advised her to call in and schedule. Shelbie Burns Ma documented in this encounter [facility] 09-12-2021 Miscellaneous Notes Agree with below. Meghan French APRN.CNP Advised patient to schedule appt for concern Ana Galan Ma documented in this encounter [facility] 02-17-2021 Miscellaneous Notes Phone call placed patient reported x2 moles located (LT) abd slightly raised, appointment scheduled w/ Dr. Zhu 05/04/2021 for possible removal if needed. Angie Bain LPN documented in this encounter [facility] documented as of this encounter (statuses as of 09/12/2021) [facility] History of Past illness Narrative* Problem Noted [...] of this encounter (statuses as of 09/14/2021) [facility] Narrative* Problem Noted [...] of this encounter (statuses as of 10/20/2021) [facility] Narrative* Problem Noted [...] of this encounter (statuses as of 11/15/2021) [facility] Narrative* Problem Noted [...] of this encounter (statuses as of 11/30/2021) [facility] Narrative* Problem Noted [...] of this encounter (statuses as of 11/30/2021) [facility] Narrative* Problem Noted [...] of this encounter (statuses as of 01/12/2022) [facility] N[facility]ative* Problem Noted [...] of this encounter (statuses as of 02/10/2022) [facility] N[facility]* Problem Noted [...] of this encounter (statuses as of 02/23/2022) [facility] N[facility]* Problem Noted [...] of this encounter (statuses as of 02/27/2022) [facility] N[facility]* Problem Noted [...] of this encounter (statuses as of 03/22/2022) [facility] N[facility]* Problem Noted [...] of this encounter (statuses as of 04/12/2022) [facility] N[facility]* Problem Noted [...] of this encounter (statuses as of 04/20/2022) [facility] N[facility]* Problem Noted [...] of this encounter (statuses as of 04/27/2022) [facility] N[facility]* Problem Noted [...] of this encounter (statuses as of 05/17/2022) [facility] N[facility]* Problem Noted [...] of this encounter (statuses as of 06/16/2022) [facility]* Problem Noted [...] of this encounter (statuses as of 07/12/2022) [facility] N[facility]* Problem Noted [...] of this encounter (statuses as of 07/12/2022) [facility] N[facility]* Problem Noted [...] of this encounter (statuses as of 08/14/2022) [facility] N[facility]* Problem Noted Date Resolved Date Short cervix during in second trimeste r 11/16/2016 07/07/2019 Overview: November 21, 2016 Cerclage being placed by [facility] on 11/22/16. On vaginal progesterone. Jessi Pierre [...] of this encounter (statuses as of 08/24/2022) [facility] N[facility]* Problem Noted [...] of this encounter (statuses as of 08/28/2022) [facility]* Problem Noted [...] of this encounter (statuses as of 08/28/2022) [facility] N[facility]* Problem Noted [...] of this encounter (statuses as of 08/30/2022) [facility] N[facility]* Problem Noted [...] of this encounter (statuses as of 09/14/2022) [facility] N[facility]* Problem Noted [...] of this encounter (statuses as of 09/24/2022) [facility]* Problem Noted [...] of this encounter (statuses as of 09/29/2022) [facility] N[facility]* Problem Noted [...] of this encounter (statuses as of 12/15/2022) [facility] N[facility]* Problem Noted [...] in office the end of the week Swatih Lewis MD Abnormal glucose complicating 10/13/2013 10/27/2013 [...] of this encounter (statuses as of 01/25/2023) [facility] Narrative* Problem Noted Date Diagnosed Date Resolved Date Short cervix during pregnanc y in second trimester 11/16/2016 07/07/2019 Overview: November 21, 2016 Cerclage being placed by [facility] on 11/22/16. On vaginal progesterone. Jessi Pierre [...] of this encounter (statuses as of 01/26/2023) [facility] Narrative* Problem Noted [...] trimester 12/17/2013 07/07/2019 [address] maternal glucose to [facility], antepartum 12/05/2013 02/04/2014 High-risk supervision 12/02/2013 [...] of this encounter (statuses as of 02/15/2023) [facility] N[facility]* Problem Noted [...] of this encounter (statuses as of 03/20/2023) [facility] N[facility]* Problem Noted [...] of this encounter (statuses as of 03/21/2023) [facility]* Problem Noted [...] of this encounter (statuses as of 03/28/2023) [facility]* Problem Noted [...] of this encounter (statuses as of 04/15/2023) [facility]* Problem Noted [...] of this encounter (statuses as of 04/18/2023) [facility]* Problem Noted [...] of this encounter (statuses as of 05/19/2023) [facility] N[facility]* Problem Noted [...] of this encounter (statuses as of 05/21/2023) [facility] N[facility]* Problem Noted [...] of this encounter (statuses as of 05/23/2023) [facility] Diagnosis Attention deficit disorder (ADD) in adult- Primary Disorganized thought process Other symptoms involving nervous and musculoskeletal systems Difficulty with household tasks [facility] Attention deficit disorder (ADD) in adult- Primary [facility] Diagnosis Attention deficit disorder (ADD) in adult [facility] Diagnosis Obesity, Class II, BMI 35-39.9 Obesity, unspecified IFG (impaired fasting glucose) Impaired fasting glucose Attention deficit disorder (ADD) in adult [facility] Diagnosis Obesity, Class II, BMI 35-39.9- Primary Obesity, unspecified Attention deficit disorder (ADD) in adult IFG (impaired fasting glucose) Impaired fasting glucose [facility] Diagnosis Attention deficit disorder (ADD) in adult- Primary documented in this encounter [facility] note* Diagnosis Attention deficit disorder (ADD) in adult- Primary documented in this encounter [facility] note* Diagnosis Attention deficit disorder (ADD) in adult documented in this encounter [facility] note* Diagnosis Obesity, Class II, BMI 35-39.9 Obesity, unspecified documented in this encounter [facility] note* Diagnosis Attention deficit disorder (ADD) in adult documented in this encounter [facility] note* Diagnosis Attention deficit disorder (ADD) in adult documented in this encounter [facility] note* Diagnosis Attention deficit disorder (ADD) in adult documented in this encounter [facility] note* Diagnosis Indeterminate colitis- Primary Other and unspecified noninfectious gastroenteritis and colitis documented in this encounter [facility] note* Diagnosis Attention deficit disorder (ADD) in adult documented in this encounter [facility] note* Diagnosis Attention deficit disorder (ADD) in adult- Primary documented in this encounter [facility] note* Diagnosis Attention deficit disorder (ADD) in adult documented in this encounter [facility] note* Diagnosis Attention deficit disorder (ADD) in adult- Primary documented in this encounter [facility] note* Diagnosis Obesity, Class II, BMI 35-39.9 Obesity, unspecified documented in this encounter [facility] note* Diagnosis Change in bowel movement- Primary Other symptoms involving digestive system Rectal bleeding Hemorrhage of rectum and anus Constipation, unspecified constipation type Family history of Crohn's disease Family history of other digestive disorders documented in this encounter [facility] note* Diagnosis Attention deficit disorder (ADD) in adult documented in this encounter [facility] note* Diagnosis Attention deficit disorder (ADD) in adult documented in this encounter [facility] note* Diagnosis Attention deficit disorder (ADD) in adult documented in this encounter [facility] course Narrative No data available for this section [facility] Reason for referral (narrative)* Outpatient Procedure (Routine) - Closed Specialty Diagnoses / Procedures Referred By Abhijeet t Referred To Contact [facility] Diagnoses Constipation, unspecified constipation type Family history of Crohn's disease Procedures COLONOSCOPY DIAGNOSTIC COLONOSCOPY FLX DX W/COLLJ SPEC WHEN PFRMD Meghan French APRN.RN PERINATAL [address] [place] [address] [facility] [place] [address] [place] [address] Referral ID Status Reason Start Date Expiration Date V isits Requested Visits Authorized [id number] Closed Auto-Generate d Referral 08/23/2022 08/24/2023 1 1 [facility] for visit Narrative* Outpatient Procedure (Routine) - Closed Specialty Diagnoses / Procedures Referred By Contac t Referred To Contact [facility] Diagnoses Constipation, unspecified constipation type Family history of Crohn's disease Procedures COLONOSCOPY DIAGNOSTIC COLONOSCOPY FLX DX W/COLLJ SPEC WHEN PFRMMeghan Webster APRN.RN PERINATAL [address] [place] [address] [facility] [address] [address] Referral ID Status Reason Start Date Expiration Date V isits Requested Visits Authorized [id number] Closed Auto-Generate d Referral 08/23/2022 08/24/2023 1 1 [facility] Summary Purpose Family History No Family History [...] (impaired fasting glucose) Modesto Zhu DO [address] [place] [address] Referral ID Status Reason Start Date Expiration Date Visits Re quested Visits Authorized [id number] Closed 1 1 Specialty Diagnoses / Procedures Referred By Contac t Referred To Contact Gastroenterology Procedures CONSULT TO GASTROENTEROLOGY OFFICE/OUTPATIENT [facility] 60-74 MINUTES Rachel Puentes MD [address] [place] [address] Referral ID Status Reason Start Date Expiration Date Visits Requested Visits Authorized [id number] Authorized PCP Requested Referral 09/13/2022 08/30/2023 1 1 Specialty Diagnoses / Procedures Referred By Contac t Referred To Contact Diagnoses Attention deficit disorder (ADD) in adult Josesito Levi, [employer]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 PERINATAL [address] [place] [address] Referral ID Status Reason Start Date Expiration Date V isits Requested Visits Authorized [id number] Pending Review 1 1 Medications Administered Section [...] DATE CREATED AUTHOR AUTHOR'S ORGANIZ ATION 05/25/2023 [facility] DATE CREATED AUTHOR AUTHOR'S ORGANIZ ATION 07/29/2023 [facility] ([place]) Source Comments (unrecognize d section and content) In the event this informatio n is protected by the Federal Confidentiality of Alcohol and Drug Abuse Patient Records regulations: The Federal rules restrict any use of the information to criminally investigate or prosecute any alcohol or drug abuse patient.[facility] the event this information is protected by the Federal Confidentiality of Alcohol and Drug Abuse Patient Records regulations: The Federal rules restrict any use of the information to criminally investigate or prosecute any alcohol or drug abuse patient.[facility] the event this information is protected by the Federal Confidentiality of Alcohol and Drug Abuse Patient Records regulations: The Federal rules restrict any use of the information to criminally investigate or prosecute any alcohol or drug abuse patient.[facility] the event this information is protected by the Federal Confidentiality of Alcohol and Drug Abuse Patient Records regulations: The Federal rules restrict any use of the information to criminally investigate or prosecute any alcohol or drug abuse patient.[facility] the event this information is protected by the Federal Confidentiality of Alcohol and Drug Abuse Patient Records regulations: The Federal rules restrict any use of the information to criminally investigate or prosecute any alcohol or drug abuse patient.[facility] the event this information is protected by the Federal Confidentiality of Alcohol and Drug Abuse Patient Records regulations: The Federal rules restrict any use of the information to criminally investigate or prosecute any alcohol or drug abuse patient.[facility] the event this information is protected by the Federal Confidentiality of Alcohol and Drug Abuse Patient Records regulations: The Federal rules restrict any use of the information to criminally investigate or prosecute any alcohol or drug abuse patient.[facility] the event this information is protected by the Federal Confidentiality of Alcohol and Drug Abuse Patient Records regulations: The Federal rules restrict any use of the information to criminally investigate or prosecute any alcohol or drug abuse patient.[facility] the event this information is protected by the Federal Confidentiality of Alcohol and Drug Abuse Patient Records regulations: The Federal rules restrict any use of the information to criminally investigate or prosecute any alcohol or drug abuse patient.[facility] the event this information is protected by the Federal Confidentiality of Alcohol and Drug Abuse Patient Records regulations: The Federal rules restrict any use of the information to criminally investigate or prosecute any alcohol or drug abuse patient.[facility] the event this information is protected by the Federal Confidentiality of Alcohol and Drug Abuse Patient Records regulations: The Federal rules restrict any use of the information to criminally investigate or prosecute any alcohol or drug abuse patient.[facility] the event this information is protected by the Federal Confidentiality of Alcohol and Drug Abuse Patient Records regulations: The Federal rules restrict any use of the information to criminally investigate or prosecute any alcohol or drug abuse patient.[facility] the event this information is protected by the Federal Confidentiality of Alcohol and Drug Abuse Patient Records regulations: The Federal rules restrict any use of the information to criminally investigate or prosecute any alcohol or drug abuse patient.[facility] the event this information is protected by the Federal Confidentiality of Alcohol and Drug Abuse Patient Records regulations: The Federal rules restrict any use of the information to criminally investigate or prosecute any alcohol or drug abuse patient.[facility] the event this information is protected by the Federal Confidentiality of Alcohol and Drug Abuse Patient Records regulations: The Federal rules restrict any use of the information to criminally investigate or prosecute any alcohol or drug abuse patient.[facility] the event this information is protected by the Federal Confidentiality of Alcohol and Drug Abuse Patient Records regulations: The Federal rules restrict any use of the information to criminally investigate or prosecute any alcohol or drug abuse patient.[facility] the event this information is protected by the Federal Confidentiality of Alcohol and Drug Abuse Patient Records regulations: The Federal rules restrict any use of the information to criminally investigate or prosecute any alcohol or drug abuse patient.[facility] the event this information is protected by the Federal Confidentiality of Alcohol and Drug Abuse Patient Records regulations: The Federal rules restrict any use of the information to criminally investigate or prosecute any alcohol or drug abuse patient.[facility] the event this information is protected by the Federal Confidentiality of Alcohol and Drug Abuse Patient Records regulations: The Federal rules restrict any use of the information to criminally investigate or prosecute any alcohol or drug abuse patient.[facility] CenterIn the event this information is protected by the Federal Confidentiality of Alcohol and Drug Abuse Patient Records regulations: The Federal rules restrict any use of the information to criminally investigate or prosecute any alcohol or drug abuse patient.[facility] CenterIn the event this information is protected by the Federal Confidentiality of Alcohol and Drug Abuse Patient Records regulations: The Federal rules restrict any use of the information to criminally investigate or prosecute any alcohol or drug abuse patient.[facility] CenterIn the event this information is protected by the Federal Confidentiality of Alcohol and Drug Abuse Patient Records regulations: The Federal rules restrict any use of the information to criminally investigate or prosecute any alcohol or drug abuse patient.[facility] CenterIn the event this information is protected by the Federal Confidentiality of Alcohol and Drug Abuse Patient Records regulations: The Federal rules restrict any use of the information to criminally investigate or prosecute any alcohol or drug abuse patient.[facility] CenterIn the event this information is protected by the Federal Confidentiality of Alcohol and Drug Abuse Patient Records regulations: The Federal rules restrict any use of the information to criminally investigate or prosecute any alcohol or drug abuse patient.[facility] CenterIn the event this information is protected by the Federal Confidentiality of Alcohol and Drug Abuse Patient Records regulations: The Federal rules restrict any use of the information to criminally investigate or prosecute any alcohol or drug abuse patient.[facility] CenterIn the event this information is protected by the Federal Confidentiality of Alcohol and Drug Abuse Patient Records regulations: The Federal rules restrict any use of the information to criminally investigate or prosecute any alcohol or drug abuse patient.[facility] CenterIn the event this information is protected by the Federal Confidentiality of Alcohol and Drug Abuse Patient Records regulations: The Federal rules restrict any use of the information to criminally investigate or prosecute any alcohol or drug abuse patient.[facility] CenterIn the event this information is protected by the Federal Confidentiality of Alcohol and Drug Abuse Patient Records regulations: The Federal rules restrict any use of the information to criminally investigate or prosecute any alcohol or drug abuse patient.[facility] CenterIn the event this information is protected by the Federal Confidentiality of Alcohol and Drug Abuse Patient Records regulations: The Federal rules restrict any use of the information to criminally investigate or prosecute any alcohol or drug abuse patient.[facility] CenterIn the event this information is protected by the Federal Confidentiality of Alcohol and Drug Abuse Patient Records regulations: The Federal rules restrict any use of the information to criminally investigate or prosecute any alcohol or drug abuse patient.[facility] CenterIn the event this information is protected by the Federal Confidentiality of Alcohol and Drug Abuse Patient Records regulations: The Federal rules restrict any use of the information to criminally investigate or prosecute any alcohol or drug abuse patient.[facility] CenterIn the event this information is protected by the Federal Confidentiality of Alcohol and Drug Abuse Patient Records regulations: The Federal rules restrict any use of the information to criminally investigate or prosecute any alcohol or drug abuse patient.[facility] CenterIn the event this information is protected by the Federal Confidentiality of Alcohol and Drug Abuse Patient Records regulations: The Federal rules restrict any use of the information to criminally investigate or prosecute any alcohol or drug abuse patient.[facility] CenterIn the event this information is protected by the Federal Confidentiality of Alcohol and Drug Abuse Patient Records regulations: The Federal rules restrict any use of the information to criminally investigate or prosecute any alcohol or drug abuse patient.[facility] CenterIn the event this information is protected by the Federal Confidentiality of Alcohol and Drug Abuse Patient Records regulations: The Federal rules restrict any use of the information to criminally investigate or prosecute any alcohol or drug abuse patient.[facility] CenterIn the event this information is protected by the Federal Confidentiality of Alcohol and Drug Abuse Patient Records regulations: The Federal rules restrict any use of the information to criminally investigate or prosecute any alcohol or drug abuse patient.[facility] CenterIn the event this information is protected by the Federal Confidentiality of Alcohol and Drug Abuse Patient Records regulations: The Federal rules restrict any use of the information to criminally investigate or prosecute any alcohol or drug abuse patient.[facility] CenterIn the event this information is protected by the Federal Confidentiality of Alcohol and Drug Abuse Patient Records regulations: The Federal rules restrict any use of the information to criminally investigate or prosecute any alcohol or drug abuse patient.[facility] CenterIn the event this information is protected by the Federal Confidentiality of Alcohol and Drug Abuse Patient Records regulations: The Federal rules restrict any use of the information to criminally investigate or prosecute any alcohol or drug abuse patient.[facility] Care Teams (unrecognized sec tion and content) Conduit Installer Relationship Specialty Start Date End Date Modesto Zhu DO [address] [place] [address] PCP - General Family Practice 08/27/20 Conduit Installer Relationship Specialty Start Date End Date Modesto Zhu, DO [address] [place] [address] PCP - General Family Practice 08/27/20 Conduit Installer Relationship Specialty Start Date End Date Modesto Zhu, DO [address] [place] [address] PCP - General Family Practice 08/27/20 Conduit Installer Relationship Specialty Start Date End Date Modesto Zhu, DO [address] [place] [address] PCP - General Family Practice 08/27/20 Conduit Installer Relationship Specialty Start Date End Date Modesto Zhu, DO [address] [place] [address] PCP - General Family Practice 08/27/20 Conduit Installer Relationship Specialty Start Date End Date Modesto Zhu, DO [address] [place] [address] PCP - General Family Practice 08/27/20 Conduit Installer Relationship Specialty Start Date End Date Modesto Zhu, DO [address] [place] [address] PCP - General Family Practice 08/27/20 Conduit Installer Relationship Specialty Start Date End Date Modesto Zhu, DO [address] [place] [address] PCP - General Family Medicine 08/27/20 Conduit Installer Relationship Specialty Start Date End Date Modesto Zhu, DO [address] [place] [address] PCP - General Family Medicine 08/27/20 Conduit Installer Relationship Specialty Start Date End Date Modesto Zhu, DO [address] [place] [address] PCP - General Family Medicine 08/27/20 Conduit Installer Relationship Specialty Start Date End Date Modesto Zhu, DO [address] [place] [address] PCP - General Family Medicine 08/27/20 Conduit Installer Relationship Specialty Start Date End Date Modesto Zhu, DO [address] [place] [address] PCP - General Family Medicine 08/27/20 Conduit Installer Relationship Specialty Start Date End Date Modesto Zhu, DO [address] [place] [address] PCP - General Family Medicine 08/27/20 Conduit Installer Relationship Specialty Start Date End Date Modesto Zhu, DO [address] [place] [address] PCP - General Family Medicine 08/27/20 Conduit Installer Relationship Specialty Start Date End Date Modesto Zhu, DO [address] [place] [address] PCP - General Family Medicine 08/27/20 Conduit Installer Relationship Specialty Start Date End Date Modesto Zhu, DO [address] [place] [address] PCP - General Family Medicine 08/27/20 Conduit Installer Relationship Specialty Start Date End Date Modesto Zhu, DO [address] [place] [address] PCP - General Family Medicine 08/27/20 Conduit Installer Relationship Specialty Start Date End Date Modesto Zhu DO [address] [place] [address] PCP - General Family Medicine 08/27/20 Conduit Installer Relationship Specialty Start Date End Date Modesto Zhu DO [address] [place] [address] PCP - General Family Medicine 08/27/20 Conduit Installer Relationship Specialty Start Date End Date Modesto Zhu DO [address] [place] [address] PCP - General Family Medicine 08/27/20 Conduit Installer Relationship Specialty Start Date End Date Modesto Zhu DO [address] [place] [address] PCP - General Family Medicine 08/27/20 Conduit Installer Relationship Specialty Start Date End Date Modseto Zhu DO [address] [place] [address] PCP - General Family Medicine 08/27/20 Conduit Installer Relationship Specialty Start Date End Date Modesto Zhu DO [address] [place] [address] PCP - General Family Medicine 08/27/20 Conduit Installer Relationship Specialty Start Date End Date Modesto Zhu DO [address] [place] [address] PCP - General Family Medicine 08/27/20 Conduit Installer Relationship Specialty Start Date End Date Modesto Zhu DO [address] [place] [address] PCP - General Family Medicine 08/27/20 Conduit Installer Relationship Specialty Start Date End Date Modesto Zhu DO [address] [place] [address] PCP - General Family Medicine 08/27/20 Conduit Installer Relationship Specialty Start Date End Date Modesto Zhu DO [address] [place] [address] PCP - General Family Medicine 08/27/20 Conduit Installer Relationship Specialty Start Date End Date Modesto Zhu DO [address] [place] [address] PCP - General Family Medicine 08/27/20 Reason [...] 60-74 MINUTES Rachel Puentes MD [address] [address] Referral ID Status Reason Start Date Expiration Date V isits Requested Visits Authorized [id number] Closed PCP Requested Referral 09/13/2022 08/30/2023 1 [...] Procedures VIDEO PRIMARY EST Self Marley Moncada APRN.RN PERINATAL [address] [place] [address] Referral ID Status Reason Start Date Expiration Date V isits Requested Visits Authorized [id number] New Request 05/21/2023 08/20/2023 99 99 FOR [...] BE BASED ON THE PRIMARY CLINICAL RECORDS. [facility] CenterMath[employer] [facility]. provides no warranty or guarantee of the accuracy or completeness of information in this document.
[2023-08-01 06:03] VITALS: BP 131/80; PULSE 97; RESP 16; TEMP 36.6; O2SAT 100; BMI 27.6
[2023-08-01] MEDS: Lactated Ringers 1,000 ML 15 ML IV (06:14)
[2023-08-01] MEDS: Cefazolin 2 GM in 0.9% Normal Saline (100mL Bag) 100 ML IV (07:27)
[2023-08-01 07:50] VITALS: BP 131/80; BP 133/85; PULSE 84; RESP 16; TEMP 36.7; O2SAT 100
--- NOTE | 2023-08-01 07:50 | DCINST_ITS ---
Discharge Instructions Diet Discharge Diet: No restrictions Activity Discharge Activity: Return to Normal Activity Dressing / Incision Call your doctor if you observe: Fever of 101 or Higher, Inability to urinate, Inability to have a bowel movement and Uncontrolled pain Follow Up Care Please Follow Up With: Malia Coughlin MD When: 24-hour urinalysis and renal ultrasound in 2 weeks then follow-up in the office Test Results: Test results from this visit will be discussed in further detail at your follow- up appointment, if applicable. Discharge Plan Admission Attending Provider: Malia Coughlin Primary Care Provider: Modesto Nolasco Discharge Orders/Prescriptions Prescriptions: Continued lisdexamfetamine [Vyvanse] 30 mg capsule 70 mg PO DAILY Patient Comments: take 2 capsules by mouth once daily topiramate 100 mg tablet 100 mg PO DAILY Patient Comments: take 1 tablet by mouth twice a day tamsulosin 0.4 mg capsule 0.4 mg PO Q24H Patient Comments: take 1 capsule by mouth once daily Rx Instructions: Temporary med cephalexin 500 mg capsule 500 mg PO Q12H Patient Comments: take 1 capsule by mouth every 12 hours for 10 days Rx Instructions: Temporary Script phenazopyridine [Pyridium] 200 mg tablet 200 mg PO TID PRN PRN (Reason: Bladder Spasms) 7 Days Qty: 30 0RF cephalexin 500 mg capsule 500 mg PO Q12 3 Days Qty: 6 0RF oxycodone-acetaminophen 5-325 mg tablet 1 tab PO Q8H PRN (Reason: pain) sulfamethoxazole-trimethoprim 800-160 mg tablet 1 tab PO Q12H Referrals / Follow Up: Modesto Nolasco DO [Primary Care Provider] - Disposition Disposition (needs filled in before D/C Order can be placed): Home, Self Care
--- NOTE | 2023-08-01 07:52 | PCM.OPRPT ---
Report of Operation Date of Procedure: 08/01/23 Pre-Operative Diagnosis: Displacement of right ureteral stent Post-Operative Diagnosis: Same Surgery/Procedure Performed:: Right ureteroscopy, right ureteral stent removal Surgeon: Malia Coughlin Type of Anesthesia: MAC Description of Procedure: The patient is a 38-year-old female who underwent a right ureteroscopy with laser lithotripsy and ureteral stent insertion last week. In the office yesterday, a cystoscopy was performed revealing proximal migration of the ureteral stent into the distal ureter. She now presents for distal ureteroscopy and removal of the stent. Informed consent has been obtained. The patient was taken to the operating room and placed on the operating room table. Anesthesia monitored the head, neck, airway, IV access and vital signs throughout the case. Once anesthesia was appropriately administered, she was placed into dorsolithotomy position was prepped and draped in usual sterile fashion. The semirigid ureteroscope was inserted through the urethra under direct visualization into the urinary bladder and into the distal right ureter without difficulty. The ureteral stent was identified and grasped with a basket. It was removed without difficulty. The patient was then awakened and taken to the recovery room in good condition. There were no complications during this procedure. Grafts/Implants Used: None Complications None Admit VTE Documentation VTE Present on Admission: Yes VTE Mechan Device Prophylaxis: SCD's VTE Pharm Prophylaxis ordered?: No Reason prophylaxis not ordered:: Treatment Not Indicated
[2023-08-01 07:55] VITALS: BP 119/68; BP 131/80; PULSE 86; RESP 18; O2SAT 99
[2023-08-01 08:00] VITALS: BP 119/68; BP 131/80; PULSE 83; RESP 16; O2SAT 100
[2023-08-01 08:05] VITALS: BP 122/66; BP 131/80; PULSE 83; RESP 16; TEMP 36.6; O2SAT 100
[2023-08-01 08:23] VITALS: BP 131/80
== END 2023-08-01 08:44 | disposition home or self-care (01) ==
LOC: SDC 05:32 → AC 05:33
PROVIDERS: PCP Student in an Organized Health Care Education/Training Program; Referring Provider Urology; Visit Provider Urology
PROC: (CPT 52310; principal; 2023-08-01 07:20)
DX: T83.122A Displacement of indwelling ureteral stent, initial encounter (principal); Z90.710 Acquired absence of both cervix and uterus; Y82.8 Other medical devices associated with adverse incidents; F90.9 Attention-deficit hyperactivity disorder, unspecified type; Z87.442 Personal history of urinary calculi; Z90.49 Acquired absence of other specified parts of digestive tract; Z98.51 Tubal ligation status
CPT/HCPCS: 52310; 00910; 76000; J7120; J2405

== ENCOUNTER 2023-08-05 12:58 | Emergency (ER) | payer OTHER, SELFPAY ==
[2023-08-05 12:58] VITALS: BP 134/93; PULSE 120; RESP 16; TEMP 36.5; O2SAT 100; BMI 26.4
--- NOTE | 2023-08-05 13:17 | RAD_ITS ---
INDICATION: constipation EXAMINATION/TECHNIQUE: X-RAY - XR Abdomen 1 View COMPARISON: Prior study dated: 03/13/2023. FINDINGS: BOWEL GAS PATTERN: Nonspecific distended colon and small bowel loops unchanged. No bowel or stomach distention. FREE AIR: Not assessed on a single supine view. ORGANOMEGALY: Not seen. CALCIFICATIONS: Previously noted calcification on the left side of L3 is not seen at this time. Pelvic calcifications are noted likely due to phlebolith and unchanged LOWER CHEST: No acute pathology. BONES AND SOFT TISSUES: No acute pathology. RAD/Abdomen Single View IMPRESSION: Left-sided abdominal calcification not definitely identified on this exam. Electronically Signed: Joel Ambriz MD at 13:49 EST ,
--- NOTE | 2023-08-05 13:29 | EX.ED.DYSGE1 ---
HPI History of Present Illness Chief Complaint: Constipation Informant: patient Onset/Context/Timing Onset: Weeks Narrative Narrative: Patient presents secondary to constipation. She was seen recently with a kidney stone and went to the OR on July 27 for basket retrieval and stent placement. She had proximal migration of the stent and went back to the OR on the for stent removal. Patient states she has been on pain medication. She states she has not had a bowel movement in about a week and a half. She reports passing very little gas. She tried taking MiraLAX without improvement. [facility] Medical History ADHD COVID-19 virus infection Fatty liver Gestational diabetes Heart murmur Hemorrhoids History of kidney stones HTN (hypertension) Injury of head and neck Leg cramps Low iron Non-smoker Restless legs Wears glasses Home Medications lisdexamfetamine 30 mg capsule (Vyvanse) 70 mg PO DAILY 03/11/23 [History Last Taken Unknown] topiramate 100 mg tablet 100 mg PO DAILY 03/13/23 [History Last Taken Unknown] cephalexin 500 mg capsule 500 mg PO Q12 post-operative 3 days #6 CAPSULES 07/27/23 [Rx Last Taken Unknown] cephalexin 500 mg capsule 500 mg PO Q12H 07/27/23 [History Last Taken 07/26/23] phenazopyridine 200 mg tablet (Pyridium) 200 mg PO TID PRN PRN Bladder Spasms 7 days #30 tabs 07/27/23 [Rx Last Taken Unknown] tamsulosin 0.4 mg capsule 0.4 mg PO Q24H urinary retention 07/27/23 [History Last Taken 07/26/23] oxycodone-acetaminophen 5 mg-325 mg tablet 1 tab PO Q8H PRN pain 08/01/23 [History Last Taken Unknown] sulfamethoxazole 800 mg-trimethoprim 160 mg tablet 1 tab PO Q12H 08/01/23 [History Last Taken Unknown] Allergy/AdvReac Type Severity Reaction Status Date / Time Penicillins Allergy Rash Verified 08/05/23 13:00 Family History Father Hypertension Surgical History H/O LEEP H/O: hysterectomy History of appendectomy Hx of cystoscopy S/P Tubal ligation status Social History Smoking Status: Never smoker alcohol intake: current details: occasionally substance use type: does not use caffeine: No what type of physical activity do you participate in: none seatbelt use: always do you feel safe at home: Yes 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 ROS ED Constitutional Constitutional ED: Denies chills or fever(s) Eyes Eyes: Denies discharge from eye(s) ENT ENT ED: Denies discharge from eye(s), rhinorrhea or sore throat Cardiovascular Cardiovascular: Denies chest pain or palpitations Respiratory/Chest Respiratory/Chest: Denies cough or dyspnea Gastrointestinal Gastrointestinal: Reports abdominal pain and constipation; Denies diarrhea, nausea or vomiting Genitourinary Genitourinary ED: Denies dysuria Musculoskeletal Musculoskeletal: Denies back pain or extremity pain Integumentary Denies Abrasions or rash Neurologic Neurologic: Denies headache(s) or weakness Psychiatric Psychiatric: Denies anxiety or depression Allergic/Immunologic Allergic/Immunologic ED: Denies lip swelling or urticaria EXAM Physical Exam Const Vital Signs: 08/05/23 12:58 Temperature 97.7 F L Temperature Source Temporal Pulse Rate 120 H Respiratory Rate 16 Blood Pressure 134/93 H Blood Pressure Mean 106 Pulse Ox 100 Oxygen Delivery Method Room Air Positive well nourished and well developed General Appearance ED: well developed HEENT Reports moist mucous membranes Eyes EOMs intact bilaterally Chest Wall inspection of chest normal and palpation of chest normal Resp normal respiratory effort and clear to auscultation bilaterally Cardio regular rate and regular rhythm GI non-tender and non-distended Auscultation: hypoactive bowel sounds Palpation: soft Extremity normal to inspection Neuro oriented x3 and no sensory deficits noted Motor Exam: strength 5/5 throughout Psych mental status grossly normal Skin no rashes or lesions noted MDM MDM MDM Narrative Medical decision making narrative: Abdominal x-ray obtained to evaluate for obstruction. Radiography Diagnostic Testing: Clinical Impression(s) from Imaging Studies KUB X-Ray 08/05/23 13:17 IMPRESSION: Left-sided abdominal calcification not definitely identified on this exam. Electronically Signed: Joel Ambriz MD at 13:49 EST , Treatment and Re-Evaluation :: Abdominal x-ray per my interpretation does reveal large amount of stool throughout but no evidence of obstruction. Radiology interpretation is reviewed. Patient given a soapsuds enema here with 800 cc of fluid. She states she passed fluid back out but really not any significant stool. Nursing staff did note that the stool was soft when the enema tip was inserted. Patient be given a bottle of GoLytely to get her cleaned out from the top down. Discharge Plan Triage Chief Complaint: Constipation ED Provider: Kathi Christian Dx/Rx/DC Orders Clinical Impression: Constipation Instructions: ED Constipation (Adult) Prescriptions: No Action lisdexamfetamine [Vyvanse] 30 mg capsule 70 mg PO DAILY Patient Comments: take 2 capsules by mouth once daily topiramate 100 mg tablet 100 mg PO DAILY Patient Comments: take 1 tablet by mouth twice a day tamsulosin 0.4 mg capsule 0.4 mg PO Q24H Patient Comments: take 1 capsule by mouth once daily Rx Instructions: Temporary med cephalexin 500 mg capsule 500 mg PO Q12H Patient Comments: take 1 capsule by mouth every 12 hours for 10 days Rx Instructions: Temporary Script phenazopyridine [Pyridium] 200 mg tablet 200 mg PO TID PRN PRN (Reason: Bladder Spasms) 7 Days Qty: 30 0RF cephalexin 500 mg capsule 500 mg PO Q12 3 Days Qty: 6 0RF oxycodone-acetaminophen 5-325 mg tablet 1 tab PO Q8H PRN (Reason: pain) sulfamethoxazole-trimethoprim 800-160 mg tablet 1 tab PO Q12H Primary Care Provider: Modesto Nolasco Referrals: Modesto Nolasco, [Primary Care Provider] - 3-5 Days if not improving Disposition Disposition: Home, Self Care
--- OUTSIDE RECORDS SUMMARY | 2023-08-05 13:37 | XMS RPT_ITS | CCD ---
Author Name Unknown Address [address] [place] [address] Organization [facility] Care Team Providers Care Secretary Book Keeper Name Role Phone Swathi Lewis MD Unavailable [phone] KAYLA CARTER Unavailable Unavailable KAYLA CARTER Unavailable [...] (2 sources) penicillin v Drug Allergy 7 [facility] (20 sources) Penicillins; Translations: [PENICILLINS] Propensity to adverse reactions to drug (disorder) 8 Other: See Comments [facility] Other [facility] (1 source) Penicillin; Translations: [penicillins] Drug Allergy [facility] Medications Current Medications Medication Drug [...] blood pressure 67 mm[Hg] ESTELLA TOMAS MD [facility] 07-20-2023 21:27-0500 Heart rate 73 /min ESTELLA TOMAS MD [facility] 07-20-2023 21:27-0500 Respiratory rate 16 /min ESTELLA TOMAS MD [facility] 07-20-2023 21:27-0500 Systolic blood pressure 101 mm[Hg] ESTELLA TOMAS MD [facility] 07-20-2023 19:15-0500 Diastolic Blood Pressure Non-Invasive 90 mm[Hg] ESTELLA TOMAS MD [facility] 07-20-2023 19:15-0500 Heart rate 88 /min ESTELLA TOMAS MD [facility] 07-20-2023 19:15-0500 Respiratory rate 18 /min ESTELLA TOMAS MD [facility] 07-20-2023 19:15-0500 Systolic Blood Pressure Non-Invasive 130 mm[Hg] ESTELLA TOMAS MD [facility] 07-20-2023 17:12-0500 Diastolic Blood Pressure Non-Invasive 71 mm[Hg] ESTELLA TOMAS MD [facility] 07-20-2023 17:12-0500 Heart rate 92 /min ESTELLA TOMAS MD [facility] 07-20-2023 17:12-0500 Respiratory rate 20 /min ESTELLA TOMAS MD [facility] 07-20-2023 17:12-0500 Systolic Blood Pressure Non-Invasive 123 mm[Hg] ESTELLA TOMAS MD [facility] 07-20-2023 14:22-0500 Blood Pressure Location ESTELLA TOMAS MD [facility] 07-20-2023 14:22-0500 Body temperature 96.98 [degF] ESTELLA TOMAS MD [facility] 07-20-2023 14:22-0500 Body weight 70.8 kg ESTELLA TOMAS MD [facility] 07-20-2023 14:22-0500 Diastolic Blood Pressure Non-Invasive 92 mm[Hg] ESTELLA TOMAS MD [facility] 07-20-2023 14:22-0500 Systolic Blood Pressure Non-Invasive 136 mm[Hg] ESTELLA TOMAS MD [facility] 05-23-2023 09:16-0500 Body weight 73.48 kg Josesito Levi SCANNER SUPERVISOR.CAMOUFLAGE SPECIALIST Work Phone: [facility] 05-23-2023 09:16-0500 Diastolic blood pressure 64 mm[Hg] Josesito Levi SCANNER SUPERVISOR.CAMOUFLAGE SPECIALIST Work Phone: [facility] 05-23-2023 09:16-0500 Heart rate 64 /min Josesito Levi SCANNER SUPERVISOR.CAMOUFLAGE SPECIALIST Work Phone: [facility] 05-23-2023 09:16-0500 Respiratory rate 12 /min Josesito Levi SCANNER SUPERVISOR.CAMOUFLAGE SPECIALIST Work Phone: [facility] 05-23-2023 09:16-0500 Systolic blood pressure 128 mm[Hg] Josesito Levi SCANNER SUPERVISOR.CAMOUFLAGE SPECIALIST Work Phone: [facility] 09-20-2022 10:51-0400 Body height 165.1 cm Corinne De Leon MD Work Phone: [facility] 09-20-2022 10:51-0400 Body temperature 98.29 [degF] Corinne De Leon MD Work Phone: [facility] 09-20-2022 10:51-0400 Body weight 88.91 kg Corinne De Leon MD Work Phone: [facility] 09-20-2022 10:51-0400 Diastolic blood pressure 91 mm[Hg] Corinne De Leon MD Work Phone: [facility] 09-20-2022 10:51-0400 Heart rate 119 /min Corinne De Leon MD Work Phone: [facility] 09-20-2022 10:51-0400 Respiratory rate 18 /min Corinne De Leon MD Work Phone: [facility] 09-20-2022 10:51-0400 SaO2% (BldA) [Mass fraction] 100 % Corinne De Leon MD Work Phone: [facility] 09-20-2022 10:51-0400 Systolic blood pressure 135 mm[Hg] Corinne De Leon MD Work Phone: [facility] 08-30-2022 12:26-0400 Heart rate 91 /min Rachel Puentes MD Work Phone: [facility] 08-30-2022 12:26-0400 SaO2% (BldA) [Mass fraction] 100 % Rachel Puentes MD Work Phone: [facility] 08-30-2022 12:16-0400 Diastolic blood pressure 84 mm[Hg] Rachel Puentes MD Work Phone: [facility] 08-30-2022 12:16-0400 Respiratory rate 16 /min Rachel Puentes MD Work Phone: [facility] 08-30-2022 12:16-0400 Systolic blood pressure 124 mm[Hg] Rachel Puentes MD Work Phone: [facility] 08-30-2022 10:44-0400 Body temperature 98.4 [degF] Rachel Puentes MD Work Phone: [facility] 03-22-2022 15:09-0400 Body weight 97.52 kg Modesto Zhu DO Work Phone: [facility] 02-24-2022 10:51-0400 Body weight 100.15 kg Modesto Zhu DO Work Phone: [facility] 04-30-2017 14:06-0500 BMI (Body Mass Index) 38.8 kg/m2 Swathi Lewis MD [facility] 04-30-2017 14:06-0500 BP Diastolic 82 mm[Hg] Swathi Lewis MD [facility] 04-30-2017 14:06-0500 BP Systolic 133 mm[Hg] Swathi Lewis MD [facility] 04-30-2017 14:06-0500 Height 166.37 cm Swathi Lewis MD [facility] 04-30-2017 14:06-0500 Weight 107.41 kg Swathi Lewis MD [facility] 04-03-2017 09:57-0400 BMI (Body Mass Index) 39.72 kg/m2 Swathi Lewis MD [facility] 04-03-2017 09:57-0400 Body Temperature 98.3 [degF] Swathi Lewis MD [facility] 04-03-2017 09:57-0400 BP Diastolic 80 mm[Hg] Swathi Lewis MD [facility] 04-03-2017 09:57-0400 BP Systolic 127 mm[Hg] Swathi Lewis MD [facility] 04-03-2017 09:57-0400 Pulse (Heart Rate) 107 /min Swathi Lewis MD [facility] 04-03-2017 09:57-0400 Respiratory Rate 16 /min Swathi Lewis MD [facility] 04-03-2017 09:57-0400 Weight 112.31 kg Swathi Lewis MD [facility] 02-12-2017 09:05-0400 Height 168.15 cm Swathi Lewis MD [facility] Encounters Encounter Date Encounter Type Care Provider Facility Start: 07-20-2023 End: 07-20-2023 Emergency department patient visit MODESTO ZHU DO Facility:A Start: 07-20-2023 End: 07-20-2023 Emergency department patient visit ESTELLA TOMAS MD [facility] Start: 05-23-2023 End: 05-23-2023 ambulatory MODESTO ZHU Facility:[facility] Start: 05-23-2023 End: 05-23-2023 Patient encounter procedure Josesito Gurmeet SCANNER SUPERVISOR.CAMOUFLAGE SPECIALIST Work Phone: [facility] Procedures Date Procedure Procedure Detail Performing Clinician Start: 08-30-2022 Level iv surg pathol ogy gross&microscopic exam Rachel Puentes MD Work Phone: Start: 08-30-2022 Colonoscopy flx dx w /collj spec when pfrmd Meghan French SCANNER SUPERVISOR.CAMOUFLAGE SPECIALIST Work Phone: Start: 02-01-2021 Adult depression scr [...] P,Tdap,Td Vaccine (2 - Td or Tdap) [facility] Start: 01-11-2027 HPV TESTING HPV TESTING [facility] Start: 01-11-2027 PAP TESTING PAP TESTING [facility] Start: 01-11-2027 Screening for malign ant neoplasm of cervix [facility] Start: 01-14-2025 HPV TESTING HPV TESTING [facility] Start: 01-14-2025 PAP TESTING PAP TESTING [facility] Start: 05-23-2024 Covid-19 Vaccine (#1) Covid-19 Vacci ne (#1) [facility] Immunizations Immunization Date Immunization Notes Care Provider Fabiana leslie 07-07-2019 influenza virus vaccine, unspecified formulation Josesito Levi SCANNER SUPERVISOR.CAMOUFLAGE SPECIALIST Work Phone: [facility] 01-31-2017 tetanus toxoid, reduced diphtheria toxoid, and acellular pertussis vaccine, adsorbed Swathi Lewis MD [facility] 01-17-2017 [id number] Swathi garcia MD [facility] 05-13-2013 influenza virus vaccine, unspecified formulation Modesto Zhu DO Work Phone: [facility] Work Phone: Payers Date Payer Category Payer Unknown [employer] P[employer] [id number] 2023-Present [phone] [address] [place] [address] PPO [id number] 2023 Unknown [id number] 2022 Medicaid [id number] 2016 Medicaid [employer] [id number] 2016-Present [phone] [address] [place] [address] Medicaid [id number] 2016 Medicaid [id number] 1987 Unknown [id number] Social History Date Type Detail Facility Start: 05-28-2013 End: 08-30-2022 Tobacco smoking status [facility] Never smoked tobacco [facility] Start: 06-29-2021 End: 05-23-2023 Alcohol intake Current drinker of alcohol (finding) [facility] Start: 11-22-2019 End: 05-11-2022 History SDOH Alcohol Frequency 2 [facility] Start: 11-22-2019 End: 05-11-2022 History SDOH Alcohol Std Drinks 1 [facility] Start: 11-20-2018 History SDOH Alcohol Comment socially- rare [facility] Start: 11-22-2019 End: 05-11-2022 History SDOH Social Connections Phone 5 [facility] Start: 11-22-2019 End: 05-11-2022 History SDOH Social Connections Zoroastrianism 3 [facility] Start: 11-21-2019 Education 21 [facility] Start: 1985 Sex Assigned At Not on file [facility] Start: 01-05-2021 End: 01-27-2022 Exposure to SARS-CoV-2 (event) Not sure [facility] Start: 05-28-2013 End: 08-30-2022 Tobacco use and exposure Smokeless tobacco non-user [facility] Start: 05-11-2022 History SDOH Alcohol Std Drinks 0 [facility] Start: 05-11-2022 History SDOH Social Connections Meetings 98 [facility] Start: 05-11-2022 End: 05-21-2023 [facility] Start: 05-11-2022 End: 05-21-2023 Social connection and isolation panel [facility] Do you belong to any clubs or organizations such as congregation groups, [employer], Meldium[employer] or athletic groups, or school groups? No [facility] How often do you att end meetings of the clubs or organizations you belong to? Patient refused [facility] Are you now , , , , never or living with a partner? [facility] How often to you hav e a drink containing alcohol? Never [facility] Do you feel stress - tense, restless, nervous, or anxious, or unable to sleep at night because your mind is troubled all the time - these days [OSQ] To some extent [facility] (I/We) worried wheth er (my/our) food would run out before (I/we) got money to buy more. Never true [facility] Do you belong to any clubs or organizations such as congregation groups, unions, Meldium[employer] or athletic groups, or school groups? Yes [facility] Sex Assigned At Sex [facility] Functional Status Date Assessment Result Facility 07-20-2023 Functional Status Independent [facility] 07-20-2023 Functional Status Standard Safet y ID band on, Allergy Band on, Call device within reach, Bed in low position, Wheels locked, Upper/Half-Length side-rails up [facility] Mental Status Date Assessment Result Facility 07-20-2023 Mental Status Orientation Oriented x 4 [facility] 07-20-2023 Mental Status [facility] Clinical Notes 11-16-2016 to 07-22-2023 Josesito Levi APRN.CAMOUFLAGE SPECIALIST - 05/23/2023 9:19 AM ESTTelephone Encounter - [...] Locations *1: This test was performed at: [facility], [address] [place] [address], [address] , [facility] 07-20-2023 Hospital Discharge instructions Patient Education 07/20/2023 [...] for 8 hours and increasing bladder pressure [phone] [employer]. [address] [place] [address]. All rights reserved. This information is not intended as a substitute for professional medical care. Always follow your healthcare professional's instructions. Follow Up Care 07/20/2023 13:56:26 With:BRINA NAVA MD, [facility] Address: [address] [place] [phone] When:2-4 days [facility] 07-20-2023 Emergency department Discharge summary Discharge Instructions Thank you for allowing [facility] to assist you with your healthcare needs. The following is important discharge information regarding your hospital visit. Diagnosis from Today's Visit Blood in urine Colic, ureteral Flank pain What to Do Next Instructions from Your Care Team No qualifying data available. Post Acute Orders No qualifying data available. You Need to Schedule the Following Appointments Follow Up with BRINA NAVA MD, [facility] When Within 2-4 days Where: [address] [place] [address], [facility] [address] [place] [address]- [phone] Allergies penicillin Medications Please ask your primary [...] for 8 hours and increasing bladder pressure [phone] [employer]. [address] [place] [address], [place] [address]. All rights reserved. This information is not intended as a substitute for professional medical care. Always follow your healthcare professional's instructions. Additional Information VACCINATE! IT SAVES LIVES! Members of the community who have not yet received the COVID-19 vaccine and would like to receive it can visit one of [facility] vaccine clinics. There are many vaccine clinic locations within the [facility]. For locations and available times, please visit www.[email or web address].iowa.g ov/. It is important to note that some COVID mobile vaccine clinics are held outdoors and may be canceled in rainy or stormy conditions. To learn more about pediatric vaccinations (ages 5-11), we invite you to visit the [facility] webpage. https://www.[employer].org/pa ges/7080-Qcysk-Nrspfnabdkt-Freque yotr-Kllwk-Inlpetebk.html To learn more about the COVID-19 vaccine, we invite you to visit the CDC website for a list of frequently asked questions. https://www.cdc.gov/coronavirus/2 019-ncov/vaccines/faq.html [facility] Patient Portal Access Instructions: Stay connected with your healthcare team and access your personal medical information anytime with the [facility] Patient Portal. If you would like a full copy of your medical records please contact the [facility] Medical Records Department Sunday through Sunday between 8a.m. and 4:30p.m. Please follow the directions below to access the portal: 1.Access the email account you provided upon registration to the hospital.2.Look for an invitation email from [facility].3.Open the email and access the invitation link: Accept Invitation to [facility]4.Fill in the required royal to create your account. Sign into www.[employer] with your username and password that you [...] you will allow to register on the [facility] Patient Portal for access to your information. You can also access the [facility] Patient Portal on the [employer] mir. Simply click on Health Records under Health Data and then click on the [employer]utor logo. HOW TO SAFELY DISPOSE OF PRESCRIPTION [...] Call your local pharmacy or go to [email or web address].[employer]/2T0Ee1h to find one close to you.3.Make use of household items: Use cat litter or old coffee grounds to dispose medications if other options are not available. Mix your drugs with these household products, seal them in an airtight container and throw it into the garbage. Call [facility]: [phone] to be sure your drugs can be [...] aware that I should contact my doctor. Patient/Shank Scourer Signature: Date/Time: Relationship to Patient: ____ Witness Name/Signature: Date/Time: [facility] 07-20-2023 Emergency department Discharge summary Discharge Instructions Thank you for allowing [facility] to assist you with your healthcare needs. The following is important discharge information regarding your hospital visit. Diagnosis from Today's Visit Blood in urine Colic, ureteral Flank pain What to Do Next Instructions from Your Care Team No qualifying data available. Post Acute Orders No qualifying data available. You Need to Schedule the Following Appointments Follow Up with BRINA NAVA MD, [facility] When Within 2-4 days Where: [address] [facility], [address] [facility] [place] [address]- [phone] Allergies penicillin Medications Please ask your primary [...] for 8 hours and increasing bladder pressure [phone] [employer]. [address] [place] [address]. All rights reserved. This information is not intended as a substitute for professional medical care. Always follow your healthcare professional's instructions. Additional Information VACCINATE! IT SAVES LIVES! Members of the community who have not yet received the COVID-19 vaccine and would like to receive it can visit one of [facility] vaccine clinics. There are many vaccine clinic locations within the [facility]. For locations and available times, please visit www.[email or web address].iowa.g ov/. It is important to note that some COVID mobile vaccine clinics are held outdoors and may be canceled in rainy or stormy conditions. To learn more about pediatric vaccinations (ages 5-11), we invite you to visit the [facility] webpage. https://www.[employer].org/pa ges/8083-Gxhyg-Lzrthauoxdj-Freque qyet-Ttsth-Zzulfdkei.html To learn more about the COVID-19 vaccine, we invite you to visit the CDC website for a list of frequently asked questions. https://www.cdc.gov/coronavirus/2 019-ncov/vaccines/faq.html [facility] Patient Portal Access Instructions: Stay connected with your healthcare team and access your personal medical information anytime with the [facility] Patient Portal. If you would like a full copy of your medical records please contact the [facility] Medical Records Department Sunday through Sunday between 8a.m. and 4:30p.m. Please follow the directions below to access the portal: 1.Access the email account you provided upon registration to the [facility].2.Look for an invitation email from [facility].3.Open the email and access the invitation link: Accept Invitation to [facility]4.Fill in the required royal to create your account. Sign into www.[employer] with your username and password that you [...] you will allow to register on the [facility] Patient Portal for access to your information. You can also access the [facility] Patient Portal on the [employer] mir. Simply click on Health Records under Health Data and then click on the sofatutor logo. HOW TO SAFELY DISPOSE OF PRESCRIPTION [...] Call your local pharmacy or go to http://2Catalyze.[employer]/2E7Zw6h to find one close to you.3.Make use of household items: Use cat litter or old coffee grounds to dispose medications if other options are not available. Mix your drugs with these household products, seal them in an airtight container and throw it into the garbage. Call [facility]: [phone] to be sure your drugs can be [...] aware that I should contact my doctor. Patient/Shank Scourer Signature: Date/Time: Relationship to Patient: ____ Witness Name/Signature: Date/Time: [facility] 07-20-2023 Note ORIGINAL EXAMINATION: CT OF THE [...] No follow-up imaging is recommended. Reference: JACR 2019;17(4):[id number] Interpreted by: Demetri Adams Preliminary Report By: Jose Angel Fernandez Electronically signed By Demetri Adams Dictated Date: 07/20/2023 4:04:14 PM Prelim Date: 07/20/2023 4:10:03 PM Sign Date: 07/20/2023 4:34:19 PM Ordering Provider: [facility] 07-20-2023 Evaluation + Plan note Diagnostic Tests PendingUrine Culture 07/20/23 [facility] 05-23-2023 Note HNO ID: [id number] Author: Josesito Levi APRN.CAMOUFLAGE SPECIALIST Service: ? Author Type: Nurse Practitioner Type: [...] November 21, 2016 Cerclage being placed by [facility] on 11/22/16. On vaginal progesterone. Jessi [...] for pain pane (more content not included)... [facility] 05-23-2023 History of Present illness Narrative [...] Patient agreeable to treatment plan. Josesito Price APRN.CAMOUFLAGE SPECIALIST [address] [place] [address] documented in this encounter [facility] 05-21-2023 Miscellaneous Notes Pt is scheduled for virtual visit with RETIREMENT PLAN SPECIALIST today at 11:40am. Provider is requesting in office visit and also pt is due for urine tox screen. Phoned pt to advise of the same, voicemail box is full, unable to leave message. Tomás Marquis documented in this encounter [facility] 05-19-2023 Miscellaneous Notes Attempted to reach pt by phone without success. Sent a Bringg message with explanation why medication was denied. [...] for Refusal: Patient needs appointment Josesito Levi APRN.CAMOUFLAGE SPECIALIST BHARATI-09/29/22 Labs-09/20/22 NOV-none Frances Ochoa LPN documented in this encounter [facility] 03-28-2023 Miscellaneous Notes Date of last office: 09/29/2022 Date of next office visit: None Requested Prescriptions Pending Prescriptions Disp Refills topiramate (TOPAMAX) 100 mg tablet 60 tablet 1 Sig: Take 1 tablet by mouth two times a day. Date of Last Labs: 09/20/2022 Please advise. Thank you. Magda Rothman RN. documented in this encounter [facility] 03-20-2023 Miscellaneous Notes OK to refill as ordered Rizwan Nichols MD patient calling due to insurance co will no longer cover the vyvanse 30mg 2 daily so she is needing a new rx for the 60mg once daily. rx has been pended for approval patient only needs called if problem with refilling medication documented in this encounter [facility] 03-19-2023 Miscellaneous Notes The following approved [...] Faye Harper MA documented in this encounter [facility] 01-26-2023 Miscellaneous Notes Pt. informed via [...] Indu Torres MA documented in this encounter [facility] 01-25-2023 Miscellaneous Notes MC message turned into TE. Indu Torres MA documented in this encounter [facility] 12-15-2022 Miscellaneous Notes Pt notified via [...] you. ARELY Rodriguez documented in this encounter [facility] 09-29-2022 Note HNO ID: [id number] Author: Modesto Zuh, DO Service: ? Author Type: Physician Type: [...] no other changes. She was seen by Medical Clerk Dr. De Leon and was told to [...] stop the vyvanse and should d/w her helper animal laboratory as well. - LISDEXAMFETAMINE 70 MG CAPSULE 3. 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 D/w her that if she develops bloody stools again, has to stop the vyvanse and should d/w her helper animal laboratory as well. She is aware of the risk Modesto Zhu DO Return if no improvement. Follow up with Modesto Zhu DO. To ER if develops chest pain, shortness of breath Discussed risks, benefits, alternatives, and potential side effects of medications. Patient/Guardian expressed understanding and agreed with the plan. See patient (more content not included)... [facility] 09-20-2022 Note HNO ID: [id number] Author: Corinne De Leon MD Service: ? Author Type: Physician Type: Progress Notes Filed: 09/24/2022 12:32 PM Note Text: NAME: Jannette Gupta [facility] NO: [id number] REASON FOR VISIT Jannette Gupta is a [...] Colon, transverse and (more content not included)... [facility] 09-20-2022 History of Present illness Narrative NAME: Jannette Gupta CLINIC NO: [id number] REASON FOR VISIT Jannette Gupta is a [...] 2022 4:56 PM documented in this encounter [facility] 09-13-2022 Miscellaneous Notes The following approved [...] refills Last labs-02/07/21 documented in this encounter [facility] 08-30-2022 Nurse Note Arrived in phase II via cart. Left lateral position. Sedated, but responds to verbal stimuli. Color normal; skin warm and dry. Respirations wnl and unlabored. Abdomen soft and with + bowel sounds in quads X 4. Patient resting comfortably. Elisa Harp RN documented in this encounter [facility] 08-30-2022 History and physical note UPDATED [...] Rachel Puentes MD documented in this encounter [facility] 08-28-2022 Miscellaneous Notes Miralax/Dulcolax bowel prep [...] Ros Wagner LPN documented in this encounter [facility] 08-24-2022 Miscellaneous Notes Noted, agree with [...] Had Hysterectomy in April Protocols used: Rectal [id number] TC patient in regards to YooLottot message. Left message for patient to call back and speak with a triage nurse regarding blood in stool. Magda Rothman RN documented in this encounter [facility] 08-14-2022 Miscellaneous Notes PDMP website checked and validated. All prescriptions have been APPROPRIATELY filled. No suspicious activity was identified. 08/14/2022 by Josesito Levi APRN.CAMOUFLAGE SPECIALIST The following approved medication requests have been [...] Faye Harper MA documented in this encounter [facility] 07-12-2022 Miscellaneous Notes PDMP website checked and validated. All prescriptions have been APPROPRIATELY filled. No suspicious activity was identified. 07/12/2022 by Josesito Leiv APRN.CNP The following approved medication requests have [...] Lilly Rai LPN documented in this encounter [facility] 07-11-2022 Miscellaneous Notes Patient has been identified by name and date of : Yes Patient phones for refill(s): Requested Prescriptions Pending Prescriptions Disp Refills topiramate (TOPAMAX) 50 mg tablet 60 tablet 1 Sig: Take 1 tablet by mouth twice daily. Date of last office visit in primary care: 01/27/2022 Please advise. Thank you. Lilly Rai LPN documented in this encounter [facility] 06-15-2022 Miscellaneous Notes The following approved medication requests have been transmitted electronically. Requested Prescriptions Signed Prescriptions Disp Refills lisdexamfetamine (VYVANSE) 70 mg capsule 30 capsule 0 Sig: Take 1 capsule by mouth once daily for 30 days. Authorizing Provider: MEGHAN FRENCH APRN.[facility] PDMP website checked and validated. All prescriptions have been APPROPRIATELY filled. No suspicious activity was identified. 06/15/2022 by Meghan French CNP. Bharati--05/17/22 Nov--nothing scheduled Last refill--05/17/22 30 with -0 refills Last labs--02/07/21 documented in this encounter [facility] 05-17-2022 History of Present illness Narrative [...] Meghan French APRN.CNP documented in this encounter [facility] 04-27-2022 Miscellaneous Notes Called and left [...] adderall. Please send to jessy [facility] in [place]. Ana Galan Ma Please call Jannette and [...] note were not included. Please see pt [employer] message and advise documented in this encounter [facility] 04-20-2022 Miscellaneous Notes See TE 04/20 Ana Galan Ma documented in this encounter [facility] 04-12-2022 Miscellaneous Notes Please see TE 04/12 Ana Galan Ma documented in this encounter [facility] 03-22-2022 History of Present illness Narrative [...] NOTE This is a virtual visit using Bringg video visit. It required patient-provider interaction for [...] which included preparing to see the patient, [id number] patient care, completing clinical documentation, obtaining and/or reviewing separately obtained history, and performing a medically appropriate examination Modesto Zhu DO documented in this encounter [facility] 02-27-2022 History of Present illness Narrative [...] NOTE This is a virtual visit using Bringg video visit. It required patient-provider interaction for [...] November 21, 2016 Cerclage being placed by [facility] on 11/22/16. On vaginal progesterone. Jessi [...] which included preparing to see the patient, [id number] patient care, completing clinical documentation, obtaining and/or reviewing separately obtained history, performing a medically appropriate examination, and ordering medications, tests, or procedures Modesto Zhu DO documented in this encounter [facility] 02-10-2022 Miscellaneous Notes PDMP website checked [...] Frances Ochoa LPN documented in this encounter [facility] 01-12-2022 Miscellaneous Notes [facility] website checked and validated. All prescriptions have [...] Ana Galan Ma documented in this encounter [facility] 11-30-2021 Miscellaneous Notes Mailed to patient home address Ana Galan Ma [place] mail patient Adult ADD/ADHD questionnaire. Meghan French APRN.CNP documented in this encounter [facility] 11-30-2021 History of Present illness Narrative VIRTUAL VISIT PROGRESS NOTE This is a virtual visit using Bringg video visit. It required patient-provider interaction for the medical decision making as documented below. Jannette Gupta is a 36 year old female seen for medication/ADHD. Today: Would like to get an opinion about ADHD. Has friends with this dx and feels like she may have this. At work, has difficulty staying on task. Works for [employer], and talks to a lot of other [...] November 21, 2016 Cerclage being placed by [facility] on 11/22/16. On vaginal progesterone. Jessi [...] medication. She will notify the office via YooLottot with update. May consider increasing/changing dose at that point. Mailing out questionnaire for adult ADHD that patient will return via Bringg message. Meghan French APRN.CNP PDMP website checked and validated. All prescriptions have been APPROPRIATELY filled. No suspicious activity was identified. 11/30/2021 by Meghan French CNP. documented in this encounter [facility] 10-20-2021 Miscellaneous Notes Last office visit: 06/29/21 F/u scheduled: none Shelbie Burns Ma documented in this encounter [facility] 09-14-2021 Miscellaneous Notes Pt notified she would need appt to discuss ADHD. Advised her to call in and schedule. Shelbie Burns Ma documented in this encounter [facility] 09-12-2021 Miscellaneous Notes Agree with below. Meghan French APRN.CNP Advised patient to schedule appt for concern Ana Galan Ma documented in this encounter [facility] 02-17-2021 Miscellaneous Notes Phone call placed patient reported x2 moles located (LT) abd slightly raised, appointment scheduled w/ Dr. Zhu 05/04/2021 for possible removal if needed. Angie Bain LPN documented in this encounter [facility] documented as of this encounter (statuses as of 09/12/2021) [facility] History of Past illness Narrative* Problem [...] of this encounter (statuses as of 09/14/2021) [facility] Narrative* Problem [...] of this encounter (statuses as of 10/20/2021) [facility] Narrative* Problem [...] of this encounter (statuses as of 11/15/2021) [facility] Narrative* Problem [...] of this encounter (statuses as of 11/30/2021) [facility] Narrative* Problem [...] of this encounter (statuses as of 11/30/2021) [facility] Narrative* Problem [...] of this encounter (statuses as of 01/12/2022) [facility] Narrative* Problem [...] of this encounter (statuses as of 02/10/2022) [facility] Narrative* Problem [...] of this encounter (statuses as of 02/23/2022) [facility] Narrative* Problem [...] of this encounter (statuses as of 02/27/2022) [facility] N[facility]ative* Problem [...] of this encounter (statuses as of 03/22/2022) [facility] Narrative* Problem [...] of this encounter (statuses as of 04/12/2022) [facility] Narrative* Problem [...] of this encounter (statuses as of 04/20/2022) [facility] N[facility]ative* Problem [...] of this encounter (statuses as of 04/27/2022) [facility] N[facility]ative* Problem [...] of this encounter (statuses as of 05/17/2022) [facility] N[facility]* Problem [...] of this encounter (statuses as of 06/16/2022) [facility] N[facility]* Problem [...] of this encounter (statuses as of 07/12/2022) [facility] N[facility]* Problem [...] of this encounter (statuses as of 07/12/2022) [facility] N[facility]ative* Problem [...] of this encounter (statuses as of 08/14/2022) [facility] N[facility]ative* Problem Noted Date Resolved Date Short cervix during in second trimeste r 11/16/2016 07/07/2019 Overview: November 21, 2016 Cerclage being placed by [facility] on 11/22/16. On vaginal progesterone. Jessi [...] of this encounter (statuses as of 08/24/2022) [facility] Narrative* Problem [...] of this encounter (statuses as of 08/28/2022) [facility] N[facility]ative* Problem [...] of this encounter (statuses as of 08/28/2022) [facility] Narrative* Problem [...] of this encounter (statuses as of 08/30/2022) [facility] Narrative* Problem [...] cannot r/o HSIL pap colposcopy ordered. Jessi Peirre MD Bacterial vaginosis 06/06/2013 01/07/2014 Overview: June 06, 2013 BV- treated. Jessi Pierre MD Gestational diabetes 10/06/2010 10/26/2010 Unspecified high-risk 08/08/2010 10/26/2010 Poor growth, affecting management of mother, antepartum condition or complication 03/28/2010 10/26/2010 Acute appendicitis without mention of peritoniti s 07/24/2007 10/26/2010 documented as of this encounter (statuses as of 09/14/2022) [facility] Narrative* Problem [...] of this encounter (statuses as of 09/24/2022) [facility] N[facility]ative* Problem [...] of this encounter (statuses as of 09/29/2022) [facility] N[facility]ative* Problem [...] of this encounter (statuses as of 12/15/2022) [facility] N[facility]ative* Problem [...] of this encounter (statuses as of 01/25/2023) [facility]* Problem Noted Date Diagnosed Date Resolved Date Short cervix during pregnanc y in second trimester 11/16/2016 07/07/2019 Overview: November 21, 2016 Cerclage being placed by [facility] on 11/22/16. On vaginal progesterone. Jessi [...] of this encounter (statuses as of 01/26/2023) [facility] N[facility]* Problem [...] of this encounter (statuses as of 02/15/2023) [facility]* Problem [...] of this encounter (statuses as of 03/20/2023) [facility]* Problem [...] of this encounter (statuses as of 03/21/2023) [facility]* Problem [...] of this encounter (statuses as of 03/28/2023) [facility]* Problem [...] of this encounter (statuses as of 04/15/2023) [facility]* Problem [...] of this encounter (statuses as of 04/18/2023) [facility]* Problem [...] of this encounter (statuses as of 05/19/2023) [facility]* Problem Noted Date Diagnosed Date Resolved Date Short cervix during pregnanc y in second trimester 11/16/2016 07/07/2019 Overview: November 21, 2016 Cerclage being placed by [facility] on 11/22/16. On vaginal progesterone. Jessi Pierre MD Cerclage placed on 11/22 -- vaginal progesterone Cervical funneling affecting in second trimester 11/16/2016 07/07/2019 History of gestational diabe norsi in prior , currently 08/10/2016 08/15/2016 Overview: [...] of this encounter (statuses as of 05/21/2023) [facility] Narrative* Problem [...] of this encounter (statuses as of 05/23/2023) [facility] [place] [facility] Diagnosis Attention deficit disorder (ADD) in adult- Primary Disorganized thought process Other symptoms involving nervous and musculoskeletal systems Difficulty with household tasks [facility] Attention deficit disorder (ADD) in adult- Primary [facility] Diagnosis Attention deficit disorder (ADD) in adult [facility] Diagnosis Obesity, Class II, BMI 35-39.9 Obesity, unspecified IFG (impaired fasting glucose) Impaired fasting glucose Attention deficit disorder (ADD) in adult [facility] Diagnosis Obesity, Class II, BMI 35-39.9- Primary Obesity, unspecified Attention deficit disorder (ADD) in adult IFG (impaired fasting glucose) Impaired fasting glucose [facility] Diagnosis Attention deficit disorder (ADD) in adult- Primary documented in this encounter [facility] note* Diagnosis Attention deficit disorder (ADD) in adult- Primary documented in this encounter [facility] note* Diagnosis Attention deficit disorder (ADD) in adult documented in this encounter [facility] note* Diagnosis Obesity, Class II, BMI 35-39.9 Obesity, unspecified documented in this encounter [facility] note* Diagnosis Attention deficit disorder (ADD) in adult documented in this encounter [facility] note* Diagnosis Attention deficit disorder (ADD) in adult documented in this encounter [facility] note* Diagnosis Attention deficit disorder (ADD) in adult documented in this encounter [facility] note* Diagnosis Indeterminate colitis- Primary Other and unspecified noninfectious gastroenteritis and colitis documented in this encounter [facility] note* Diagnosis Attention deficit disorder (ADD) in adult documented in this encounter [facility] note* Diagnosis Attention deficit disorder (ADD) in adult- Primary documented in this encounter [facility] note* Diagnosis Attention deficit disorder (ADD) in adult documented in this encounter [facility] note* Diagnosis Attention deficit disorder (ADD) in adult- Primary documented in this encounter [facility] note* Diagnosis Obesity, Class II, BMI 35-39.9 Obesity, unspecified documented in this encounter [facility] note* Diagnosis Change in bowel movement- Primary Other symptoms involving digestive system Rectal bleeding Hemorrhage of rectum and anus Constipation, unspecified constipation type Family history of Crohn's disease Family history of other digestive disorders documented in this encounter [facility] note* Diagnosis Attention deficit disorder (ADD) in adult documented in this encounter [facility] note* Diagnosis Attention deficit disorder (ADD) in adult documented in this encounter [facility] note* Diagnosis Attention deficit disorder (ADD) in adult documented in this encounter [facility] course Narrative No data available for this section [facility] Reason for referral (narrative)* Outpatient Procedure (Routine) - Closed Specialty Diagnoses / Procedures Referred By Abhijeet t Referred To Contact [facility] Diagnoses Constipation, unspecified constipation type Family history of Crohn's disease Procedures COLONOSCOPY DIAGNOSTIC COLONOSCOPY FLX DX W/COLLJ SPEC WHEN PFRMD Meghan French APRN.CAMOUFLAGE SPECIALIST [address] [place] [address] [facility] [place] [address] [place] [address] Referral ID Status Reason Start Date Expiration Date V isits Requested Visits Authorized [id number] Closed Auto-Generate d Referral 08/23/2022 08/24/[address] [facility] for visit Narrative* Outpatient Procedure (Routine) - Closed Specialty Diagnoses / Procedures Referred By Contac t Referred To Contact [facility] Diagnoses Constipation, unspecified constipation type Family history of Crohn's disease Procedures COLONOSCOPY DIAGNOSTIC COLONOSCOPY FLX DX W/COLLJ SPEC WHEN PFRMMeghan Webster APRN.CAMOUFLAGE SPECIALIST [address] [place] [address] [facility] [address] [address] Referral ID Status Reason Start Date Expiration Date V isits Requested Visits Authorized [id number] Closed Auto-Generate d Referral 08/23/2022 08/24/2023 1 1 [facility] Summary Purpose Family History No Family [...] (impaired fasting glucose) Modesto Zhu DO [address] [place] [address] Referral ID Status Reason Start Date Expiration Date Visits Re quested Visits Authorized [id number] Closed 1 1 Specialty Diagnoses / Procedures Referred By Contac t Referred To Contact Gastroenterology Procedures CONSULT TO GASTROENTEROLOGY OFFICE/OUTPATIENT [facility] 60-74 MINUTES Rachel Puentes MD [address] [place] [address] Referral ID Status Reason Start Date Expiration Date Visits Requested Visits Authorized [id number] Authorized PCP Requested Referral 09/13/2022 08/30/2023 1 1 Specialty Diagnoses / Procedures Referred By Contac t Referred To Contact Diagnoses Attention deficit disorder (ADD) in adult Josesito Levi, SCANNER SUPERVISOR.CAMOUFLAGE SPECIALIST [address] [place] [address] Referral ID Status Reason Start Date Expiration Date V isits Requested Visits Authorized [id number] Pending Review 1 1 Medications Administered Section [...] DATE CREATED AUTHOR AUTHOR'S ORGANIZ ATION 05/25/2023 [facility] DATE CREATED AUTHOR AUTHOR'S ORGANIZ ATION 07/29/2023 [facility] ([place]) Source Comments (unrecognize d section and content) In the event this informatio n is protected by the Federal Confidentiality of Alcohol and Drug Abuse Patient Records regulations: The Federal rules restrict any use of the information to criminally investigate or prosecute any alcohol or drug abuse patient.[facility] the event this information is protected by the Federal Confidentiality of Alcohol and Drug Abuse Patient Records regulations: The Federal rules restrict any use of the information to criminally investigate or prosecute any alcohol or drug abuse patient.[facility] the event this information is protected by the Federal Confidentiality of Alcohol and Drug Abuse Patient Records regulations: The Federal rules restrict any use of the information to criminally investigate or prosecute any alcohol or drug abuse patient.[facility] the event this information is protected by the Federal Confidentiality of Alcohol and Drug Abuse Patient Records regulations: The Federal rules restrict any use of the information to criminally investigate or prosecute any alcohol or drug abuse patient.[facility] the event this information is protected by the Federal Confidentiality of Alcohol and Drug Abuse Patient Records regulations: The Federal rules restrict any use of the information to criminally investigate or prosecute any alcohol or drug abuse patient.[facility] the event this information is protected by the Federal Confidentiality of Alcohol and Drug Abuse Patient Records regulations: The Federal rules restrict any use of the information to criminally investigate or prosecute any alcohol or drug abuse patient.[facility] the event this information is protected by the Federal Confidentiality of Alcohol and Drug Abuse Patient Records regulations: The Federal rules restrict any use of the information to criminally investigate or prosecute any alcohol or drug abuse patient.[facility] the event this information is protected by the Federal Confidentiality of Alcohol and Drug Abuse Patient Records regulations: The Federal rules restrict any use of the information to criminally investigate or prosecute any alcohol or drug abuse patient.[facility] the event this information is protected by the Federal Confidentiality of Alcohol and Drug Abuse Patient Records regulations: The Federal rules restrict any use of the information to criminally investigate or prosecute any alcohol or drug abuse patient.[facility] the event this information is protected by the Federal Confidentiality of Alcohol and Drug Abuse Patient Records regulations: The Federal rules restrict any use of the information to criminally investigate or prosecute any alcohol or drug abuse patient.[facility] the event this information is protected by the Federal Confidentiality of Alcohol and Drug Abuse Patient Records regulations: The Federal rules restrict any use of the information to criminally investigate or prosecute any alcohol or drug abuse patient.[facility] the event this information is protected by the Federal Confidentiality of Alcohol and Drug Abuse Patient Records regulations: The Federal rules restrict any use of the information to criminally investigate or prosecute any alcohol or drug abuse patient.[facility] HospitalIn the event this information is protected by the Federal Confidentiality of Alcohol and Drug Abuse Patient Records regulations: The Federal rules restrict any use of the information to criminally investigate or prosecute any alcohol or drug abuse patient.[facility] HospitalIn the event this information is protected by the Federal Confidentiality of Alcohol and Drug Abuse Patient Records regulations: The Federal rules restrict any use of the information to criminally investigate or prosecute any alcohol or drug abuse patient.[facility] HospitalIn the event this information is protected by the Federal Confidentiality of Alcohol and Drug Abuse Patient Records regulations: The Federal rules restrict any use of the information to criminally investigate or prosecute any alcohol or drug abuse patient.[facility] HospitalIn the event this information is protected by the Federal Confidentiality of Alcohol and Drug Abuse Patient Records regulations: The Federal rules restrict any use of the information to criminally investigate or prosecute any alcohol or drug abuse patient.[facility] HospitalIn the event this information is protected by the Federal Confidentiality of Alcohol and Drug Abuse Patient Records regulations: The Federal rules restrict any use of the information to criminally investigate or prosecute any alcohol or drug abuse patient.[facility] HospitalIn the event this information is protected by the Federal Confidentiality of Alcohol and Drug Abuse Patient Records regulations: The Federal rules restrict any use of the information to criminally investigate or prosecute any alcohol or drug abuse patient.[facility] HospitalIn the event this information is protected by the Federal Confidentiality of Alcohol and Drug Abuse Patient Records regulations: The Federal rules restrict any use of the information to criminally investigate or prosecute any alcohol or drug abuse patient.[facility] HospitalIn the event this information is protected by the Federal Confidentiality of Alcohol and Drug Abuse Patient Records regulations: The Federal rules restrict any use of the information to criminally investigate or prosecute any alcohol or drug abuse patient.[facility] HospitalIn the event this information is protected by the Federal Confidentiality of Alcohol and Drug Abuse Patient Records regulations: The Federal rules restrict any use of the information to criminally investigate or prosecute any alcohol or drug abuse patient.[facility] HospitalIn the event this information is protected by the Federal Confidentiality of Alcohol and Drug Abuse Patient Records regulations: The Federal rules restrict any use of the information to criminally investigate or prosecute any alcohol or drug abuse patient.[facility] HospitalIn the event this information is protected by the Federal Confidentiality of Alcohol and Drug Abuse Patient Records regulations: The Federal rules restrict any use of the information to criminally investigate or prosecute any alcohol or drug abuse patient.[facility] HospitalIn the event this information is protected by the Federal Confidentiality of Alcohol and Drug Abuse Patient Records regulations: The Federal rules restrict any use of the information to criminally investigate or prosecute any alcohol or drug abuse patient.[facility] HospitalIn the event this information is protected by the Federal Confidentiality of Alcohol and Drug Abuse Patient Records regulations: The Federal rules restrict any use of the information to criminally investigate or prosecute any alcohol or drug abuse patient.[facility] HospitalIn the event this information is protected by the Federal Confidentiality of Alcohol and Drug Abuse Patient Records regulations: The Federal rules restrict any use of the information to criminally investigate or prosecute any alcohol or drug abuse patient.[facility] HospitalIn the event this information is protected by the Federal Confidentiality of Alcohol and Drug Abuse Patient Records regulations: The Federal rules restrict any use of the information to criminally investigate or prosecute any alcohol or drug abuse patient.[facility] HospitalIn the event this information is protected by the Federal Confidentiality of Alcohol and Drug Abuse Patient Records regulations: The Federal rules restrict any use of the information to criminally investigate or prosecute any alcohol or drug abuse patient.[facility] HospitalIn the event this information is protected by the Federal Confidentiality of Alcohol and Drug Abuse Patient Records regulations: The Federal rules restrict any use of the information to criminally investigate or prosecute any alcohol or drug abuse patient.[facility] HospitalIn the event this information is protected by the Federal Confidentiality of Alcohol and Drug Abuse Patient Records regulations: The Federal rules restrict any use of the information to criminally investigate or prosecute any alcohol or drug abuse patient.[facility] HospitalIn the event this information is protected by the Federal Confidentiality of Alcohol and Drug Abuse Patient Records regulations: The Federal rules restrict any use of the information to criminally investigate or prosecute any alcohol or drug abuse patient.[facility] HospitalIn the event this information is protected by the Federal Confidentiality of Alcohol and Drug Abuse Patient Records regulations: The Federal rules restrict any use of the information to criminally investigate or prosecute any alcohol or drug abuse patient.[facility] HospitalIn the event this information is protected by the Federal Confidentiality of Alcohol and Drug Abuse Patient Records regulations: The Federal rules restrict any use of the information to criminally investigate or prosecute any alcohol or drug abuse patient.[facility] HospitalIn the event this information is protected by the Federal Confidentiality of Alcohol and Drug Abuse Patient Records regulations: The Federal rules restrict any use of the information to criminally investigate or prosecute any alcohol or drug abuse patient.[facility] HospitalIn the event this information is protected by the Federal Confidentiality of Alcohol and Drug Abuse Patient Records regulations: The Federal rules restrict any use of the information to criminally investigate or prosecute any alcohol or drug abuse patient.[facility] HospitalIn the event this information is protected by the Federal Confidentiality of Alcohol and Drug Abuse Patient Records regulations: The Federal rules restrict any use of the information to criminally investigate or prosecute any alcohol or drug abuse patient.[facility] HospitalIn the event this information is protected by the Federal Confidentiality of Alcohol and Drug Abuse Patient Records regulations: The Federal rules restrict any use of the information to criminally investigate or prosecute any alcohol or drug abuse patient.[facility] HospitalIn the event this information is protected by the Federal Confidentiality of Alcohol and Drug Abuse Patient Records regulations: The Federal rules restrict any use of the information to criminally investigate or prosecute any alcohol or drug abuse patient.[facility] HospitalIn the event this information is protected by the Federal Confidentiality of Alcohol and Drug Abuse Patient Records regulations: The Federal rules restrict any use of the information to criminally investigate or prosecute any alcohol or drug abuse patient.[facility] Care Teams (unrecognized sec tion and content) Secretary Book Keeper Relationship Specialty Start Date End Date Modesto Zhu DO [address] [place] [address] PCP - General Family Practice 08/27/20 Secretary Book Keeper Relationship Specialty Start Date End Date Modesto Zhu, DO [address] [place] [address] PCP - General Family Practice 08/27/20 Secretary Book Keeper Relationship Specialty Start Date End Date Modesto Zhu, DO [address] [place] [address] PCP - General Family Practice 08/27/20 Secretary Book Keeper Relationship Specialty Start Date End Date Modesto Zhu, DO [address] [place] [address] PCP - General Family Practice 08/27/20 Secretary Book Keeper Relationship Specialty Start Date End Date Modesto Zhu, DO [address] [place] [address] PCP - General Family Practice 08/27/20 Secretary Book Keeper Relationship Specialty Start Date End Date Modesto Zhu, DO [address] [place] [address] PCP - General Family Practice 08/27/20 Secretary Book Keeper Relationship Specialty Start Date End Date Modesto Zhu, DO [address] [place] [address] PCP - General Family Practice 08/27/20 Secretary Book Keeper Relationship Specialty Start Date End Date Modesto Zhu, DO [address] [place] [address] PCP - General Family Medicine 08/27/20 Secretary Book Keeper Relationship Specialty Start Date End Date Modesto Zhu, DO [address] [place] [address] PCP - General Family Medicine 08/27/20 Secretary Book Keeper Relationship Specialty Start Date End Date Modesto Zhu, DO [address] [place] [address] PCP - General Family Medicine 08/27/20 Secretary Book Keeper Relationship Specialty Start Date End Date Modesto Zhu, DO [address] [place] [address] PCP - General Family Medicine 08/27/20 Secretary Book Keeper Relationship Specialty Start Date End Date Modesto Zhu, DO [address] [place] [address] PCP - General Family Medicine 08/27/20 Secretary Book Keeper Relationship Specialty Start Date End Date Modesto Zhu, DO [address] [place] [address] PCP - General Family Medicine 08/27/20 Secretary Book Keeper Relationship Specialty Start Date End Date Modesto Zhu, DO [address] [place] [address] PCP - General Family Medicine 08/27/20 Secretary Book Keeper Relationship Specialty Start Date End Date Modesto Zhu, DO [address] [place] [address] PCP - General Family Medicine 08/27/20 Secretary Book Keeper Relationship Specialty Start Date End Date Modesto Zhu, DO [address] [place] [address] PCP - General Family Medicine 08/27/20 Secretary Book Keeper Relationship Specialty Start Date End Date Modesto Zhu, DO [address] [place] [address] PCP - General Family Medicine 08/27/20 Secretary Book Keeper Relationship Specialty Start Date End Date Modesto Zhu DO [address] [place] [address] PCP - General Family Medicine 08/27/20 Secretary Book Keeper Relationship Specialty Start Date End Date Modesto Zhu DO [address] [place] [address] PCP - General Family Medicine 08/27/20 Secretary Book Keeper Relationship Specialty Start Date End Date Modesto Zhu DO [address] [place] [address] PCP - General Family Medicine 08/27/20 Secretary Book Keeper Relationship Specialty Start Date End Date Modesto Zhu DO [address] [place] [address] PCP - General Family Medicine 08/27/20 Secretary Book Keeper Relationship Specialty Start Date End Date Modesto Zhu DO [address] [place] [address] PCP - General Family Medicine 08/27/20 Secretary Book Keeper Relationship Specialty Start Date End Date Modesto Zhu DO [address] [place] [address] PCP - General Family Medicine 08/27/20 Secretary Book Keeper Relationship Specialty Start Date End Date Modesto Zhu DO [address] [place] [address] PCP - General Family Medicine 08/27/20 Secretary Book Keeper Relationship Specialty Start Date End Date Modesto Zhu DO [address] [place] [address] PCP - General Family Medicine 08/27/20 Secretary Book Keeper Relationship Specialty Start Date End Date Modesto Zhu DO [address] [place] [address] PCP - General Family Medicine 08/27/20 Secretary Book Keeper Relationship Specialty Start Date End Date Modesto Zhu DO [address] [place] [address] PCP - General Family Medicine 08/27/20 Secretary Book Keeper Relationship Specialty Start Date End Date Modesto Zhu DO [address] [place] [address] PCP - General Family Medicine 08/27/20 Reason [...] 60-74 MINUTES Rachel Puentes MD [address] [facility] [place] [address] Referral ID Status Reason Start Date Expiration Date V isits Requested Visits Authorized [id number] Closed PCP Requested Referral 09/13/2022 08/30/2023 1 [...] Procedures VIDEO PRIMARY EST Self Marley Moncada APRN.[facility] [address] [place] [address] Referral ID Status Reason Start Date Expiration Date V isits Requested Visits Authorized [id number] New Request 05/21/2023 08/20/2023 99 99 FOR [...] BE BASED ON THE PRIMARY CLINICAL RECORDS. [facility]. provides no warranty or guarantee of the accuracy or completeness of information in this document.
[2023-08-05 15:16] VITALS: BP 142/72; PULSE 79; RESP 15; TEMP 36.4; O2SAT 98
[2023-08-05] MEDS: Electrolyte Solution/Peg's 4000 ML PO (15:16)
== END 2023-08-05 15:17 | disposition home or self-care (01) ==
PROVIDERS: Emergency Provider Emergency Medicine; PCP Student in an Organized Health Care Education/Training Program; Visit Provider Emergency Medicine
DX: K59.00 Constipation, unspecified (principal); I10 Essential (primary) hypertension; F90.9 Attention-deficit hyperactivity disorder, unspecified type; Z79.899 Other long term (current) drug therapy; Z90.710 Acquired absence of both cervix and uterus; Z90.49 Acquired absence of other specified parts of digestive tract
CPT/HCPCS: 74018; 99284

== ENCOUNTER → 2023-08-08 | Outpatient (CLI) | payer OTHER, SELFPAY ==
--- NOTE | 2023-08-08 12:39 | US_ITS ---
EXAM: US RETROPERITONEAL LIMITED, RENAL CLINICAL INDICATION: RIGHT HYDRONEPHROSIS TECHNIQUE: Limited grayscale and color Doppler sonographic evaluation of the retroperitoneum was performed. COMPARISON: CT July 31, 2023 there was a right ureteral stent which was well-positioned proximally but terminated in distal right ureter, and small stone in the urinary bladder on the recent CT. Bilateral nephrolithiasis was noted. FINDINGS: RIGHT KIDNEY: Mild right hydronephrosis. Right kidney 11.1 cm x 6 cm x 5.6 cm with roughly 2.8 cm AP right renal pelvis. The AP diameter of the right renal pelvis measures [address] with stent July 31, 2023. 3 mm x 4 mm presumed echogenic stone at the lower pole right kidney, stone confirmed on prior CT. LEFT KIDNEY: Unremarkable. 13.5 cm x 6 cm x 5.7 cm. Slightly prominent left renal pelvis may be chronic, 1.9 cm AP. Left renal pelvis was 1.[address] No hydronephrosis. No shadowing calculus. No focal lesion. No perinephric collection is demonstrated. BLADDER: Prominently distended bladder, 10.3 cm x 10.3 cm x 9.5 cm, calculated volume 574 cc with bilateral ureteral jets demonstrated on color Doppler exam, arguing against a high-grade ureter obstruction. But slightly dilated segment of right ureter of at least 7 mm is seen near the bladder proximal to the right ureteral jet. US/Kidney and Bladder IMPRESSION: Bilateral ureteral jets are demonstrated in the bladder, evidence against a high-grade ureter obstruction. Right hydronephrosis and right nephrolithiasis. Right renal pelvis similar in size to the prior unenhanced CT with right ureteral stent in place. There is slightly dilated appearance of distal right ureter. Electronically Signed: Priya Chow MD at 8:57 EST ,
== END | disposition home or self-care (01) ==
LOC: US 12:38
PROVIDERS: PCP Student in an Organized Health Care Education/Training Program; Referring Provider Urology; Visit Provider Urology
DX: N13.2 Hydronephrosis with renal and ureteral calculous obstruction (principal)
CPT/HCPCS: 76770

== ENCOUNTER → 2023-08-15 | Outpatient (CLI) | payer OTHER, SELFPAY ==
--- NOTE | 2023-08-15 16:29 | US_ITS ---
PROCEDURE: RENAL ULTRASOUND - COMPLETE REASON FOR EXAM: Female, 38 years old. History of right hydronephrosis and stone TECHNIQUE: Ultrasound evaluation of the bilateral kidneys was performed with real-time ultrasonography and static grayscale imaging. COMPARISON: 08/08/2023 FINDINGS: RIGHT KIDNEY: Normal location of the right kidney which is normal in size. The right kidney measures 11 x 6.6 x 7 cm. There is a normal cortex of the right kidney. The renal cortex measures 2.6 cm. There is no right renal mass or cyst. There is suggestion of 2 stones in the right kidney measuring about 1. 12.8 cm however they are poorly visualized. Moderate right hydronephrosis is again seen. The renal pelvis measures about 1.5 cm before voiding. It measures about 1.1 cm post void. DISTAL RIGHT URETER: There is non-visualization of the distal right ureter. There is no demonstrated right ureterovesical junction calculus. There is a visualized right ureteral jet. LEFT KIDNEY: Normal location of the left kidney which is normal in size. The left kidney measures 12.5 x 6.4 x 4.7 cm. There is a normal cortex of the left kidney. The renal cortex measures 1.9 cm. There is no left renal mass or cyst. There are no left renal calculi. There is no left hydronephrosis. The renal pelvis measures about 1.2 cm prevoid. It measures about 1 cm post void. DISTAL LEFT URETER: There is non-visualization of the distal left ureter. There is no demonstrated left ureterovesical junction calculus. There is a visualized left ureteral jet. BLADDER: The distended urinary bladder has a volume of 545 ml. There is a normal wall thickness of the distended urinary bladder. The empty urinary bladder has a volume of 84 ml. There is no demonstrated mass within the urinary bladder. There is no demonstrated bladder calculi. US/Kidney and Bladder IMPRESSION: Persistent moderate right hydronephrosis essentially unchanged the prior exam with probable renal stones. . Electronically Signed: Joel Ambriz MD at 8:52 EST ,
--- OUTSIDE RECORDS SUMMARY | 2023-08-15 20:45 | XMS RPT_ITS | CCD ---
Author Name Unknown Address [address] [place] [address] Organization [facility] Care Team Providers Care Passenger Attendant Name Role Phone Swathi Lewis MD Unavailable [phone] KAYLA CARTER Unavailable Unavailable KAYLA CARTER Unavailable Unavailable ZhuModesto east DO Primary Care Provider Modesto Zhu DO Primary Care Provider Marko HURST Modesto Evin Primary Care Provider Zhu DO Modesto Evin Primary Care Provider MEGHAN FRENCH Referring Unavailable RACHEL PUENTES Attending Unavailable MODESTO ZHU Primary Care Unavailable ZHU, MODESTO Evin Primary Care Unavailable JOSESITO LEVI Attending Unavailable MODESTO ZHU Primary Care Unavailable MODESTO ZHU Attending Unavailable MARKO MODESTO L Primary Care Unavailable DENYR CORINNE Referring Unavailable MARKO MODESTO Evin Primary Care Unavailable DENYR CORINNE Attending Unavailable RACHEL PUENTES Referring Unavailable ZHUMODESTO EAST DO Primary Care Physician MARKO HURST MODESTO Primary Care Unavailable ESTELLA TOMAS MD Attending Unavailable Allergies Allergy Classification Reported Allergen(s) Allergy Type Date of Onset Reaction(s) Facility (2 sources) penicillin v Drug Allergy 7 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] Onset: [...] Onset: 02-21-2019 02-21-2019 Episodic Other gastrointestinal disorders (14 sources) Constipation; Translations: [Constipation, unspecified] Onset: 09-29-2022 [...] blood pressure 67 mm[Hg] ESTELLA TOMAS MD [facility] 07-20-2023 21:27-0500 Heart rate 73 /min ESTELLA TOMAS MD [facility] 07-20-2023 21:27-0500 Respiratory rate 16 /min ESTELLA TOMAS MD [facility] 07-20-2023 21:27-0500 Systolic blood pressure 101 mm[Hg] ESTELLA TOMAS MD [facility] 07-20-2023 19:15-0500 Diastolic Blood Pressure Non-Invasive 90 mm[Hg] ESTELLA TOMAS MD [facility] 07-20-2023 19:15-0500 Heart rate 88 /min ESTELLA TOMAS MD [facility] 07-20-2023 19:15-0500 Respiratory rate 18 /min ESTELLA TOMAS MD [facility] 07-20-2023 19:15-0500 Systolic Blood Pressure Non-Invasive 130 mm[Hg] ESTELLA TOMAS MD [facility] 07-20-2023 17:12-0500 Diastolic Blood Pressure Non-Invasive 71 mm[Hg] ESTELLA TOMAS MD [facility] 07-20-2023 17:12-0500 Heart rate 92 /min ESTELLA TOMAS MD [facility] 07-20-2023 17:12-0500 Respiratory rate 20 /min ESTELLA TOMAS MD [facility] 07-20-2023 17:12-0500 Systolic Blood Pressure Non-Invasive 123 mm[Hg] ESTELLA TOMAS MD [facility] 07-20-2023 14:22-0500 Blood Pressure Location ESTELLA TOMAS MD [facility] 07-20-2023 14:22-0500 Body temperature 96.98 [degF] ESTELLA TOMAS MD [facility] 07-20-2023 14:22-0500 Body weight 70.8 kg ESTELLA TOMAS MD [facility] 07-20-2023 14:22-0500 Diastolic Blood Pressure Non-Invasive 92 mm[Hg] ESTELLA TOMAS MD [facility] 07-20-2023 14:22-0500 Systolic Blood Pressure Non-Invasive 136 mm[Hg] ESTELLA TOMAS MD [facility] 05-23-2023 09:16-0500 Body weight 73.48 kg Josesito Levi PHOTOCOMPOSITION KEYBOARD OPERATOR.LACE ROLLER Work Phone: [facility] 05-23-2023 09:16-0500 Diastolic blood pressure 64 mm[Hg] Josesito Levi PHOTOCOMPOSITION KEYBOARD OPERATOR.LACE ROLLER Work Phone: [facility] 05-23-2023 09:16-0500 Heart rate 64 /min Josesito Levi PHOTOCOMPOSITION KEYBOARD OPERATOR.LACE ROLLER Work Phone: [facility] 05-23-2023 09:16-0500 Respiratory rate 12 /min Josesito Levi PHOTOCOMPOSITION KEYBOARD OPERATOR.LACE ROLLER Work Phone: [facility] 05-23-2023 09:16-0500 Systolic blood pressure 128 mm[Hg] Josesito Levi PHOTOCOMPOSITION KEYBOARD OPERATOR.LACE ROLLER Work Phone: [facility] 09-20-2022 10:51-0400 Body height 165.1 cm Corinne De Leon MD Work Phone: [facility] 09-20-2022 10:51-0400 Body temperature 98.29 [degF] Corinne De Leon MD Work Phone: [facility] 09-20-2022 10:51-0400 Body weight 88.91 kg Corinne De Leon MD Work Phone: [facility] 09-20-2022 10:51-0400 Diastolic blood pressure 91 mm[Hg] Corinne De Leon MD Work Phone: [facility] 09-20-2022 10:51-0400 Heart rate 119 /min Corinne De Leon MD Work Phone: [facility] 09-20-2022 10:51-0400 Respiratory rate 18 /min Corinne De Leon MD Work Phone: [facility] 09-20-2022 10:51-0400 SaO2% (BldA) [Mass fraction] 100 % Corinne De Leon MD Work Phone: [facility] 09-20-2022 10:51-0400 Systolic blood pressure 135 mm[Hg] Corinne De Leon MD Work Phone: [facility] 08-30-2022 12:26-0400 Heart rate 91 /min Rachel Puentes MD Work Phone: [facility] 08-30-2022 12:26-0400 SaO2% (BldA) [Mass fraction] 100 % Rachel Puentes MD Work Phone: [facility] 08-30-2022 12:16-0400 Diastolic blood pressure 84 mm[Hg] Rachel Puentes MD Work Phone: [facility] 08-30-2022 12:16-0400 Respiratory rate 16 /min Rachel Puentes MD Work Phone: [facility] 08-30-2022 12:16-0400 Systolic blood pressure 124 mm[Hg] Rachel Puentes MD Work Phone: [facility] 08-30-2022 10:44-0400 Body temperature 98.4 [degF] Rachel Puentes MD Work Phone: [facility] 03-22-2022 15:09-0400 Body weight 97.52 kg Modesto Zhu DO Work Phone: [facility] 02-24-2022 10:51-0400 Body weight 100.15 kg Modesto Zhu DO Work Phone: [facility] 04-30-2017 14:06-0500 BMI (Body Mass Index) 38.8 kg/m2 Swathi Lewis MD [facility] 04-30-2017 14:06-0500 BP Diastolic 82 mm[Hg] Swathi Lewis MD [facility] 04-30-2017 14:06-0500 BP Systolic 133 mm[Hg] Swathi Lewis MD [facility] 04-30-2017 14:06-0500 Height 166.37 cm Swathi Lewis MD [facility] 04-30-2017 14:06-0500 Weight 107.41 kg Swathi Lewis MD [facility] 04-03-2017 09:57-0400 BMI (Body Mass Index) 39.72 kg/m2 Swathi Lewis MD [facility] 04-03-2017 09:57-0400 Body Temperature 98.3 [degF] Swathi Lewis MD [facility] 04-03-2017 09:57-0400 BP Diastolic 80 mm[Hg] Swathi Lewis MD [facility] 04-03-2017 09:57-0400 BP Systolic 127 mm[Hg] Swathi Lewis MD [facility] 04-03-2017 09:57-0400 Pulse (Heart Rate) 107 /min Swathi Lewis MD [facility] 04-03-2017 09:57-0400 Respiratory Rate 16 /min Swathi Lewis MD [facility] 04-03-2017 09:57-0400 Weight 112.31 kg Swathi Lewis MD [facility] 02-12-2017 09:05-0400 Height 168.15 cm Swathi Lewis MD [facility] Encounters Encounter Date Encounter Type Care Provider Facility Start: 08-07-2023 ambulatory Modesto Robison son DO Work Phone: [facility] Procedures Date Procedure Procedure Detail Performing Clinician Start: 08-30-2022 Level iv surg pathol ogy gross&microscopic exam Rachel Puentes MD Work Phone: Start: 08-30-2022 Colonoscopy flx dx w /collj spec when pfrmd Meghan French PHOTOCOMPOSITION KEYBOARD OPERATOR.LACE ROLLER Work Phone: Start: 02-01-2021 Adult depression scr [...] P,Tdap,Td Vaccine (2 - Td or Tdap) [facility] Start: 01-11-2027 HPV TESTING HPV TESTING [facility] Start: 01-11-2027 PAP TESTING PAP TESTING [facility] Start: 01-11-2027 Screening for malign ant neoplasm of cervix [facility] Start: 01-14-2025 HPV TESTING HPV TESTING [facility] Start: 01-14-2025 PAP TESTING PAP TESTING [facility] Start: 05-23-2024 Covid-19 Vaccine (#1) Covid-19 Vacci ne (#1) [facility] Immunizations Immunization Date Immunization Notes Care Provider Fabiana leslie 07-07-2019 influenza virus vaccine, unspecified formulation Josesito Levi APRN.LACE ROLLER Work Phone: [facility] 01-31-2017 tetanus toxoid, reduced diphtheria toxoid, and acellular pertussis vaccine, adsorbed Swathi Lewis MD [facility] 01-17-2017 [id number] Swathi garcia MD [facility] 05-13-2013 influenza virus vaccine, unspecified formulation Modesto Zhu DO Work Phone: [facility] Work Phone: Payers Date Payer Category Payer Unknown [employer] PPO [id number] 2023-[facility] [phone] [address] [place] [address] PPO [id number] 2023 Unknown [id number] 2022 Medicaid [id number] 2016 Medicaid [employer] [id number] 2016-Present [phone] [address] [place] [address] Medicaid [id number] 2016 Medicaid [id number] 1987 Unknown [id number] Social History Date Type Detail Facility Start: 05-28-2013 End: 08-30-2022 Tobacco smoking status TXIS Never smoked tobacco [facility] Start: 06-29-2021 End: 06-23-2023 Alcohol intake Current drinker of alcohol (finding) [facility] Start: 11-22-2019 End: 05-11-2022 History SDOH Alcohol Frequency 2 [facility] Start: 11-22-2019 End: 05-11-2022 History SDOH Alcohol Std Drinks 1 [facility] Start: 11-20-2018 History SDOH Alcohol Comment socially- rare [facility] Start: 11-22-2019 End: 05-11-2022 History SDOH Social Connections Phone 5 [facility] Start: 11-22-2019 End: 05-11-2022 History SDOH Social Connections Anabaptist 3 [facility] Start: 11-21-2019 Education 21 [facility] Start: 1985 Sex Assigned At Not on file C [facility] Start: 01-05-2021 End: 01-27-2022 Exposure to SARS-CoV-2 (event) Not sure [facility] Start: 05-28-2013 End: 08-30-2022 Tobacco use and exposure Smokeless tobacco non-user [facility] Start: 05-11-2022 History SDOH Alcohol Std Drinks 0 [facility] Start: 05-11-2022 History SDOH Social Connections Meetings 98 [facility] Start: 05-11-2022 End: 05-21-2023 History of Social function [facility] Start: 05-11-2022 End: 05-21-2023 Social connection and isolation panel [facility] Do you belong to any clubs or organizations such as yarsani groups, unions, fraternal or athletic groups, or school groups? No [facility] How often do you att end meetings of the clubs or organizations you belong to? Patient refused [facility] Are you now , , , , never or living with a partner? [facility] How often to you hav e a drink containing alcohol? Never [facility] Do you feel stress - tense, restless, nervous, or anxious, or unable to sleep at night because your mind is troubled all the time - these days [OSQ] To some extent [facility] (I/We) worried wheth er (my/our) food would run out before (I/we) got money to buy more. Never true [facility] Do you belong to any clubs or organizations such as yarsani groups, unions, fraternal or athletic groups, or school groups? Yes [facility] Sex Assigned At Sex [facility] Functional Status Date Assessment Result Facility 07-20-2023 Functional Status Independent [facility] 07-20-2023 Functional Status Standard Safet y ID band on, Allergy Band on, Call device within reach, Bed in low position, Wheels locked, Upper/Half-Length side-rails up [facility] Mental Status Date Assessment Result Facility 07-20-2023 Mental Status Orientation Oriented x 4 [facility] 07-20-2023 Mental Status [facility] Clinical Notes 11-16-2016 to 08-08-2023 Telephone Encounter - Josesito Levi APRN.LACE ROLLER - 08/08/2023 7:33 AM ESTTelephone Encounter - Shelbie Burns Ma - 08/07/2023 10:19 AM Josesito Garsia APRN.LACE ROLLER - 05/23/2023 9:19 AM EST Note Date & Type Note Facility 08-08-2023 Miscellaneous Notes [facility] website checked and validated. All prescriptions have been APPROPRIATELY filled. No suspicious activity was identified. 08/08/2023 by Josesito Levi APRN.CNP The following approved medication requests have been transmitted electronically. Requested Prescriptions Signed Prescriptions Disp Refills lisdexamfetamine (VYVANSE) 70 mg capsule 30 capsule 0 Sig: Take 1 capsule by mouth once daily for 30 days. lisdexamfetamine (VYVANSE) 70 mg capsule 30 capsule 0 Sig: Take 1 capsule by mouth once daily for 30 days. lisdexamfetamine (VYVANSE) 70 mg capsule 30 capsule 0 Sig: Take 1 capsule by mouth once daily for 30 days. Josesito Levi APRN.CNP Patient has been identified by name and date of : Yes, Provider Modesto Zhu DO Date August 07, 2023 Time 10:20 AM Patient phones for refill(s): Requested Prescriptions Pending Prescriptions Disp Refills lisdexamfetamine (VYVANSE) 70 mg capsule 30 capsule 0 Sig: Take 1 capsule by mouth once daily for 30 days. lisdexamfetamine (VYVANSE) 70 mg capsule 30 capsule 0 Sig: Take 1 capsule by mouth once daily for 30 days. lisdexamfetamine (VYVANSE) 70 mg capsule 30 capsule 0 Sig: Take 1 capsule by mouth once daily for 30 days. Date of last office visit in primary care: 05/23/2023 Date of next office visit in primary care: 11/21/2023 Please advise. Thank you. Shelbie Burns Ma. documented in this encounter [facility] 08-07-2023 Miscellaneous Notes Patient scheduled for 08/09 with RS per patient pref of appt. Faye Harper MA documented in this encounter [facility] 07-22-2023 Note . MICRO - Microbiology PROCEDURE: [...] Locations *1: This test was performed at: [facility], [address] [place] [address], [facility] , [place] hospital ([place]) 07-20-2023 Hospital Discharge instructions Patient Education 07/20/2023 [...] for 8 hours and increasing bladder pressure [id number] [employer]. [address] [place] [address], [place] [address]. All rights reserved. This information is not intended as a substitute for professional medical care. Always follow your healthcare professional's instructions. Follow Up Care 07/20/2023 13:56:26 With:BRINA NAVA MD, [facility] [employer] [facility] Address: [address] [place] [address], [facility] [address] [place] [address] [phone] When:2-4 days [facility] 07-20-2023 Emergency department Discharge summary Discharge Instructions Thank you for allowing [facility] to assist you with your healthcare needs. The following is important discharge information regarding your hospital visit. Diagnosis from Today's Visit Blood in urine Colic, ureteral Flank pain What to Do Next Instructions from Your Care Team No qualifying data available. Post Acute Orders No qualifying data available. You Need to Schedule the Following Appointments Follow Up with BRINA NAVA MD, [facility] [employer] [facility] When Within 2-4 days Where: [address] [place] [address], [facility] [address] [place] [address] [phone] Allergies penicillin Medications Please ask your primary [...] for 8 hours and increasing bladder pressure [phone] [employer]. [address] [place] [address], [place] [address]. All rights reserved. This information is not intended as a substitute for professional medical care. Always follow your healthcare professional's instructions. Additional Information VACCINATE! IT SAVES LIVES! Members of the community who have not yet received the COVID-19 vaccine and would like to receive it can visit one of [facility] vaccine clinics. There are many vaccine clinic locations within the [facility]. For locations and available times, please visit www.gettheshot.coronavirus.[place].g ov/. It is important to note that some COVID mobile vaccine clinics are held outdoors and may be canceled in rainy or stormy conditions. To learn more about pediatric vaccinations (ages 5-11), we invite you to visit the [employer] webpage. https://www.[employer]YourCitys.org/pa ges/4563-Ygydw-Jabugvgaysc-Freque emoe-Tkbsi-Skktwdzsd.html To learn more about the COVID-19 vaccine, we invite you to visit the CDC website for a list of frequently asked questions. https://www.cdc.gov/coronavirus/2 019-ncov/vaccines/faq.html [facility] Patient Portal Access Instructions: Stay connected with your healthcare team and access your personal medical information anytime with the [facility] Patient Portal. If you would like a full copy of your medical records please contact the [facility] Medical Records Department Sunday through Sunday between 8a.m. and 4:30p.m. Please follow the directions below to access the portal: 1.Access the email account you provided upon registration to the hospital.2.Look for an invitation email from [facility].3.Open the email and access the invitation link: Accept Invitation to [facility]4.Fill in the required royal to create your account. Sign into [email or web address] with your username and password that you [...] you will allow to register on the [facility] Patient Portal for access to your information. You can also access the [facility] Patient Portal on the [employer] mir. Simply click on Health Records under Health Data and then click on the [employer] logo. HOW TO SAFELY DISPOSE OF PRESCRIPTION [...] Call your local pharmacy or go to http://[employer]3G3Wx7o to find one close to you.3.Make use of household items: Use cat litter or old coffee grounds to dispose medications if other options are not available. Mix your drugs with these household products, seal them in an airtight container and throw it into the garbage. Call [facility]: [phone] to be sure your drugs can be [...] aware that I should contact my doctor. Patient/Manpower Development Specialist Manager Signature: Date/Time: Relationship to Patient: ____ Witness Name/Signature: Date/Time: [facility] 07-20-2023 Emergency department Discharge summary Discharge Instructions Thank you for allowing [facility] to assist you with your healthcare needs. The following is important discharge information regarding your hospital visit. Diagnosis from Today's Visit Blood in urine Colic, ureteral Flank pain What to Do Next Instructions from Your Care Team No qualifying data available. Post Acute Orders No qualifying data available. You Need to Schedule the Following Appointments Follow Up with BRINA NAVA MD, [facility] When Within 2-4 days Where: [address] [facility], [address] [place] [address]- [phone] Allergies penicillin Medications Please ask your primary [...] for 8 hours and increasing bladder pressure [phone] [employer]. [address] [place] [address], [place] [address]. All rights reserved. This information is not intended as a substitute for professional medical care. Always follow your healthcare professional's instructions. Additional Information VACCINATE! IT SAVES LIVES! Members of the community who have not yet received the COVID-19 vaccine and would like to receive it can visit one of [facility] vaccine clinics. There are many vaccine clinic locations within the [facility]. For locations and available times, please visit www.gettheshot.coronavirus.[place].g ov/. It is important to note that some COVID mobile vaccine clinics are held outdoors and may be canceled in rainy or stormy conditions. To learn more about pediatric vaccinations (ages 5-11), we invite you to visit the [facility] webpage. https://www.[facility].org/pa ges/3910-Fqplo-Gpfwpvscbqk-Freque jpth-Hpjde-Wftwahehk.html To learn more about the COVID-19 vaccine, we invite you to visit the CDC website for a list of frequently asked questions. https://www.cdc.gov/coronavirus/2 019-ncov/vaccines/faq.html [facility] Patient Portal Access Instructions: Stay connected with your healthcare team and access your personal medical information anytime with the [facility] Patient Portal. If you would like a full copy of your medical records please contact the [facility] Medical Records Department Sunday through Sunday between 8a.m. and 4:30p.m. Please follow the directions below to access the portal: 1.Access the email account you provided upon registration to the hospital.2.Look for an invitation email from [facility].3.Open the email and access the invitation link: Accept Invitation to [facility]4.Fill in the required royal to create your account. Sign into [email or web address] with your username and password that you [...] you will allow to register on the [facility] Patient Portal for access to your information. You can also access the [employer] Patient Portal on the [employer] mir. Simply click on Health Records under Health Data and then click on the [employer] logo. HOW TO SAFELY DISPOSE OF PRESCRIPTION [...] Call your local pharmacy or go to http://[employer]5E1Bx6x to find one close to you.3.Make use of household items: Use cat litter or old coffee grounds to dispose medications if other options are not available. Mix your drugs with these household products, seal them in an airtight container and throw it into the garbage. Call [facility]: [phone] to be sure your drugs can be [...] aware that I should contact my doctor. Patient/Manpower Development Specialist Manager Signature: Date/Time: Relationship to Patient: ____ Witness Name/Signature: Date/Time: [facility] 07-20-2023 Note ORIGINAL EXAMINATION: CT OF [...] Sign Date: 07/20/2023 4:34:19 PM Ordering Provider: TOSHIA MOELLER [facility] 07-20-2023 Evaluation + Plan note Diagnostic Tests PendingUrine Culture 07/20/23 [facility] 05-23-2023 Note HNO ID: [id number] Author: Josesito Levi APRN.LACE ROLLER Service: ? Author Type: Nurse Practitioner Type: Progress Notes Filed: 05/23/2023 9:41 AM Note Text: Chief Complaint Patient presents with: new script for vyvanse HPI Jannette Gupta is a 38 year old female who presents here today for Above Complaints. Jannette is an established patient of Dr. Marko DO. Concerns today.. ADHD-- Needing refill of [...] for pain pane (more content not included)... [facility] 05-23-2023 History of Present illness Narrative Chief Complaint Patient presents with: new script for vyvanse HPI Jannette Gupta is a 38 year old female who presents here today for Above Complaints. Jannette is an established patient of Dr. Marko DO. Concerns today.. ADHD-- Needing refill of [...] November 21, 2016 Cerclage being placed by [facility] on 11/22/16. On vaginal progesterone. Jessi [...] Patient agreeable to treatment plan. Josesito Price APRN.LACE ROLLER [address] [place] [address] documented in this encounter [facility] 05-21-2023 Miscellaneous Notes Pt is scheduled for virtual visit with PAIRER INSPECTOR today at 11:40am. Provider is requesting in office visit and also pt is due for urine tox screen. Phoned pt to advise of the same, voicemail box is full, unable to leave message. Tomás Marquis documented in this encounter [facility] 05-19-2023 Miscellaneous Notes Attempted to reach pt by phone without success. Sent a [facility] [place] [facility] [employer] message with explanation why medication was denied. [...] for Refusal: Patient needs appointment Josesito Levi APRN.[facility]ACE [facility]LLER BHARATI-09/29/22 Labs-09/20/22 NOV-none Frances Ochoa LPN documented in this encounter [facility] 03-28-2023 Miscellaneous Notes Date of last office: 09/29/2022 Date of next office visit: None Requested Prescriptions Pending Prescriptions Disp Refills topiramate (TOPAMAX) 100 mg tablet 60 tablet 1 Sig: Take 1 tablet by mouth two times a day. Date of Last Labs: 09/20/2022 Please advise. Thank you. Magda Rothman RN. documented in this encounter [facility] 03-20-2023 Miscellaneous Notes OK to refill as ordered Rizwan D Elderbrock, MD patient calling due to insurance co will no longer cover the vyvanse 30mg 2 daily so she is needing a new rx for the 60mg once daily. rx has been pended for approval patient only needs called if problem with refilling medication documented in this encounter [facility] 03-19-2023 Miscellaneous Notes The following approved medication requests have been transmitted electronically. Requested Prescriptions Signed Prescriptions Disp Refills lisdexamfetamine (VYVANSE) 30 mg capsule 60 capsule 0 Sig: Take 2 capsules by mouth once daily for 30 days. Authorizing Provider: MEGHAN FRENCH APRN.[facility] PDMP website checked and validated. All [...] Faye Harper MA documented in this encounter [facility] 01-26-2023 Miscellaneous Notes Pt. informed via [...] Indu Torres MA documented in this encounter [facility] 01-25-2023 Miscellaneous Notes MC message turned into TE. Indu Torres MA documented in this encounter [facility] 12-15-2022 Miscellaneous Notes Pt notified via [...] you. ARELY Rodriguez documented in this encounter [facility] 09-29-2022 Note HNO ID: [id number] Author: Modesto Zhu, DO Service: ? Author [...] no other changes. She was seen by Cloth Designer Dr. De Leon and was told to [...] November 21, 2016 Cerclage being placed by [facility] on 11/22/16. On vaginal progesterone. Jessi [...] stop the vyvanse and should d/w her curtain stitcher as well. - LISDEXAMFETAMINE 70 MG CAPSULE 3. 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 She is aware of the risk Modesto Zhu DO Return if no improvement. Follow up with Modesto Zhu DO. To ER if develops chest pain, shortness of breath Discussed risks, benefits, alternatives, and potential side effects of medications. Patient/Guardian expressed understanding and agreed with the plan. See patient (more content not included)... [facility] 09-20-2022 Note HNO ID: [id number] Author: Corinne De Leon MD Service: ? Author Type: Physician Type: Progress Notes Filed: 09/24/2022 12:32 PM Note Text: NAME: Jannette Gupta [facility] NO: [id number] REASON FOR VISIT Jannette Gupta is a [...] November 21, 2016 Cerclage being placed by [facility] on 11/22/16. On vaginal progesterone. Jessi [...] Colon, transverse and (more content not included)... [facility] 09-20-2022 History of Present illness Narrative NAME: Jannette Gupta [facility] NO: [id number] REASON FOR VISIT Jannette Gupta is a [...] changes Follow up in 3-6 months Corinne DeL eon MD, MD September 19, 2022 4:56 PM documented in this encounter [facility] 09-13-2022 Miscellaneous Notes The following approved [...] refills Last labs-02/07/21 documented in this encounter [facility] 08-30-2022 Nurse Note Arrived in phase II via cart. Left lateral position. Sedated, but responds to verbal stimuli. Color normal; skin warm and dry. Respirations wnl and unlabored. Abdomen soft and with + bowel sounds in quads X 4. Patient resting comfortably. Elisa Harp RN documented in this encounter [facility] 08-30-2022 History and physical note UPDATED [...] November 21, 2016 Cerclage being placed by [facility] on 11/22/16. On vaginal progesterone. Jessi [...] Rachel Puentes MD documented in this encounter [facility] 08-28-2022 Miscellaneous Notes Miralax/Dulcolax bowel prep [...] Ros Wagner LPN documented in this encounter [facility] 08-24-2022 Miscellaneous Notes Noted, agree with [...] Had Hysterectomy in April Protocols used: Rectal [id number] TC patient in regards to [employer] message. Left message for patient to call back and speak with a triage nurse regarding blood in stool. Mgada Rothman RN documented in this encounter [facility] 08-14-2022 Miscellaneous Notes PDMP website checked [...] Faye Harper MA documented in this encounter [facility] 07-12-2022 Miscellaneous Notes PDMP website checked and validated. All prescriptions have been APPROPRIATELY filled. No suspicious activity was identified. 07/12/2022 by Josesito Levi APRN.HOME The following approved medication [...] Lilly Rai LPN documented in this encounter [facility] 07-11-2022 Miscellaneous Notes Patient has been identified by name and date of : Yes Patient phones for refill(s): Requested Prescriptions Pending Prescriptions Disp Refills topiramate (TOPAMAX) 50 mg tablet 60 tablet 1 Sig: Take 1 tablet by mouth twice daily. Date of last office visit in primary care: 01/27/2022 Please advise. Thank you. iLlly Rai LPN documented in this encounter [facility] 06-15-2022 Miscellaneous Notes The following approved [...] French CNP. Bharati--05/17/22 Nov--nothing scheduled Last refill--05/17/22 with -0 refills Last labs--02/07/21 documented in this encounter [facility] 05-17-2022 History of Present illness Narrative [...] Meghan French APRN.CNP documented in this encounter [facility] 04-27-2022 Miscellaneous Notes Called and left a detailed voicemail notifying patient of providers message. Hospital phone number was left in case patient had any questions. Marzena Zarco, RN The following approved medication requests have been transmitted electronically. Requested Prescriptions Signed Prescriptions Disp Refills amphetamine-dextroamphetamine XR (ADDERALL XR) 30 mg 24 hr capsule 30 capsule 0 Sig: Take 1 capsule by mouth once daily for 30 days. Authorizing Provider: MODESTO ZHU DO Pt would like to try adderall. Please send to [facility] in [place]. Ana Galan Ma Please call Jannette and [...] message and advise documented in this encounter [facility] 04-20-2022 Miscellaneous Notes See TE 04/20 Ana Galan Ma documented in this encounter [facility] 04-12-2022 Miscellaneous Notes Please see TE 04/12 Ana Galan Ma documented in this encounter [facility] 03-22-2022 History of Present illness Narrative [...] NOTE This is a virtual visit using [employer] video visit. It required patient-provider interaction for [...] November 21, 2016 Cerclage being placed by [facility] on 11/22/16. On vaginal progesterone. Jessi [...] which included preparing to see the patient, [id number] patient care, completing clinical documentation, obtaining and/or reviewing separately obtained history, and performing a medically appropriate examination Modesto Zhu DO documented in this encounter [facility] 02-27-2022 History of Present illness Narrative [...] NOTE This is a virtual visit using [employer] video visit. It required patient-provider interaction for [...] November 21, 2016 Cerclage being placed by [facility] on 11/22/16. On vaginal progesterone. Jessi [...] which included preparing to see the patient, [id number] patient care, completing clinical documentation, obtaining and/or reviewing separately obtained history, performing a medically appropriate examination, and ordering medications, tests, or procedures Modesto Zhu DO documented in this encounter [facility] 02-10-2022 Miscellaneous Notes PDMP website checked and validated. All prescriptions have been APPROPRIATELY filled. No suspicious activity was identified. 02/10/2022 by Josesito Price APRN.[facility]ACE [facility]LLER The following approved medication requests have been transmitted electronically. Requested Prescriptions Pending Prescriptions Disp Refills amphetamine-dextroamphetamine XR (ADDERALL XR) 25 mg 24 hr capsule 30 capsule 0 Sig: Take 1 capsule by mouth once daily for 30 days. Josesito Price APRN.[facility]ACE ROLLER Patient phones requesting refills as follows: Requested Prescriptions Pending Prescriptions Disp Refills amphetamine-dextroamphetamine XR (ADDERALL XR) 25 mg 24 hr capsule 30 capsule 0 Sig: Take 1 capsule by mouth once daily for 30 days. BHARATI-01/27/22 Labs-01/16/21 NOV-02/24/22 med filled 01/12/22 Please review and advise. Frances Ochoa LPN documented in this encounter [facility] 01-12-2022 Miscellaneous Notes PDMP website checked [...] Ana Galan Ma documented in this encounter [facility] 11-30-2021 Miscellaneous Notes Mailed to patient home address Ana Galan Ma [place] mail patient Adult ADD/ADHD questionnaire. Meghan French APRN.CNP documented in this encounter [facility] 11-30-2021 History of Present illness Narrative VIRTUAL VISIT PROGRESS NOTE This is a virtual visit using [employer] video visit. It required patient-provider interaction for the medical decision making as documented below. Jannette Gupta is a 36 year old female seen for medication/ADHD. Today: Would like to get an opinion about ADHD. Has friends with this dx and feels like she may have this. At work, has difficulty staying on task. Works for [employer], and talks to a lot of other [...] medication. She will notify the office via [employer] with update. May consider increasing/changing dose at that point. Mailing out questionnaire for adult ADHD that patient will return via [employer] message. Meghan French APRN.HOME PDMP website checked and validated. All prescriptions have been APPROPRIATELY filled. No suspicious activity was identified. 11/30/2021 by Meghan French CNP. documented in this encounter [facility] 10-20-2021 Miscellaneous Notes Last office visit: 06/29/21 F/u scheduled: none Shelbie Burns Ma documented in this encounter [facility] 09-14-2021 Miscellaneous Notes Pt notified she would need appt to discuss ADHD. Advised her to call in and schedule. Shelbie Burns Ma documented in this encounter [facility] 09-12-2021 Miscellaneous Notes Agree with below. Meghan French APRN.HOME Advised patient to schedule appt for concern Ana Galan Ma documented in this encounter [facility] 02-17-2021 Miscellaneous Notes Phone call placed patient reported x2 moles located (LT) abd slightly raised, appointment scheduled w/ Dr. Zhu 05/04/2021 for possible removal if needed. Angie Bain LPN documented in this encounter [facility] documented as of this encounter (statuses as of 09/12/2021) [facility] History of Past illness Narrative* Problem Noted Date Resolved Date Short cervix during in second trimeste r 11/16/2016 07/07/2019 Overview: November 21, 2016 Cerclage being placed by [facility] on 11/22/16. On vaginal progesterone. Jessi [...] of this encounter (statuses as of 09/14/2021) [facility] of Past [facility] Narrative* Problem [...] of this encounter (statuses as of 10/20/2021) [facility] of [facility] Narrative* Problem [...] of this encounter (statuses as of 11/15/2021) [facility] Narrative* Problem [...] of this encounter (statuses as of 11/30/2021) [facility] Narrative* Problem [...] of this encounter (statuses as of 11/30/2021) [facility] N[facility]ative* Problem [...] of this encounter (statuses as of 01/12/2022) [facility] N[facility]ative* Problem [...] of this encounter (statuses as of 02/10/2022) [facility] N[facility]ative* Problem [...] of this encounter (statuses as of 02/23/2022) [facility] N[facility]ative* Problem [...] of this encounter (statuses as of 02/27/2022) [facility]ative* Problem [...] of this encounter (statuses as of 03/22/2022) [facility] Narrative* Problem Noted Date Resolved Date Short cervix during in second trimeste r 11/16/2016 07/07/2019 Overview: November 21, 2016 Cerclage being placed by [facility] on 11/22/16. On vaginal progesterone. Jessi [...] of this encounter (statuses as of 04/12/2022) [facility] Narrative* Problem Noted Date Resolved Date Short cervix during in second trimeste r 11/16/2016 07/07/2019 Overview: November 21, 2016 Cerclage being placed by [facility] on 11/22/16. On vaginal progesterone. Jessi [...] of this encounter (statuses as of 04/20/2022) [facility] of [facility] Narrative* Problem [...] MD October 21, 2013 Pt in hospital 5 overnight for TPTL, spotting, increased BP. No [...] of this encounter (statuses as of 04/27/2022) [facility] N[facility]* Problem [...] of this encounter (statuses as of 05/17/2022) [facility]* Problem [...] of this encounter (statuses as of 06/16/2022) [facility]* Problem [...] of this encounter (statuses as of 07/12/2022) [facility]* Problem Noted Date Resolved Date Short cervix during in second trimeste r 11/16/2016 07/07/2019 Overview: November 21, 2016 Cerclage being placed by [facility] on 11/22/16. On vaginal progesterone. Jessi iPerre MD Cerclage placed on 11/22 -- vaginal [...] of this encounter (statuses as of 07/12/2022) [facility] N[facility]* Problem [...] of this encounter (statuses as of 08/14/2022) [facility]* Problem [...] of this encounter (statuses as of 08/24/2022) [facility]* Problem [...] of this encounter (statuses as of 08/28/2022) [facility]* Problem [...] of this encounter (statuses as of 08/28/2022) [facility]* Problem [...] of this encounter (statuses as of 08/30/2022) [facility]* Problem [...] of this encounter (statuses as of 09/14/2022) [facility]* Problem [...] of this encounter (statuses as of 09/24/2022) [facility]* Problem [...] of this encounter (statuses as of 09/29/2022) [facility]* Problem [...] of this encounter (statuses as of 12/15/2022) [facility]* Problem [...] of this encounter (statuses as of 01/25/2023) [facility]* Problem [...] of this encounter (statuses as of 01/26/2023) [facility]* Problem [...] of this encounter (statuses as of 02/15/2023) [facility]* Problem [...] of this encounter (statuses as of 03/20/2023) [facility]* Problem Noted Date Diagnosed Date Resolved Date Short cervix during pregnanc y in second trimester 11/16/2016 07/07/2019 Overview: November 21, 2016 Cerclage being placed by [facility] on 11/22/16. On vaginal progesterone. Jessi [...] of this encounter (statuses as of 03/21/2023) [facility] N[facility]ative* Problem [...] trimester 12/17/2013 07/07/2019 Abnormal maternal glucose to [facility], antepartum 12/05/2013 02/04/2014 High-risk supervision 12/02/2013 01/07/2014 [...] of this encounter (statuses as of 03/28/2023) [facility] N[facility]* Problem [...] of this encounter (statuses as of 04/15/2023) [facility]* Problem Noted Date Diagnosed Date Resolved Date Short cervix during pregnanc y in second trimester 11/16/2016 07/07/2019 Overview: November 21, 2016 Cerclage being placed by [facility] on 11/22/16. On vaginal progesterone. Jessi [...] of this encounter (statuses as of 04/18/2023) [facility] N[facility]* Problem Noted Date Diagnosed Date Resolved Date Short cervix during pregnanc y in second trimester 11/16/2016 07/07/2019 Overview: November 21, 2016 Cerclage being placed by [facility] on 11/22/16. On vaginal progesterone. Jessi [...] of this encounter (statuses as of 05/19/2023) [facility] N[facility]* Problem [...] of this encounter (statuses as of 05/21/2023) [facility]* Problem [...] of this encounter (statuses as of 05/23/2023) [facility]* Problem [...] as of this encounter (statuses as of 08/08/2023) [facility]* Problem [...] as of this encounter (statuses as of 08/08/2023) [facility] Diagnosis Attention deficit disorder (ADD) in adult- Primary Disorganized thought process Other symptoms involving nervous and musculoskeletal systems Difficulty with household tasks [facility] Diagnosis Attention deficit disorder (ADD) in adult- Primary [facility] Diagnosis Attention deficit disorder (ADD) in adult [facility] Diagnosis Obesity, Class II, BMI 35-39.9 Obesity, unspecified IFG (impaired fasting glucose) Impaired fasting glucose Attention deficit disorder (ADD) in adult [facility] Diagnosis Obesity, Class II, BMI 35-39.9- Primary Obesity, unspecified Attention deficit disorder (ADD) in adult IFG (impaired fasting glucose) Impaired fasting glucose [facility] Diagnosis Attention deficit disorder (ADD) in adult- Primary [facility] Diagnosis Attention deficit disorder (ADD) in adult- Primary [facility] Diagnosis Attention deficit disorder (ADD) in adult [facility] Diagnosis Obesity, Class II, BMI 35-39.9 Obesity, unspecified [facility] Diagnosis Attention deficit disorder (ADD) in adult [facility] Diagnosis Attention deficit disorder (ADD) in adult [facility] Diagnosis Attention deficit disorder (ADD) in adult [facility] Diagnosis Indeterminate colitis- Primary Other and unspecified noninfectious gastroenteritis and colitis [facility] Diagnosis Attention deficit disorder (ADD) in adult [facility] Diagnosis Attention deficit disorder (ADD) in adult- Primary documented in this encounter [facility] note* Diagnosis Attention deficit disorder (ADD) in adult documented in this encounter [facility] note* Diagnosis Attention deficit disorder (ADD) in adult- Primary documented in this encounter [facility] note* Diagnosis Obesity, Class II, BMI 35-39.9 Obesity, unspecified documented in this encounter [facility] note* Diagnosis Change in bowel movement- Primary Other symptoms involving digestive system Rectal bleeding Hemorrhage of rectum and anus Constipation, unspecified constipation type Family history of Crohn's disease Family history of other digestive disorders documented in this encounter [facility] note* Diagnosis Attention deficit disorder (ADD) in adult documented in this encounter [facility] note* Diagnosis Attention deficit disorder (ADD) in adult documented in this encounter [facility] note* Diagnosis Attention deficit disorder (ADD) in adult documented in this encounter [facility] note* Diagnosis Attention deficit disorder (ADD) in adult documented in this encounter [facility] course Narrative No data available for this section [facility] Reason for referral (narrative)* Outpatient Procedure (Routine) - Closed Specialty Diagnoses / Procedures Referred By Abhijeet swanson Referred To Contact [facility] Diagnoses Constipation, unspecified constipation type Family history of Crohn's disease Procedures COLONOSCOPY DIAGNOSTIC COLONOSCOPY FLX DX W/COLLJ SPEC WHEN Meghan Kim APRN.CNP [address] [place] [address] [place] [address] Referral ID Status Reason Start Date Expiration Date V isits Requested Visits Authorized [id number] Closed Auto-Generate d Referral 08/23/2022 08/24/2023 1 1 [facility] for visit Narrative* Outpatient Procedure (Routine) - Closed Specialty Diagnoses / Procedures Referred By Abhijeet swanson Referred To Contact [facility] Diagnoses Constipation, unspecified constipation type Family history of Crohn's disease Procedures COLONOSCOPY DIAGNOSTIC COLONOSCOPY FLX DX W/COLLJ SPEC WHEN Meghan Kim APRN.CNP [address] [place] [address] [facility] [address] [place] [address] Referral ID Status Reason Start Date Expiration Date V isits Requested Visits Authorized [id number] Closed Auto-Generate d Referral 08/23/2022 08/24/2023 1 1 [facility] Summary Purpose Family History No Family [...] (impaired fasting glucose) Modesto Zhu, DO [address] [place] [address] Referral ID Status Reason Start Date Expiration Date Visits Re quested Visits Authorized [id number] Closed 1 1 Specialty Diagnoses / Procedures Referred By Contac t Referred To Contact Gastroenterology Procedures CONSULT TO GASTROENTEROLOGY OFFICE/OUTPATIENT [facility] 60-74 MINUTES Rachel Puentes MD [address] [place] [address] Referral ID Status Reason Start Date Expiration Date Visits Requested Visits Authorized [id number] Authorized PCP Requested Referral 09/13/2022 08/30/2023 1 1 Specialty Diagnoses / Procedures Referred By Contac t Referred To Contact Diagnoses Attention deficit disorder (ADD) in adult Josesito Levi APRN.LACE ROLLER [address] [place] [address] Referral ID Status Reason Start Date Expiration Date V isits Requested Visits Authorized [id number] Pending Review 1 1 Medications Administered Section [...] DATE CREATED AUTHOR AUTHOR'S ORGANIZ ATION 05/25/2023 [facility] DATE CREATED AUTHOR AUTHOR'S ORGANIZ ATION 07/29/2023 [facility] ([place]) Source Comments (unrecognize d section and content) In the event this informatio n is protected by the Federal Confidentiality of Alcohol and Drug Abuse Patient Records regulations: The Federal rules restrict any use of the information to criminally investigate or prosecute any alcohol or drug abuse patient.[facility]In the event this information is protected by the Federal Confidentiality of Alcohol and Drug Abuse Patient Records regulations: The Federal rules restrict any use of the information to criminally investigate or prosecute any alcohol or drug abuse patient.[facility] HospitalIn the event this information is protected by the Federal Confidentiality of Alcohol and Drug Abuse Patient Records regulations: The Federal rules restrict any use of the information to criminally investigate or prosecute any alcohol or drug abuse patient.[facility] HospitalIn the event this information is protected by the Federal Confidentiality of Alcohol and Drug Abuse Patient Records regulations: The Federal rules restrict any use of the information to criminally investigate or prosecute any alcohol or drug abuse patient.[facility] HospitalIn the event this information is protected by the Federal Confidentiality of Alcohol and Drug Abuse Patient Records regulations: The Federal rules restrict any use of the information to criminally investigate or prosecute any alcohol or drug abuse patient.[facility] HospitalIn the event this information is protected by the Federal Confidentiality of Alcohol and Drug Abuse Patient Records regulations: The Federal rules restrict any use of the information to criminally investigate or prosecute any alcohol or drug abuse patient.[facility] HospitalIn the event this information is protected by the Federal Confidentiality of Alcohol and Drug Abuse Patient Records regulations: The Federal rules restrict any use of the information to criminally investigate or prosecute any alcohol or drug abuse patient.[facility] HospitalIn the event this information is protected by the Federal Confidentiality of Alcohol and Drug Abuse Patient Records regulations: The Federal rules restrict any use of the information to criminally investigate or prosecute any alcohol or drug abuse patient.[facility] HospitalIn the event this information is protected by the Federal Confidentiality of Alcohol and Drug Abuse Patient Records regulations: The Federal rules restrict any use of the information to criminally investigate or prosecute any alcohol or drug abuse patient.[facility] HospitalIn the event this information is protected by the Federal Confidentiality of Alcohol and Drug Abuse Patient Records regulations: The Federal rules restrict any use of the information to criminally investigate or prosecute any alcohol or drug abuse patient.[facility] HospitalIn the event this information is protected by the Federal Confidentiality of Alcohol and Drug Abuse Patient Records regulations: The Federal rules restrict any use of the information to criminally investigate or prosecute any alcohol or drug abuse patient.[facility] HospitalIn the event this information is protected by the Federal Confidentiality of Alcohol and Drug Abuse Patient Records regulations: The Federal rules restrict any use of the information to criminally investigate or prosecute any alcohol or drug abuse patient.[facility] HospitalIn the event this information is protected by the Federal Confidentiality of Alcohol and Drug Abuse Patient Records regulations: The Federal rules restrict any use of the information to criminally investigate or prosecute any alcohol or drug abuse patient.[facility] HospitalIn the event this information is protected by the Federal Confidentiality of Alcohol and Drug Abuse Patient Records regulations: The Federal rules restrict any use of the information to criminally investigate or prosecute any alcohol or drug abuse patient.[facility] HospitalIn the event this information is protected by the Federal Confidentiality of Alcohol and Drug Abuse Patient Records regulations: The Federal rules restrict any use of the information to criminally investigate or prosecute any alcohol or drug abuse patient.[facility] HospitalIn the event this information is protected by the Federal Confidentiality of Alcohol and Drug Abuse Patient Records regulations: The Federal rules restrict any use of the information to criminally investigate or prosecute any alcohol or drug abuse patient.[facility] HospitalIn the event this information is protected by the Federal Confidentiality of Alcohol and Drug Abuse Patient Records regulations: The Federal rules restrict any use of the information to criminally investigate or prosecute any alcohol or drug abuse patient.[facility] HospitalIn the event this information is protected by the Federal Confidentiality of Alcohol and Drug Abuse Patient Records regulations: The Federal rules restrict any use of the information to criminally investigate or prosecute any alcohol or drug abuse patient.[facility] HospitalIn the event this information is protected by the Federal Confidentiality of Alcohol and Drug Abuse Patient Records regulations: The Federal rules restrict any use of the information to criminally investigate or prosecute any alcohol or drug abuse patient.[facility] HospitalIn the event this information is protected by the Federal Confidentiality of Alcohol and Drug Abuse Patient Records regulations: The Federal rules restrict any use of the information to criminally investigate or prosecute any alcohol or drug abuse patient.[facility] HospitalIn the event this information is protected by the Federal Confidentiality of Alcohol and Drug Abuse Patient Records regulations: The Federal rules restrict any use of the information to criminally investigate or prosecute any alcohol or drug abuse patient.[facility] HospitalIn the event this information is protected by the Federal Confidentiality of Alcohol and Drug Abuse Patient Records regulations: The Federal rules restrict any use of the information to criminally investigate or prosecute any alcohol or drug abuse patient.[facility] HospitalIn the event this information is protected by the Federal Confidentiality of Alcohol and Drug Abuse Patient Records regulations: The Federal rules restrict any use of the information to criminally investigate or prosecute any alcohol or drug abuse patient.[facility] HospitalIn the event this information is protected by the Federal Confidentiality of Alcohol and Drug Abuse Patient Records regulations: The Federal rules restrict any use of the information to criminally investigate or prosecute any alcohol or drug abuse patient.[facility] HospitalIn the event this information is protected by the Federal Confidentiality of Alcohol and Drug Abuse Patient Records regulations: The Federal rules restrict any use of the information to criminally investigate or prosecute any alcohol or drug abuse patient.[facility] HospitalIn the event this information is protected by the Federal Confidentiality of Alcohol and Drug Abuse Patient Records regulations: The Federal rules restrict any use of the information to criminally investigate or prosecute any alcohol or drug abuse patient.[facility] HospitalIn the event this information is protected by the Federal Confidentiality of Alcohol and Drug Abuse Patient Records regulations: The Federal rules restrict any use of the information to criminally investigate or prosecute any alcohol or drug abuse patient.[facility] HospitalIn the event this information is protected by the Federal Confidentiality of Alcohol and Drug Abuse Patient Records regulations: The Federal rules restrict any use of the information to criminally investigate or prosecute any alcohol or drug abuse patient.[facility] HospitalIn the event this information is protected by the Federal Confidentiality of Alcohol and Drug Abuse Patient Records regulations: The Federal rules restrict any use of the information to criminally investigate or prosecute any alcohol or drug abuse patient.[facility] HospitalIn the event this information is protected by the Federal Confidentiality of Alcohol and Drug Abuse Patient Records regulations: The Federal rules restrict any use of the information to criminally investigate or prosecute any alcohol or drug abuse patient.[facility] HospitalIn the event this information is protected by the Federal Confidentiality of Alcohol and Drug Abuse Patient Records regulations: The Federal rules restrict any use of the information to criminally investigate or prosecute any alcohol or drug abuse patient.[facility] HospitalIn the event this information is protected by the Federal Confidentiality of Alcohol and Drug Abuse Patient Records regulations: The Federal rules restrict any use of the information to criminally investigate or prosecute any alcohol or drug abuse patient.[facility] HospitalIn the event this information is protected by the Federal Confidentiality of Alcohol and Drug Abuse Patient Records regulations: The Federal rules restrict any use of the information to criminally investigate or prosecute any alcohol or drug abuse patient.[facility] HospitalIn the event this information is protected by the Federal Confidentiality of Alcohol and Drug Abuse Patient Records regulations: The Federal rules restrict any use of the information to criminally investigate or prosecute any alcohol or drug abuse patient.[facility] HospitalIn the event this information is protected by the Federal Confidentiality of Alcohol and Drug Abuse Patient Records regulations: The Federal rules restrict any use of the information to criminally investigate or prosecute any alcohol or drug abuse patient.[facility] HospitalIn the event this information is protected by the Federal Confidentiality of Alcohol and Drug Abuse Patient Records regulations: The Federal rules restrict any use of the information to criminally investigate or prosecute any alcohol or drug abuse patient.[facility] HospitalIn the event this information is protected by the Federal Confidentiality of Alcohol and Drug Abuse Patient Records regulations: The Federal rules restrict any use of the information to criminally investigate or prosecute any alcohol or drug abuse patient.[facility] HospitalIn the event this information is protected by the Federal Confidentiality of Alcohol and Drug Abuse Patient Records regulations: The Federal rules restrict any use of the information to criminally investigate or prosecute any alcohol or drug abuse patient.[facility] HospitalIn the event this information is protected by the Federal Confidentiality of Alcohol and Drug Abuse Patient Records regulations: The Federal rules restrict any use of the information to criminally investigate or prosecute any alcohol or drug abuse patient.[facility] HospitalIn the event this information is protected by the Federal Confidentiality of Alcohol and Drug Abuse Patient Records regulations: The Federal rules restrict any use of the information to criminally investigate or prosecute any alcohol or drug abuse patient.[facility] HospitalIn the event this information is protected by the Federal Confidentiality of Alcohol and Drug Abuse Patient Records regulations: The Federal rules restrict any use of the information to criminally investigate or prosecute any alcohol or drug abuse patient.[facility] Care Teams (unrecognized sec tion and content) Passenger Attendant Relationship Specialty Start Date End Date Modesto hZu, DO [address] [place] [address] PCP - General Family Practice 08/27/20 Passenger Attendant Relationship Specialty Start Date End Date Modesto Zhu, DO [address] [place] [address] PCP - General Family Practice 08/27/20 Passenger Attendant Relationship Specialty Start Date End Date Modesto Zhu, DO [address] [place] [address] PCP - General Family Practice 08/27/20 Passenger Attendant Relationship Specialty Start Date End Date Modesto Zhu, DO [address] [place] [address] PCP - General Family Practice 08/27/20 Passenger Attendant Relationship Specialty Start Date End Date Modesto Zhu, DO [address] [place] [address] PCP - General Family Practice 08/27/20 Passenger Attendant Relationship Specialty Start Date End Date Modesto Zhu, DO [address] [place] [address] PCP - General Family Practice 08/27/20 Passenger Attendant Relationship Specialty Start Date End Date Modesto Zhu, DO [address] [place] [address] PCP - General Family Practice 08/27/20 Passenger Attendant Relationship Specialty Start Date End Date Modesto Zhu, DO [address] [place] [address] PCP - General Family Medicine 08/27/20 Passenger Attendant Relationship Specialty Start Date End Date Modesto Zhu, DO [address] [place] [address] PCP - General Family Medicine 08/27/20 Passenger Attendant Relationship Specialty Start Date End Date Modesto Zhu, DO [address] [place] [address] PCP - General Family Medicine 08/27/20 Passenger Attendant Relationship Specialty Start Date End Date Modesto Zhu, DO [address] [place] [address] PCP - General Family Medicine 08/27/20 Passenger Attendant Relationship Specialty Start Date End Date Modesto Zhu, DO [address] [place] [address] PCP - General Family Medicine 08/27/20 Passenger Attendant Relationship Specialty Start Date End Date Modesto Zhu, DO [address] [place] [address] PCP - General Family Medicine 08/27/20 Passenger Attendant Relationship Specialty Start Date End Date Modesto Zhu, DO [address] [place] [address] PCP - General Family Medicine 08/27/20 Passenger Attendant Relationship Specialty Start Date End Date Modesto Zhu, DO [address] [place] [address] PCP - General Family Medicine 08/27/20 Passenger Attendant Relationship Specialty Start Date End Date Modesto Zhu, DO [address] [place] [address] PCP - General Family Medicine 08/27/20 Passenger Attendant Relationship Specialty Start Date End Date Modesto Zhu, DO [address] [place] [address] PCP - General Family Medicine 08/27/20 Passenger Attendant Relationship Specialty Start Date End Date Modesto Zhu DO [address] [place] [address] PCP - General Family Medicine 08/27/20 Passenger Attendant Relationship Specialty Start Date End Date Modesto Zhu DO [address] [facility] [place] [address] PCP - General Family Medicine 08/27/20 Passenger Attendant Relationship Specialty Start Date End Date Modesto Zhu DO [address] [facility] [place] [address] PCP - General Family Medicine 08/27/20 Passenger Attendant Relationship Specialty Start Date End Date Modesto Zhu DO [address] [place] [address] PCP - General Family Medicine 08/27/20 Passenger Attendant Relationship Specialty Start Date End Date Modesto Zhu DO [address] [facility] [place] [address] PCP - General Family Medicine 08/27/20 Passenger Attendant Relationship Specialty Start Date End Date Modesto Zhu DO [address] [facility] [place] [address] PCP - General Family Medicine 08/27/20 Passenger Attendant Relationship Specialty Start Date End Date Modesto Zhu DO [address] [facility] [place] [address] PCP - General Family Medicine 08/27/20 Passenger Attendant Relationship Specialty Start Date End Date Modesto Zhu DO [address] [facility] [place] [address] PCP - General Family Medicine 08/27/20 Passenger Attendant Relationship Specialty Start Date End Date Modesto Zhu DO [address] [place] [address] PCP - General Family Medicine 08/27/20 Passenger Attendant Relationship Specialty Start Date End Date Modesto Zhu, [address] [place], [place] [id number] PCP - General Family Medicine 08/27/20 Passenger Attendant Relationship Specialty Start Date End Date Modesto Zhu, [address] [place], [place] [address] PCP - General Family Medicine 08/27/20 Passenger Attendant Relationship Specialty Start Date End Date Modesto Zhu, [address] [place], [place] [address] PCP - General Family Medicine 08/27/20 Passenger Attendant Relationship Specialty Start Date End Date Modesto Zhu, DO [address] [place], [place] [address] PCP - General Family Medicine 08/27/20 Reason [...] MINUTES Rachel Puentes MD [address] [place] [address] Referral ID Status Reason Start Date Expiration Date V isits Requested Visits Authorized [id number] Closed PCP Requested Referral 09/13/2022 08/30/2023 1 1 Reason Onset Date Comments Refill Request 12/15/2022 Reason Onset Date Comments Refill Request 03/19/2023 Reason Onset Date Comments Refill Request 03/28/2023 Reason Onset Date Comments Refill Request 04/18/2023 Reason Onset Date Comments Refill Request 05/18/2023 Reason Comments Appointment Reason Comments new script for vyvanse Specialty Diagnoses / Procedures Referred By Abhijeet swanson Referred To Contact Family Medicine / [facility] DEPARTMENT Diagnoses Need to get a new rx for my vyvanse Procedures VIDEO PRIMARY EST Self Marley Moncada, PHOTOCOMPOSITION KEYBOARD OPERATOR.[address] [place] [address] Referral ID Status Reason Start Date Expiration Date V isits Requested Visits Authorized [id number] New Request 05/21/2023 08/20/2023 99 99 FOR [...] BE BASED ON THE PRIMARY CLINICAL RECORDS. [facility] [employer] [facility]. provides no warranty or guarantee of the accuracy or completeness of information in this document.
== END | disposition home or self-care (01) ==
LOC: US 16:28
PROVIDERS: PCP Student in an Organized Health Care Education/Training Program; Referring Provider Urology; Visit Provider Urology
DX: N13.30 Unspecified hydronephrosis (principal); N20.1 Calculus of ureter
CPT/HCPCS: 76770

== ENCOUNTER → 2023-08-30 | Outpatient (CLI) | payer OTHER, SELFPAY ==
--- NOTE | 2023-08-30 13:21 | CT_ITS ---
STUDY: CT ABDOMEN AND PELVIS WITHOUT CONTRAST REASON FOR EXAM: Female, 38 years old. RENAL STONE. Abdominal pain. RADIATION DOSAGE (If Supplied By Facility): CTDIvol = ( 7.34 ) mGy, DLP = ( 375.82 ) mGycm TECHNIQUE: Transaxial images were obtained from the dome of the diaphragm to the symphysis pubis without oral contrast, and without intravenous contrast. Sagittal and coronal images were reconstructed. Individualized dose optimization techniques were used for this CT. COMPARISON: Comparison is made with prior study dated July 31, 2023. FINDINGS: The visualized lung bases are unremarkable. The visualized portions of the heart are within normal limits. Normal liver. The gallbladder is contracted. Normal spleen. Normal pancreas. Normal bilateral adrenal glands. 2 mm nonobstructive calculus in the upper pole calyx of the right kidney punctate calculus in the lower pole calyx of the right kidney. The previously seen right double-J stent catheter has been removed. 2 mm calculus in the lower pole calyx of the left kidney. Mild bilateral hydronephrosis. Normal visualized stomach. Normal small intestine. Normal colon. There are surgical clips in the region of the appendix consistent with a prior appendectomy. Normal abdominal aorta. Normal inferior vena cava. Normal retroperitoneum. Normal urinary bladder. Normal abdominal wall. Normal osseous structures. CT/Abdomen/Pelvis without Cont IMPRESSION: Small bilateral nonobstructive intrarenal calculi. There is been removal of the right sided double-J stent catheter. Electronically Signed: Sylvester Banda MD at 16:13 EDT ,
== END | disposition home or self-care (01) ==
LOC: CT 13:20
PROVIDERS: PCP Student in an Organized Health Care Education/Training Program; Referring Provider Urology; Visit Provider Urology
DX: N20.0 Calculus of kidney (principal); N13.30 Unspecified hydronephrosis; R10.9 Unspecified abdominal pain
CPT/HCPCS: 74176

== ENCOUNTER → 2023-09-14 | Outpatient (CLI) | payer OTHER, SELFPAY ==
--- NOTE | 2023-09-14 09:57 | NM_ITS ---
CLINICAL: 38-year-old female with history of nephrolithiasis and right stent placement and subsequent removal. 99m Tc MAG3 DIURETIC RENAL SCINTIGRAPHY COMPARISON: None available FINDINGS: Following the intravenous administration of 11.5 mCi of 99m Tc MAG3, renal images reveal: 1. The flow study demonstrates symmetric-normal arterial phase solution of the radiopharmaceutical to the bilateral kidneys. 2. Immediate static delayed nephrogram images depict prompt and homogeneous radiotracer distribution by the renal parenchyma of both renal units. Collecting structure visualization is noted at approximately 4 minutes post tracer injection. Washout appears qualitatively normal and both kidneys. Persistent collecting system activity is demonstrated in the right and left renal units prior to furosemide administration. Persistent prominent uptake. 3. The bbzgd-ud-[id number] ratio of total renal parenchymal function was calculated to be 40/60. Furosemide 10 mg was administered intravenously. The post Lasix T ? washout of the bilateral kidney collecting systems was calculated to be < 10 minutes, (normal < 10 minutes). NM/Renal Scan w/ Pharm Intervent IMPRESSION: 1. There is scintigraphic evidence of relative preservation of bilateral renal parenchymal cortical function. 2. The prominent bilateral kidney collecting systems demonstrate a normal physiologic response to furosemide administration negating the presence of significant mechanical and/or functional obstruction. Electronically Signed: Shay Dc DO at 0:06 EDT ,
== END | disposition home or self-care (01) ==
LOC: NM 09:54
PROVIDERS: PCP Student in an Organized Health Care Education/Training Program; Referring Provider Urology; Visit Provider Urology
DX: N13.30 Unspecified hydronephrosis (principal); N20.1 Calculus of ureter
CPT/HCPCS: 78708; A9562; J1940